=== PATIENT | male | born 1960 | race Caucasian/White ===

== ENCOUNTER → 2017-05-03 07:40 | Outpatient (CLI) | payer OTHER, SELFPAY ==
[2017-05-03 08:43] LABS: ALB/GLOB Ratio 1.1 RATIO (0.9-2.4); AST(SGOT) 62 U/L (15-37); Alanine Aminotransfer ALT/SGPT 102 U/L (16-61); Albumin, Serum 3.9 g/dL (3.2-5.0); Alkaline Phosphatase 73 U/L (45-117); Anion Gap 9 (5-15); BUN 18 mg/dL (7-18); Calcium,Total 8.6 mg/dL (8.5-10.1); Chloride 106 mmol/L (98-107); Cholesterol 151 mg/dL (200); Creatinine, Serum 1.06 mg/dL (0.70-1.30); EST Glomerular Filtration Rate 77 mL/min (>60); Est Glom Filt Rate - Afr Amer 93 mL/min (>60); Globulin 3.4 g/dL (2.2-4.2); Glucose 148 mg/dL (74-106); High Density Lipoprotein 43 mg/dL; Protein, Total 7.3 g/dL (6.4-8.2); Sodium Level 139 mmol/L (136-145); Triglycerides 149 mg/dL; Very Low Density Lipoprotein 30 mg/dL (5-40)
[2017-05-03 08:46] LABS: Hemoglobin A1c 6.3 % (4.2-6.3)
== END ==
PROVIDERS: Family Provider Family Medicine; PCP Family Medicine; Visit Provider Family Medicine
DX: E11.9 Type 2 diabetes mellitus without complications (principal); E78.1 Pure hyperglyceridemia; R79.89 Other specified abnormal findings of blood chemistry
CPT/HCPCS: 36415; 80053; 80061; 83036

== ENCOUNTER → 2017-08-23 07:38 | Outpatient (CLI) | payer BC, SELFPAY ==
[2017-08-23 08:23] LABS: Absolute Lymphocyte Count 1.71 X10^3/ul (0.83-4.51); Absolute Neutrophil Count 3.5 X10^3/uL (2.0-7.7); Basophil# 0.06 X10^3/uL; Basophil% 0.9 % (0-1); Eosinophil# 0.48 X10^3/uL; Eosinophils% 7.5 % (0-5); Hematocrit 46.5 % (40-54); Hemoglobin 16.1 g/dl (13.0-16.5); Lymphocyte # 1.71 X10^3/ul (4.0); Lymphocyte % 26.8 % (19-41); Mean Corp Hgb Conc 34.6 g/gl (32-36); Mean Corpuscular Hgb 31.1 pg (27.0-32.0); Mean Corpuscular Volume 89.9 fL (80-94); Mean Platelet Vol. 11.3 fl (6.2-12.0); Monocyte% 9.4 % (0-10); Neutrophil # 3.49 X10^3/uL (2.7-7.7); Neutrophil % 54.9 % (47-70); Platelet Count 187 K/mm3 (150-450); RBC Distribution Width CV 12.7 % (11.6-14.6); RBC Distribution Width SD 41.6 fl (35.1-43.9); Red Blood Count 5.17 M/mm3 (4.6-6.2); White Blood Count 6.4 K/mm3 (4.4-11.0)
[2017-08-23 08:25] LABS: POSITIVE COUNT NO; POSITIVE DIFFERENTIAL NO; POSITIVE MORPHOLOGY NO
[2017-08-23 08:38] LABS: Hemoglobin A1c 6.9 % (4.2-6.3)
[2017-08-23 08:40] LABS: Microalbumin:Creatinine Ratio 62.9 mg/g CRE (<30 mg/g CRE)
[2017-08-23 08:54] LABS: ALB/GLOB Ratio 1.1 RATIO (0.9-2.4); AST(SGOT) 63 U/L (15-37); Alanine Aminotransfer ALT/SGPT 85 U/L (16-61); Albumin, Serum 3.9 g/dL (3.2-5.0); Alkaline Phosphatase 73 U/L (45-117); Anion Gap 10 (5-15); BUN 12 mg/dL (7-18); BUN/Creat Ratio 11.1 RATIO (10-20); Calcium,Total 8.7 mg/dL (8.5-10.1); Chloride 103 mmol/L (98-107); Cholesterol 152 mg/dL (200); Creatinine, Serum 1.08 mg/dL (0.70-1.30); EST Glomerular Filtration Rate 75 mL/min (>60); Est Glom Filt Rate - Afr Amer 91 mL/min (>60); Globulin 3.6 g/dL (2.2-4.2); Glucose 144 mg/dL (74-106); High Density Lipoprotein 43 mg/dL; Protein, Total 7.5 g/dL (6.4-8.2); Sodium Level 138 mmol/L (136-145); T4 Free Direct 1.02 ng/dL (0.76-1.46); Triglycerides 181 mg/dL; Very Low Density Lipoprotein 36 mg/dL (5-40)
== END ==
PROVIDERS: Family Provider Family Medicine; PCP Family Medicine; Visit Provider Family Medicine
DX: E11.9 Type 2 diabetes mellitus without complications (principal); E78.1 Pure hyperglyceridemia; E03.9 Hypothyroidism, unspecified; R80.9 Proteinuria, unspecified
CPT/HCPCS: 36415; 80053; 80061; 82043; 82570; 83036; 84439; 84443; 85025

== ENCOUNTER → 2018-03-28 07:40 | Outpatient (CLI) | payer BC, SELFPAY ==
[2018-03-28 08:12] LABS: Absolute Lymphocyte Count 1.85 X10^3/ul (0.83-4.51); Absolute Neutrophil Count 3.3 X10^3/uL (2.0-7.7); Basophil# 0.05 X10^3/uL; Basophil% 0.8 % (0-1); Eosinophil# 0.32 X10^3/uL; Hematocrit 48.2 % (40-54); Hemoglobin 16.3 g/dl (13.0-16.5); Lymphocyte # 1.85 X10^3/ul (4.0); Lymphocyte % 29.2 % (19-41); Mean Corp Hgb Conc 33.8 g/gl (32-36); Mean Corpuscular Hgb 31.2 pg (27.0-32.0); Mean Corpuscular Volume 92.2 fL (80-94); Mean Platelet Vol. 11.2 fl (6.2-12.0); Monocyte# 0.78 X10^3/uL; Monocyte% 12.3 % (0-10); Neutrophil # 3.32 X10^3/uL (2.7-7.7); Neutrophil % 52.4 % (47-70); POSITIVE COUNT NO; POSITIVE DIFFERENTIAL NO; POSITIVE MORPHOLOGY NO; Platelet Count 184 K/mm3 (150-450); RBC Distribution Width CV 12.6 % (11.6-14.6); RBC Distribution Width SD 42.3 fl (35.1-43.9); Red Blood Count 5.23 M/mm3 (4.6-6.2); White Blood Count 6.3 K/mm3 (4.4-11.0)
[2018-03-28 08:39] LABS: Microalbumin,Random Urine 97.5 mg/L (NO RANGE EST.); Microalbumin:Creatinine Ratio 51.9 mg/g CRE (<30 mg/g CRE)
[2018-03-28 08:43] LABS: ALB/GLOB Ratio 1.1 RATIO (0.9-2.4); AST(SGOT) 73 U/L (15-37); Alanine Aminotransfer ALT/SGPT 108 U/L (16-61); Albumin, Serum 3.9 g/dL (3.2-5.0); Alkaline Phosphatase 77 U/L (45-117); Anion Gap 9 (5-15); BUN 15 mg/dL (7-18); BUN/Creat Ratio 13.6 RATIO (10-20); Calcium,Total 8.8 mg/dL (8.5-10.1); Chloride 106 mmol/L (98-107); EST Glomerular Filtration Rate 73 mL/min (>60); Est Glom Filt Rate - Afr Amer 88 mL/min (>60); Globulin 3.5 g/dL (2.2-4.2); Glucose 158 mg/dL (74-106); Potassium 4.6 mmol/L (3.5-5.1); Protein, Total 7.4 g/dL (6.4-8.2); Sodium Level 142 mmol/L (136-145); T4 Free Direct 0.88 ng/dL (0.76-1.46); Thyroid Stim Hormone (TSH) 3.46 uIU/mL (0.358-3.74)
== END ==
PROVIDERS: Family Provider Family Medicine; PCP Family Medicine; Referring Provider Family Medicine; Visit Provider Family Medicine
DX: E11.9 Type 2 diabetes mellitus without complications (principal); E03.9 Hypothyroidism, unspecified; R80.9 Proteinuria, unspecified; K76.0 Fatty (change of) liver, not elsewhere classified
CPT/HCPCS: 36415; 80053; 82043; 82570; 84439; 84443; 85025

== ENCOUNTER → 2018-10-07 | Outpatient (CLI) | payer BC, SELFPAY ==
[2018-10-07 17:32] LABS: Thyroid Stim Hormone (TSH) 2.33 uIU/mL (0.358-3.74)
== END | disposition home or self-care (01) ==
LOC: BFHLAB 15:49
PROVIDERS: Family Provider Family Medicine; PCP Family Medicine; Visit Provider Family Medicine
DX: E03.9 Hypothyroidism, unspecified (principal)
CPT/HCPCS: 36415; 84443

== ENCOUNTER → 2019-03-31 15:59 | Outpatient (CLI) | payer BC, SELFPAY ==
[2019-03-31 17:28] LABS: Absolute Lymphocyte Count 2.05 X10^3/uL (0.83-4.51); Basophil# 0.07 X10^3/uL; Basophil% 0.9 % (0-1); Eosinophil# 0.31 X10^3/uL; Eosinophils% 4.2 % (0-5); Hematocrit 45.9 % (40-54); Hemoglobin 15.5 g/dL (13.0-16.5); Lymphocyte # 2.05 X10^3/ul (4.0); Lymphocyte % 27.7 % (19-41); Mean Corp Hgb Conc 33.8 g/dL (32-36); Mean Corpuscular Hgb 30.7 pg (27.0-32.0); Mean Corpuscular Volume 90.9 fL (80-94); Mean Platelet Vol. 11.1 fl (6.2-12.0); Monocyte# 0.92 X10^3/uL; Monocyte% 12.4 % (0-10); NRBC Flagged by Analyzer 0 % (0-5); Neutrophil % 54.1 % (47-70); Platelet Count 281 K/mm3 (150-450); RBC Distribution Width CV 11.8 % (11.6-14.6); RBC Distribution Width SD 39.3 fl (35.1-43.9); Red Blood Count 5.05 M/mm3 (4.6-6.2); White Blood Count 7.4 K/mm3 (4.4-11.0)
[2019-03-31 17:57] LABS: Microalbumin,Random Urine 43.6 mg/L (NO RANGE EST.); Microalbumin:Creatinine Ratio 116.6 mg/g CRE (<30 mg/g CRE)
[2019-03-31 17:58] LABS: ALB/GLOB Ratio 1.1 RATIO (0.9-2.4); AST(SGOT) 66 U/L (15-37); Alanine Aminotransfer ALT/SGPT 100 U/L (16-61); Albumin, Serum 4.1 g/dL (3.2-5.0); Alkaline Phosphatase 77 U/L (45-117); Anion Gap 7 (5-15); BUN 13 mg/dL (7-18); BUN/Creat Ratio 14.6 RATIO (10-20); Calcium,Total 9.3 mg/dL (8.5-10.1); Chloride 104 mmol/L (98-107); Creatinine, Serum 0.89 mg/dL (0.70-1.30); EST Glomerular Filtration Rate 93 mL/min (>60); Est Glom Filt Rate - Afr Amer 113 mL/min (>60); Globulin 3.8 g/dL (2.2-4.2); Glucose 92 mg/dL (74-106); Potassium 3.7 mmol/L (3.5-5.1); Protein, Total 7.9 g/dL (6.4-8.2); Sodium Level 138 mmol/L (136-145); Thyroid Stim Hormone (TSH) 1.57 uIU/mL (0.358-3.74)
== END ==
PROVIDERS: PCP Family Medicine; Visit Provider Family Medicine
DX: E11.9 Type 2 diabetes mellitus without complications (principal); R80.9 Proteinuria, unspecified; K76.0 Fatty (change of) liver, not elsewhere classified; E03.9 Hypothyroidism, unspecified
CPT/HCPCS: 36415; 80053; 82043; 82570; 84443; 85025

== ENCOUNTER → 2019-04-08 14:32 | Outpatient (CLI) | payer OTHER, SELFPAY ==
[2019-04-08 14:23] VITALS: BMI 32.1
--- NOTE | 2019-04-08 14:33 | RAD_ITS ---
STUDY: X-RAY - RIGHT FOOT CLINICAL: Male, 58 years old. SMASH INJURY TO FOURTH TOE TECHNIQUE: 3 view(s) of the foot. COMPARISON: Right foot FINDINGS: Studies of the right foot in 3 projections was performed and shows no evidence of fracture, dislocation, or bony destruction RAD/Foot min 3 Views IMPRESSION: Normal three-view right foot Electronically Signed: Segundo Paul, at 14:57 EST Tel , Service support ,
== END ==
PROVIDERS: PCP Family Medicine; Referring Provider Physician Assistant; Visit Provider Physician Assistant
DX: S97.121A Crushing injury of right lesser toe(s), initial encounter (principal)
CPT/HCPCS: 73630

== ENCOUNTER → 2019-04-26 15:13 | Outpatient (CLI) | payer BC, SELFPAY ==
[2019-04-19 15:16] VITALS: BMI 37.6
[2019-04-26 18:06] LABS: Anion Gap 10 (5-15); BUN 14 mg/dL (7-18); Calcium,Total 9.1 mg/dL (8.5-10.1); Chloride 102 mmol/L (98-107); Creatinine, Serum 0.82 mg/dL (0.70-1.30); EST Glomerular Filtration Rate 102 mL/min (>60); Est Glom Filt Rate - Afr Amer 123 mL/min (>60); Glucose 99 mg/dL (74-106); Potassium 3.5 mmol/L (3.5-5.1); Sodium Level 138 mmol/L (136-145)
== END ==
PROVIDERS: PCP Family Medicine; Visit Provider Family Medicine
DX: I10 Essential (primary) hypertension (principal)
CPT/HCPCS: 36415; 80048

== ENCOUNTER → 2019-10-01 16:13 | Outpatient (CLI) | payer BC, SELFPAY ==
[2019-04-19 15:16] VITALS: BMI 37.6
[2019-10-01 18:24] LABS: Microalbumin,Random Urine 64.2 mg/L (NO RANGE EST.); Microalbumin:Creatinine Ratio 37.3 mg/g CRE (<30 mg/g CRE)
== END ==
PROVIDERS: PCP Family Medicine; Visit Provider Family Medicine
DX: E11.29 Type 2 diabetes mellitus with other diabetic kidney complication (principal); R80.9 Proteinuria, unspecified
CPT/HCPCS: 82043; 82570

== ENCOUNTER → 2020-03-04 09:07 | Outpatient (CLI) | payer BC, SELFPAY ==
[2019-04-19 15:16] VITALS: BMI 37.6
[2020-03-04 09:43] LABS: Absolute Lymphocyte Count 1.57 X10^3/uL (0.83-4.51); Absolute Neutrophil Count 3.2 X10^3/uL (2.0-7.7); Basophil# 0.07 X10^3/uL; Basophil% 1.2 % (0-1); Eosinophil# 0.33 X10^3/uL; Eosinophils% 5.7 % (0-5); Hematocrit 47.6 % (40-54); Hemoglobin 16.2 g/dL (13.0-16.5); Lymphocyte # 1.57 X10^3/ul (4.0); Mean Corpuscular Hgb 30.6 pg (27.0-32.0); Mean Platelet Vol. 11.1 fl (6.2-12.0); Monocyte# 0.64 X10^3/uL; NRBC Flagged by Analyzer 0 % (0-5); Neutrophil # 3.18 X10^3/uL (2.7-7.7); Neutrophil % 54.8 % (47-70); Platelet Count 183 K/mm3 (150-450); RBC Distribution Width CV 11.9 % (11.6-14.6); RBC Distribution Width SD 39.5 fl (35.1-43.9); Red Blood Count 5.29 M/mm3 (4.6-6.2); White Blood Count 5.8 K/mm3 (4.4-11.0)
[2020-03-04 10:28] LABS: ALB/GLOB Ratio 1.2 RATIO (0.9-2.4); AST(SGOT) 46 U/L (15-37); Alanine Aminotransfer ALT/SGPT 73 U/L (16-61); Albumin, Serum 3.9 g/dL (3.2-5.0); Alkaline Phosphatase 73 U/L (45-117); Anion Gap 4 (5-15); BUN 15 mg/dL (7-18); BUN/Creat Ratio 15.1 RATIO (10-20); Calcium,Total 8.6 mg/dL (8.5-10.1); Chloride 106 mmol/L (98-107); Creatinine, Serum 0.99 mg/dL (0.70-1.30); EST Glomerular Filtration Rate 82 mL/min (>60); Est Glom Filt Rate - Afr Amer 99 mL/min (>60); Globulin 3.3 g/dL (2.2-4.2); Glucose 162 mg/dL (74-106); Microalbumin:Creatinine Ratio 97.5 mg/g CRE (<30 mg/g CRE); PSA,Total - Annual Screen 0.86 ng/mL (0.00-4.00); Potassium 4.1 mmol/L (3.5-5.1); Protein, Total 7.2 g/dL (6.4-8.2); Sodium Level 138 mmol/L (136-145); T4 Free Direct 1.02 ng/dL (0.76-1.46); Thyroid Stim Hormone (TSH) 1.23 uIU/mL (0.358-3.74)
== END ==
PROVIDERS: PCP Family Medicine; Referring Provider Family Medicine; Visit Provider Family Medicine
DX: E11.9 Type 2 diabetes mellitus without complications (principal); E03.9 Hypothyroidism, unspecified; K76.0 Fatty (change of) liver, not elsewhere classified; E78.1 Pure hyperglyceridemia; Z91.038 Other insect allergy status
CPT/HCPCS: 36415; 80053; 82043; 82570; 84153; 84439; 84443; 85025; G0103

== ENCOUNTER → 2020-09-08 17:41 | Outpatient (CLI) | payer BC, SELFPAY ==
[2019-04-19 15:16] VITALS: BMI 37.6
== END ==
PROVIDERS: PCP Family Medicine; Visit Provider Family Medicine
DX: R32 Unspecified urinary incontinence (principal)
CPT/HCPCS: 87086

== ENCOUNTER → 2021-01-27 08:05 | Outpatient (CLI) | payer BC, SELFPAY ==
[2021-01-27 08:22] LABS: Absolute Lymphocyte Count 1.62 X10^3/uL (0.83-4.51); Absolute Neutrophil Count 3.2 X10^3/uL (2.0-7.7); Basophil# 0.05 X10^3/uL; Basophil% 0.9 % (0-1); Eosinophil# 0.17 X10^3/uL; Hematocrit 46.9 % (40-54); Hemoglobin 15.8 g/dL (13.0-16.5); Lymphocyte # 1.62 X10^3/ul (0.83-4.51); Lymphocyte % 28.5 % (19-41); Mean Corp Hgb Conc 33.7 g/dL (32-36); Mean Platelet Vol. 10.7 fl (6.2-12.0); Monocyte# 0.64 X10^3/uL; Monocyte% 11.2 % (0-10); NRBC Flagged by Analyzer 0 % (0-5); Neutrophil # 3.19 X10^3/uL (2.7-7.7); Platelet Count 204 K/mm3 (150-450); RBC Distribution Width CV 11.8 % (11.6-14.6); RBC Distribution Width SD 40.4 fl (35.1-43.9); White Blood Count 5.7 K/mm3 (4.4-11.0)
[2021-01-27 08:51] LABS: ALB/GLOB Ratio 1.1 RATIO (0.9-2.4); AST(SGOT) 39 U/L (15-37); Alanine Aminotransfer ALT/SGPT 67 U/L (16-61); Alkaline Phosphatase 77 U/L (45-117); Anion Gap 7 (5-15); BUN 14 mg/dL (7-18); BUN/Creat Ratio 14.9 RATIO (10-20); Calcium,Total 9.2 mg/dL (8.5-10.1); Chloride 105 mmol/L (98-107); Cholesterol 137 mg/dL (200); Creatinine, Serum 0.94 mg/dL (0.70-1.30); EST Glomerular Filtration Rate 87 mL/min (>60); Est Glom Filt Rate - Afr Amer 105 mL/min (>60); Globulin 3.5 g/dL (2.2-4.2); Glucose 164 mg/dL (74-106); High Density Lipoprotein 47 mg/dL; Potassium 4.4 mmol/L (3.5-5.1); Protein, Total 7.5 g/dL (6.4-8.2); Sodium Level 140 mmol/L (136-145); T4 Free Direct 1.27 ng/dL (0.76-1.46); Thyroid Stim Hormone (TSH) 0.99 uIU/mL (0.358-3.74); Triglycerides 99 mg/dL; Very Low Density Lipoprotein 20 mg/dL (5-40)
[2021-01-27 10:56] LABS: Hemoglobin A1c 6.3 % (3.8-5.6)
== END ==
PROVIDERS: PCP Family Medicine; Referring Provider Family Medicine; Visit Provider Family Medicine
DX: E03.9 Hypothyroidism, unspecified (principal); K76.0 Fatty (change of) liver, not elsewhere classified; E11.9 Type 2 diabetes mellitus without complications
CPT/HCPCS: 36415; 80053; 80061; 83036; 84439; 84443; 85025

== ENCOUNTER 2021-02-26 15:30 | Outpatient (RCR) | payer BC, SELFPAY ==
--- NOTE | 2020-12-11 16:49 | HP.PTEVAL_ITS ---
Patient's Visit Information JOY GENTILE is a 60 year old M referred to Physical Therapy by Dr. Chris Bishop MD with a diagnosis of Bilateral Knee Pain. Date of Evaluation: 12/11/20 Physical Therapist: Keerthi Sparks DPT - Visit Plan Frequency: 3x /Week Duration: 4 Weeks Plan: Aquatic Therapy. Focus on LE and core strength/stabilization. Functional mobility with less pain - Subjective Patient reports that [employer] wants to do a partial knee replacement on the left and the right is worse than the left but the left is more painful. He wears two knee braces all the time-sleeve. They are stabilizing the knee but still tries to get exercise- about 30 min a day at his job. Works at [email or web address]- did a 1.66 miles today at work. The knees get tired and sore and does use ice. Job- he can rotate sitting and standing- can ice during work as needed. He has had xray and MRI on both knees. Worst: 09/19 Agg: lifting up to #50-#80, walking or standing any distances. Left knee does buckle on him a couple of times a day. No falls as he is able to catch himself. Eases: ice, rest, knee braces. 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 Best: 04/19. Pain is located along the distal patella and radiates to medial side of the knee. Does not radiate to the hip or ankle. Describes the pain as dull and achy- but step funny or twists then its sharp. No N/T in the LE. Sleep: occasionally-side sleeper- CPAP machine. Fully I with all ADL's. Does have stairs at home- single story with a basement only goes down 1x a week to do cat litter. Carries up/down #40- puts it up a couple steps and then steps to it- step to pattern. Ramp to enter the home. Does not use AD but does have access to them as needed. - Objective Posture: FH, RS- can correct but does not maintain. Gait: antalgic- decreased stance on the left LE- poor heel strike due to decreased ROM and reports buckling. Stairs: asc/desc 8 non-recip with 1 HR and poor control with descent and uses UE A for propulsion continues to report buckling sensation. HR/TR: able with UE A but reports discomfort with both HR and TR on the left. SLS: Left: unable due to buckling, Right: 5 seconds. Sensation/Reflex: WFL. ROM: 0-120 degrees with pain at end ranges- reports significant pain when taken back out of end range flexion. Strength: Core: fair minus, Hip: 4/5 throughout, Knee: 4/5 pain with testing, Ankle: 5/5. Flex: HS: severe, Gastroc: severe. Special Test: none done due to MRI results and current pain with movement, Sit to Stand: required UE A to rise from chair - Goals Goal 1:: Patient will be I with HEP and progression Goal Time Frame: 4-6 Weeks Goal 2:: Patient will ambulate >300 feet with a normalized gait patern Goal Time Frame: 4-6 Weeks Goal 3:: Patient will asc/desc 8 stairs recip with 1 HR Goal Time Frame: 4-6 Weeks Goal 4:: Patient will report no more than 5/10 pain for 1 week Goal Time Frame: 6-8 Weeks - Rehabilitation Potential Physical Therapy Diagnosis: Patient presents with hypomobility- he has decreased pain free ROM, LE and core strength/stabilization, flex, proprioception and muscular endurance leading to increased pain with ADL's. Rehabilitation Potential: Good - Anticipated Interventions Patient/Client Instruction: Educate patient on: Benefits of Fitness Program Therapeutic Exercise to Include: Strength training, Endurance training, Balance training, Coordination, Body mechanics, Postural training, Flexibilty training, Gait and locomotor training, Neuromotor development, In an aquatic setting, Dynamic Lumbar Stabilization, Scapular Strength/Stabilization For the Purpose of:: To improve muscle performance and motor function Thank you for the opportunity to evaluate your patient. For Medicare and Medicare HMO plans, please review the plan of care and approve it. It will need to be FAXED BACK to us at [phone] for Medicare purposes. For Medicare only, by signing this I certify the plan of care. Please let me know if there are questions or concerns regarding this plan of care. Physician Signature: Date:
--- NOTE | 2021-01-30 09:18 | HP.PTREVAL ---
Dr. Chris Bishop MD, It has been my pleasure to treat JOY GENTILE over the last 10 visits for Bilateral Knee Pain. Please see the progress note below for an update on the physical therapy plan of care! Subjective: Patient reports that he feels that water therapy is really helping and he needs more. He is not using as much ice and the pain is less. He is dropping weight and has lost almost 50 lbs and wants to continue to work towards weight loss. He can't get down on his knees due to pain and feels its dangerous- so he can't fix the sink in the bathroom. He has less buckling of the knee. He is off the next two weeks. Objective/Function: Posture: FH, RS- can correct but does not maintain. Gait: slightly antalgic- decreased stance on the left LE- decreased heel/toe pattern- but improved toes turned forwards. Stairs: asc/desc 8 recip with 1 HR- still lacks control with descent HR/TR: able with UE A SLS: Left: 5, Right: 10 seconds. Sensation/Reflex: WFL. ROM: 0-120 degrees with pain at end ranges Strength: Core: fair minus, Hip: 4+/5 throughout, Knee: 4+/5 pain with testing only on the left, Ankle: 5/5. Flex: HS: mod, Gastroc: mod. Sit to Stand: without UE A x3 Plan Plan: 01/30/21: Continue aquatic therapy for an additional 2x a week for 4 weeks to progress towards goals. Balance/Gait/Functional tests - Balance/Special Test Scores Lower Extremity Functional Score: 43 Goals Goal 1:: Patient will be I with HEP and progression Goal Time Frame: 4-6 Weeks Goal Progress: Progressing Goal 2:: Patient will ambulate >300 feet with a normalized gait patern Goal Time Frame: 4-6 Weeks Goal Progress: Progressing Goal 3:: Patient will asc/desc 8 stairs recip with 1 HR Goal Time Frame: 4-6 Weeks Goal Progress: Progressing Goal 4:: Patient will report no more than 5/10 pain for 1 week Goal Time Frame: 6-8 Weeks Goal Progress: Progressing Anticipated Interventions Patient/Client Instruction: Educate patient on: Benefits of Fitness Program Therapeutic Exercise to Include: Strength training, Endurance training, Balance training, Coordination, Body mechanics, Postural training, Flexibilty training, Gait and locomotor training, Neuromotor development, In an aquatic setting, Dynamic Lumbar Stabilization, Scapular Strength/Stabilization For the Purpose of:: To improve muscle performance and motor function Please do not hesitate to contact me at [phone] by phone or if you have questions or concerns regarding this new plan of care! Sincerely, LEILA ConwayT
--- NOTE | 2021-02-26 15:49 | HP.PTREVAL ---
Dr. Chris Bishop MD, It has been my pleasure to treat JOY GENTILE over the last 14 visits for Bilateral Knee Pain. Please see the progress note below for an update on the physical therapy plan of care! Subjective: Patient reports that he continues to get better. He feels that the water therapy is keeping him from having a surgery on the left knee. Feels that the water is a lot gentler on his joints. Objective/Function: Posture: FH, RS- can correct but does not maintain. Gait: slightly antalgic- decreased stance on the left LE- decreased heel/toe pattern- but improved toes turned forwards. Stairs: asc/desc 8 recip with 1 HR- still lacks control with descent HR/TR: able with UE A SLS: Left: 5, Right: 30 seconds. Sensation/Reflex: WFL. ROM: 0-120 degrees with pain at end ranges Strength: Core: fair , Hip: 4+/5 throughout, Knee: 5/5 pain, Ankle: 5/5. Flex: HS: mod, Gastroc: mod. Plan Plan: Continue aquatic therapy 2x a week for 4 weeks- progress towards goals and Indep home exercise program. Balance/Gait/Functional tests - Balance/Special Test Scores Lower Extremity Functional Score: 39 Goals Goal 1:: Patient will be I with HEP and progression Goal Time Frame: 4-6 Weeks Goal Progress: Progressing Goal 2:: Patient will ambulate >300 feet with a normalized gait patern Goal Time Frame: 4-6 Weeks Goal Progress: Progressing Goal 3:: Patient will asc/desc 8 stairs recip with 1 HR Goal Time Frame: 4-6 Weeks Goal Progress: Progressing Goal 4:: Patient will report no more than 5/10 pain for 1 week Goal Time Frame: 6-8 Weeks Goal Progress: Progressing Anticipated Interventions Patient/Client Instruction: Educate patient on: Benefits of Fitness Program Therapeutic Exercise to Include: Strength training, Endurance training, Balance training, Coordination, Body mechanics, Postural training, Flexibilty training, Gait and locomotor training, Neuromotor development, In an aquatic setting, Dynamic Lumbar Stabilization, Scapular Strength/Stabilization For the Purpose of:: To improve muscle performance and motor function Please do not hesitate to contact me at [phone] by phone or if you have questions or concerns regarding this new plan of care! Sincerely, Keerthi Sparks, LEILAT
== END 2021-02-26 19:00 | disposition home or self-care (01) ==
LOC: PT 15:30
PROVIDERS: PCP Family Medicine; Referring Provider Family Medicine; Visit Provider Family Medicine
DX: M25.561 Pain in right knee (principal); M25.562 Pain in left knee
CPT/HCPCS: 97113; 97162; 97164

== ENCOUNTER → 2022-04-25 | Outpatient (CLI) | payer OTHER, SELFPAY ==
[2022-04-25 16:51] LABS: Absolute Lymphocyte Count 2.05 X10^3/uL (0.83-4.51); Absolute Neutrophil Count 3.1 X10^3/uL (2.0-7.7); Basophil# 0.06 X10^3/uL; Eosinophil# 0.19 X10^3/uL; Eosinophils% 3.2 % (0-5); Hematocrit 42.9 % (40-54); Hemoglobin 14.8 g/dL (13.0-16.5); Lymphocyte # 2.05 X10^3/ul (0.83-4.51); Mean Corp Hgb Conc 34.5 g/dL (32-36); Mean Corpuscular Hgb 31.6 pg (27.0-32.0); Mean Corpuscular Volume 91.5 fL (80-94); Mean Platelet Vol. 11.3 fl (6.2-12.0); Monocyte# 0.67 X10^3/uL; Monocyte% 11.1 % (0-10); NRBC Flagged by Analyzer 0 % (0-5); Neutrophil # 3.05 X10^3/uL (2.7-7.7); Neutrophil % 50.5 % (47-70); Platelet Count 214 K/mm3 (150-450); RBC Distribution Width SD 40.3 fl (35.1-43.9); Red Blood Count 4.69 M/mm3 (4.6-6.2)
[2022-04-25 17:01] LABS: Microalbumin:Creatinine Ratio 13.6 mg/g CRE (<30 mg/g CRE)
[2022-04-25 17:06] LABS: ALB/GLOB Ratio 1.2 RATIO (0.9-2.4); AST(SGOT) 39 U/L (15-37); Alanine Aminotransfer ALT/SGPT 52 U/L (16-61); Albumin, Serum 3.9 g/dL (3.2-5.0); Alkaline Phosphatase 70 U/L (45-117); Anion Gap 7 (5-15); BUN 14 mg/dL (7-18); BUN/Creat Ratio 16.3 RATIO (10-20); Calcium,Total 9.2 mg/dL (8.5-10.1); Chloride 104 mmol/L (98-107); Cholesterol 141 mg/dL (200); Creatinine, Serum 0.86 mg/dL (0.70-1.30); EST Glomerular Filtration Rate 96 mL/min (>60); Est Glom Filt Rate - Afr Amer 116 mL/min (>60); Globulin 3.3 g/dL (2.2-4.2); Glucose 119 mg/dL (74-106); High Density Lipoprotein 32 mg/dL; Potassium 4.1 mmol/L (3.5-5.1); Protein, Total 7.2 g/dL (6.4-8.2); Sodium Level 139 mmol/L (136-145); Thyroid Stim Hormone (TSH) 0.51 uIU/mL (0.358-3.74); Triglycerides 254 mg/dL; Very Low Density Lipoprotein 51 mg/dL (5-40)
[2022-04-25 17:46] LABS: Hemoglobin A1c 6.1 % (3.8-5.6)
== END | disposition home or self-care (01) ==
LOC: BIMLAB 15:46
PROVIDERS: PCP Family Medicine; Visit Provider Internal Medicine
DX: I10 Essential (primary) hypertension (principal); E11.9 Type 2 diabetes mellitus without complications; E03.9 Hypothyroidism, unspecified
CPT/HCPCS: 36415; 80053; 80061; 82043; 82570; 83036; 84443; 85025

== ENCOUNTER → 2023-03-01 | Outpatient (CLI) | payer OTHER, SELFPAY ==
[2023-03-01 08:09] LABS: Absolute Lymphocyte Count 1.84 X10^3/uL (0.83-4.51); Absolute Neutrophil Count 3.4 X10^3/uL (2.0-7.7); Basophil# 0.07 X10^3/uL; Basophil% 1.1 % (0-1); Eosinophil# 0.22 X10^3/uL; Eosinophils% 3.5 % (0-5); Hematocrit 46.1 % (40-54); Hemoglobin 15.3 g/dL (13.0-16.5); Lymphocyte # 1.84 X10^3/ul (0.83-4.51); Lymphocyte % 29.7 % (19-41); Mean Corp Hgb Conc 33.2 g/dL (32-36); Mean Corpuscular Hgb 30.7 pg (27.0-32.0); Mean Corpuscular Volume 92.6 fL (80-94); Mean Platelet Vol. 11.4 fl (6.2-12.0); Monocyte# 0.66 X10^3/uL; Monocyte% 10.6 % (0-10); NRBC Flagged by Analyzer 0 % (0-5); Neutrophil # 3.38 X10^3/uL (2.7-7.7); Neutrophil % 54.6 % (47-70); Platelet Count 202 K/mm3 (150-450); RBC Distribution Width CV 12.1 % (11.6-14.6); RBC Distribution Width SD 41.4 fl (35.1-43.9); Red Blood Count 4.98 M/mm3 (4.6-6.2); White Blood Count 6.2 K/mm3 (4.4-11.0)
[2023-03-01 08:17] LABS: ALB/GLOB Ratio 1.2 RATIO (0.9-2.4); AST(SGOT) 35 U/L (15-37); Alanine Aminotransfer ALT/SGPT 45 U/L (16-61); Alkaline Phosphatase 69 U/L (45-117); Anion Gap 4 (5-15); BUN 17 mg/dL (7-18); BUN/Creat Ratio 19.3 RATIO (10-20); Calcium,Total 9.5 mg/dL (8.5-10.1); Chloride 109 mmol/L (98-107); Cholesterol 143 mg/dL (200); Creatinine, Serum 0.88 mg/dL (0.70-1.30); EST Glomerular Filtration Rate 93 mL/min (>60); Est Glom Filt Rate - Afr Amer 112 mL/min (>60); Globulin 3.2 g/dL (2.2-4.2); Glucose 158 mg/dL (74-106); High Density Lipoprotein 47 mg/dL; PSA,Total - Annual Screen 0.37 ng/mL (0.00-4.00); Potassium 4.4 mmol/L (3.5-5.1); Protein, Total 7.2 g/dL (6.4-8.2); Sodium Level 141 mmol/L (136-145); Thyroid Stim Hormone (TSH) 0.78 uIU/mL (0.358-3.74); Triglycerides 101 mg/dL; Very Low Density Lipoprotein 20 mg/dL (5-40)
[2023-03-01 10:30] LABS: Microalbumin,Random Urine 32.3 mg/L (NO RANGE EST.); Microalbumin:Creatinine Ratio 18.6 mg/g CRE (<30 mg/g CRE)
== END | disposition home or self-care (01) ==
LOC: LAB 06:52
PROVIDERS: Referring Provider Internal Medicine; Visit Provider Internal Medicine
DX: E03.9 Hypothyroidism, unspecified (principal); E11.9 Type 2 diabetes mellitus without complications; I10 Essential (primary) hypertension; N40.0 Benign prostatic hyperplasia without lower urinary tract symptoms
CPT/HCPCS: 36415; 80053; 80061; 82043; 82570; 84153; 84443; 85025; G0103

== ENCOUNTER → 2023-06-04 | Outpatient (CLI) | payer OTHER, SELFPAY ==
[2023-06-04 17:50] LABS: Anion Gap 5 (5-15); BUN 17 mg/dL (7-18); BUN/Creat Ratio 19.1 RATIO (10-20); Calcium,Total 9.3 mg/dL (8.5-10.1); Chloride 107 mmol/L (98-107); Creatinine, Serum 0.89 mg/dL (0.70-1.30); EST Glomerular Filtration Rate 92 mL/min (>60); Est Glom Filt Rate - Afr Amer 111 mL/min (>60); Glucose 110 mg/dL (74-106); Magnesium 2.1 mg/dL (1.6-2.6); Sodium Level 140 mmol/L (136-145)
== END | disposition home or self-care (01) ==
LOC: BIMLAB 16:20
PROVIDERS: PCP Internal Medicine; Visit Provider Internal Medicine
DX: I10 Essential (primary) hypertension (principal)
CPT/HCPCS: 36415; 80048; 83735

== ENCOUNTER → 2024-01-06 | Outpatient (CLI) | payer OTHER, SELFPAY | END | disposition home or self-care (01) | LOC: SL 19:48 | PROVIDERS: PCP Internal Medicine; Referring Provider Internal Medicine; Visit Provider Internal Medicine | DX: G47.33 Obstructive sleep apnea (adult) (pediatric) (principal) | CPT/HCPCS: 95811 ==

== ENCOUNTER → 2024-03-20 | Outpatient (CLI) | payer BC, SELFPAY ==
[2024-03-20 08:04] LABS: Basophil# 0.09 X10^3/uL; Basophil% 1.1 % (0-1); Eosinophil# 0.29 X10^3/uL; Eosinophils% 3.7 % (0-5); Hematocrit 41.6 % (40-54); Hemoglobin 14.1 g/dL (13.0-16.5); Lymphocyte % 21.7 % (19-41); Mean Corp Hgb Conc 33.9 g/dL (32-36); Mean Corpuscular Volume 94.5 fL (80-94); Mean Platelet Vol. 10.9 fl (6.2-12.0); Monocyte# 0.67 X10^3/uL; Monocyte% 8.6 % (0-10); NRBC Flagged by Analyzer 0 % (0-5); Neutrophil # 4.99 X10^3/uL (2.7-7.7); Neutrophil % 63.8 % (47-70); Platelet Count 210 K/mm3 (150-450); RBC Distribution Width CV 12.5 % (11.6-14.6); RBC Distribution Width SD 43.6 fl (35.1-43.9); White Blood Count 7.8 K/mm3 (4.4-11.0)
[2024-03-20 08:17] LABS: Microalbumin:Creatinine Ratio 112.4 mg/g CRE (<30 mg/g CRE)
[2024-03-20 09:14] LABS: AST(SGOT) 64 U/L (15-37); Alanine Aminotransfer ALT/SGPT 60 U/L (16-61); Albumin, Serum 3.9 g/dL (3.2-5.0); Alkaline Phosphatase 61 U/L (45-117); Anion Gap 6 (5-15); BUN 18 mg/dL (7-18); BUN/Creat Ratio 17.1 RATIO (10-20); Chloride 104 mmol/L (98-107); Cholesterol 176 mg/dL (200); Creatinine, Serum 1.05 mg/dL (0.70-1.30); EST Glomerular Filtration Rate 76 mL/min (>60); Est Glom Filt Rate - Afr Amer 92 mL/min (>60); Globulin 3.8 g/dL (2.2-4.2); Glucose 160 mg/dL (74-106); High Density Lipoprotein 52 mg/dL; PSA,Total - Annual Screen 0.43 ng/mL (0.00-4.00); Potassium 4.4 mmol/L (3.5-5.1); Protein, Total 7.7 g/dL (6.4-8.2); Sodium Level 138 mmol/L (136-145); Triglycerides 112 mg/dL; Very Low Density Lipoprotein 22 mg/dL (5-40)
[2024-03-21 18:52] LABS: Hemoglobin A1c 6.4 % (3.8-5.6)
== END | disposition home or self-care (01) ==
LOC: LAB 07:28
PROVIDERS: PCP Internal Medicine; Referring Provider Internal Medicine; Visit Provider Internal Medicine
DX: E11.69 Type 2 diabetes mellitus with other specified complication (principal); Z12.5 Encounter for screening for malignant neoplasm of prostate; E03.9 Hypothyroidism, unspecified
CPT/HCPCS: 36415; 80053; 80061; 82043; 82570; 83036; 84153; 84443; 85025; G0103

== ENCOUNTER → 2024-07-08 | Outpatient (CLI) | payer BC, SELFPAY ==
--- NOTE | 2024-07-08 08:01 | EKG12_ITS ---
Test Reason : PRE OP Blood Pressure : */* mmHG Vent. Rate : 71 BPM Atrial Rate : 72 BPM P-R Int : * ms QRS Dur : 90 ms QT Int : 406 ms P-R-T Axes : * -52 26 degrees QTcB Int : 441 ms Normal sinus rhythm Left axis deviation Septal infarct , age undetermined Abnormal ECG Confirmed by Aaron Watt ([id number]), mapping editor TESSA PHOENIX ([id number]) on 07/12/2024 11:30:49 AM Referred By: Patrick Bowles Confirmed By: Aaron Watt
--- NOTE | 2024-07-08 08:13 | CT_ITS ---
PROCEDURE: EXTREMITY LOWER WITHOUT CONTRA 07/08/2024 REASON FOR EXAM: OSTEOARTHRITIS [facility] protocol for right knee replacement. TECHNIQUE: Axial CT images of the right hip joint, right knee joint and right ankle joint obtained with intravenous contrast. Coronal and Sagittal reconstruction series were provided. CONTRAST: None One or more dose reduction techniques were used (e.g., Automated exposure control, adjustment of the mA and/or kV according to patient size, use of iterative reconstruction technique). RADIATION DOSE SUMMARY: CTDlvol: 18.6 mGy DLP: 1346.4 mGycm COMPARISON: None FINDINGS: Bones: Degenerative changes of the knee joint. Joints: Imaging of the right hip joint was performed. The joint space is relatively well-maintained. No erosive changes. Incidental note is made of irregular prostatic calcification. Imaging of the right knee joint was performed. [id number]-[id number] degree of joint space narrowing and degenerative spur formation along the medial compartment of the knee joint. Mild degree of patellofemoral osteoarthritis. Imaging of the ankle joint was obtained. There is good alignment. Evidence of plantar calcaneal spur. Soft Tissues: Tiny knee joint effusion. CT/Extremity Lower without Contra IMPRESSION: Mdcfysbe-iw-[id number] degree of joint space narrowing involving the medial compart ment of the knee joint as described. Mild degree of patellofemoral joint space narrowing. Reading Location: [place] [address]
[2024-07-08 09:03] LABS: Absolute Lymphocyte Count 1.76 X10^3/uL (0.83-4.51); Basophil# 0.06 X10^3/uL; Basophil% 1.1 % (0-1); Eosinophils% 3.5 % (0-5); Hematocrit 43.3 % (40-54); Lymphocyte # 1.76 X10^3/ul (0.83-4.51); Lymphocyte % 30.9 % (19-41); Mean Corp Hgb Conc 34.6 g/dL (32-36); Mean Corpuscular Hgb 31.5 pg (27.0-32.0); Mean Platelet Vol. 11.3 fl (6.2-12.0); Monocyte# 0.67 X10^3/uL; Monocyte% 11.8 % (0-10); NRBC Flagged by Analyzer 0 % (0-5); Neutrophil # 2.99 X10^3/uL (2.7-7.7); Neutrophil % 52.3 % (47-70); Platelet Count 193 K/mm3 (150-450); RBC Distribution Width CV 12.1 % (11.6-14.6); RBC Distribution Width SD 40.2 fl (35.1-43.9); Red Blood Count 4.76 M/mm3 (4.6-6.2); White Blood Count 5.7 K/mm3 (4.4-11.0)
[2024-07-08 09:42] LABS: Albumin, Serum 4.5 g/dL (3.4-4.8); Anion Gap 12 (5-15); BUN 15 mg/dL (4-19); BUN/Creat Ratio 18.1 RATIO (10-20); Calcium,Total 9.5 mg/dL (7.6-11.0); Carbon Dioxide 24.3 mmol/L (21.0-32.0); Chloride 104 mmol/L (98-108); Creatinine, Serum 0.84 mg/dL (0.70-1.20); EST Glomerular Filtration Rate 97 (>60); Glucose 136 mg/dL (70-99); Potassium 4.3 mmol/L (3.3-5.1); Sodium Level 140 mmol/L (133-145)
== END | disposition home or self-care (01) ==
LOC: PSN 07:43
PROVIDERS: PCP Internal Medicine; Referring Provider Specialist; Visit Provider Specialist
DX: Z01.818 Encounter for other preprocedural examination (principal); E11.9 Type 2 diabetes mellitus without complications; Z01.810 Encounter for preprocedural cardiovascular examination; M17.11 Unilateral primary osteoarthritis, right knee; I10 Essential (primary) hypertension; E07.9 Disorder of thyroid, unspecified; Z79.899 Other long term (current) drug therapy; Z79.890 Hormone replacement therapy; Z79.84 Long term (current) use of oral hypoglycemic drugs
CPT/HCPCS: 36415; 73700; 80048; 82040; 84443; 85025; 93005

== ENCOUNTER → 2024-07-14 | Outpatient (CLI) | payer BC, SELFPAY ==
[2024-07-14 13:38] LABS: Bacteria 0 SEEN /hpf (None Seen); Mucous, Urine 0 SEEN /hpf (<or=2+); Red Blood Cells-Urine 0 SEEN /hpf (0-5); Squamous Epithelial Cells - UA 0 SEEN /hpf (0-5); White Blood Cells 0 SEEN /hpf (0-5)
[2024-07-14 15:54] LABS: Color, Urine Yellow (Yellow); Glucose, Dipstick Normal (Normal); Ketone-Dipstick 5 mg/dl (Negative); Leukocyte Esterase-Dipstick Negative /ul (Negative); Nitrite-Dipstick Negative (Negative); Occult Blood-Urine Negative /ul (Negative); Protein-Dipstick 15 mg/dl (Negative); Specific Gravity, Urine 1.025 (1.002-1.030); Urine Bilirubin Dipstick Negative (Negative); Urine Clarity Clear (Clear); Urine Urobilinogen Normal (Normal)
== END | disposition home or self-care (01) ==
LOC: LABSPEC 13:35
PROVIDERS: PCP Internal Medicine; Referring Provider Internal Medicine; Visit Provider Internal Medicine
DX: R82.90 Unspecified abnormal findings in urine (principal)
CPT/HCPCS: 81001

== ENCOUNTER → 2024-10-01 | Outpatient (CLI) | payer BC, SELFPAY ==
--- OUTSIDE RECORDS SUMMARY | 2024-10-01 06:25 | XMS RPT_ITS | CCD ---
Author Organization [facility] [place] CliniSyct Care Team Providers Care Adjunct Teacher Name Role Phone Dr. Chris Bishop Primary Care Provider Dr. Chris Bishop Referring Provider Dr. Jose Yuan Attending Provider [phone] Dr. Jose Yuan Attending Provider [phone] Dr. Jose Yuan Attending Provider [phone] Kwabena CAREY, Dr. Garcia Primary Care Provider Kwabena CAREY, Dr. Garcia Attending Provider [phone] Kwabena CAREY, Dr. Garcia Referring Provider [phone] Jeelna CAREY, Dr. Nguyen Attending Provider [phone] Jelena CAREY, Dr. Nguyen Referring Provider [phone] Alysa CAREY, Dr. Walker Attending Provider Oleghe, Efewongbe Primary Care Unavailable Oleghe, Efewongbe Attending Unavailable Oleghe, Efewongbe Referring Unavailable Patrick Bowles Referring Unavailable Patrick Bowles Attending Unavailable Oleghe, Efewongbe Primary Care Unavailable Oleghe, Efewongbe Attending Unavailable Oleghe, Efewongbe Referring Unavailable Oleghe, Efewongbe Primary Care Unavailable Patrikc Bowles Referring Unavailable Oleghe, Efewongbe Primary Care Unavailable Patrick Bowles Attending Unavailable Patrick Bowles Attending Unavailable Patrick Bowles Referring Unavailable Oleghe, Efewongbe Primary Care Unavailable Oleghe, Efewongbe Attending Unavailable Oleghe, Efewongbe Referring Unavailable Oleghe, Efewongbe Primary Care Unavailable Oleghe, Efewongbe Primary Care Unavailable Oleghe, Efewongbe Attending Unavailable Oleghe, Efewongbe Referring Unavailable Oleghe, Efewongbe Primary Care Unavailable Oleghe, Efewongbe Attending Unavailable Oleghe, Efewongbe Referring Unavailable Patrick Bowles Referring Unavailable Aaron Watt Attending Unavailable Oleghe, Efewongbe Primary Care Unavailable Lizbet Baker Attending Unava ilable Oleghe, Efewongbe Primary Care Unavailable Oleghe, Efewongbe Primary Care Unavailable Oleghe, Efewongbe Attending Unavailable Oleghe, Efewongbe Referring Unavailable Oleghe, Efewongbe Primary Care Unavailable Oleghe, Efewongbe Attending Unavailable Oleghe, Efewongbe Referring Unavailable Allergies Allergy Classification Reported Allergen(s) Allergy Type Date of Onset Reaction(s) Facility (8 sources) Grass pollen; Translations: [grass pollen] Allergy to substance 04-19-2019 UNKNOWN [facility] (8 sources) Penicillins; Translations: [Penicillins] Allergy to substance 04-19-2019 Rash [facility] (8 sources) Tree and shrub pollen; Translations: [tree and shrub pollen] Allergy to substance 04-19-2019 UNKNOWN [facility] (8 sources) house dust mite; Translations: [house dust mite] Allergy to substance 04-19-2019 UNKNOWN [facility] (7 sources) venom-honey bee Allergy to substance 04-19-2019 UNKNOWN [facility] (1 source) venom-honey bee Drug allergy (disorder) 07-14-2024 [facility] Repository Medications Current Medications Medication Drug Class(es) Dates Sig (Normalized) Sig (Original) Fluticasone Propion-Salmeterol (Advair Hfa) 115-21 mcg/actuation HFA aerosol inhaler (1 source) Start: 04-24-2022 take 1 puff(s) by inhalation once daily Fluticasone Propion-Salmeterol (Advair Hfa) 115-21 mcg/actuation HFA aerosol inhaler Active 2 PUFF INHALATION DAILY April 24, 2022 12:00am loratadine 10 mg oral tablet (7 sources) Start: 04-08-2019 take 1 tablet by mouth once daily Loratadine (Claritin) 10 mg tablet Active 10 mg PO DAILY April 08, 2019 1:00am montelukast 10 mg oral tablet (11 sources) Leukotriene Receptor Antagonist Start: 04-24-2022 End: 07-31-2022 take 1 tablet by mouth once daily Montelukast 10 mg tablet Active 10 mg PO DAILY July 31, 2022 3:43pm Completed/Discontinued Medications Medication Drug Class(es) Dates Sig (Normalized) Sig (Original) acetaminophen 325 mg / oxyCODONE hydrochloride 7.5 mg oral tablet (7 sources) Opioid Agonist Start: 05-30-2016 End: 04-08-2019 Oxycodone-Acetamino phen 1 EACH tablet Discontinued 1 NMA PO EVERY 6 HOURS NEEDED as needed for Pain May 30, 2016 6:07pm April 08, 2019 3:26pm Start: 05-30-2016 End: 04-08-2019 Oxycodone-Acetaminophen Disc ontinued 1 EACH PO EVERY 6 HOURS NEEDED May 30, 2016 6:07pm April 08, 2019 3:26pm Blood-Glucose Meter (Freesty le Lite Meter) kit (5 sources) Start: 07-31-2022 End: 10-09-2023 Blood-Glucose Meter (Freesty le Lite Meter) kit Discontinued 0 .MEDSUPPLY July 31, 2022 12:00am October 09, 2023 11:39am As directed, check blood glucose daily for type 2 DM Start: 07-31-2022 Blood-Glucose Meter (Freestyle Lite Meter) kit Active 0 .MEDSUPPLY July 31, 2022 12:00am As directed, check blood glucose daily for type 2 DM Start: 07-31-2022 Blood-Glucose Meter (Freestyle Lite Meter) kit Active 0 .MEDSUPPLY July 30, 2022 11:00pm As directed, check blood glucose daily for type 2 DM 12 hr buPROPion hydrochloride 100 mg extended release oral tablet (7 sources) Aminoketone Start: 04-08-2019 End: 07-31-2022 take 1 tablet by mouth once daily Bupropion Hcl (Wellbutrin Sr) 100 mg tablet sustained-release 12 hr Discontinued 100 mg PO DAILY April 08, 2019 1:00am July 31, 2022 3:46pm clindamycin 300 mg oral capsule (7 sources) Lincosamide Antibacterial Start: 04-08-2019 End: 04-24-2022 take 1 capsule by mouth three times daily Clindamycin Hcl 300 mg capsule Discontinued 300 mg PO THREE TIMES A DAY April 08, 2019 1:00am April 24, 2022 4:04pm Fluticasone Propion-Salmeterol (5 sources) Corticosteroid, beta2-Adrenergic Agonist Start: 04-24-2022 End: 07-31-2022 Fluticasone Propion-Salmeterol (Advair Hfa) 115-21 mcg/actuation HFA aerosol inhaler Discontinued 2 NMA INHALATION DAILY April 24, 2022 12:00am July 31, 2022 3:46pm Start: 04-24-2022 End: 07-31-2022 take 1 puff(s) by inhalation once daily Fluticasone Propion-Salmeterol (Advair Hfa) 115-21 mcg/actuation HFA aerosol inhaler Discontinued 2 PUFF INHALATION DAILY April 24, 2022 12:00am July 31, 2022 3:46pm Start: 04-24-2022 End: 07-31-2022 take 1 puff(s) by inhalation once daily Fluticasone Propion-Salmeterol (Advair Hfa) 115-21 mcg/actuation HFA aerosol inhaler Discontinued 2 PUFF INHALATION DAILY April 23, 2022 11:00pm July 31, 2022 2:46pm glimeperide (6 sources) Start: 04-24-2022 End: 07-31-2022 take 2 mg by mouth once daily glimeperide Discontinued 2 mg PO DAILY April 24, 2022 12:00am July 31, 2022 3:45pm Start: 04-24-2022 End: 07-31-2022 take 2 mg by mouth once daily glimeperide Discontinued 2 MG PO DAILY April 24, 2022 12:00am July 31, 2022 3:45pm Start: 04-24-2022 End: 07-31-2022 take 2 mg by mouth once daily glimeperide Discontinued 2 MG PO DAILY April 23, 2022 11:00pm July 31, 2022 2:45pm Start: 04-24-2022 take 2 mg by mouth once daily glimeperide Active 2 MG PO DAILY April 24, 2022 12:00am glimepiride 2 mg oral tablet (20 sources) Sulfonylurea Start: 03-25-2023 End: 06-14-2024 take 1 tablet by mouth once daily at breakfast Glimepiride 2 mg tablet Discontinued 2 mg PO EVERY MORNING January 12, 2024 9:29am June 14, 2024 8:14am administer with breakfast levothyroxine sodium 0.15 mg oral tablet (20 sources) l-Thyroxine Start: 03-24-2024 End: 06-02-2024 Levothyroxine 150 mcg tablet Discontinued 150 ug PO DAILY March 24, 2024 5:44pm June 02, 2024 9:53am Take 150mcg on 6 days and 300mcg on 1 day. Start: 11-06-2022 End: 03-24-2024 take 1 tablet by mouth once daily Levothyroxine 150 mcg tablet Discontinued 150 ug PO DAILY November 06, 2022 3:47pm March 24, 2024 5:44pm Start: 04-24-2022 End: 11-06-2022 Levothyroxine (Synthroid) 25 mcg tablet Discontinued 150 ug PO DAILY April 24, 2022 3:57pm November 06, 2022 3:47pm Start: 04-08-2019 End: 04-24-2022 take 1 tablet by mouth once daily Levothyroxine (Synthroid) 25 mcg tablet Discontinued 25 ug PO DAILY April 08, 2019 1:00am April 24, 2022 4:04pm lisinopril 5 mg oral tablet (15 sources) Angiotensin Converting Enzyme Inhibitor Start: 04-24-2022 End: 07-16-2024 take 1 tablet by mouth once daily Lisinopril 5 mg tablet Discontinued 5 mg PO DAILY July 31, 2022 3:44pm August 10, 2023 10:17pm Magnesium (5 sources) Start: 11-06-2022 End: 02-27-2023 take 1 tablet by mouth once daily Magnesium 200 mg tablet Discontinued 200 mg PO DAILY November 06, 2022 12:00am February 27, 2023 5:25pm Start: 11-06-2022 End: 02-27-2023 take 200 mg by mouth once daily Magnesium Discontinued 200 MG PO DAILY November 06, 2022 12:00am February 27, 2023 5:25pm Start: 11-06-2022 End: 02-27-2023 take 200 mg by mouth once daily Magnesium Discontinued 200 MG PO DAILY November 05, 2022 11:00pm February 27, 2023 4:25pm metFORMIN hydrochloride 500 mg oral tablet (20 sources) Biguanide Start: 04-24-2022 End: 05-11-2024 take 2 tablets by mouth twice daily Metformin 500 mg tablet Discontinued 1000 mg PO TWICE A DAY 360 90 February 19, 2024 10:31am May 18, 2024 12:00am May 11, 2024 12:36pm Start: 04-24-2022 End: 03-25-2023 take 1000 mg by mouth twice daily Metformin Active 1000 MG PO TWICE A DAY 180 March 25, 2023 4:40pm naproxen 500 mg oral tablet (7 sources) Nonsteroidal Anti-inflammatory Drug Start: 05-30-2016 End: 04-08-2019 take 1 tablet by mouth twice daily Naproxen 500 MG tablet Discontinued 500 mg PO TWICE A DAY May 30, 2016 12:00am April 08, 2019 3:26pm Nirmatrelvir-Riton avir (Paxlovid) 300 mg (150 mg x 2)-100 mg tablets,dose pack (3 sources) Start: 02-03-2024 End: 06-21-2024 Nirmatrelvir-Joce navir (Paxlovid) 300 mg (150 mg x 2)-100 mg tablets,dose pack Discontinued 0 PO .COMPLEX February 03, 2024 1:00am June 21, 2024 1:45pm take TWO 150 mg tablets of nirmatrelvir with ONE 100 mg tablet of ritonavir twice daily for 5 days PO Rsvpref3 Antigen 2 Of 2 (Arexvy Antigen Component) 120 mcg suspension for reconstitution (5 sources) Start: 02-27-2023 End: 12-17-2023 inject 1 mL by intramuscular injection once Rsvpref3 Antigen 2 Of 2 (Arexvy Antigen Component) 120 mcg suspension for reconstitution Discontinued 0.5 mL IM ONCE February 27, 2023 1:00am December 17, 2023 4:44pm as a single dose Start: 02-27-2023 inject 1 mL by intra muscular injection once Rsvpref3 Antigen 2 Of 2 (Arexvy Antigen Component) 120 mcg suspension for reconstitution Active 0.5 ML IM ONCE February 27, 2023 1:00am as a single dose Start: 02-27-2023 inject 1 mL by intra muscular injection once Rsvpref3 Antigen 2 Of 2 (Arexvy Antigen Component) 120 mcg suspension for reconstitution Active 0.5 ML IM ONCE February 27, 2023 12:00am as a single dose simvastatin 10 mg oral tablet (15 sources) HMG-CoA Reductase Inhibitor Start: 04-24-2022 End: 07-16-2024 take 1 tablet by mouth once daily Simvastatin 10 mg tablet Discontinued 10 mg PO DAILY July 31, 2022 3:43pm August 10, 2023 10:17pm traZODone hydrochloride 100 mg oral tablet (20 sources) Serotonin Reuptake Inhibitor Start: 04-08-2019 End: 06-21-2024 Trazodone 100 mg tablet Discontinued 0 .ROUTE .COMPLEX 180 September 19, 2023 10:20am June 21, 2024 1:45pm TAKE 2 TABLETS AT BEDTIME Start: 04-08-2019 End: 03-13-2023 Trazodone Active 0 .ROUTE .C OMPLEX March 13, 2023 10:52am TAKE 2 TABLETS AT BEDTIME Problems Problem Classification Problem Date Documented Date Episodic/Chronic Allergic reactions (6 sources) Allergic condition; Translations: [Allergy, unspecified, initial encounter] 04-24-2022 Episodic Diabetes mellitus with complications (2 sources) Type 2 diabetes mellitus with other specified complication; Translations: [Type 2 diabetes mellitus with other specified complication] Onset: 07-14-2024 Chronic Diabetes mellitus without complication (16 sources) Type 2 diabetes mellitus; Translations: [Type 2 diabetes mellitus without complications] 04-24-2022 Chronic Essential hypertension (17 sources) Hypertensive disorder; Translations: [Essential (primary) hypertension] Onset: 09-27-2024 04-24-2022 Chronic Genitourinary symptoms and ill-defined conditions (5 sources) Abnormal urine; Translations: [Unspecified abnormal findings in urine] Onset: 07-16-2024 07-14-2024 Episodic Hyperplasia of prostate (5 sources) Benign prostatic hyperplasia; Translations: [Benign prostatic hyperplasia without lower urinary tract symptoms] 11-06-2022 Chronic Osteoarthritis (2 sources) Unilateral primary osteoarthritis, left knee; Translations: [Bilateral primary osteoarthritis of knee] Onset: 07-07-2024 Chronic Other connective tissue disease (4 sources) Cramp in lower limb; Translations: [Cramp and spasm] 06-04-2023 Episodic Other connective tissue disease (1 source) Cramp and spasm; Translations: [Cramp of limb] 06-04-2023 Episodic Other diseases of veins and lymphatics (9 sources) Venous insufficiency of leg; Translations: [Venous insufficiency (chronic) (peripheral)] 04-24-2022 Episodic Other diseases of veins and lymphatics (4 sources) Venous insufficiency (chronic) (peripheral); Translations: [Venous (peripheral) insufficiency, unspecified] 04-24-2022 Episodic Other screening for suspected conditions (not mental disorders or infectious disease) (4 sources) Patient encounter status; Translations: [Encounter for screening for malignant neoplasm of prostate] Onset: 09-27-2024 12-17-2023 Episodic Regional enteritis and ulcerative colitis (7 sources) Ulcerative colitis; Translations: [Ulcerative colitis, unspecified, without complications] 04-24-2022 Chronic Residual codes; unclassified (8 sources) Obstructive sleep apnea syndrome; Translations: [Obstructive sleep apnea (adult) (pediatric)] 04-24-2022 Chronic Residual codes; unclassified (2 sources) Obstructive sleep apnea (adult) (pediatric); Translations: [Obstructive sleep apnea (adult)(pediatric)] Onset: 02-06-2024 04-24-2022 Chronic Residual codes; unclassified (1 source) Family history of ischemic heart disease and other diseases of the circulatory system; Translations: [Family history of ischemic heart disease and other diseases of the circulatory system] Onset: 09-27-2024 Episodic Superficial injury; contusion (7 sources) Contusion of right lesser toe; Translations: [Contusion of right lesser toe(s) without damage to nail, initial encounter] 04-08-2019 Episodic Thyroid disorders (17 sources) Hypothyroidism; Translations: [Hypothyroidism, unspecified] Onset: 12-17-2023 04-24-2022 Chronic Results Test Name Value Interpretation Reference Range Facility Bilirubin Test strip Ql (U)O rdered By: Jose Yuan on 07-14-2024 Bilirubin Ql (U) Negative Negative [facility] Internal Medicine Office Vis abdirashid 07-14-2024 Internal Medicine Office Visit [facility] [address] [place] [address] OFFICE VISIT Date of Service: 07/14/24 MR#: [id number] Acct: [id number] Name: JOY GENTILE Rep #: [id number] : 1960 Provider: Dr. Jose dietrich MD Age/Sex: 64/M Location: [facility] [place] Status: Signed Intake Vital Signs 03/24/24 16:14 07/14/24 13:09 Height 5 ft 11 in 5 ft 11 in Weight: 259 lb BMI 36.1 BP 124/70 H Blood Pressure Location Lt brachial Position Sitting Respiration 18 Pulse 86 Pulse Source Monitor Temp 97.6 F L Temp Source Temporal Pulse Oximetry (%) 94 Oxygen Delivery Method room air Intake Visit Reasons: SURG CLEARANCE/3 M FU Chief Complaint: SURG CLEARANCE/ 3 M FU Is patient in pain?: No Allergies grass pollen Allergy (Mild, Verified 07/14/24 13:08) UNKNOWN house dust mite Allergy (Mild, Verified 07/14/24 13:08) UNKNOWN tree and shrub pollen Allergy (Mild, Verified 07/14/24 13:08) UNKNOWN venom-honey bee Allergy (Mild, Verified 07/14/24 13:08) UNKNOWN Penicillins Allergy (Verified 07/14/24 13:08) Rash Medications ???Medication ???Instructions ???Recorded ???Confirmed ???Type loratadine 10 mg tablet (Claritin) 10 mg PO DAILY 04/08/19 07/14/24 History lancets 28 gauge (FreeStyle #200 ea 07/31/22 07/14/24 Rx Lancets) montelukast 10 mg tablet 10 mg PO DAILY #90 tabs 07/31/22 0 07/14/24 Rx lisinopril 5 mg tablet 5 mg PO DAILY #90 tabs 08/10/23 Rx simvastatin 10 mg tablet 10 mg PO DAILY #90 tabs 08/10/23 0 07/14/24 Rx lancets (Accu-Chek Softclix #100 ea 10/09/23 07/14/24 Rx Lancets) lancing device with lancets kit #1 ea 10/09/23 07/14/24 Rx (Accu-Chek Softclix Lancing Device+Lancets kit) blood sugar diagnostic (Accu-Chek #100 ea 05/11/24 07/14/24 Rx Emily Plus test strips) metformin 500 mg tablet 1,000 mg (2 x 500 mg) PO BID 3 03/0607/14/24 Rx months #360 TABLETS levothyroxine 150 mcg tablet 150 mcg PO DAILY #40 tabs 06/02/24 07/14/24 Rx blood sugar diagnostic (Accu-Chek #100 ea 06/03/24 07/14/24 Rx Guide test strips) glimepiride 2 mg tablet 2 mg PO QAM #90 tabs 06/14/2406/04 Rx trazodone 100 mg tablet See Rx Instructions .Route 5 07/14/24 Rx .COMPLEX #180 tabs Have you fallen in the past year?: No Nurse's Note: pt presents to office for surgical clearance for right total knee replacement on 08/05/24. [facility] Medical History (Updated 07/14/24 @ 13:[address] Jose Yuan MD) Preoperative evaluation to rule out surgical contraindication Urine abnormality Screening for prostate cancer Leg cramps BPH (benign prostatic hyperplasia) Health care maintenance ABBAR (obstructive sleep apnea) Venous insufficiency of both lower extremities Hypothyroidism Type 2 diabetes mellitus Ulcerative colitis Allergies Thyroid disease Asthma Knee pain Hay fever Diabetes Hypertension Surgical History H/O hernia repair History of nasal surgery Family History Mother Alcoholism Cancer Kidney disease Father Cancer Myocardial infarction Heart disease Brother Myocardial infarction Social History Smoking Status: Never smoker alcohol intake: never substance use type: does not use what type of physical activity do you participate in: walking frequency: daily seatbelt use: always do you feel safe at home: Yes HPI HPI Chief Complaint: SURG CLEARANCE/ 3 M FU Details: JOY GENTILE, is a 64 M who presents to the office today for chronic conditions. Also has some concerns. Over the last 2 days, he states that his blood glucose readings have been elevated. Fasting readings in the 150s. Overall, he feels well and does not think he has made any significant dietary changes. He however also stated that his urine has been darker lately. No other urinary concerns. A1c today is at 6.3 down from 6.5. Scheduled for right knee total arthroplasty. Has had surgeries in the past and no concerns with anesthesia. History of sleep apnea, utilizing his CPAP. History of hypothyroidism, TSH significantly elevated at last check however recent repeat now within range. He states that he is taking his medications consistently. Other chronic medical conditions are stable. ROS Const Constitutional: No body ache, chills, excessive sweating, fatigue, fever(s), frequent falls, headache(s), snoring, weight change, sleep problems, abnormal sleep pattern or change in appetite Eyes Eyes: No blurry vision, change in vision, floaters, visual disturbances, eye pain or Light sensitivity ENT ENT: No abnormal hearing, ear or mastoid pain, tinnitus, balance problems, nosebleed/epista (more content not included)... Normal [facility] Ketones Test strip Ql (U)Ord ered By: Jose Yuan on 07-14-2024 Ketones Ql (U) 5 mg/dl High Negative [facility] Microscopic analysis of urin e for red blood cells (RBC)Ordered By: Jose Yuan on 07-14-2024 Microscopic analysis of urine for red blood cells (RBC) 0 SEEN /hpf 0-5 [facility] Mucus LM Ql (Urine sed)Order ed By: Jose Yuan on 07-14-2024 Mucus Ql (Urine sed) 0 SEEN /hpf [facility] Nitrite Test strip Ql (U)Ord ered By: Jose Yuan on 07-14-2024 Nitrite Ql (U) Negative Negative [facility] Protein Test strip Ql (U)Ord ered By: Jose Yuan on 07-14-2024 Protein Ql (U) 15 mg/dl High Negative [facility] Squamous epithelial cells de tection in urine sediment by light microscopyOrdered By: Jose Yuan on 07-14-2024 Epithelial cells.squamous LM Ql (Urine sed) 0 SEEN /hpf 0-5 [facility] Urinalysis, Completeon 07-14 BACTERIA 0 SEEN Normal None Seen [facility] Comment on above: Order Comment: SAV CTOR TO SPECIFY Performed By: #### L [id number] #### [facility] [address] [place], [address] EPI,SQUAMOUS 0 SEEN Normal 0-5 [facility] Comment on above: Order Comment: SAV CTOR TO SPECIFY Performed By: #### L [id number] #### [facility] [address] [place], [address] Mucus Ql (Urine sed) 0 SEEN Normal [facility] Comment on above: Order Comment: SAV CTOR TO SPECIFY Performed By: #### L [id number] #### [facility] [address] [place], [address] RBC 0 SEEN Normal 0-5 [facility] Comment on above: Order Comment: SAV CTOR TO SPECIFY Performed By: #### L [id number] #### [facility] [address] [place], [address] WBC 0 SEEN Normal 0-5 [facility] Comment on above: Order Comment: SAV CTOR TO SPECIFY Performed By: #### L [id number] #### [facility] [address] [place], [address] Urine clarityOrdered By: Daniel Yuan on 07-14-2024 Clarity (U) Clear Clear [facility] Urine color determinationOrd ered By: Jose Yuan on 07-14-2024 Color (U) Yellow Yellow [facility] Urine glucose detectionOrder ed By: Jose Yuan on 07-14-2024 Glucose Ql (U) Normal mg/dl Normal [facility] Urine leukocyte esterase det ection by dipstickOrdered By: Jose Yuan on 07-14-2024 Leukocyte esterase Test strip Ql (U) Negative Negative [facility] Urine pHOrdered By: Ernestina Yuan on 07-14-2024 pH (U) 5.0 [pH] 5.0 - 8.0 [facility] Urine sediment bacteria coun t by microscopy (number/high power field)Ordered By: Jose Yuan on 07-14-2024 Bacteria LM.HPF (Urine sed) [#/Area] 0 /[HPF] None Seen [facility] Urine specific gravity measu rementOrdered By: Sherronmariettanajma Yuan on 07-14-2024 Specific gravity (U) [Rel density] 1.025 1.002-1.030 [facility] Urine urobilinogen measureme ntOrdered By: Sherronmariettanajma Yuan on 07-14-2024 Urobilinogen Ql (U) Normal mg/dl Normal [facility] White blood cell countOrdere d By: Jose Yuan on 07-14-2024 White blood cell count 0 SEEN /hpf 0-5 [facility] Electrocardiogram reportOrde red By: Aaron Watt on 07-12-2024 EKG study [facility] [address] [place] [address] 12 Lead EKG 07/08/24 0834 MR#: [id number] Acct: [id number] Name: JOY GENTILE Rep #:[id number] : 1960 64 From: Aaron rome MD Attending Dr: Dr. Patrick Bowles MD Status: REG CLI Ordering Dr: Patrick Bowles MD Date: 0 07/08/24 Location: [facility] Sex: M C Admitted: Test Reason : PRE OP Blood Pressure : */* mmHG Vent. Rate : 71 BPM Atrial Rate : 72 BPM P-R Int : * ms QRS Dur : 90 ms QT Int : 406 ms P-R-T Axes : * -52 26 degrees QTcB Int : 441 ms Normal sinus rhythm Left axis deviation Septal infarct , age undetermined Abnormal ECG Confirmed by Aaron Watt ([id number]), purchasing expeditor [employer] [place] ([id number]) on 07/12/2024 11:30:49 AM Referred By: Patrick Bowles Confirmed By: Aaron Watt 07/12/24 1130 Date _ Aaron Watt MD CC: Dr. Jose Yuan MD; Dr. Patrick Bowles MD ~ Signed [facility] Work Phone: 12 Lead EKGon 07-08-2024 12 Lead EKG [facility] [address] [place] [address] 12 Lead EKG 07/08/24 0834 MR#: [id number] Acct: [id number] Name: JOY GENTILE Rep #: [id number] : 1960 64 From: Aaron Watt MD Attending Dr: Dr. Patrick Bowles MD Status: REG CLI Ordering Dr: Patrick Bowles MD Date: 07/08/24 Location: [facility] Sex: M C Admitted: Test Reason : PRE OP Blood Pressure : */* mmHG Vent. Rate : 71 BPM Atrial Rate : 72 BPM P-R Int : * ms QRS Dur : 90 ms QT Int : 406 ms P-R-T Axes : * -52 26 degrees QTcB Int : 441 ms Normal sinus rhythm Left axis deviation Septal infarct , age undetermined Abnormal ECG Confirmed by Aaron Watt ([id number]), purchasing expeditor [employer] [place] ([id number]) on 07/12/2024 11:30:49 AM Referred By: Patrick Bowles Confirmed By: Aaron Watt 07/12/24 1130 Date Aaron Watt MD CC: Dr. Jose Yuan MD; Dr. Patrick Bowles MD Signed Normal [facility] Absolute lymphocyte countOrd ered By: Patrick Bowles on 07-08-2024 Lymphocytes Auto (Unsp spec) [#/Vol] 1.76 10*3/uL 0.83-4.51 [facility] Absolute neutrophil countOrd ered By: Patrick Bowles on 07-08-2024 Neutrophils (Bld) [#/Vol] 3.0 10*3/uL 2.0-7.7 [facility] Albumin, Serumon 07-08-2024 Albumin [Mass/Vol] 4.5 g/dL Normal 3.4-4.8 [facility] Comment on above: Performed By: #### L 100.0100, L501.1800, L500.2500 ####[facility] [address] [place], [address] Anion gap in Serum or Plasma Ordered By: Patrick Bowles on 07-08-2024 Anion gap [Moles/Vol] 12 mmol/L 06-24 [facility] Automated lymphocyte count a s percentage of total leukocytesOrdered By: Patrick Bowles on 07-08-2024 Lymphocytes/100 WBC Auto (Unsp spec) 30.9 % [facility] BUN/creatinine ratioOrdered By: Patrick Bowles on 07-08-2024 Urea nitrogen/Creatinine [Mass ratio] 18.1 mg/mg 11-29 [facility] Basic Metabolic Profile (BMP )on 07-08-2024 BUN/CRE 18.1 RATIO Normal 11-29 [facility] Comment on above: Performed By: #### L 100.0100, L501.1800, L500.2500 ####[facility] [address] [place], [address] Calcium [Mass/Vol] 9.5 mg/dL Normal 7.6-11.0 [facility] Comment on above: Performed By: #### L 100.0100, L501.1800, L500.2500 ####[facility] [address] [place], [address] Chloride [Moles/Vol] 104 mmol/L Normal 98-108 [facility] Comment on above: Performed By: #### L 100.0100, L501.1800, L500.2500 ####[facility] [address] [place], [address] CO2 [Moles/Vol] 24.3 mmol/L Normal 21.0-32.0 [facility] Comment on above: Performed By: #### L 100.0100, L501.1800, L500.2500 ####[facility] [address] [place], [address] Creatinine [Mass/Vol] 0.84 mg/dL Normal 0.70-1.20 [facility] Comment on above: Performed By: #### L 100.0100, L501.1800, L500.2500 ####[facility] [address] [place], [address] GAP 12 Normal 5-15 [facility] Comment on above: Performed By: #### L 100.0100, L501.1800, L500.2500 ####[facility] [address] [place], [address] GFR/1.73 sq M.predicted among non-blacks MDRD (S/P/Bld) [Vol rate/Area] 97 mL/min/{1.73_m2} Normal >60 [facility] Comment on above: Result Comment: mL/m in/1.73m2 CKD-EPI Creatinine Equation (2020) Performed By: #### L 100.0100, L501.1800, L500.2500 ####[facility] [address] [place], [address] Glucose [Mass/Vol] 136 mg/dL High 70-99 [facility] Comment on above: Performed By: #### L 100.0100, L501.1800, L500.2500 ####[facility] [address] [place], [address] Potassium [Moles/Vol] 4.3 mmol/L Normal 3.3-5.1 [facility] Comment on above: Performed By: #### L 100.0100, L501.1800, L500.2500 ####[facility] [address] [place], [address] Sodium [Moles/Vol] 140 mmol/L Normal 133-145 [facility] Comment on above: Performed By: #### L 100.0100, L501.1800, L500.2500 ####[facility] [address] [place], [address] Urea nitrogen [Mass/Vol] 15 mg/dL Normal 4-19 [facility] Comment on above: Performed By: #### L 100.0100, L501.1800, L500.2500 ####[facility] [address] [place], [address] Basophil percentageOrdered B y: Patrick Bowles on 07-08-2024 Basophils/100 WBC (Bld) 1.1 % High 0-1 [facility] CBC W/Diff, Automatedon 06-11 Absolute Lymph 1.76 X10 3/uL Normal 0.83-4.51 [facility] Comment on above: Performed By: #### L 100.0100, L501.1800, L500.2500 ####[facility] [address] [place], [address] Absolute Neut 3.0 X10 3/uL Normal 2.0-7.7 [facility] Comment on above: Performed By: #### L 100.0100, L501.1800, L500.2500 ####[facility] [address] [place], [address] Basophils/100 WBC (Bld) 1.1 % High 0-1 [facility] Comment on above: Performed By: #### L 100.0100, L501.1800, L500.2500 ####[facility] [address] [place], [address] Eosinophils/100 WBC (Bld) 3.5 % Normal 0-5 [facility] Comment on above: Performed By: #### L 100.0100, L501.1800, L500.2500 ####[facility] [address] [place], [address] Erythrocyte distribution width (RBC) [Ratio] 12.1 % Normal 11.6-14.6 [facility] Comment on above: Performed By: #### L 100.0100, L501.1800, L500.2500 ####[facility] [address] [place], [address] Hematocrit (Bld) [Volume fraction] 43.3 % Normal 40-54 [facility] Comment on above: Performed By: #### L 100.0100, L501.1800, L500.2500 ####[facility] [address] [place], [address] Hemoglobin (Bld) [Mass/Vol] 15.0 g/dL Normal 13.0-16. 5 [facility] Comment on above: Performed By: #### L 100.0100, L501.1800, L500.2500 ####[facility] [address] [place], [address] IG% 0.400 Normal 0.0-0.9 [facility] Comment on above: Result Comment: IG% - Immature Granulocytes (promyelocytes, myelocytes and metamyelocytes) > 1% indicates that a LEFT SHIFT is Present. Performed By: #### L 100.0100, L501.1800, L500.2500 ####[facility] [address] [place], [address] Lymphocytes/100 WBC (Bld) 30.9 % Normal 19-41 [facility] Comment on above: Performed By: #### L 100.0100, L501.1800, L500.2500 ####[facility] [address] [place], [address] MCH (RBC) [Entitic mass] 31.5 pg Normal 27.0-32.0 [facility] Comment on above: Performed By: #### L 100.0100, L501.1800, L500.2500 ####[facility] [address] [place], [address] MCHC (RBC) [Mass/Vol] 34.6 g/dL Normal 32-36 [facility] Comment on above: Performed By: #### L 100.0100, L501.1800, L500.2500 ####[facility] [address] [place], [address] MCV (RBC) [Entitic vol] 91.0 fL Normal 80-94 [facility] Comment on above: Performed By: #### L 100.0100, L501.1800, L500.2500 ####[facility] [address] [place], [address] Monocytes/100 WBC (Bld) 11.8 % High 0-10 [facility] Comment on above: Performed By: #### L 100.0100, L501.1800, L500.2500 ####[facility] [address] [place], [address] Neutrophils/100 WBC (Bld) 52.3 % Normal 47-70 [facility] Comment on above: Performed By: #### L 100.0100, L501.1800, L500.2500 ####[facility] [address] [place], [address] Nucleated RBC (Bld) [#/Vol] 0 10*3/uL Normal 0-5 [facility] Comment on above: Performed By: #### L 100.0100, L501.1800, L500.2500 ####[facility] [address] [place], [address] Platelet mean volume (Bld) [Entitic vol] 11.3 fL Normal 6.2-12.0 [facility] Comment on above: Performed By: #### L 100.0100, L501.1800, L500.2500 ####[facility] [address] [place], [address] Platelets (Bld) [#/Vol] 193 10*3/uL Normal 150-450 [facility] Comment on above: Performed By: #### L 100.0100, L501.1800, L500.2500 ####[facility] [address] [place], [address] RBC (Bld) [#/Vol] 4.76 10*6/uL Normal 4.6-6.2 [facility] Comment on above: Performed By: #### L 100.0100, L501.1800, L500.2500 ####[facility] [address] [place], [address] RDW SD 40.2 fl Normal 35.1-43.9 [facility] Comment on above: Performed By: #### L 100.0100, L501.1800, L500.2500 ####[facility] [address] [place], [address] WBC (Bld) [#/Vol] 5.7 10*3/uL Normal 4.4-11.0 [facility] Comment on above: Performed By: #### L 100.0100, L501.1800, L500.2500 ####[facility] [address] [place], [address] Carbon dioxide, total [Moles /volume] in Central venous bloodOrdered By: Patrick Bowles on 07-08-2024 CO2 [Moles/Vol] 24.3 mmol/L 21.0-32.0 [facility] Chloride assayOrdered By: St carie Bowles on 07-08-2024 Chloride [Moles/Vol] 104 mmol/L 98-108 [facility] Eosinophil percentageOrdered By: Patrick Bowles on 07-08-2024 Eosinophils/100 WBC (Bld) 3.5 % 0-5 [facility] Erythrocyte distribution wid th ratioOrdered By: Patrick Bowles on 07-08-2024 Erythrocyte distribution width (RBC) [Ratio] 12.1 % 11.6-14.6 [facility] Erythrocyte distribution wid standard deviationOrdered By: Patrick Bowles on 07-08-2024 Erythrocyte distribution width (RBC) [Ratio] 40.2 fl 35.1-43.9 [facility] Extremity Lower without Cont raon 07-08-2024 Extremity Lower without Contra [facility] Services [address] [place], [place] [id number] Extremity Lower without Contra MR#: [id number] Acct: [id number] Name: JOY GENTILE Rep #: [id number] : 1960 M 64 From: Rubin ro MD PCP: Dr. Jose Yuan MD Status: REG CLI Study: Extremity Lower without Contra Date of Exam: 0 07/08/24 Exam# [id number] Ordering Dr: Patrick Bowles MD PROCEDURE: EXTREMITY LOWER WITHOUT CONTRA 07/08/2024 REASON FOR EXAM: OSTEOARTHRITIS [facility] protocol for right knee replacement. TECHNIQUE: Axial CT images of the right hip joint, right knee joint and right ankle joint obtained with intravenous contrast. Coronal and Sagittal reconstruction series were provided. CONTRAST: None One or more dose reduction techniques were used (e.g., Automated exposure control, adjustment of the mA and/or kV according to patient size, use of iterative reconstruction technique). RADIATION DOSE SUMMARY: CTDlvol: 18.6 mGy DLP: 1346.4 mGycm COMPARISON: None FINDINGS: Bones: Degenerative changes of the knee joint. Joints: Imaging of the right hip joint was performed. The joint space is relatively well- maintained. No erosive changes. Incidental note is made of irregular prostatic calcification. Imaging of the right knee joint was performed. Myugxzwg-ou-pvdjev degree of joint space narrowing and degenerative spur formation along the medial compartment of the knee joint. Mild degree of patellofemoral osteoarthritis. Imaging of the ankle joint was obtained. There is good alignment. Evidence of plantar calcaneal spur. Soft Tissues: Tiny knee joint effusion. CT/Extremity Lower without Contra IMPRESSION: Puyrkrdw-ky-ajxdxf degree of joint space narrowing involving the medial compartment of the knee joint as described. Mild degree of patellofemoral joint space narrowing. Reading Location: [facility] CC: Dr. Jose Yuan MD; Dr. 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: Signed Normal [facility] Glomerular filtration rate ( GFR) estimation/1.73 sq m using serum, plasma, or whole bOrdered By: Patrick Bowles on 07-08-2024 GFR/1.73 sq M.predicted among non-blacks MDRD (S/P/Bld) [Vol rate/Area] 97 mL/min/{1.73_m2} >60 [facility] Comment on above: mL/min/1.73m2 CKD-EP I Creatinine Equation (2020) Hematocrit Auto (Bld) [Volum e fraction]Ordered By: Patrick Bowles on 07-08-2024 Hematocrit (Bld) [Volume fraction] 43.3 % 40-54 [facility] Hemoglobin measurementOrdere d By: Patrick Bowles on 07-08-2024 Hemoglobin (Bld) [Mass/Vol] 15.0 g/dL 13.0-16. 5 [facility] Immature granulocytes/100 WB C Auto (Bld)Ordered By: Patrick Bowles on 07-08-2024 Immature granulocytes/100 WBC (Bld) 0.400 % 0.0-0.9 [facility] Comment on above: IG% - Immature Granu locytes (promyelocytes, myelocytes and metamyelocytes) > 1% indicates that a LEFT SHIFT is Present. MCV (mean corpuscular volume ) determinationOrdered By: Patrick Bowles on 07-08-2024 MCV (RBC) [Entitic vol] 91.0 fL 80-94 [facility] Mean corpuscular hemoglobin (MCH) determinationOrdered By: Patrick Bowles on 07-08-2024 MCH (RBC) [Entitic mass] 31.5 pg 27.0-32.0 [facility] Mean corpuscular hemoglobin concentration (MCHC) determinationOrdered By: Patrick Bowles on 07-08-2024 MCHC (RBC) [Mass/Vol] 34.6 g/dL 32-36 [facility] Mean platelet volume determi nationOrdered By: Patrick Bowles on 07-08-2024 Platelet mean volume (Bld) [Entitic vol] 11.3 fL 6.2-12.0 [facility] Monocyte percentageOrdered B y: Patrick Bowles on 07-08-2024 Monocytes/100 WBC (Bld) 11.8 % High 0-10 [facility] Neutrophil percentageOrdered By: Patrick Bowles on 07-08-2024 Neutrophils/100 WBC (Bld) 52.3 % 47-70 [facility] Nucleated red blood cell per centageOrdered By: Patrick Bowles on 07-08-2024 Nucleated RBC/100 WBC (Bld) [Ratio] 0 % 0-5 [facility] Platelet countOrdered By: St carie Bowles on 07-08-2024 Platelets (Bld) [#/Vol] 193 10*3/uL 150-450 [facility] Potassium measurement (mass/ volume)Ordered By: Patrick Bowles on 07-08-2024 Potassium (Unsp spec) [Mass/Vol] 4.3 mmol/L 3.3-5.1 [facility] RBC Auto (Bld) [#/Vol]Ordere d By: Patrick Bowles on 07-08-2024 RBC (Bld) [#/Vol] 4.76 10*6/uL 4.6-6.2 [facility] Serum creatinine measurement (mass/volume)Ordered By: Patrick Bowles on 07-08-2024 Creatinine [Mass/Vol] 0.84 mg/dL 0.70-1.20 [facility] Serum glucose measurement (m ass/volume)Ordered By: Patrick Bowles on 07-08-2024 Glucose [Mass/Vol] 136 mg/dL High 70-99 [facility] Serum or plasma albumin peggy urement (mass/volume)Ordered By: Patrick Bowles on 07-08-2024 Albumin [Mass/Vol] 4.5 g/dL 3.4-4.8 [facility] Serum or plasma calcium peggy urement (mass/volume)Ordered By: Patrick Bowles on 07-08-2024 Calcium [Mass/Vol] 9.5 mg/dL 7.6-11.0 [facility] Serum or plasma urea nitroge n measurement (mass/volume)Ordered By: Patrick Bowles on 07-08-2024 Urea nitrogen [Mass/Vol] 15 mg/dL 4-19 [facility] Sodium levelOrdered By: Pepe Bowles on 07-08-2024 Sodium [Moles/Vol] 140 mmol/L 133-145 [facility] TSH DL <= 0.005 mIU/L QnOrde red By: Jose Yuan on 07-08-2024 TSH Qn 1.050 uIU/mL 0.300-4.200 [facility] Thyroid Stim Hormone (TSH)on 07-08-2024 TSH 1.050 uIU/mL Normal 0.300-4.200 [facility] Comment on above: Performed By: #### L 501.9520 ####[facility] [address] [place], [place], [address] White blood cell (WBC) count Ordered By: Patrick Bowles on 07-08-2024 WBC (Bld) [#/Vol] 5.7 10*3/uL 4.4-11.0 [facility] Internal Medicine Office Vis iton 03-24-2024 Internal Medicine Office Visit [facility] [address] [place] [address] [place] [address] OFFICE VISIT Date of Service: 03/24/24 MR#: [id number] Acct: [id number] Name: JOY GENTILE Rep #: [id number] : 1960 Provider: Dr. Jose dietrich MD Age/Sex: 63/M Location: [facility] [place] Status: Signed Intake Vital Signs 12/17/23 15:46 03/24/24 16:14 Height 5 ft 11 in 5 ft 11 in Weight: 272 lb 4 oz BMI 38.0 BP 142/78 H Blood Pressure Location Lt brachial Position Sitting Respiration 18 Pulse 72 Pulse Source Monitor Temp 96.1 F L Temp Source Temporal Pulse Oximetry (%) 97 Oxygen Delivery Method room air Intake Visit Reasons: 3 M FU Chief Complaint: Follow-up chronic conditions Director Writing Required: No Accompanied by: Self Is patient in pain?: No Allergies grass pollen Allergy (Mild, Verified 03/24/24 16:11) UNKNOWN house dust mite Allergy (Mild, Verified 03/24/24 16:11) UNKNOWN tree and shrub pollen Allergy (Mild, Verified 03/24/24 16:11) UNKNOWN venom-honey bee Allergy (Mild, Verified 03/24/24 16:11) UNKNOWN Penicillins Allergy (Verified 03/24/24 16:11) Rash Medications ???Medication ???Instructions ???Recorded ???Confirmed ???Type loratadine 10 mg tablet (Claritin) 10 mg PO DAILY 04/08/19 03/24/24 History lancets 28 gauge (FreeStyle #200 ea 07/31/22 03/24/24 Rx Lancets) montelukast 10 mg tablet 10 mg PO DAILY #90 tabs 07/31/22 0 03/24/24 Rx lisinopril 5 mg tablet 5 mg PO DAILY #90 tabs 08/10/23 Rx simvastatin 10 mg tablet 10 mg PO DAILY #90 tabs 08/10/23 0 03/24/24 Rx trazodone 100 mg tablet See Rx Instructions .Route 4 03/24/24 Rx .COMPLEX #180 tabs blood sugar diagnostic (Accu-Chek #100 ea 10/09/23 03/24/24 Rx Guide test strips) lancets (Accu-Chek Softclix #100 ea 10/09/23 03/24/24 Rx Lancets) lancing device with lancets kit #1 ea 10/09/23 03/24/24 Rx (Accu-Chek Softclix Lancing Device+Lancets kit) glimepiride 2 mg tablet 2 mg PO QAM #90 tabs 01/12/2403/13 Rx nirmatrelvir 300 mg (150 mg See Rx Instructions PO .COMPLEX 03/24/24 Rx x2)-ritonavir 100 mg tablet,dose #30 tabs pack (Paxlovid) metformin 500 mg tablet 1,000 mg (2 x 500 mg) PO BID 3 11/0403/24/24 Rx months #360 TABLETS levothyroxine 150 mcg tablet 150 mcg PO DAILY #40 tabs 03/24/24 03/24/24 Rx Have you fallen in the past year?: No Nurse's Note: issues with synthroid prescription been 2 months since he has taken [facility] Medical History Screening for prostate cancer Leg cramps BPH (benign prostatic hyperplasia) Health care maintenance BABAR (obstructive sleep apnea) Venous insufficiency of both lower extremities Hypothyroidism Type 2 diabetes mellitus Ulcerative colitis Allergies Thyroid disease Asthma Knee pain Hay fever Diabetes Hypertension Surgical History H/O hernia repair History of nasal surgery Family History Mother Alcoholism Cancer Kidney disease Father Cancer Myocardial infarction Heart disease Brother Myocardial infarction Social History Smoking Status: Never smoker alcohol intake: never substance use type: does not use what type of physical activity do you participate in: walking frequency: daily seatbelt use: always do you feel safe at home: Yes HPI HPI Chief Complaint: Follow-up chronic conditions Details: JOY GENTILE, is a 63 M who presents to the office today for follow-up of his chronic medical conditions. No acute concerns at this time. History of hypothyroidism, had been prescribed levothyroxine however he states that he has not taken it in a while. TSH significantly elevated. There has also been some weight gain since his last visit. History of hypertension, blood pressure is elevated at 142/78 mmHg. He states that he has been checking it at home and his readings have been good however he reports a particularly stressful day today. No chest pain, palpitation or shortness of breath. Recently had labs done, A1c down from 6.5-6.4. Taking his medication consistently and no concern for hypoglycemia. Other chronic medical conditions are stable. ROS Const Constitutional: No body ache, excessive sweating, fatigue, fever(s), frequent falls, headache(s), snoring, weakness, weight change, sleep problems or change in appetite Eyes Eyes: No blurry vision, change in vision, floaters, visual disturbances, eye pain or Light sensitivity ENT ENT: No abnormal hearing, ear or mastoid pain, tinnitus, balance problems, nosebleed/epistaxis , nasal congestion, headache(s), neck pain or sore throat Resp (more content not included)... Normal [facility] Hemoglobin A1con 03-21-2024 HbA1c (Bld) [Mass fraction] 6.4 % High 3.8-5.6 [facility] Comment on above: Result Comment: Norm al < 5.7 % Prediabetic 5.7 - 6.4 % Diabetic >or= 6.5 % Please note range changes. Performed By: #### L 502.0250, L100.0100, L501.9985, L501.9520, L500.4050, L500.4100, L501.9910 ####[facility] [address] [place], [address] Absolute lymphocyte countOrd ered By: Jose Yuan on 03-20-2024 Lymphocytes Auto (Unsp spec) [#/Vol] 1.70 10*3/uL 0.83-4.51 [facility] Absolute neutrophil countOrd ered By: Jose Yuan on 03-20-2024 Neutrophils (Bld) [#/Vol] 5.0 10*3/uL 2.0-7.7 [facility] Albumin to globulin ratioOrd ered By: marilinmariettanajma Yuan on 03-20-2024 Albumin/Globulin [Mass ratio] 1.0 {ratio} 0.9-2.4 [facility] Automated lymphocyte count a s percentage of total leukocytesOrdered By: Jose Yuan on 03-20-2024 Lymphocytes/100 WBC Auto (Unsp spec) 21.7 % 19-41 [facility] Basophil percentageOrdered B y: Jose Yuan on 03-20-2024 Basophils/100 WBC (Bld) 1.1 % High 0-1 [facility] Bilirubin, totalOrdered By: Jose Yuan on 03-20-2024 Bilirubin [Mass/Vol] 0.50 mg/dL 0.20-1.00 [facility] Comment on above: For patients on eltr ombopag therapy, use of Dimension [place] TBIL is not recommended. Blood urea nitrogen (BUN)/cr eatinine ratioOrdered By: Jose Yuan on 03-20-2024 Urea nitrogen/Creatinine [Mass ratio] 17.1 mg/mg 10-20 [facility] CBC W/Diff, Automatedon Absolute Lymph 1.70 X10 3/uL Normal 0.83-4.51 [facility] Comment on above: Performed By: #### L 502.0250, L100.0100, L501.9985, L501.9520, L500.4050, L500.4100, L501.9910 #### [facility] [address] [place], [address] Absolute Neut 5.0 X10 3/uL Normal 2.0-7.7 [facility] Comment on above: Performed By: #### L 502.0250, L100.0100, L501.9985, L501.9520, L500.4050, L500.4100, L501.9910 #### [facility] [address] [place], [address] Basophils/100 WBC (Bld) 1.1 % High 0-1 [facility] Comment on above: Performed By: #### L 502.0250, L100.0100, L501.9985, L501.9520, L500.4050, L500.4100, L501.9910 #### [facility] [address] [place], [address] Eosinophils/100 WBC (Bld) 3.7 % Normal 0-5 [facility] Comment on above: Performed By: #### L 502.0250, L100.0100, L501.9985, L501.9520, L500.4050, L500.4100, L501.9910 #### [facility] [address] [place], [address] Erythrocyte distribution width (RBC) [Ratio] 12.5 % Normal 11.6-14.6 [facility] Comment on above: Performed By: #### L 502.0250, L100.0100, L501.9985, L501.9520, L500.4050, L500.4100, L501.9910 #### [facility] [address] [place], [address] Hematocrit (Bld) [Volume fraction] 41.6 % Normal 40-54 [facility] Comment on above: Performed By: #### L 502.0250, L100.0100, L501.9985, L501.9520, L500.4050, L500.4100, L501.9910 #### [facility] [address] [place], [address] Hemoglobin (Bld) [Mass/Vol] 14.1 g/dL Normal 13.0-16. 5 [facility] Comment on above: Performed By: #### L 502.0250, L100.0100, L501.9985, L501.9520, L500.4050, L500.4100, L501.9910 #### [facility] [address] [place], [address] IG% 1.100 High 0.0-0.9 [facility] Comment on above: Result Comment: IG% - Immature Granulocytes (promyelocytes, myelocytes and metamyelocytes) > 1% indicates that a LEFT SHIFT is Present. Performed By: #### L 502.0250, L100.0100, L501.9985, L501.9520, L500.4050, L500.4100, L501.9910 #### [facility] [address] [place], [address] Lymphocytes/100 WBC (Bld) 21.7 % Normal 19-41 [facility] Comment on above: Performed By: #### L 502.0250, L100.0100, L501.9985, L501.9520, L500.4050, L500.4100, L501.9910 #### [facility] [address] [place], [address] MCH (RBC) [Entitic mass] 32.0 pg Normal 27.0-32.0 [facility] Comment on above: Performed By: #### L 502.0250, L100.0100, L501.9985, L501.9520, L500.4050, L500.4100, L501.9910 #### [facility] [address] [place], [address] MCHC (RBC) [Mass/Vol] 33.9 g/dL Normal 32-36 [facility] Comment on above: Performed By: #### L 502.0250, L100.0100, L501.9985, L501.9520, L500.4050, L500.4100, L501.9910 #### [facility] [address] [place], [address] MCV (RBC) [Entitic vol] 94.5 fL High 80-94 [facility] Comment on above: Performed By: #### L 502.0250, L100.0100, L501.9985, L501.9520, L500.4050, L500.4100, L501.9910 #### [facility] [address] [place], [address] Monocytes/100 WBC (Bld) 8.6 % Normal 0-10 [facility] Comment on above: Performed By: #### L 502.0250, L100.0100, L501.9985, L501.9520, L500.4050, L500.4100, L501.9910 #### [facility] Laboratory [address] [place], [address] Neutrophils/100 WBC (Bld) 63.8 % Normal 47-70 [facility] Comment on above: Performed By: #### L 502.0250, L100.0100, L501.9985, L501.9520, L500.4050, L500.4100, L501.9910 #### [facility] [address] [place], [address] Nucleated RBC (Bld) [#/Vol] 0 10*3/uL Normal 0-5 [facility] Comment on above: Performed By: #### L 502.0250, L100.0100, L501.9985, L501.9520, L500.4050, L500.4100, L501.9910 #### [facility] [address] [place], [address] Platelet mean volume (Bld) [Entitic vol] 10.9 fL Normal 6.2-12.0 [facility] Comment on above: Performed By: #### L 502.0250, L100.0100, L501.9985, L501.9520, L500.4050, L500.4100, L501.9910 #### [facility] [address] [place], [address] Platelets (Bld) [#/Vol] 210 10*3/uL Normal 150-450 [facility] Comment on above: Performed By: #### L 502.0250, L100.0100, L501.9985, L501.9520, L500.4050, L500.4100, L501.9910 #### [facility] [address] [place], [address] RBC (Bld) [#/Vol] 4.40 10*6/uL Low 4.6-6.2 [facility] Comment on above: Performed By: #### L 502.0250, L100.0100, L501.9985, L501.9520, L500.4050, L500.4100, L501.9910 #### [facility] [address] [place], [address] RDW SD 43.6 fl Normal 35.1-43.9 [facility] Comment on above: Performed By: #### L 502.0250, L100.0100, L501.9985, L501.9520, L500.4050, L500.4100, L501.9910 #### [facility] [address] [place], [address] WBC (Bld) [#/Vol] 7.8 10*3/uL Normal 4.4-11.0 [facility] Comment on above: Performed By: #### L 502.0250, L100.0100, L501.9985, L501.9520, L500.4050, L500.4100, L501.9910 #### [facility] [address] [place], [address] Carbon dioxide measurementOr dered By: Jose Yuan on 03-20-2024 CO2 [Moles/Vol] 28.0 mmol/L 21.0-32.0 [facility] Chloride measurementOrdered By: Jose Yuan on 03-20-2024 Chloride [Moles/Vol] 104 mmol/L 98-107 [facility] Comprehensive Metabolic Prof ilon 03-20-2024 Albumin [Mass/Vol] 3.9 g/dL Normal 3.2-5.0 [facility] Comment on above: Performed By: #### L 502.0250, L100.0100, L501.9985, L501.9520, L500.4050, L500.4100, L501.9910 #### [facility] [address] [place], [address] Albumin/Globulin [Mass ratio] 1.0 {ratio} Normal 0.9-2.4 [facility] Comment on above: Performed By: #### L 502.0250, L100.0100, L501.9985, L501.9520, L500.4050, L500.4100, L501.9910 #### [facility] [address] [place], [address] ALK P 61 U/L Normal 45-117 [facility] Comment on above: Performed By: #### L 502.0250, L100.0100, L501.9985, L501.9520, L500.4050, L500.4100, L501.9910 #### [facility] [address] [place], [address] ALT [Catalytic activity/Vol] 60 U/L Normal 16-61 [facility] Comment on above: Performed By: #### L 502.0250, L100.0100, L501.9985, L501.9520, L500.4050, L500.4100, L501.9910 #### [facility] [address] [place], [address] AST [Catalytic activity/Vol] 64 U/L High 15-37 [facility] Comment on above: Performed By: #### L 502.0250, L100.0100, L501.9985, L501.9520, L500.4050, L500.4100, L501.9910 #### [facility] [address] [place], [address] Bilirubin [Mass/Vol] 0.50 mg/dL Normal 0.20-1.00 [facility] Comment on above: Result Comment: For patients on eltrombopag therapy, use of Dimension [place] TBIL is not recommended. Performed By: #### L 502.0250, L100.0100, L501.9985, L501.9520, L500.4050, L500.4100, L501.9910 #### [facility] [address] [place], [address] BUN/CRE 17.1 RATIO Normal 10-20 [facility] Comment on above: Performed By: #### L 502.0250, L100.0100, L501.9985, L501.9520, L500.4050, L500.4100, L501.9910 #### [facility] [address] [place], [address] CA,Total 9.0 mg/dL Normal 8.5-10.1 [facility] Comment on above: Performed By: #### L 502.0250, L100.0100, L501.9985, L501.9520, L500.4050, L500.4100, L501.9910 #### [facility] [address] [place], [address] Chloride [Moles/Vol] 104 mmol/L Normal 98-107 [facility] Comment on above: Performed By: #### L 502.0250, L100.0100, L501.9985, L501.9520, L500.4050, L500.4100, L501.9910 #### [facility] [address] [place], [address] CO2 [Moles/Vol] 28.0 mmol/L Normal 21.0-32.0 [facility] Comment on above: Performed By: #### L 502.0250, L100.0100, L501.9985, L501.9520, L500.4050, L500.4100, L501.9910 #### [facility] [address] [place], [address] Creatinine [Mass/Vol] 1.05 mg/dL Normal 0.70-1.30 [facility] Comment on above: Result Comment: The validity of the calculated GFR GFRAA in patients over 70 years has not been determined. Clinical correlation is essential. Performed By: #### L 502.0250, L100.0100, L501.9985, L501.9520, L500.4050, L500.4100, L501.9910 #### [facility] [address] [place], [address] EST GFR - AA 92 mL/min Normal >60 [facility] Comment on above: Result Comment: Afri can Welsh GFR Calc Performed By: #### L 502.0250, L100.0100, L501.9985, L501.9520, L500.4050, L500.4100, L501.9910 #### [facility] [address] [place], [address] GAP 6 Normal 5-15 [facility] Comment on above: Performed By: #### L 502.0250, L100.0100, L501.9985, L501.9520, L500.4050, L500.4100, L501.9910 #### [facility] [address] [place], [address] GFR/1.73 sq M.predicted among non-blacks MDRD (S/P/Bld) [Vol rate/Area] 76 mL/min/{1.73_m2} Normal >60 [facility] Comment on above: Result Comment: Non- GFR Calc Performed By: #### L 502.0250, L100.0100, L501.9985, L501.9520, L500.4050, L500.4100, L501.9910 #### [facility] [address] [place], [address] Globulin (S) [Mass/Vol] 3.8 g/dL Normal 2.2-4.2 [facility] Comment on above: Performed By: #### L 502.0250, L100.0100, L501.9985, L501.9520, L500.4050, L500.4100, L501.9910 #### [facility] [address] [place], [address] Glucose [Mass/Vol] 160 mg/dL High 74-106 [facility] Comment on above: Result Comment: Fast ing Glucose result greater than or equal to 126 mg/dL suggests DIABETES MELLITUS per A.D.A. criteria. Performed By: #### L 502.0250, L100.0100, L501.9985, L501.9520, L500.4050, L500.4100, L501.9910 #### [facility] [address] [place], [address] Potassium [Moles/Vol] 4.4 mmol/L Normal 3.5-5.1 [facility] Comment on above: Performed By: #### L 502.0250, L100.0100, L501.9985, L501.9520, L500.4050, L500.4100, L501.9910 #### [facility] [address] [place], [address] Sodium [Moles/Vol] 138 mmol/L Normal 136-145 [facility] Comment on above: Performed By: #### L 502.0250, L100.0100, L501.9985, L501.9520, L500.4050, L500.4100, L501.9910 #### [facility] [address] [place], [address] T PROT 7.7 g/dL Normal 6.4-8.2 [facility] Comment on above: Performed By: #### L 502.0250, L100.0100, L501.9985, L501.9520, L500.4050, L500.4100, L501.9910 #### [facility] [address] [place], [address] Urea nitrogen [Mass/Vol] 18 mg/dL Normal 7-18 [facility] Comment on above: Performed By: #### L 502.0250, L100.0100, L501.9985, L501.9520, L500.4050, L500.4100, L501.9910 #### [facility] [address] [place], [address] Eosinophil percentageOrdered By: Jose Yuan on 03-20-2024 Eosinophils/100 WBC (Bld) 3.7 % 0-5 [facility] Erythrocyte distribution wid th ratioOrdered By: Jose Yuan on 03-20-2024 Erythrocyte distribution width (RBC) [Ratio] 12.5 % 11.6-14.6 [facility] Erythrocyte distribution wid th standard deviationOrdered By: Jose Yuan on 03-20-2024 Erythrocyte distribution width (RBC) [Ratio] 43.6 fl 35.1-43.9 [facility] Glomerular filtration rate ( GFR) estimationOrdered By: Jose Yuan on 03-20-2024 GFR/1.73 sq M.predicted among non-blacks MDRD (S/P/Bld) [Vol rate/Area] 76 mL/min/{1.73_m2} >60 [facility] Comment on above: Non- GFR Calc Glucose measurementOrdered B y: Jose Yuan on 03-20-2024 Glucose [Mass/Vol] 160 mg/dL High 74-106 [facility] Comment on above: Fasting Glucose resu lt greater than or equal to 126 mg/dL suggests DIABETES MELLITUS per A.D.A. criteria. Hematocrit Auto (Bld) [Volum e fraction]Ordered By: Jose Yuan on 03-20-2024 Hematocrit (Bld) [Volume fraction] 41.6 % 40-54 [facility] Hemoglobin A1c percentageOrd ered By: Jose Yuan on 03-20-2024 HbA1c (Bld) [Mass fraction] 6.4 % High 3.8-5.6 [facility] Comment on above: Normal < 5.7 % Predi abetic 5.7 - 6.4 % Diabetic >or= 6.5 % Please note range changes. Hemoglobin measurementOrdere d By: Jose Yuan on 03-20-2024 Hemoglobin (Bld) [Mass/Vol] 14.1 g/dL 13.0-16. 5 [facility] High density lipoprotein (HD L) measurementOrdered By: Jose Yuan on 03-20-2024 Cholesterol in HDL [Mass/Vol] 52 mg/dL >40 [facility] Comment on above: The drugs N-Acetylcy steine and Metamizole may falsely depress this assay. Reference Range HDL <40 mg/dL Low HDL Cholesterol HDL >or= 60 mg/dL High HDL Cholesterol Immature granulocytes/100 WB C Auto (Bld)Ordered By: Jose Yuan on 03-20-2024 Immature granulocytes/100 WBC (Bld) 1.100 % High 0.0-0.9 [facility] Comment on above: IG% - Immature Granu locytes (promyelocytes, myelocytes and metamyelocytes) > 1% indicates that a LEFT SHIFT is Present. Laboratory - Chemistry and C hemistry - challengeOrdered By: Jose Yuan on 03-20-2024 AST [Catalytic activity/Vol] 64 U/L High 15-37 [facility] Lipid Profileon 03-20-2024 Cholesterol [Mass/Vol] 176 mg/dL Normal 200 [facility] Comment on above: Result Comment: <200 mg/dL Desirable 200-240 mg/dL Borderline >240 mg/dL High Risk Performed By: #### L 502.0250, L100.0100, L501.9985, L501.9520, L500.4050, L500.4100, L501.9910 #### [facility] [address] [place], [address] Cholesterol in HDL [Mass/Vol] 52 mg/dL Normal [facility] Comment on above: Result Comment: The drugs N-Acetylcysteine and Metamizole may falsely depress this assay. Reference Range HDL <40 mg/dL Low HDL Cholesterol HDL >or= 60 mg/dL High HDL Cholesterol Performed By: #### L 502.0250, L100.0100, L501.9985, L501.9520, L500.4050, L500.4100, L501.9910 #### [facility] [address] [place], [address] Cholesterol in LDL [Mass/Vol] 102 mg/dL Normal 0-130 [facility] Comment on above: Performed By: #### L 502.0250, L100.0100, L501.9985, L501.9520, L500.4050, L500.4100, L501.9910 #### [facility] [address] [place], [address] Cholesterol in VLDL [Mass/Vol] 22 mg/dL Normal 5-40 [facility] Comment on above: Performed By: #### L 502.0250, L100.0100, L501.9985, L501.9520, L500.4050, L500.4100, L501.9910 #### [facility] [address] [place], [address] Triglyceride [Mass/Vol] 112 mg/dL Normal [facility] Comment on above: Result Comment: The drugs N-Acetylcysteine and Metamizole may falsely depress this assay. Serum Triglycerides Reference Interval Normal <150 mg/dL Borderline high 150 - 199 mg/dL High 200 - 499 mg/dL Very High > or = 500 mg/dL Performed By: #### L 502.0250, L100.0100, L501.9985, L501.9520, L500.4050, L500.4100, L501.9910 #### [facility] [address] [facility] [place], [place], [id number] Low density lipoprotein (LDL ) cholesterol measurementOrdered By: Jose Yuan on 03-20-2024 Cholesterol in LDL [Mass/Vol] 102 mg/dL 0-130 [facility] MCV (mean corpuscular volume ) determinationOrdered By: Jose Yuan on 03-20-2024 MCV (RBC) [Entitic vol] 94.5 fL High 80-94 [facility] Mean corpuscular hemoglobin (MCH) determinationOrdered By: Jose Yuan on 03-20-2024 MCH (RBC) [Entitic mass] 32.0 pg 27.0-32.0 [facility] Mean corpuscular hemoglobin concentration (MCHC) determinationOrdered By: Jose Yuan on 03-20-2024 MCHC (RBC) [Mass/Vol] 33.9 g/dL 32-36 [facility] Mean platelet volume determi nationOrdered By: Jose Yuan on 03-20-2024 Platelet mean volume (Bld) [Entitic vol] 10.9 fL 6.2-12.0 [facility] Microalb:Creat Ratio,Random URon 03-20-2024 Creatinine [Mass/Vol] 170.00 mg/dL Normal NO RAN GE EST. [facility] Comment on above: Performed By: #### L 502.0250, L100.0100, L501.9985, L501.9520, L500.4050, L500.4100, L501.9910 #### [facility] [address] [place], [place], [id number] MALB:CRE 112.4 mg/g CRE High <30 mg/g CRE [facility] Comment on above: Performed By: #### L 502.0250, L100.0100, L501.9985, L501.9520, L500.4050, L500.4100, L501.9910 #### [facility] [address] [place], [place], [id number] MICROALBUMIN,UR 191.0 mg/L Normal NO RANGE EST. [facility] Comment on above: Performed By: #### L 502.0250, L100.0100, L501.9985, L501.9520, L500.4050, L500.4100, L501.9910 #### [facility] [address] [place], [place], [id number] Monocyte percentageOrdered B y: Jose Yuan on 03-20-2024 Monocytes/100 WBC (Bld) 8.6 % 0-10 [facility] Neutrophil percentageOrdered By: Jose Yuan on 03-20-2024 Neutrophils/100 WBC (Bld) 63.8 % 47-70 [facility] Nucleated red blood cell per centageOrdered By: Jose Yuan on 03-20-2024 Nucleated RBC/100 WBC (Bld) [Ratio] 0 % 0-5 [facility] PSA,Total - Annual Screenon 03-20-2024 PSA,TOT SCREEN 0.43 ng/mL Normal 0.00-4.00 [facility] Comment on above: Result Comment: This test was performed using the TPSA assay method for the [employer] chemistry system. Values obtained with different assay methods cannot be used interchangably. When changing PSA assays in the course of monitoring a patient, additional sequential testing should be carried out to confirm baseline values. Performed By: #### L 502.0250, L100.0100, L501.9985, L501.9520, L500.4050, L500.4100, L501.9910 ####[facility] [id number] [place], [address] Platelet countOrdered By: Tiffany Yuan on 03-20-2024 Platelets (Bld) [#/Vol] 210 10*3/uL 150-450 [facility] Potassium measurementOrdered By: Jose Yuan on 03-20-2024 Potassium [Moles/Vol] 4.4 mmol/L 3.5-5.1 [facility] RBC Auto (Bld) [#/Vol]Ordere d By: Jose Yuan on 03-20-2024 RBC (Bld) [#/Vol] 4.40 10*6/uL Low 4.6-6.2 [facility] Serum anion gap measurementO rdered By: Jose Yuan on 03-20-2024 Anion gap [Moles/Vol] 6 mmol/L 5-15 [facility] Serum globulin measurementOr dered By: Jose Yuan on 03-20-2024 Globulin (S) [Mass/Vol] 3.8 g/dL 2.2-4.2 [facility] Serum or plasma alanine fortune otransferase (ALT) measurementOrdered By: Jose Yuan on 03-20-2024 ALT [Catalytic activity/Vol] 60 U/L 16-61 [facility] Serum or plasma albumin peggy urement (mass/volume)Ordered By: Jose Yuan on 03-20-2024 Albumin [Mass/Vol] 3.9 g/dL 3.2-5.0 [facility] Serum or plasma alkaline quentin sphatase measurementOrdered By: Jose Yuna on 03-20-2024 ALP [Catalytic activity/Vol] 61 U/L 45-117 [facility] Serum or plasma calcium peggy urement (mass/volume)Ordered By: Jose Yuan on 03-20-2024 Calcium [Mass/Vol] 9.0 mg/dL 8.5-10.1 [facility] Serum or plasma cholesterol measurement (mass/volume)Ordered By: Jose Yuan on 03-20-2024 Cholesterol [Mass/Vol] 176 mg/dL <200 [facility] Comment on above: <200 mg/dL Desirable 200-240 mg/dL Borderline >240 mg/dL High Risk Serum or plasma creatinine m easurement (mass/volume)Ordered By: Jose Yuan on 03-20-2024 Creatinine [Mass/Vol] 1.05 mg/dL 0.70-1.30 [facility] Comment on above: The validity of the calculated GFR & GFRAA in patients over 70 years has not been determined. Clinical correlation is essential. Serum or plasma thyroid stim ulating hormone (TSH) measurement (units/volume)Ordered By: Jose Yuan on 03-20-2024 TSH Qn 51.700 uIU/mL High 0.358-3.740 [facility] Serum or plasma urea nitroge n measurement (mass/volume)Ordered By: Jose Yuan on 03-20-2024 Urea nitrogen [Mass/Vol] 18 mg/dL 7-18 [facility] Sodium levelOrdered By: Sherron Yuan on 03-20-2024 Sodium [Moles/Vol] 138 mmol/L 136-145 [facility] Thyroid Stim Hormone (TSH)on 03-20-2024 TSH 51.700 uIU/mL High 0.358-3.740 [facility] Comment on above: Performed By: #### L 502.0250, L100.0100, L501.9985, L501.9520, L500.4050, L500.4100, L501.9910 #### [facility] [address] [place], [address] Total proteinOrdered By: Daniel Yuan on 03-20-2024 Protein [Mass/Vol] 7.7 g/dL 6.4-8.2 [facility] Triglycerides measurementOrd ered By: Jose Yuan on 03-20-2024 Triglyceride [Mass/Vol] 112 mg/dL <199 [facility] Comment on above: The drugs N-Acetylcy steine and Metamizole may falsely depress this assay.Serum Triglycerides Reference Interval Normal <150 mg/dL Borderline high 150 - 199 mg/dL High 200 - 499 mg/dL Very High > or = 500 mg/dL Urine creatinine measurement (mass/volume)Ordered By: Jose Yuan on 03-20-2024 Creatinine (U) [Mass/Vol] 170.00 mg/dL NO RANGE EST. [facility] Very low density lipoprotein (VLDL) cholesterol measurementOrdered By: Jose Yuan on 03-20-2024 Very low density lipoprotein (VLDL) cholesterol measurement 22 mg/dL 5-40 [facility] White blood cell (WBC) count Ordered By: Jose Yuan on 03-20-2024 WBC (Bld) [#/Vol] 7.8 10*3/uL 4.4-11.0 [facility] Internal Medicine Office Vis itomaite 12-17-2023 Internal Medicine Office Visit [facility] [place] [address] [place] [address] OFFICE VISIT Date of Service: 12/17/23 MR#: [id number] Acct: [id number] Name: JOY GENTILE Rep #: [id number] : 1960 Provider: Dr. Jose dietrich MD Age/Sex: 63/M Location: [facility] [place] Status: Signed Intake Vital Signs 09/10/23 15:40 12/17/23 15:46 Height 5 ft 11 in 5 ft 11 in Weight: 257 lb 268 lb BMI 35.8 37.3 BP 132/82 H 132/84 H Blood Pressure Location Lt brachial Lt brachial Position Sitting Sitting Respiration 18 16 Pulse 76 68 Pulse Source Monitor Monitor Temp 98.2 F 97.7 F L Temp Source Temporal Temporal Pulse Oximetry (%) 96 94 Oxygen Delivery Method room air room air Intake Visit Reasons: 3 M FU Chief Complaint: Follow up Chronic Conditions Director Writing Required: No Is patient in pain?: No Allergies grass pollen Allergy (Mild, Verified 12/17/23 15:36) UNKNOWN house dust mite Allergy (Mild, Verified 12/17/23 15:36) UNKNOWN tree and shrub pollen Allergy (Mild, Verified 12/17/23 15:36) UNKNOWN venom-honey bee Allergy (Mild, Verified 12/17/23 15:36) UNKNOWN Penicillins Allergy (Verified 12/17/23 15:36) Rash Medications ???Medication ???Instructions ???Recorded ???Confirmed ???Type loratadine 10 mg tablet (Claritin) 10 mg PO DAILY 04/08/19 12/17/23 History lancets 28 gauge (FreeStyle #200 ea 07/31/22 12/17/23 Rx Lancets) montelukast 10 mg tablet 10 mg PO DAILY #90 tabs 07/31/22 12/17/23 Rx levothyroxine 150 mcg tablet 150 mcg PO DAILY #90 tabs 11/06/22 12/17/23 Rx lisinopril 5 mg tablet 5 mg PO DAILY #90 tabs 08/10/23 12/17/23 Rx simvastatin 10 mg tablet 10 mg PO DAILY #90 tabs 08/10/23 12/17/23 Rx trazodone 100 mg tablet See Rx Instructions .Route 09/19/23 12/17/23 Rx .COMPLEX #180 tabs blood sugar diagnostic (Accu-Chek #100 ea 10/09/23 12/17/23 Rx Guide test strips) lancets (Accu-Chek Softclix #100 ea 10/09/23 12/17/23 Rx Lancets) lancing device with lancets kit #1 ea 10/09/23 12/17/23 Rx (Accu-Chek Softclix Lancing Device+Lancets kit) glimepiride 2 mg tablet 2 mg PO QAM #90 tabs 10/30/23 12/17/23 Rx metformin 500 mg tablet 1,000 mg (2 x 500 mg) PO BID 3 12/08/23 12/17/23 Rx months #360 TABLETS Nurse's Note: States he thinks he needs another sleep study. He is sleeping fine at night, thinks it may need to be readjusted. pt is playing games on phone and unable to specify why. PFSH Medical History Leg cramps BPH (benign prostatic hyperplasia) Health care maintenance BABAR (obstructive sleep apnea) Venous insufficiency of both lower extremities Hypothyroidism Type 2 diabetes mellitus Ulcerative colitis Allergies Thyroid disease Asthma Knee pain Hay fever Diabetes Hypertension Surgical History H/O hernia repair History of nasal surgery Family History Mother Alcoholism Cancer Kidney disease Father Cancer Myocardial infarction Heart disease Brother Myocardial infarction Social History Smoking Status: Never smoker alcohol intake: never substance use type: does not use what type of physical activity do you participate in: walking frequency: daily seatbelt use: always do you feel safe at home: Yes HPI HPI Chief Complaint: Follow up Chronic Conditions Details: JOY GENTILE, is a 63 M who presents to the office today for follow-up of his chronic medical conditions. Also has some concerns. History of sleep apnea. Has been using his CPAP however he states that he feels the pressure is not enough. Has had current machine for over 10 years. No recent weight changes. Compliant otherwise. Also history of diabetes mellitus type 2 and A1c today is at 6.5 down from 6.6. Reports compliance with his medication. No concerns for hypoglycemia. History of hypertension, blood pressure today at 132/84 mmHg. He reports better blood pressure readings at home stating that his readings on average in the 120s or lower. No chest pain, palpitation or shortness of breath. Other chronic medical conditions are stable. ROS Const Constitutional: No body ache, chills, excessive sweating, fatigue, fever(s), frequent falls, headache(s), snoring, weakness, sleep problems or change in appetite Eyes Eyes: No blurry vision, change in vision, bulging eyes, floaters, eye pain or Light sensitivity ENT ENT: No abnormal hearing, ear or mastoid pain, tinnitus, balance problems, nosebleed/epistaxis , nasal congestion, headache(s), neck pain or sore throat Resp Respiratory: No cough, excessive phlegm production, pain on inspiration, (more content not included)... Normal [facility] Basophil percentageOrdered B y: Jose Yuan on 06-04-2023 Chloride [Moles/Vol] 107 mmol/L 98-107 [facility] Glucose [Mass/Vol] 110 mg/dL 74-106 [facility] Comment on above: Fasting Glucose resu lt from 100 to 125 mg/dL suggests IMPAIRED HOMEOSTASIS per A.D.A. criteria. Potassium [Moles/Vol] 4.0 mmol/L 3.5-5.1 [facility] Sodium [Moles/Vol] 140 mmol/L 136-145 [facility] Laboratory - Chemistry and C hemistry - challengeOrdered By: Jose Yuan on 06-04-2023 CO2 [Moles/Vol] 28.0 mmol/L 21.0-32.0 [facility] Magnesium [Mass/Vol] 2.1 mg/dL 1.6-2.6 [facility] Urea nitrogen/Creatinine [Mass ratio] 19.1 mg/mg 10-20 [facility] Laboratory - Hematology and Cell countson 06-04-2023 HbA1c (Bld) [Mass fraction] 6.5 % 4.2-6.3 [facility] No Panel InformationOrdered By: Jose Yuan on 06-04-2023 Estimated GFR (MDRD) Amer 111 mL/min >60 [facility] Comment on above: GFR Calc Estimated GFR (MDRD) Non-Af Amer 92 mL/min >60 [facility] Comment on above: Non- GFR Calc Serum or plasma calcium peggy urement (mass/volume)Ordered By: Jose Yuan on 06-04-2023 Calcium [Mass/Vol] 9.3 mg/dL 8.5-10.1 [facility] Serum or plasma creatinine m easurement (mass/volume)Ordered By: Jose Yuan on 06-04-2023 Creatinine [Mass/Vol] 0.89 mg/dL 0.70-1.30 [facility] Comment on above: The validity of the calculated GFR & GFRAA in patients over 70 years has not been determined. Clinical correlation is essential. Serum or plasma urea nitroge n measurement (mass/volume)Ordered By: Jose Yuan on 06-04-2023 Urea nitrogen [Mass/Vol] 17 mg/dL 7-18 [facility] Thin prep Papanicolaou smear with manual screeningOrdered By: Jose Yuan on 06-04-2023 Thin prep Papanicolaou smear with manual screening 5 5-15 [facility] Absolute lymphocyte countOrd ered By: Jose Yuan on 03-01-2023 Lymphocytes Auto (Unsp spec) [#/Vol] 1.84 10*3/uL 0.83-4.51 [facility] Automated lymphocyte count a s percentage of total leukocytesOrdered By: Jose Jimmybeccajose manuel on 03-01-2023 Lymphocytes/100 WBC Auto (Unsp spec) 29.7 % 19-41 [facility] Basophil percentageOrdered B y: Jose Yuan on 03-01-2023 Basophils/100 WBC (Bld) 1.1 % 0-1 [facility] Bilirubin [Mass/Vol] 0.40 mg/dL 0.20-1.00 [facility] Comment on above: For patients on eltr ombopag therapy, use of Dimension [place] TBIL is not recommended. Chloride [Moles/Vol] 109 mmol/L 98-107 [facility] Cholesterol [Mass/Vol] 143 mg/dL <200 [facility] Comment on above: <200 mg/dL Desirable 200-240 mg/dL Borderline >240 mg/dL High Risk Eosinophils/100 WBC (Bld) 3.5 % 0-5 [facility] Glucose [Mass/Vol] 158 mg/dL 74-106 [facility] Comment on above: Fasting Glucose resu lt greater than or equal to 126 mg/dL suggests DIABETES MELLITUS per A.D.A. criteria. Hemoglobin (Bld) [Mass/Vol] 15.3 g/dL 13.0-16. 5 [facility] Monocytes/100 WBC (Bld) 10.6 % 0-10 [facility] Neutrophils (Bld) [#/Vol] 3.4 10*3/uL 2.0-7.7 [facility] Neutrophils/100 WBC (Bld) 54.6 % 47-70 [facility] Potassium [Moles/Vol] 4.4 mmol/L 3.5-5.1 [facility] Protein [Mass/Vol] 7.2 g/dL 6.4-8.2 [facility] Sodium [Moles/Vol] 141 mmol/L 136-145 [facility] Triglyceride [Mass/Vol] 101 mg/dL <199 [facility] Comment on above: The drugs N-Acetylcy steine and Metamizole may falsely depress this assay.Serum Triglycerides Reference Interval Normal <150 mg/dL Borderline high 150 - 199 mg/dL High 200 - 499 mg/dL Very High > or = 500 mg/dL WBC (Bld) [#/Vol] 6.2 10*3/uL 4.4-11.0 [facility] Determination of erythrocyte mean corpuscular volume (MCV)Ordered By: Jose Yuan on 03-01-2023 MCV (RBC) [Entitic vol] 92.6 fL 80-94 [facility] Erythrocyte distribution wid th ratioOrdered By: Sherronmariettanajma Marquezjose manuel on 03-01-2023 Erythrocyte distribution width (RBC) [Ratio] 12.1 % 11.6-14.6 [facility] Erythrocyte distribution wid th standard deviationOrdered By: Sherronmariettanajma Yuan on 03-01-2023 Erythrocyte distribution width (RBC) [Entitic vol] 41.4 fL 35.1-43.9 [facility] Hematocrit Auto (Bld) [Volum e fraction]Ordered By: Jose Yuan on 03-01-2023 Hematocrit (Bld) [Volume fraction] 46.1 % 40-54 [facility] High density lipoprotein (HD L) measurementOrdered By: Jose Yuan on 03-01-2023 Cholesterol in HDL (Body fld) [Mass/Vol] 47 mg/dL >40 [facility] Comment on above: The drugs N-Acetylcy steine and Metamizole may falsely depress this assay. Reference Range HDL <40 mg/dL Low HDL Cholesterol HDL >or= 60 mg/dL High HDL Cholesterol Immature granulocytes/100 WB C Auto (Bld)Ordered By: Jose Yuan on 03-01-2023 Immature granulocytes/100 WBC (Bld) 0.500 % 0.0-0.9 [facility] Comment on above: IG% - Immature Granu locytes (promyelocytes, myelocytes and metamyelocytes) > 1% indicates that a LEFT SHIFT is Present. Laboratory - Chemistry and C hemistry - challengeOrdered By: Jose Yuan on 03-01-2023 Albumin/Globulin [Mass ratio] 1.2 {ratio} 0.9-2.4 [facility] ALP [Catalytic activity/Vol] 69 U/L 45-117 [facility] ALT [Catalytic activity/Vol] 45 U/L 16-61 [facility] CO2 [Moles/Vol] 28.0 mmol/L 21.0-32.0 [facility] Globulin (S) [Mass/Vol] 3.2 g/dL 2.2-4.2 [facility] Urea nitrogen/Creatinine [Mass ratio] 19.3 mg/mg 10-20 [facility] Laboratory - Hematology and Cell countsOrdered By: Jose Yuan on 03-01-2023 MCH (RBC) [Entitic mass] 30.7 pg 27.0-32.0 [facility] MCHC (RBC) [Mass/Vol] 33.2 g/dL 32-36 [facility] Nucleated RBC/100 WBC (Bld) [Ratio] 0 % 0-5 [facility] Platelets (Bld) [#/Vol] 202 10*3/uL 150-450 [facility] Low density lipoprotein (LDL ) cholesterol measurementOrdered By: Jose Yuan on 03-01-2023 Cholesterol in LDL (Body fld) [Moles/Vol] 76 mg/dL 0-130 [facility] No Panel InformationOrdered By: Jose Yuan on 03-01-2023 Estimated GFR (MDRD) Amer 112 mL/min >60 [facility] Comment on above: GFR Calc Estimated GFR (MDRD) Non-Af Amer 93 mL/min >60 [facility] Comment on above: Non- GFR Calc Platelet mean volume Marino-Ec ker (Bld) [Entitic vol]Ordered By: Jose Yuan on 03-01-2023 Platelet mean volume (Bld) [Entitic vol] 11.4 fL 6.2-12.0 [facility] RBC Auto (Bld) [#/Vol]Ordere d By: Sherroncarlos anajma Yuan on 03-01-2023 RBC (Bld) [#/Vol] 4.98 10*6/uL 4.6-6.2 [facility] Screening prostate specific antigen (PSA) measurementOrdered By: Jose Yuan on 03-01-2023 Prostate specific Ag IA [Mass/Vol] 0.37 ng/mL 0.00-4.00 [facility] Comment on above: This test was perfor med using the TPSA assay method for [employer] chemistry system. Values obtained with differentassay methods cannot be used interchangably.When changing PSA assays in the course of monitoring apatient, additional sequential testing should be carriedout to confirm baseline values. Serum or plasma calcium peggy urement (mass/volume)Ordered By: Jose Yuan on 03-01-2023 Calcium [Mass/Vol] 9.5 mg/dL 8.5-10.1 [facility] Serum or plasma creatinine m easurement (mass/volume)Ordered By: Jose Yuan on 03-01-2023 Creatinine [Mass/Vol] 0.88 mg/dL 0.70-1.30 [facility] Comment on above: The validity of the calculated GFR & GFRAA in patients over 70 years has not been determined. Clinical correlation is essential. Serum or plasma thyroid stim ulating hormone (TSH) measurement (units/volume)Ordered By: Jose Yuan on 03-01-2023 TSH Qn 0.78 uIU/mL 0.358-3.74 [facility] Serum or plasma urea nitroge n measurement (mass/volume)Ordered By: Jose Yuan on 03-01-2023 Urea nitrogen [Mass/Vol] 17 mg/dL 7-18 [facility] Thin prep Papanicolaou smear with manual screeningOrdered By: Jose Yuan on 03-01-2023 Thin prep Papanicolaou smear with manual screening 32.3 mg/L NO RANGE EST. [facility] Thin prep Papanicolaou smear with manual screening 4.0 g/dL 3.2-5.0 [facility] Thin prep Papanicolaou smear with manual screening 35 U/L 15-37 [facility] Thin prep Papanicolaou smear with manual screening 4 5-15 [facility] Urine albumin/creatinine rat io for detection of microalbuminuriaOrdered By: Jose Yuan on 03-01-2023 Albumin/Creatinine DL <= 1.0 mg/L (24H U) [Ratio] 18.6 mg/g CRE <30 [facility] Urine creatinine measurement (mass/volume)Ordered By: Jose Yuan on 03-01-2023 Creatinine (U) [Mass/Vol] 174.00 mg/dL NO RANGE EST. [facility] Very low density lipoprotein (VLDL) cholesterol measurementOrdered By: Jose Yuan on 03-01-2023 Cholesterol in VLDL Calc [Moles/Vol] 20 mg/dL 5-40 [facility] Laboratory - Hematology and Cell countson 02-27-2023 HbA1c (Bld) [Mass fraction] 6.6 % 4.2-6.3 [facility] Laboratory - Hematology and Cell countson 11-06-2022 HbA1c (Bld) [Mass fraction] 6.2 % 4.2-6.3 [facility] Absolute lymphocyte countOrd ered By: Dr. Yuan on 04-25-2022 Lymphocytes Auto (Unsp spec) [#/Vol] 2.05 10*3/uL 0.83-4.51 [facility] Basophil percentageOrdered B y: Dr. Yuan on 04-25-2022 Basophils/100 WBC (Bld) 1.0 % 0-1 [facility] Bilirubin [Mass/Vol] 0.30 mg/dL 0.20-1.00 [facility] Comment on above: For patients on eltr ombopag therapy, use of Dimension [place] TBIL is not recommended. Chloride [Moles/Vol] 104 mmol/L 98-107 [facility] Cholesterol [Mass/Vol] 141 mg/dL <200 [facility] Comment on above: <200 mg/dL Desirable 200-240 mg/dL Borderline >240 mg/dL High Risk Eosinophils/100 WBC (Bld) 3.2 % 0-5 [facility] Glucose [Mass/Vol] 119 mg/dL 74-106 [facility] Comment on above: Fasting Glucose resu lt from 100 to 125 mg/dL suggests IMPAIRED HOMEOSTASIS per A.D.A. criteria. Neutrophils (Bld) [#/Vol] 3.1 10*3/uL 2.0-7.7 [facility] Neutrophils/100 WBC (Bld) 50.5 % 47-70 [facility] Potassium [Moles/Vol] 4.1 mmol/L 3.5-5.1 [facility] Protein [Mass/Vol] 7.2 g/dL 6.4-8.2 [facility] Sodium [Moles/Vol] 139 mmol/L 136-145 [facility] Triglyceride [Mass/Vol] 254 mg/dL <199 [facility] Comment on above: The drugs N-Acetylcy steine and Metamizole may falsely depress this assay.Serum Triglycerides Reference Interval Normal <150 mg/dL Borderline high 150 - 199 mg/dL High 200 - 499 mg/dL Very High > or = 500 mg/dL WBC (Bld) [#/Vol] 6.0 10*3/uL 4.4-11.0 [facility] Blood erythrocytes count (nu mber/volume)Ordered By: Dr. Yuan on 04-25-2022 RBC (Bld) [#/Vol] 4.69 10*6/uL 4.6-6.2 [facility] Blood hemoglobin measurement (mass/volume)Ordered By: Dr. Yuan on 04-25-2022 Hemoglobin (Bld) [Mass/Vol] 14.8 g/dL 13.0-16. 5 [facility] Blood lymphocytes/100 leukoc ytesOrdered By: Dr. Yuan on 04-25-2022 Lymphocytes/100 WBC (Bld) 34.0 % 19-41 [facility] Blood monocytes/100 leukocyt esOrdered By: Dr. Yuan on 04-25-2022 Monocytes/100 WBC (Bld) 11.1 % 0-10 [facility] Blood platelet mean volumeOr dered By: Dr. Yuan on 04-25-2022 Platelet mean volume (Bld) [Entitic vol] 11.3 fL 6.2-12.0 [facility] Determination of erythrocyte mean corpuscular volume (MCV)Ordered By: Dr. Yuan on 04-25-2022 MCV (RBC) [Entitic vol] 91.5 fL 80-94 [facility] Hematocrit Auto (Bld) [Volum e fraction]Ordered By: Dr. Yuan on 04-25-2022 Hematocrit (Bld) [Volume fraction] 42.9 % 40-54 [facility] Laboratory - Chemistry and C hemistry - challengeOrdered By: Dr. Yuan on 04-25-2022 ALP [Catalytic activity/Vol] 70 U/L 45-117 [facility] ALT [Catalytic activity/Vol] 52 U/L 16-61 [facility] CO2 [Moles/Vol] 28.0 mmol/L 21.0-32.0 [facility] Globulin (S) [Mass/Vol] 3.3 g/dL 2.2-4.2 [facility] Urea nitrogen/Creatinine [Mass ratio] 16.3 mg/mg 10-20 [facility] Laboratory - Hematology and Cell countsOrdered By: Dr. Yuan on 04-25-2022 Erythrocyte distribution width (RBC) [Entitic vol] 40.3 fL 35.1-43.9 [facility] Erythrocyte distribution width (RBC) [Ratio] 12.0 % 11.6-14.6 [facility] Immature granulocytes/100 WBC (Bld) 0.200 % 0.0-0.9 [facility] Comment on above: IG% - Immature Granu locytes (promyelocytes, myelocytes and metamyelocytes) > 1% indicates that a LEFT SHIFT is Present. MCH (RBC) [Entitic mass] 31.6 pg 27.0-32.0 [facility] Nucleated RBC/100 WBC (Bld) [Ratio] 0 % 0-5 [facility] MCHC Auto (RBC) [Mass/Vol]Or dered By: Dr. Yuan on 04-25-2022 MCHC (RBC) [Mass/Vol] 34.5 g/dL 32-36 [facility] No Panel InformationOrdered By: Dr. Yuan on 03-16-2023 Estimated GFR (MDRD) Amer 116 mL/min >60 [facility] Comment on above: GFR Calc Estimated GFR (MDRD) Non-Af Amer 96 mL/min >60 [facility] Comment on above: Non- GFR Calc Thyroid Stimulating Hormone (TSH) 0.51 uIU/mL 0.358-3.74 [facility] Urine Microalbumin/Creatinine Ratio 13.6 mg/g CRE <30 [facility] Platelets bldOrdered By: Dr. Yuan on 04-25-2022 Platelets (Bld) [#/Vol] 214 10*3/uL 150-450 [facility] Serum or plasma albumin peggy urement (mass/volume)Ordered By: Dr. Yuan on 04-25-2022 Albumin [Mass/Vol] 3.9 g/dL 3.2-5.0 [facility] Serum or plasma albumin/glob ulin mass ratioOrdered By: Dr. Yuan on 04-25-2022 Albumin/Globulin [Mass ratio] 1.2 {ratio} 0.9-2.4 [facility] Serum or plasma calcium peggy urement (mass/volume)Ordered By: Dr. Yuan on 04-25-2022 Calcium [Mass/Vol] 9.2 mg/dL 8.5-10.1 [facility] Serum or plasma cholesterol in HDL measurement (mass/volume)Ordered By: Dr. Yuan on 04-25-2022 Cholesterol in HDL [Mass/Vol] 32 mg/dL >40 [facility] Comment on above: The drugs N-Acetylcy steine and Metamizole may falsely depress this assay. Reference Range HDL <40 mg/dL Low HDL Cholesterol HDL >or= 60 mg/dL High HDL Cholesterol Serum or plasma cholesterol in VLDL measurement (mass/volume)Ordered By: Dr. Yuan on 04-25-2022 Cholesterol in VLDL [Mass/Vol] 51 mg/dL 5-40 [facility] Serum or plasma creatinine m easurement (mass/volume)Ordered By: Dr. Yuan on 04-25-2022 Creatinine [Mass/Vol] 0.86 mg/dL 0.70-1.30 [facility] Comment on above: The validity of the calculated GFR & GFRAA in patients over 70 years has not been determined. Clinical correlation is essential. Serum or plasma low density lipoprotein (LDL) cholesterol measurement (mass/volume)Ordered By: Dr. Yuan on 04-25-2022 Cholesterol in LDL [Mass/Vol] 58 mg/dL 0-130 [facility] Serum or plasma urea nitroge n measurement (mass/volume)Ordered By: Dr. Yuan on 04-25-2022 Urea nitrogen [Mass/Vol] 14 mg/dL 7-18 [facility] Thin prep Papanicolaou smear with manual screeningOrdered By: Dr. Yuan on 04-25-2022 Thin prep Papanicolaou smear with manual screening 39 U/L 15-37 [facility] Thin prep Papanicolaou smear with manual screening 7 5-15 [facility] Thin prep Papanicolaou smear with manual screening 14.0 mg/L NO RANGE EST. [facility] Urine creatinine measurement (mass/volume)Ordered By: Dr. Yuan on 04-25-2022 Creatinine (U) [Mass/Vol] 103.00 mg/dL NO RANGE EST. [facility] Whole blood hemoglobin A1c/t otal hemoglobin ratio (mass fraction)Ordered By: Dr. Yuan on 04-25-2022 HbA1c (Bld) [Mass fraction] 6.1 % 3.8-5.6 [facility] Comment on above: Normal < 5.7 % Predi abetic 5.7 - 6.4 % Diabetic >or= 6.5 % Please note range changes. Vital Signs Date Time Vital Sign Value Performing Clinician Caseyi aileen 07-14-2024 13:09040 Body height 180.[address] Jose Yuan MD Work Phone: [facility] 07-14-2024 13:090400 Body mass index (BMI) [Ratio] 36.1 kg/m2 Dr. Jose Yuan MD Work Phone: [facility] 07-14-2024 13:09040 Body temperature 97.6 [degF] Dr. Jose Yuan MD Work Phone: [facility] 07-14-2024 13:09-0400 Body weight 117.[address] Jose Yuan MD Work Phone: [facility] 07-14-2024 13:09-0400 Diastolic blood pressure 70 mm[Hg] Dr. Jose Yuan MD Work Phone: [facility] 07-14-2024 13:09-0400 Heart rate 86 /min Dr. Jose Yuan MD Work Phone: [facility] 07-14-2024 13:09-0400 Respiratory rate 18 /min Dr. Jose Yuan MD Work Phone: [facility] 07-14-2024 13:09-0400 SaO2% (BldA) [Mass fraction] 94 % Dr. Jose Yuan MD Work Phone: [facility] 07-14-2024 13:09-0400 Systolic blood pressure 124 mm[Hg] Dr. Jose Yuan MD Work Phone: [facility] 03-24-2024 16:14-0500 Body height 180.[address] Jose Yuan MD Work Phone: [facility] 03-24-2024 16:14-0500 Body mass index (BMI) [Ratio] 38 kg/m2 Dr. Jose Yuan MD Work Phone: [facility] 03-24-2024 16:14-0500 Body temperature 96.1 [degF] Dr. Jose Yuan MD Work Phone: [facility] 03-24-2024 16:14-0500 Body weight 123.[address] Jose Yuan MD Work Phone: [facility] 03-24-2024 16:14-0500 Diastolic blood pressure 78 mm[Hg] Dr. Jose Yuan MD Work Phone: [facility] 03-24-2024 16:14-0500 Heart rate 72 /min Dr. Jose Yuan MD Work Phone: [facility] 03-24-2024 16:14-0500 Respiratory rate 18 /min Dr. Jose Yuan MD Work Phone: [facility] 03-24-2024 16:14-0500 SaO2% (BldA) [Mass fraction] 97 % Dr. Jose Yuan MD Work Phone: [facility] 03-24-2024 16:14-0500 Systolic blood pressure 142 mm[Hg] Dr. Jose Yuan MD Work Phone: [facility] 06-04-2023 15:39-0400 Body height 180.[address] Jose Yuan Work Phone: [facility] 06-04-2023 15:39-0400 Body mass index (BMI) [Ratio] 35.6 kg/m2 Dr. Jose Yuan Work Phone: [facility] 06-04-2023 15:39-0400 Body temperature 97.2 [degF] Dr. Jose Yuan Work Phone: [facility] 06-04-2023 15:39-0400 Body weight 115.[address] Joes Yuan Work Phone: [facility] 06-04-2023 15:39-0400 Diastolic blood pressure 82 mm[Hg] Dr. Jose Yuan Work Phone: [facility] 06-04-2023 15:39-0400 Heart rate 55 /min Dr. Jose Yuan Work Phone: [facility] 06-04-2023 15:39-0400 Respiratory rate 16 /min Dr. Jose Yuan Work Phone: [facility] 06-04-2023 15:39-0400 SaO2% (BldA) [Mass fraction] 96 % Dr. Jose Yuan Work Phone: [facility] 06-04-2023 15:39-0400 Systolic blood pressure 122 mm[Hg] Dr. Jose Yuan Work Phone: [facility] 02-27-2023 16:26-0500 Body height 180.[address] Jose Yuan Work Phone: [facility] 02-27-2023 16:26-0500 Body mass index (BMI) [Ratio] 35.2 kg/m2 Dr. Jose Yuan Work Phone: [facility] 02-27-2023 16:26-0500 Body temperature 97.9 [degF] Dr. Jose Yuan Work Phone: [facility] 02-27-2023 16:26-0500 Body weight 114.[address] Jose Yuan Work Phone: [facility] 02-27-2023 16:26-0500 Diastolic blood pressure 82 mm[Hg] Dr. Jose Yuan Work Phone: [facility] 02-27-2023 16:26-0500 Heart rate 74 /min Dr. Jose Yuan Work Phone: [facility] 02-27-2023 16:26-0500 Respiratory rate 18 /min Dr. Jose Yuan Work Phone: [facility] 02-27-2023 16:26-0500 SaO2% (BldA) [Mass fraction] 97 % Dr. Jose Yuan Work Phone: [facility] 02-27-2023 16:26-0500 Systolic blood pressure 136 mm[Hg] Dr. Jose Yuan Work Phone: [facility] 11-06-2022 15:27-0400 Body mass index (BMI) [Ratio] 34.4 kg/m2 Dr. Jose Yuan Work Phone: [facility] 11-06-2022 15:27-0400 Body temperature 97.7 [degF] Dr. Jose Yuan Work Phone: [facility] 11-06-2022 15:27-0400 Body weight 112.[address] Jose Yuan Work Phone: [facility] 11-06-2022 15:27-0400 Diastolic blood pressure 74 mm[Hg] Dr. Jose Yuan Work Phone: [facility] 11-06-2022 15:27-0400 Heart rate 68 /min Dr. Jose Yuan Work Phone: [facility] 11-06-2022 15:27-0400 Respiratory rate 18 /min Dr. Jose Yuan Work Phone: [facility] 11-06-2022 15:27-0400 SaO2% (BldA) [Mass fraction] 96 % Dr. Jose Yuan Work Phone: [facility] 11-06-2022 15:27-0400 Systolic blood pressure 114 mm[Hg] Dr. Jose Yuan Work Phone: [facility] 04-24-2022 16:07-0400 Body height 180.[address] Chris Bishop Work Phone: [facility] 04-24-2022 16:07-0400 Body mass index (BMI) [Ratio] 35.8 kg/m2 Dr. Chris Bishop Work Phone: [facility] 04-24-2022 16:07-0400 Body temperature 98 [degF] Dr. Chris Bishop Work Phone: [facility] 04-24-2022 16:07-0400 Body weight 116.[address] Chris Bishop Work Phone: [facility] 04-24-2022 16:07-0400 Diastolic blood pressure 82 mm[Hg] Dr. Chris Bishop Work Phone: [facility] 04-24-2022 16:07-0400 Heart rate 69 /min Dr. Chris Bishop Work Phone: [facility] 04-24-2022 16:07-0400 Respiratory rate 16 /min Dr. Chris Bishop Work Phone: [facility] 04-24-2022 16:07-0400 SaO2% (BldA) [Mass fraction] 95 % Dr. Chris Bishop Work Phone: [facility] 04-24-2022 16:07-0400 Systolic blood pressure 122 mm[Hg] Dr. Chris Bishop Work Phone: [facility] Encounters Encounter Date Encounter Type Care Provider Facility Start: 10-05-2024 ambulatory [facility] Facility: [facility] Start: 10-01-2024 ambulatory Jose Angel ty:[facility] Start: [facility] Start: 07-14-2024 End: 07-14-[address] Jose Yuan MD -[facility] Work Phone: Start: 07-14-2024 End: 07-14-[address] Jose Yuan MD [facility] Start: 07-14-2024 End: 07-14-[address] Jose Yuan MD Work Phone: [facility] Work Phone: Start: 07-14-2024 End: 07-14-2024 ambulatory Jose Yuan Facility:[facility] Start: 07-13-2024 Encounter for other preprocedural examination [facility] Start: 07-08-2024 End: 07-08-2024 Non-patient / Non-visit Dr. Aaron Watt MD -[facility] Work Phone: Start: 07-08-2024 End: 07-08-[address] Jose Yuan MD Work Phone: [facility] Work Phone: Start: 07-08-2024 End: 07-08-[address] Patrick Bowles MD -Pulmonary Services/Neurology Work Phone: Start: 07-08-2024 End: 07-08-2024 ambulatory Patrick Bowles Facility:[facility] Start: 03-24-2024 End: 03-24-[address] Jose Yuan MD -[facility] Work Phone: Start: 03-24-2024 End: 03-24-2024 ambulatory Derrick Kwabena Facility:[facility] Start: 03-20-2024 End: 03-20-[address] Jose Yuan MD -Laboratory Work Phone: Start: 03-20-2024 End: 03-20-2024 ambulatory [facility] Facility:[facility] Start: 01-06-2024 End: 01-06-2024 ambulatory [facility] Facility:[facility] Start: 12-17-2023 End: 12-17-2023 ambulatory [facility] Facility:[facility] Start: 06-04-2023 End: 06-04-[address] Jose Yuan Work Phone: [facility] Work Phone: Start: 06-04-2023 End: 06-04-[address] Jose Yuan Work Phone: [facility] Work Phone: Start: 03-01-2023 End: 03-01-[address] Jose Yuan Work Phone: [facility] Work Phone: Start: 03-01-2023 End: 03-01-[address] Jose Yuan Work Phone: [facility] Work Phone: Start: 02-27-2023 End: 02-27-[address] Jose Yuan Work Phone: [facility] Work Phone: Start: 11-06-[address] Jose Manuel Yuan Work Phone: [facility] Start: 11-06-2022 End: 11-06-2022 Encounter for general adult medical examination without abnormal findings Dr. Jose Yuan Work Phone: [facility] Start: 11-06-2022 End: 11-06-[address] Jose Yuan Work Phone: [facility] Work Phone: Start: 04-25-2022 End: 04-25-[address] Chris Bishop Work Phone: [facility] Work Phone: Start: 04-25-2022 End: 04-25-[address] Chris Bishop Work Phone: [facility] Start: 04-24-2022 End: 04-24-[address] Chris Bishop Work Phone: [facility] Procedures Date Procedure Procedure Detail Performing Clinician Start: 07-14-2024 Urnls dip stick/tabl et reagent auto microscopy Dr. Jose Yuan MD Work Phone: Start: 07-08-2024 MRI of lower extremity Dr. Jose Yuan MD Work Phone: Start: 03-20-2024 Measurement of renal function Dr. Jose Yuan MD Work Phone: Comment on above: GFR Calc Start: 03-20-[address] Jose Yuan MD Work Phone: Start: 03-20-2024 Prostate specific an tigen measurement Dr. Jose Yuan MD Work Phone: Comment on above: This test was perfor med using the TPSA assay method for [employer] system. Values obtained with differentassay methods cannot be used interchangably.When changing PSA assays in the course of monitoring apatient, additional sequential testing should be carriedout to confirm baseline values. Start: 03-20-2024 Urine microalbumin/creatinine ratio measurement Dr. Jose Yuan MD Work Phone: Plan of Treatment Date Care Activity Detail Author Start: 07-14-2024 Urinalysis complete panel - Urine [facility] Bilirubin measurement, urine [facility] Hemoglobin [Presence] in Urine [facility] Measurement of keton es in urine using dipstick [facility] Microscopic urinalysis [facility] Organism count, micr oscopic method [facility] pH of Urine [facility] Specific gravity of Urine [facility] Urine dipstick for glucose [facility] Urine dipstick for l eukocyte esterase [facility] Urine dipstick for nitrite [facility] Urine dipstick for protein [facility] Urine examination [facility] Urine microscopy: ep ithelial cells [facility] Urine microscopy: red cells [facility] Urobilinogen [Presence] in Urine [facility] White blood cell count [facility] Immunizations Immunization Date Immunization Notes Care Provider [facility] 12-08-2023 Influenza High-Dose Quadrivalent Dr. Jose Yuan MD Work Phone: [facility] 11-12-2023 Pfizer Covid-19 (Comirnaty) Dr. Jose Yuan MD Work Phone: [facility] 11-19-2022 Pfizer Covid-19 (Comirnaty) Dr. Jose Yuan MD Work Phone: [facility] 11-30-2021 Covid Pfizer Bivalen t Booster Dr. Jose Yuan MD Work Phone: [facility] 05-25-2021 Covid (Moderna) Dr. Ernestina Yuan MD Work Phone: [facility] 12-04-2020 Covid (Pfizer) Dr. Jose Yuan MD Work Phone: [facility] 05-17-2020 Covid (Moderna) Dr. Ernestina Yuan MD Work Phone: [facility] 04-20-2020 Covid (Moderna) Dr. Ernestina Yuan MD Work Phone: [facility] Payers Date Payer Category Payer Self-pay [id number] 2023 Unknown [id number] 2023 Private Health Insurance [id number] Unknown [id number] Unknown [id number] Unknown [facility] [id number] Unknown [id number] Unknown [id number] Unknown [id number] Unknown [id number] Unknown [id number] Unknown [id number] Unknown [id number] Unknown [id number] Unknown [id number] Unknown [id number] Unknown [id number] Unknown [id number] Social History Date Type Detail Facility Tobacco smoking stat [facility] Unknown if ever smoked [facility] Work Phone: Start: 1960 Sex Assigned At Male [facility] Start: 04-24-2022 End: 02-27-2023 Tobacco smoking status [facility] Unknown if ever smoked [facility] Start: 02-27-[address] [facility] Medical Equipment Procedure Code Equipment Code Equipment Origin al Text Equipment Identifier Dates Blood Sugar Diagnostic (Freestyle Lite Strips) strip Start: 01-23-2023 Lancets (Freesty le Lancets) 28 gauge [facility] Start: 07-31-2022 Blood Sugar Diagnostic (Freestyle Lite Strips) strip Start: 07-31-2022 End: 01-23-2023 Blood Sugar Diagnostic (Freestyle Lite Strips) strip Start: 01-23-2023 Lancets (Freesty le Lancets) 28 gauge misc Start: 07-31-2022 Blood Sugar Diagnostic (Freestyle Lite Strips) strip Start: 07-31-2022 End: 01-23-2023 Blood Sugar Diagnostic (Accu-Chek Emily Plus Test Strp) strip Start: 05-11-2024 Blood Sugar Diagnostic (Accu-Chek Guide Test Strips) strip Start: 06-03-2024 Lancets (Accu-Ch ek Softclix Lancets) misc Start: 10-09-2023 Lancets (Freesty le Lancets) 28 gauge misc Start: 07-31-2022 Lancing Device W ith Lancets (Accu-Chek Soft Dev Lancets) kit Start: 10-09-2023 Blood Sugar Diagnostic (Accu-Chek Guide Test Strips) strip Start: 10-09-2023 End: 10-09-2023 Blood Sugar Diagnostic (Accu-Chek Guide Test Strips) strip Start: 10-09-2023 End: 06-03-2024 Blood Sugar Diagnostic (Freestyle Lite Strips) strip Start: 07-31-2022 End: 01-23-2023 Blood Sugar Diagnostic (Freestyle Lite Strips) strip Start: 01-23-2023 End: 10-09-2023 Lancets (Accu-Ch ek Softclix Lancets) misc Start: 10-09-2023 End: 10-09-2023 Lancing Device W ith Lancets (Accu-Chek Soft Dev Lancets) kit Start: 10-09-2023 End: 10-09-2023 Blood Sugar Diagnostic (Accu-Chek Emily Plus Test Strp) strip Start: 05-11-2024 Blood Sugar Diagnostic (Accu-Chek Guide Test Strips) strip Start: 06-03-2024 Lancets (Accu-Ch ek Softclix Lancets) misc Start: 10-09-2023 Lancets (Freesty le Lancets) 28 gauge misc Start: 07-31-2022 Lancing Device W ith Lancets (Accu-Chek Soft Dev Lancets) kit Start: 10-09-2023 Blood Sugar Diagnostic (Accu-Chek Guide Test Strips) strip Start: 10-09-2023 End: 10-09-2023 Blood Sugar Diagnostic (Accu-Chek Guide Test Strips) strip Start: 10-09-2023 End: 06-03-2024 Blood Sugar Diagnostic (Freestyle Lite Strips) strip Start: 07-31-2022 End: 01-23-2023 Blood Sugar Diagnostic (Freestyle Lite Strips) strip Start: 01-23-2023 End: 10-09-2023 Lancets (Accu-Ch ek Softclix Lancets) misc Start: 10-09-2023 End: 10-09-2023 Lancing Device W ith Lancets (Accu-Chek Soft Dev Lancets) kit Start: 10-09-2023 End: 10-09-2023 Blood Sugar Diagnostic (Accu-Chek Emily Plus Test Strp) strip Start: 05-11-2024 Blood Sugar Diagnostic (Accu-Chek Guide Test Strips) strip Start: 06-03-2024 Lancets (Accu-Ch ek Softclix Lancets) misc Start: 10-09-2023 Lancets (Freesty le Lancets) 28 gauge misc Start: 07-31-2022 Lancing Device W ith Lancets (Accu-Chek Soft Dev Lancets) kit Start: 10-09-2023 Blood Sugar Diagnostic (Accu-Chek Guide Test Strips) strip Start: 10-09-2023 End: 10-09-2023 Blood Sugar Diagnostic (Accu-Chek Guide Test Strips) strip Start: 10-09-2023 End: 06-03-2024 Blood Sugar Diagnostic (Freestyle Lite Strips) strip Start: 07-31-2022 End: 01-23-2023 Blood Sugar Diagnostic (Freestyle Lite Strips) strip Start: 01-23-2023 End: 10-09-2023 Lancets (Accu-Ch ek Softclix Lancets) misc Start: 10-09-2023 End: 10-09-2023 Lancing Device W ith Lancets (Accu-Chek Soft Dev Lancets) kit Start: 10-09-2023 End: 10-09-2023 Radiology Diagnostic study note 07-09-2024 Note Date & Type Note Facility 07-09-2024 Radiology Diagnostic study note [facility] Services [address] [place] [address] Extremity Lower without Contra MR#: [id number] Acct: [id number] Name: JOY GENTILE Rep #: [id number] : 1960 M 64 From: David Stafford MD PCP: Dr. Jose Yuan MD Status: R EG CLI Study:Extremity Lower without Contra Date of Exam: 07/08/24 Exam# [id number] Ordering Dr: Oliver Bowles MD PROCEDURE: EXTREMITY LOWER WITHOUT CONTRA 07/08/2024 REASON FOR EXAM: OSTEOARTHRITIS Chas protocol for right knee replacement. TECHNIQUE: Axial CT images of the right hip joint, right knee joint and right ankle joint obtained with intravenous contrast. Coronal and Sagittal reconstruction series were provided. CONTRAST: None One or more dose reduction techniques were used (e.g., Automated exposure control, adjustment of the mA and/or kV according to patient size, use of iterative reconstruction technique). RADIATION DOSE SUMMARY: CTDlvol: 18.6 mGy DLP: 1346.4 mGycm COMPARISON: None FINDINGS: Bones: Degenerative changes of the knee joint. Joints: Imaging of the right hip joint was performed. The joint space is relatively well-maintained. No erosive changes. Incidental note is made of irregular prostatic calcification. Imaging of the right knee joint was performed. Fkwxuppz-[id number] degree of joint space narrowing and degenerative spur formation along the medial compartment of the knee joint. Mild degree of patellofemoral osteoarthritis. Imaging of the ankle joint was obtained. There is good alignment. Evidence of plantar calcaneal spur. Soft Tissues: Tiny knee joint effusion. CT/Extremity Lower without Contra IMPRESSION: Zecjwijn-ye-cyfezk degree of joint space narrowing involving the medial compartment of the knee joint as described. Mild degree of patellofemoral joint space narrowing. Reading Location: [facility] CC: Dr. Jose Yuan MD; Dr. Patrick Bowles MD ~ Tipple Greaser: Signed [facility] Evaluation note 03-24-2024 Note Date & Type Note Facility 03-24-2024 Evaluation note Diagnosis Onset Date Resolution Hypertension chronic March 4:11pm Hypothyroidism chronic March 132024 4:11pm Type 2 diabetes mellitus chronic March 24, 2024 4:11pm Venous insufficiency of both lower extremities chronic March 24, 2024 4:11pm Preoperative evaluation to rule out surgical contraindication acute July 14, 2024 12:53pm Urine abnormality acute July 12:53pm Hypertension chronic July 14 12:53pm Hypothyroidism chronic July 14, 2024 12:53pm BABAR (obstructive sleep apnea) chronic July 14, 2024 12:53pm Type 2 diabetes mellitus chronic July 14, 2024 12:53pm [facility] Work Phone: Evaluation note 03-24-2024 Note Date & Type Note Facility 03-24-2024 Evaluation note Diagnosis Onset Date Resolution Hypertension chronic March 4:11pm Hypothyroidism chronic March 132024 4:11pm Type 2 diabetes mellitus chronic March 24, 2024 4:11pm Venous insufficiency of both lower extremities chronic March 24, 2024 4:11pm [facility] Work Phone: Evaluation note Note Date & Type Note Facility Evaluation note No assessment information availa [facility] Work Phone: Evaluation note Note Date & Type Note Facility Evaluation note Diagnosis Onset Date Venous insufficiency of both lower extremities acute Hypertension chronic Hypothyroidism chronic BABAR (obstructive sleep apnea) chronic Type 2 diabetes mellitus chr onic Ulcerative colitis [facility] Work Phone: Evaluation note Note Date & Type Note Facility Evaluation note Diagnosis Onset Date Health care maintenance acut e Hypertension chronic Hypothyroidism chronic Type 2 diabetes mellitus chr onic Hypertension chronic Hypothyroidism chronic Type 2 diabetes mellitus chr onic Venous insufficiency of both lower extremities chronic [facility] Work Phone: Evaluation note Note Date & Type Note Facility Evaluation note Diagnosis Onset Date Hypertension chronic Hypothyroidism chronic Type 2 diabetes mellitus chr onic Venous insufficiency of both lower extremities chronic Leg cramps acute Hypertension chronic Hypothyroidism chronic Type 2 diabetes mellitus chr onic Venous insufficiency of both lower extremities [facility] Work Phone: Reason for referral (narrative) Note Date & Type Note Facility Reason for referral (narrative) No reason for referral information available [facility] Work Phone: Chief Complaint and Reason for Visit Chief 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, PT NE EDS NPP Reason for Visit Venous insufficiency of both lower extremities Hypertension Hypothyroidism BABAR (obstructive sleep apnea) Type 2 diabetes mellitus Ulcerative colitis Chief Complaint 3 m fu 3 m fu Reason for Visit Health care maintena nce Hypertension Hypothyroidism Type 2 diabetes mellitus Hypertension Hypothyroidism Type 2 diabetes mellitus Venous insufficiency of both lower extremities Chief Complaint 3 m fu 3 M FU Reason for Visit Hypertension Hypothyroidism Type 2 diabetes mellitus Venous insufficiency of both lower extremities Leg cramps Hypertension Hypothyroidism Type 2 diabetes mellitus Venous insufficiency of both lower extremities Chief Complaint Admit Date E-ORDER March 20, 2024 7 :25am 3 M FU March 24, 2024 4:11pm PRE OP July 08, 2024 7:40a m PRE OP July 08, 2024 8:34a m SURG CLEARANCE/3 M FU July 14, 2024 12: 53pm Reason for Visit Admit Date Hypertension March 24, 2024 4:11pm Hypothyroidism March 24, 2024 4:11pm Type 2 diabetes mellitus March 24, 2024 4:11pm Venous insufficiency of both lower extre mities March 24, 2024 4:11pm Preoperative evaluation to willie sanchez out surgical contraindication July 14, 2024 12:53pm Urine abnormality July 14, 2024 12:53 pm Hypertension July 14, 2024 12:53 pm Hypothyroidism July 14, 2024 12:53 pm BABAR (obstructive sleep apnea) July 14, 2024 12:53pm Type 2 diabetes mellitus July 14, 2024 12:53pm Chief Complaint Admit Date E-ORDER March 20, 2024 7 :25am 3 M FU March 24, 2024 4:11pm PRE OP July 08, 2024 7:40a m PRE OP July 08, 2024 8:34a m Reason for Visit Admit Date Hypertension March 24, 2024 4:11pm Hypothyroidism March 24, 2024 4:11pm Type 2 diabetes mellitus March 24, 2024 4:11pm Venous insufficiency of both lower extre mities March 24, 2024 4:11pm Family History No Family History Records Found Relationship Condition Age at Onset Recorded Date/T irene mother Alcoholism Unknown Malignant neoplasm Unknown Kidney disorder Unknown father Malignant neoplasm Unknown Myocardial infarction Unknown Cardiac disease Unknown brother Myocardial infarction Unknown Advance Directives No Advanced Directives Records Found Advance Directive Response Recorded Date/ Time Living Will Yes May 30, 2016 3:44pm Power of Custom Decorating Consultant No May 30 3:44pm Advance Directive Response Recorded Date/ Time Living Will Yes May 30, 2016 2:44pm Power of Custom Decorating Consultant No May 30 2:44pm Summary Purpose Additional Source Comments Goals (unrecognized section and content) Goals may be documented in a n alternate sectionGoals may be documented in an alternate sectionGoals may be documented in an alternate sectionGoals may be documented in an alternate sectionGoals may be documented in an alternate sectionGoals may be documented in an alternate sectionGoals may be documented in an alternate section Care Teams (unrecognized sec tion and content) Team Status: Active Member Role Status Dates Dr. Chris Bishop MD Family Provider Active Team Status: Inactive Member Role Status Dates Dr. Chris Bishop MD Primary Care Provider, Referring Provider Active Dr. Jose Yuan MD Attending Provider Active Team Status: Inactive Member Role Status Dates Dr. Chris Bishop MD Primary Care Provider Active Dr. Jose Yuan MD Attending Provider Active Team Status: Inactive Member Role Status Dates Dr. Jose Yuan MD Attending Provider Active Team Status: Inactive Member Role Status Dates Dr. Jose Yuan MD Attending Provider, Referrin g Provider Active Team Status: Active Member Role Status Dates Dr. Chris Bishop MD Family Provider Active Dr. Jose Yuan MD Primary Care Provider Active Team Status: Inactive Member Role Status Dates Dr. Jose Yuan MD Primary Care Provider, Atten ding Provider Active Team Status: Active Member Role Status Dates Dr. Jose Yuan MD Primary Care Provider Active Team Status: Inactive Member Role Status Dates Dr. Jose Yuan MD Primary Care Provider Active Start: March 20, 2024 End: March 20, 2024 Dr. Jose Yuan MD Attending Provider Active Start: March 20, 2024 End: March 20, 2024 Dr. Jose Yuan MD Referring Provider Active Start: March 20, 2024 End: March 20, 2024 Team Status: Inactive Member Role Status Dates Dr. Jose Yuan MD Primary Care Provider Active Start: March 24, 2024 End: March 24, 2024 Dr. Jose Yuan MD Attending Provider Active Start: March 24, 2024 End: March 24, 2024 Dr. Jose Yuan MD Referring Provider Active Start: March 24, 2024 End: March 24, 2024 Team Status: Inactive Member Role Status Dates Dr. Jose Yuan MD Primary Care Provider Active Start: July 08, 2024 End: July 08, 2024 Dr. Patrick Bowles MD Attending Provider Active Start: July 08, 2024 End: July 08, 2024 Dr. Patrick Bowles MD Referring Provider Active Start: July 08, 2024 End: July 08, 2024 Team Status: Active Member Role Status Dates Dr. Jose Yuan MD Primary Care Provider Active Start: July 08, 2024 End: July 08, 2024 Dr. Aaron Watt MD Attending Provider Active Start: July 08, 2024 End: July 08, 2024 Dr. Patrick Bowles MD Referring Provider Active Start: July 08, 2024 End: July 08, 2024 Team Status: Inactive Member Role Status Dates Dr. Jose Yuan MD Primary Care Provider Active Start: July 14, 2024 End: July 14, 2024 Dr. Jose Yuan MD Attending Provider Active Start: July 14, 2024 End: July 14, 2024 Dr. Jose Yuan MD Referring Provider Active Start: July 14, 2024 End: July 14, 2024 Team Status: Active Member Role Status Dates Dr. Jose Yuan MD Primary Care Provider Active Start: July 14, 2024 Dr. Jose Yuan MD Attending Provider Active Start: July 14, 2024 Dr. Jose Yuan MD Referring Provider Active Start: July 14, 2024 (unrecognized sect ion and content) No Status Records Found INFORMATION SOURCE (unrecogn ized section and content) DATE CREATED AUTHOR 09/29/2024 [facility] FOR RECORDS PERTAINING TO PATIENTS WHO ARE OR HAVE BEEN ENROLLED IN A CHEMICAL DEPENDENCY/SUBSTANCEABUSE PROGRAM, SOME INFORMATION MAY BE OMITTED. This clinical summary was aggregated from multiple sources. Caution should be exercised in using it in the provision of clinical care. This summary normalizes information from multiple sources, and as a consequence, information in this document may materially change the coding, format and clinical context of patient data. In addition, data may be omitted in some cases. CLINICAL DECISIONS SHOULD BE BASED ON THE PRIMARY CLINICAL RECORDS. [email or web address] [facility]. provides no warranty or guarantee of the accuracy or completeness of information in this document.
--- NOTE | 2024-10-02 16:00 | STRESSREP_ITS ---
Stress Test Report Date: 10/01/2024 Procedure: Pharmacologic stress nuclear imaging study Indications: Abnormal EKG Consent: Per the patient Procedure: The patient underwent pharmacologic (Regadenoson) evaluation with a peak heart rate of 84 beats per minute (53%predicted maximal heart rate) and a peak blood pressure of 122/76 mmHg. The baseline ECG demonstrated normal sinus rhythm. EKG during lexiscan infusion revealed no significant ischemic changes. EKG post infusion revealed no significant ischemic changes [There were no cardiac dysrhythmias pretest, during pharmacologic infusion, or recovery]. [There was no complaint of chest discomfort during pharmacologic infusion or recovery]. The examination was discontinued secondary to completion of protocol. Impression: 1. Lexiscan stress test test is negative for Lexiscan infusion induced EKG changes of ischemia. 2. Lexiscan stress test test is negative for Lexiscan infusion induced chest pain. 3. Results of the nuclear portion of the test is as below Myocardial perfusion imaging study: Technique: The patient was injected with 14.7 millicuries of technetium 99m Cardiolite and subsequently rest SPECT Cardiolite nuclear imaging was obtained in the horizontal long, vertical long, and short axis views. The patient underwent pharmacologic [Regadenoson 0.4mg] evaluation. Please see above for details. The patient was injected with 44.1 millicuries of technetium 99m Cardiolite and subsequently stress SPECT Cardiolite nuclear imaging was obtained in the horizontal long, vertical long, and short axis views. A gated Cardiolite study at peak stress was obtained. Interpretation: Rest and stress SPECT Cardiolite nuclear imaging status post realignment, normalization, and attenuation correction demonstrate mild fixed apical defect which could be apical thinning, normal variant. No evidence of significant ischemia. Gated images reveal no significant regional wall motion abnormalities. The reported LVEF is 63%. Impression: 1. There is no evidence of significant ischemia or infarction. 2. Estimated ejection fraction is 63%. This note was generated with [employer] software. It may contain incorrect words, spelling, and punctuation that were not noted in checking the note before signing.
== END | disposition home or self-care (01) ==
LOC: CVS 06:23
PROVIDERS: PCP Internal Medicine; Referring Provider Internal Medicine; Visit Provider Internal Medicine
DX: R94.31 Abnormal electrocardiogram [ECG] [EKG] (principal); E11.69 Type 2 diabetes mellitus with other specified complication; I10 Essential (primary) hypertension; Z82.49 Family history of ischemic heart disease and other diseases of the circulatory system
CPT/HCPCS: 78452; 93017; A9500; A4216; J2785

== ENCOUNTER → 2024-10-05 | Outpatient (CLI) | payer BC, SELFPAY ==
--- OUTSIDE RECORDS SUMMARY | 2024-10-05 07:01 | XMS RPT_ITS | CCD ---
Author Organization [facility] Care Team Providers Care Wrapper Stitcher Name Role Phone Dr. Chris Bishop Primary Care Provider Dr. Chris Bishop Referring Provider Dr. Jose Yuan Attending Provider [phone] Dr. Jose Yuan Attending Provider [phone] Dr. Jose Yuan Attending Provider [phone] Kwabena CAREY, Dr. Garcia Primary Care Provider Kwabena CAREY, Dr. Garcia Attending Provider [phone] Kwabena CAREY, Dr. Garcia Referring Provider [phone] Jelena CAREY, Dr. Nguyen Attending Provider [phone] Jelena CAREY, Dr. Nguyen Referring Provider [phone] Dr. Aaron Watt MD Attending Provider Oleghe, Efewongbe Primary Care Unavailable Patrick Bowles Attending Unavailable Patrick Bowles Referring Unavailable Patrick Bowles Attending Unavailable Oleghe, Efewongbe Primary Care Unavailable Patrick Bowles Referring Unavailable Oleghe, Efewongbe Attending Unavailable Oleghe, Efewongbe Primary Care Unavailable Oleghe, Efewongbe Referring Unavailable Oleghe, Efewongbe Primary Care Unavailable Patrick Bowles Referring Unavailable Patrick Bowles Attending Unavailable Oleghe, Efewongbe Primary Care Unavailable Oleghe, Efewongbe Referring Unavailable Oleghe, Efewongbe Attending Unavailable Oleghe, Efewongbe Primary Care Unavailable Oleghe, Efewongbe Referring Unavailable Oleghe, Efewongbe Attending Unavailable Lizbet Baker Attending Unava ilable Oleghe, Efewongbe Primary Care Unavailable Oleghe, Efewongbe Primary Care Unavailable Aaron Watt Attending Unavailable Patrick Bowles Referring Unavailable Oleghe, Efewongbe Consulting Unavailable Cesar Hair Attending Unavailabl e Oleghe, Efewongbe Primary Care Unavailable Oleghe, Efewongbe Referring Unavailable Oleghe, Efewongbe Attending Unavailable Oleghe, Efewongbe Primary Care Unavailable Oleghe, Efewongbe Referring Unavailable Oleghe, Efewongbe Primary Care Unavailable Oleghe, Efewongbe Referring Unavailable Oleghe, Efewongbe Attending Unavailable Oleghe, Efewongbe Primary Care Unavailable Oleghe, Efewongbe Referring Unavailable Oleghe, Efewongbe Attending Unavailable Oleghe, Efewongbe Attending Unavailable Oleghe, Efewongbe Referring Unavailable Oleghe, Efewongbe Primary Care Unavailable Allergies Allergy Classification Reported Allergen(s) Allergy Type Date of Onset Reaction(s) Facility (8 sources) Grass pollen; Translations: [grass pollen] Allergy to substance 04-19-2019 UNKNOWN [facility] (8 sources) Penicillins; Translations: [Penicillins] Allergy to substance 04-19-2019 Rash [facility] (8 sources) Tree and shrub pollen; Translations: [tree and shrub pollen] Allergy to substance 04-19-2019 UNKNOWN [facility] (8 sources) house dust mite; Translations: [house dust mite] Allergy to substance 04-19-2019 UNKNOWN [facility] (7 sources) venom-honey bee Allergy to substance 04-19-2019 UNKNOWN [facility] (1 source) venom-honey bee Drug allergy (disorder) 07-14-2024 [facility] Repository Medications Current Medications Medication Drug Class(es) [...] July 31, 2022 3:45pm Start: 04-24-2022 End: 06-21-2023 take 2 mg by mouth once daily [...] 1000 mg PO TWICE A DAY 360 February 19, 2024 10:31am May 18, 2024 [...] Hypertensive disorder; Translations: [Essential (primary) hypertension] Onset: 10-02-2024 04-24-2022 Chronic Genitourinary symptoms and ill-defined conditions [...] screening for malignant neoplasm of prostate] Onset: 10-02-2024 12-17-2023 Episodic Regional enteritis and ulcerative colitis [...] other diseases of the circulatory system] Onset: 10-02-2024 Episodic Superficial injury; contusion (7 sources) Contusion of right lesser toe; Translations: [Contusion of right lesser toe(s) without damage to nail, initial encounter] 04-08-2019 Episodic Thyroid disorders (17 sources) Hypothyroidism; Translations: [Hypothyroidism, unspecified] Onset: 11-06-2024 03-15-2023 Chronic Results Test Name Value Interpretation Reference Range Facility Stress Reporton 10-02-2024 Stress Report [facility] Cardi[facility] Services [address] [place] [address] MR#: [id number] Acct: [id number] Name: JOY GENTILE Rep #: [id number] : 1960 64 From: Cesar Hair MD Primary Care: Dr. Jose Yuan MD Status: REG CLI Referring Dr: Jose Yuan MD Sex: M C Stress Test Report Date: 10/01/2024 Procedure: Pharmacologic stress nuclear imaging study Indications: Abnormal EKG Consent: Per the patient Procedure: The patient underwent pharmacologic (Regadenoson) evaluation with a peak heart rate of 84 beats per minute (53%predicted maximal heart rate) and a peak blood pressure of 122/76 mmHg. The baseline ECG demonstrated normal sinus rhythm. EKG during lexiscan infusion revealed no significant ischemic changes. EKG post infusion revealed no significant ischemic changes [There were no cardiac dysrhythmias pretest, during pharmacologic infusion, or recovery]. [There was no complaint of chest discomfort during pharmacologic infusion or recovery]. The examination was discontinued secondary to completion of protocol. Impression: 1. Lexiscan stress test test is negative for Lexiscan infusion induced EKG changes of ischemia. 2. Lexiscan stress test test is negative for Lexiscan infusion induced chest pain. 3. Results of the nuclear portion of the test is as below Myocardial perfusion imaging study: Technique: The patient was injected with 14.7 millicuries of technetium 99m Cardiolite and subsequently rest SPECT Cardiolite nuclear imaging was obtained in the horizontal long, vertical long, and short axis views. The patient underwent pharmacologic [Regadenoson 0.4mg] evaluation. Please see above for details. The patient was injected with 44.1 millicuries of technetium 99m Cardiolite and subsequently stress SPECT Cardiolite nuclear imaging was obtained in the horizontal long, vertical long, and short axis views. A gated Cardiolite study at peak stress was obtained. Interpretation: Rest and stress SPECT Cardiolite nuclear imaging status post realignment, normalization, and attenuation correction demonstrate mild fixed apical defect which could be apical thinning, normal variant. No evidence of significant ischemia. Gated images reveal no significant regional wall motion abnormalities. The reported LVEF is 63%. Impression: 1. There is no evidence of significant ischemia or infarction. 2. Estimated ejection fraction is 63%. This note was generated with [employer]com[employer] software. It may contain incorrect words, spelling, and punctuation that were not noted in checking the note before signing. 10/02/24 1604 Date Cesar Hair MD CC: Dr. Jose Yuan MD Date Dictated: 10/02/24 1600 Date Transcribed: 10/02/241599 Coroner Forensic Technician: NN Signed Normal [facility] Bilirubin Test strip Ql (U)O rdered By: Jose Yuan on 07-14-2024 Bilirubin Ql (U) Negative Negative [facility] Internal Medicine Office Vis iton 07-14-2024 Internal Medicine Office Visit [facility] [address] [place] [address] [address] [place] [address] OFFICE VISIT Date of Service: 07/14/24 MR#: [id number] Acct: [id number] Name: JOY GENTILE Rep #: [id number] : 1960 Provider: Dr. Jose dietrich MD Age/Sex: 64/M Location: [facility] Status: Signed Intake [...] tablet 2 mg PO QAM #90 tabs 06/14/24 06/06/04 Rx trazodone 100 mg tablet See Rx Instructions .Route 5 07/14/24 Rx .COMPLEX #180 tabs Have you fallen in the past year?: No Nurse's Note: pt presents to office for surgical clearance for right total knee replacement on 08/05/24. [facility] Medical History (Updated 07/14/24 @ 13:37 by [...] problems, nosebleed/epista (more content not included)... Normal [facility] Ketones Test strip Ql (U)Ord ered By: Jsoe Yuan on 07-14-2024 Ketones Ql (U) 5 mg/dl High Negative [facility] Microscopic analysis of urin e for red blood cells (RBC)Ordered By: Jose Yuan on 07-14-2024 Microscopic analysis of urine for red blood cells (RBC) 0 SEEN /hpf 0-5 [facility] Mucus LM Ql (Urine sed)Order ed By: Jose Yuan on 07-14-2024 Mucus Ql (Urine sed) 0 SEEN /hpf [facility] Nitrite Test strip Ql (U)Ord ered By: Jose Yuan on 07-14-2024 Nitrite Ql (U) Negative Negative [facility] Protein Test strip Ql (U)Ord ered By: Jose Yuan on 07-14-2024 Protein Ql (U) 15 mg/dl High Negative [facility] Squamous epithelial cells de tection in urine sediment by light microscopyOrdered By: Jose Yuan on 07-14-2024 Epithelial cells.squamous LM Ql (Urine sed) 0 SEEN /hpf 0-5 [facility] Urinalysis, Completeon 07-14 BACTERIA 0 SEEN Normal None Seen [facility] Comment on above: Order Comment: SAV OKVACSOR TO SPECIFY Performed By: #### L 400.0001 #### [facility] [address] [place], [place], [id number] EPI,SQUAMOUS 0 SEEN Normal [address] [place] [address] Comment on above: Order Comment: SAV KOVACSOR TO SPECIFY Performed By: #### L 400.0001 #### [facility] [address] [place], [place], [id number] Mucus Ql (Urine sed) 0 SEEN Normal [facility] Comment on above: Order Comment: SAV KOVACSOR TO SPECIFY Performed By: #### L 400.0001 #### [facility] [address] [place], [place], [id number] RBC 0 SEEN Normal [address] Comment on above: Order Comment: SAV CTOR TO SPECIFY Performed By: #### L 400.0001 #### [facility] [address] [place], [place], [phone] WBC 0 SEEN Normal [address] [place] [address] Comment on above: Order Comment: COLLE CTOR TO SPECIFY Performed By: #### L 400.0001 #### [facility] [address] [place], [address] Urine clarityOrdered By: Daniel Yuan on 07-14-2024 Clarity (U) Clear Clear [facility] Urine color determinationOrd ered By: Jose Yuan on 07-14-2024 Color (U) Yellow Yellow [facility] Urine glucose detectionOrder ed By: Jose Yuan on 07-14-2024 Glucose Ql (U) Normal mg/dl Normal [facility] Urine leukocyte esterase det ection by dipstickOrdered By: Jose Yuan on 07-14-2024 Leukocyte esterase Test strip Ql (U) Negative Negative [facility] Urine pHOrdered By: Ernestina Yuan on 07-14-2024 pH (U) 5.0 [pH] 5.0 - 8.0 [facility] Urine sediment bacteria coun t by microscopy (number/high power field)Ordered By: Jose Yuan on 07-14-2024 Bacteria LM.HPF (Urine sed) [#/Area] 0 /[HPF] None Seen [facility] Urine specific gravity measu rementOrdered By: Jose Yuan on 07-14-2024 Specific gravity (U) [Rel density] 1.025 1.002-1.030 [facility] Urine urobilinogen measureme ntOrdered By: Jose Yuan on 07-14-2024 Urobilinogen Ql (U) Normal mg/dl Normal [facility] White blood cell countOrdere d By: Jose Yuan on 07-14-2024 White blood cell count 0 SEEN /hpf 0-5 [facility] Electrocardiogram reportOrde red By: Aaron Watt on 07-12-2024 EKG study [facility] Cardiovascular Services [address] [place] [address] 12 Lead EKG 07/08/24 0834 MR#: [id number] Acct: [id number] Name: JOY GENTILE Rep #:[id number] : 1960 64 From: Aaron rome MD Attending Dr: Dr. Patrick Bowles MD Status: REG CLI Ordering Dr: Patrick Bowles MD Date: 07/08/24 Location: [facility] Sex: M C Admitted: Test Reason : [...] undetermined Abnormal ECG Confirmed by Aaron Watt ([id number]), technical writer and editor TESSA PHOENIX ([id number]) on 07/12/2024 11:30:49 AM Referred By: Patrick Bowles Confirmed By: Aaron Watt 07/12/24 1130 Date _ Aaron Watt MD CC: Dr. Jose Yuan MD; Dr. Patrick Bowles MD ~ Signed [facility] Work Phone: 12 Lead EKGon 07-08-2024 12 Lead EKG [facility] Cardiovascular Services [address] [place] [address] 12 Lead EKG 07/08/24 0834 MR#: [id number] Acct: [id number] Name: JOY GENTILE Rep #: [id number] : 1960 64 From: Aaron Watt MD Attending Dr: Dr. Patrick Bowles MD Status: REG CLI Ordering Dr: Patrick oBwles MD Date: 07/08/24 Location: [facility] Sex: M C Admitted: Test Reason : [...] undetermined Abnormal ECG Confirmed by Aaron Watt ([id number]), technical writer and editor TESSA PHOENIX ([id number]) on 07/12/2024 11:30:49 AM Referred By: Patrick Bowles Confirmed By: Aaron Watt 07/12/24 1130 Date Aaron Watt MD CC: Dr. Jose Yuan MD; Dr. Patrick Bowles MD Signed Normal [facility] Absolute lymphocyte countOrd ered By: Patrick Bowles on 07-08-2024 Lymphocytes Auto (Unsp spec) [#/Vol] 1.76 10*3/uL 0.83-4.51 [facility] Absolute neutrophil countOrd ered By: Patrick Bowles on 07-08-2024 Neutrophils (Bld) [#/Vol] 3.0 10*3/uL 2.0-7.7 [facility] Albumin, Serumon 07-08-2024 Albumin [Mass/Vol] 4.5 g/dL Normal 3.4-4.8 [facility] Comment on above: Performed By: #### L 100.0100, L501.1800, L500.2500 ####[facility] [address] [place], [place], [id number] Anion gap in Serum or Plasma Ordered By: Patrick Bowles on 07-08-2024 Anion gap [Moles/Vol] 12 mmol/L 5-15 [facility] Automated lymphocyte count a s percentage of total leukocytesOrdered By: Patrick Bowles on 07-08-2024 Lymphocytes/100 WBC Auto (Unsp spec) 30.9 % 19-41 [facility] BUN/creatinine ratioOrdered By: Patrick Bowles on 07-08-2024 Urea nitrogen/Creatinine [Mass ratio] 18.1 mg/mg 10- [facility] Basic Metabolic Profile (BMP )on 07-08-2024 BUN/CRE 18.1 RATIO Normal - [facility] Comment on above: Performed By: #### L 100.0100, L501.1800, L500.2500 ####[facility] [address] [place], [address] Calcium [Mass/Vol] 9.5 mg/dL Normal 7.6-11.0 [facility] Comment on above: Performed By: #### L 100.0100, L501.1800, L500.2500 ####[facility] [address] [place], [address] Chloride [Moles/Vol] 104 mmol/L Normal 98-108 [facility] Comment on above: Performed By: #### L 100.0100, L501.1800, L500.2500 ####[facility] [address] [place], [address] CO2 [Moles/Vol] 24.3 mmol/L Normal 21.0-32.0 [facility] Comment on above: Performed By: #### L 100.0100, L501.1800, L500.2500 ####[facility] [address] [place], [address] Creatinine [Mass/Vol] 0.84 mg/dL Normal 0.70-1.20 [facility] Comment on above: Performed By: #### L 100.0100, L501.1800, L500.2500 ####[facility] [address] [place], [address] GAP 12 Normal 5-15 [facility] Comment on above: Performed By: #### L 100.0100, L501.1800, L500.2500 ####[facility] [address] [place], [address] GFR/1.73 sq M.predicted among non-blacks MDRD (S/P/Bld) [Vol rate/Area] 97 mL/min/{1.73_m2} Normal >60 [facility] Comment on above: Result Comment: mL/m in/1.73m2 CKD-EPI Creatinine Equation (2020) Performed By: #### L 100.0100, L501.1800, L500.2500 ####[facility] [address] [place], [address] Glucose [Mass/Vol] 136 mg/dL High 70-99 [facility] Comment on above: Performed By: #### L 100.0100, L501.1800, L500.2500 ####[facility] [address] [place], [address] Potassium [Moles/Vol] 4.3 mmol/L Normal 3.3-5.1 [facility] Comment on above: Performed By: #### L 100.0100, L501.1800, L500.2500 ####[facility] [address] [place], [address] Sodium [Moles/Vol] 140 mmol/L Normal 133-145 [facility] Comment on above: Performed By: #### L 100.0100, L501.1800, L500.2500 ####[facility] [address] [place], [address] Urea nitrogen [Mass/Vol] 15 mg/dL Normal 4-19 [facility] Comment on above: Performed By: #### L 100.0100, L501.1800, L500.2500 ####[facility] [address] [place], [address] Basophil percentageOrdered B y: Patrick Bowles on 07-08-2024 Basophils/100 WBC (Bld) 1.1 % High 0-1 [facility] CBC W/Diff, Automatedon 06-11 Absolute Lymph 1.76 X10 3/uL Normal 0.83-4.51 [facility] Comment on above: Performed By: #### L 100.0100, L501.1800, L500.2500 ####[facility] [address] [place], [address] Absolute Neut 3.0 X10 3/uL Normal 2.0-7.7 [facility] Comment on above: Performed By: #### L 100.0100, L501.1800, L500.2500 ####[facility] [address] [place], [address] Basophils/100 WBC (Bld) 1.1 % High 0-1 [facility] Comment on above: Performed By: #### L 100.0100, L501.1800, L500.2500 ####[facility] [address] [place], [address] Eosinophils/100 WBC (Bld) 3.5 % Normal 0-5 [facility] Comment on above: Performed By: #### L 100.0100, L501.1800, L500.2500 ####[facility] [address] [place], [address] Erythrocyte distribution width (RBC) [Ratio] 12.1 % Normal 11.6-14.6 [facility] Comment on above: Performed By: #### L 100.0100, L501.1800, L500.2500 ####[facility] [address] [place], [address] Hematocrit (Bld) [Volume fraction] 43.3 % Normal 40-54 [facility] Comment on above: Performed By: #### L 100.0100, L501.1800, L500.2500 ####[facility] [address] [place], [address] Hemoglobin (Bld) [Mass/Vol] 15.0 g/dL Normal 13.0-16. 5 [facility] Comment on above: Performed By: #### L 100.0100, L501.1800, L500.2500 ####[facility] [address] [place], [address] IG% 0.400 Normal 0.0-0.9 [facility] Comment on above: Result Comment: IG% - Immature Granulocytes (promyelocytes, myelocytes and metamyelocytes) > 1% indicates that a LEFT SHIFT is Present. Performed By: #### L 100.0100, L501.1800, L500.2500 ####[facility] [address] [place], [address] Lymphocytes/100 WBC (Bld) 30.9 % Normal 19-41 [facility] Comment on above: Performed By: #### L 100.0100, L501.1800, L500.2500 ####[facility] [address] [place], [address] MCH (RBC) [Entitic mass] 31.5 pg Normal 27.0-32.0 [facility] Comment on above: Performed By: #### L 100.0100, L501.1800, L500.2500 ####[facility] [address] [place], [address] MCHC (RBC) [Mass/Vol] 34.6 g/dL Normal 32-36 [facility] Comment on above: Performed By: #### L 100.0100, L501.1800, L500.2500 ####[facility] [address] [place], [address] MCV (RBC) [Entitic vol] 91.0 fL Normal 80-94 [facility] Comment on above: Performed By: #### L 100.0100, L501.1800, L500.2500 ####[facility] [address] [place], [address] Monocytes/100 WBC (Bld) 11.8 % High 0-10 [facility] Comment on above: Performed By: #### L 100.0100, L501.1800, L500.2500 ####[facility] [address] [place], [address] Neutrophils/100 WBC (Bld) 52.3 % Normal 47-70 [facility] Comment on above: Performed By: #### L 100.0100, L501.1800, L500.2500 ####[facility] [address] [place], [address] Nucleated RBC (Bld) [#/Vol] 0 10*3/uL Normal 0-5 [facility] Comment on above: Performed By: #### L 100.0100, L501.1800, L500.2500 ####[facility] [address] [place], [address] Platelet mean volume (Bld) [Entitic vol] 11.3 fL Normal 6.2-12.0 [facility] Comment on above: Performed By: #### L 100.0100, L501.1800, L500.2500 ####[facility] [address] [place], [address] Platelets (Bld) [#/Vol] 193 10*3/uL Normal 150-450 [facility] Comment on above: Performed By: #### L 100.0100, L501.1800, L500.2500 ####[facility] [address] [place], [address] RBC (Bld) [#/Vol] 4.76 10*6/uL Normal 4.6-6.2 [facility] Comment on above: Performed By: #### L 100.0100, L501.1800, L500.2500 ####[facility] [address] [place], [address] RDW SD 40.2 fl Normal 35.1-43.9 [facility] Comment on above: Performed By: #### L 100.0100, L501.1800, L500.2500 ####[facility] [address] [place], [address] WBC (Bld) [#/Vol] 5.7 10*3/uL Normal 4.4-11.0 [facility] Comment on above: Performed By: #### L 100.0100, L501.1800, L500.2500 ####[facility] [address] [facility] [place], [address] Carbon dioxide, total [Moles /volume] in Central venous bloodOrdered By: Patrick Bowles on 07-08-2024 CO2 [Moles/Vol] 24.3 mmol/L 21.0-32.0 [facility] Chloride assayOrdered By: St carie Bowles on 07-08-2024 Chloride [Moles/Vol] 104 mmol/L 98-108 [facility] Eosinophil percentageOrdered By: Patrick Bowles on 07-08-2024 Eosinophils/100 WBC (Bld) 3.5 % 0-5 [facility] Erythrocyte distribution wid th ratioOrdered By: Patrick Bowles on 07-08-2024 Erythrocyte distribution width (RBC) [Ratio] 12.1 % 11.6-14.6 [facility] Erythrocyte distribution wid th standard deviationOrdered By: Patrick Bowles on 07-08-2024 Erythrocyte distribution width (RBC) [Ratio] 40.2 fl 35.1-43.9 [facility] Extremity Lower without Cont raon 07-08-2024 Extremity Lower without Contra [facility] Imaging Services [address] [place], [place] [id number] Extremity Lower without Contra MR#: [id number] Acct: [id number] Name: JOY GENTILE Rep #: [id number] : 1960 M 64 From: Rubin ro MD PCP: Dr. Jose Yuan MD Status: REG CLI Study: Extremity Lower without Contra Date of Exam: 0 07/08/24 Exam# [id number] Ordering Dr: Patrick Bowles MD PROCEDURE: EXTREMITY [...] of the right knee joint was performed. Bkcjvcmb-ie-bgjrae degree of joint space narrowing and degenerative spur formation along the medial compartment of the knee joint. Mild degree of patellofemoral osteoarthritis. Imaging of the ankle joint was obtained. There is good alignment. Evidence of plantar calcaneal spur. Soft Tissues: Tiny knee joint effusion. CT/Extremity Lower without Contra IMPRESSION: Yommruwy-oy-xynbtp degree of joint space narrowing involving the medial compartment of the knee joint as described. Mild degree of patellofemoral joint space narrowing. Reading Location: [place] [address] CC: Dr. Jose Yuan MD; Dr. Patrick Bowles MD Coroner Forensic Technician: Signed Normal [facility] Glomerular filtration rate ( GFR) estimation/1.73 sq m using serum, plasma, or whole bOrdered By: Patrick Bowles on 07-08-2024 GFR/1.73 sq M.predicted among non-blacks MDRD (S/P/Bld) [Vol rate/Area] 97 mL/min/{1.73_m2} >60 [facility] Comment on above: mL/min/1.73m2 CKD-EP I Creatinine Equation (2020) Hematocrit Auto (Bld) [Volum e fraction]Ordered By: Patrick Bowles on 07-08-2024 Hematocrit (Bld) [Volume fraction] 43.3 % 40-54 [facility] Hemoglobin measurementOrdere d By: Patrick Bowles on 07-08-2024 Hemoglobin (Bld) [Mass/Vol] 15.0 g/dL 13.0-16. 5 [facility] Immature granulocytes/100 WB C Auto (Bld)Ordered By: Patrick Bowles on 07-08-2024 Immature granulocytes/100 WBC (Bld) 0.400 % 0.0-0.9 [facility] Comment on above: IG% - Immature Granu locytes (promyelocytes, myelocytes and metamyelocytes) > 1% indicates that a LEFT SHIFT is Present. MCV (mean corpuscular volume ) determinationOrdered By: Patrick Bowles on 07-08-2024 MCV (RBC) [Entitic vol] 91.0 fL 80-94 [facility] Mean corpuscular hemoglobin (MCH) determinationOrdered By: Patrick Bowles on 07-08-2024 MCH (RBC) [Entitic mass] 31.5 pg 27.0-32.0 [facility] Mean corpuscular hemoglobin concentration (MCHC) determinationOrdered By: Patrick Bowles on 07-08-2024 MCHC (RBC) [Mass/Vol] 34.6 g/dL 32-36 [facility] Mean platelet volume determi nationOrdered By: Patrick Bowles on 07-08-2024 Platelet mean volume (Bld) [Entitic vol] 11.3 fL 6.2-12.0 [facility] Monocyte percentageOrdered B y: Patrick Bowles on 07-08-2024 Monocytes/100 WBC (Bld) 11.8 % High 0-10 [facility] Neutrophil percentageOrdered By: Patrick Bowles on 07-08-2024 Neutrophils/100 WBC (Bld) 52.3 % 47-70 [facility] Nucleated red blood cell per centageOrdered By: Patrick Bowles on 07-08-2024 Nucleated RBC/100 WBC (Bld) [Ratio] 0 % 0-5 [facility] Platelet countOrdered By: St carie Bowles on 07-08-2024 Platelets (Bld) [#/Vol] 193 10*3/uL 150-450 [facility] Potassium measurement (mass/ volume)Ordered By: Patrick Bowles on 07-08-2024 Potassium (Unsp spec) [Mass/Vol] 4.3 mmol/L 3.3-5.1 [facility] RBC Auto (Bld) [#/Vol]Ordere d By: Patrick Bowles on 07-08-2024 RBC (Bld) [#/Vol] 4.76 10*6/uL 4.6-6.2 [facility] Serum creatinine measurement (mass/volume)Ordered By: Patrick Bowles on 07-08-2024 Creatinine [Mass/Vol] 0.84 mg/dL 0.70-1.20 [facility] Serum glucose measurement (m ass/volume)Ordered By: Patrick Bowles on 07-08-2024 Glucose [Mass/Vol] 136 mg/dL High 70-99 [facility] Serum or plasma albumin peggy urement (mass/volume)Ordered By: Patrick Bowles on 07-08-2024 Albumin [Mass/Vol] 4.5 g/dL 3.4-4.8 [facility] Serum or plasma calcium peggy urement (mass/volume)Ordered By: Patrick Bowles on 07-08-2024 Calcium [Mass/Vol] 9.5 mg/dL 7.6-11.0 [facility] Serum or plasma urea nitroge n measurement (mass/volume)Ordered By: Patrick Bowles on 07-08-2024 Urea nitrogen [Mass/Vol] 15 mg/dL 4-19 [facility] Sodium levelOrdered By: Pepe Bowles on 07-08-2024 Sodium [Moles/Vol] 140 mmol/L 133-145 [facility] TSH DL <= 0.005 mIU/L QnOrde red By: Jose Yuan on 07-08-2024 TSH Qn 1.050 uIU/mL 0.300-4.200 [facility] Thyroid Stim Hormone (TSH)on 07-08-2024 TSH 1.050 uIU/mL Normal 0.300-4.200 [facility] Comment on above: Performed By: #### L 501.9520 ####[facility] [id number] [place], [address] White blood cell (WBC) count Ordered By: Patrick Bowles on 07-08-2024 WBC (Bld) [#/Vol] 5.7 10*3/uL 4.4-11.0 [facility] Internal Medicine Office Vis iton 03-24-2024 Internal Medicine Office Visit [facility] [address] [place] [address] [address] [place] [address] OFFICE VISIT Date of Service: 03/24/24 MR#: [id number] Acct: [id number] Name: JOY GENTILE Rep #: [id number] : 1960 Provider: Dr. Jose dietrich MD Age/Sex: 63/M Location: [facility] Status: Signed Intake [...] M FU Chief Complaint: Follow-up chronic conditions [place] Required: No Accompanied by: Self Is patient [...] been 2 months since he has taken PFSH Medical History Screening for prostate cancer Leg [...] throat Resp (more content not included)... Normal [facility] Hemoglobin A1con 03-21-2024 HbA1c (Bld) [Mass fraction] 6.4 % High 3.8-5.6 [facility] Comment on above: Result Comment: Norm al < 5.7 % Prediabetic 5.7 - 6.4 % Diabetic >or= 6.5 % Please note range changes. Performed By: #### L 502.0250, L100.0100, L501.9985, L501.9520, L500.4050, L500.4100, L501.9910 ####[facility] [id number] [place], [address] Absolute lymphocyte countOrd ered By: Jose Yuan on 03-20-2024 Lymphocytes Auto (Unsp spec) [#/Vol] 1.70 10*3/uL 0.83-4.51 [facility] Absolute neutrophil countOrd ered By: lucy Yuan on 03-20-2024 Neutrophils (Bld) [#/Vol] 5.0 10*3/uL 2.0-7.7 [facility] Albumin to globulin ratioOrd ered By: Jose Yuan on 03-20-2024 Albumin/Globulin [Mass ratio] 1.0 {ratio} 0.9-2.4 [facility] Automated lymphocyte count a s percentage of total leukocytesOrdered By: Jose Yuan on 03-20-2024 Lymphocytes/100 WBC Auto (Unsp spec) 21.7 % - [facility] Basophil percentageOrdered B y: Jose Yuan on 03-20-2024 Basophils/100 WBC (Bld) 1.1 % High 0-1 [facility] Bilirubin, totalOrdered By: Jose Yuan on 03-20-2024 Bilirubin [Mass/Vol] 0.50 mg/dL 0.20-1.00 [facility] Comment on above: For patients on eltr ombopag therapy, use of Dimension [place] TBIL is not recommended. Blood urea nitrogen (BUN)/cr eatinine ratioOrdered By: Derricknajma Kwabena on 03-20-2024 Urea nitrogen/Creatinine [Mass ratio] 17.1 mg/mg 10-20 [facility] CBC W/Diff, Automatedon Absolute Lymph 1.70 X10 3/uL Normal 0.83-4.51 [facility] Comment on above: Performed By: #### L 502.0250, L100.0100, L501.9985, L501.9520, L500.4050, L500.4100, L501.9910 #### [facility] [address] [place], [place], [phone] ([phone] Absolute Neut 5.0 X10 3/uL Normal 2.0-7.7 [facility] Comment on above: Performed By: #### L 502.0250, L100.0100, L501.9985, L501.9520, L500.4050, L500.4100, L501.9910 #### [facility] [address] [place], [address] Basophils/100 WBC (Bld) 1.1 % High 0-1 [facility] Comment on above: Performed By: #### L 502.0250, L100.0100, L501.9985, L501.9520, L500.4050, L500.4100, L501.9910 #### [facility] [address] [place], [address] Eosinophils/100 WBC (Bld) 3.7 % Normal 0-5 [facility] Comment on above: Performed By: #### L 502.0250, L100.0100, L501.9985, L501.9520, L500.4050, L500.4100, L501.9910 #### [facility] [address] [place], [address] Erythrocyte distribution width (RBC) [Ratio] 12.5 % Normal 11.6-14.6 [facility] Comment on above: Performed By: #### L 502.0250, L100.0100, L501.9985, L501.9520, L500.4050, L500.4100, L501.9910 #### [facility] [address] [place], [address] Hematocrit (Bld) [Volume fraction] 41.6 % Normal 40-54 [facility] Comment on above: Performed By: #### L 502.0250, L100.0100, L501.9985, L501.9520, L500.4050, L500.4100, L501.9910 #### [facility] [address] [place], [address] Hemoglobin (Bld) [Mass/Vol] 14.1 g/dL Normal 13.0-16. 5 [facility] Comment on above: Performed By: #### L 502.0250, L100.0100, L501.9985, L501.9520, L500.4050, L500.4100, L501.9910 #### [facility] [address] [place], [address] IG% 1.100 High 0.0-0.9 [facility] Comment on above: Result Comment: IG% - Immature Granulocytes (promyelocytes, myelocytes and metamyelocytes) > 1% indicates that a LEFT SHIFT is Present. Performed By: #### L 502.0250, L100.0100, L501.9985, L501.9520, L500.4050, L500.4100, L501.9910 #### [facility] [address] [place], [address] Lymphocytes/100 WBC (Bld) 21.7 % Normal 19-41 [facility] Comment on above: Performed By: #### L 502.0250, L100.0100, L501.9985, L501.9520, L500.4050, L500.4100, L501.9910 #### [facility] [address] [place], [address] MCH (RBC) [Entitic mass] 32.0 pg Normal 27.0-32.0 [facility] Comment on above: Performed By: #### L 502.0250, L100.0100, L501.9985, L501.9520, L500.4050, L500.4100, L501.9910 #### [facility] [address] [place], [address] MCHC (RBC) [Mass/Vol] 33.9 g/dL Normal 32-36 [facility] Comment on above: Performed By: #### L 502.0250, L100.0100, L501.9985, L501.9520, L500.4050, L500.4100, L501.9910 #### [facility] [address] [place], [address] MCV (RBC) [Entitic vol] 94.5 fL High 80-94 [facility] Comment on above: Performed By: #### L 502.0250, L100.0100, L501.9985, L501.9520, L500.4050, L500.4100, L501.9910 #### [facility] [address] [place], [address] Monocytes/100 WBC (Bld) 8.6 % Normal 0-10 [facility] Comment on above: Performed By: #### L 502.0250, L100.0100, L501.9985, L501.9520, L500.4050, L500.4100, L501.9910 #### [facility] [address] [place], [address] Neutrophils/100 WBC (Bld) 63.8 % Normal 47-70 [facility] Comment on above: Performed By: #### L 502.0250, L100.0100, L501.9985, L501.9520, L500.4050, L500.4100, L501.9910 #### [facility] [address] [place], [address] Nucleated RBC (Bld) [#/Vol] 0 10*3/uL Normal 0-5 [facility] Comment on above: Performed By: #### L 502.0250, L100.0100, L501.9985, L501.9520, L500.4050, L500.4100, L501.9910 #### [facility] [address] [place], [address] Platelet mean volume (Bld) [Entitic vol] 10.9 fL Normal 6.2-12.0 [facility] Comment on above: Performed By: #### L 502.0250, L100.0100, L501.9985, L501.9520, L500.4050, L500.4100, L501.9910 #### [facility] [address] [place], [address] Platelets (Bld) [#/Vol] 210 10*3/uL Normal 150-450 [facility] Comment on above: Performed By: #### L 502.0250, L100.0100, L501.9985, L501.9520, L500.4050, L500.4100, L501.9910 #### [facility] [address] [place], [place], [phone] (613) RBC (Bld) [#/Vol] 4.40 10*6/uL Low 4.6-6.2 [facility] Comment on above: Performed By: #### L 502.0250, L100.0100, L501.9985, L501.9520, L500.4050, L500.4100, L501.9910 #### [facility] [address] [place], [address] RDW SD 43.6 fl Normal 35.1-43.9 [facility] Comment on above: Performed By: #### L 502.0250, L100.0100, L501.9985, L501.9520, L500.4050, L500.4100, L501.9910 #### [facility] [address] [place], [address] WBC (Bld) [#/Vol] 7.8 10*3/uL Normal 4.4-11.0 [facility] Comment on above: Performed By: #### L 502.0250, L100.0100, L501.9985, L501.9520, L500.4050, L500.4100, L501.9910 #### [facility] [address] [place], [place], [id number] Carbon dioxide measurementOr dered By: Jose Yuan on 03-20-2024 CO2 [Moles/Vol] 28.0 mmol/L 21.0-32.0 [facility] Chloride measurementOrdered By: Jose Yuan on 03-20-2024 Chloride [Moles/Vol] 104 mmol/L 98-107 [facility] Comprehensive Metabolic Prof ilon 03-20-2024 Albumin [Mass/Vol] 3.9 g/dL Normal 3.2-5.0 [facility] Comment on above: Performed By: #### L 502.0250, L100.0100, L501.9985, L501.9520, L500.4050, L500.4100, L501.9910 #### [facility] [address] [place], [address] Albumin/Globulin [Mass ratio] 1.0 {ratio} Normal 0.9-2.4 [facility] Comment on above: Performed By: #### L 502.0250, L100.0100, L501.9985, L501.9520, L500.4050, L500.4100, L501.9910 #### [facility] [address] [place], [address] ALK P 61 U/L Normal 45-117 [facility] Comment on above: Performed By: #### L 502.0250, L100.0100, L501.9985, L501.9520, L500.4050, L500.4100, L501.9910 #### [facility] [address] [place], [address] ALT [Catalytic activity/Vol] 60 U/L Normal 16-61 [facility] Comment on above: Performed By: #### L 502.0250, L100.0100, L501.9985, L501.9520, L500.4050, L500.4100, L501.9910 #### [facility] [address] [place], [address] AST [Catalytic activity/Vol] 64 U/L High 15-37 [facility] Comment on above: Performed By: #### L 502.0250, L100.0100, L501.9985, L501.9520, L500.4050, L500.4100, L501.9910 #### [facility] [address] [place], [address] Bilirubin [Mass/Vol] 0.50 mg/dL Normal 0.20-1.00 [facility] Comment on above: Result Comment: For patients on eltrombopag therapy, use of Dimension [place] TBIL is not recommended. Performed By: #### L 502.0250, L100.0100, L501.9985, L501.9520, L500.4050, L500.4100, L501.9910 #### [facility] [address] [place], [address] BUN/CRE 17.1 RATIO Normal 10-20 [facility] Comment on above: Performed By: #### L 502.0250, L100.0100, L501.9985, L501.9520, L500.4050, L500.4100, L501.9910 #### [facility] [address] [place], [address] CA,Total 9.0 mg/dL Normal 8.5-10.1 [facility] Comment on above: Performed By: #### L 502.0250, L100.0100, L501.9985, L501.9520, L500.4050, L500.4100, L501.9910 #### [facility] [address] [place], [address] Chloride [Moles/Vol] 104 mmol/L Normal 98-107 [facility] Comment on above: Performed By: #### L 502.0250, L100.0100, L501.9985, L501.9520, L500.4050, L500.4100, L501.9910 #### [facility] [address] [place], [address] CO2 [Moles/Vol] 28.0 mmol/L Normal 21.0-32.0 [facility] Comment on above: Performed By: #### L 502.0250, L100.0100, L501.9985, L501.9520, L500.4050, L500.4100, L501.9910 #### [facility] [address] [place], [address] Creatinine [Mass/Vol] 1.05 mg/dL Normal 0.70-1.30 [facility] Comment on above: Result Comment: The validity of the calculated GFR GFRAA in patients over 70 years has not been determined. Clinical correlation is essential. Performed By: #### L 502.0250, L100.0100, L501.9985, L501.9520, L500.4050, L500.4100, L501.9910 #### [facility] [address] [place], [address] EST GFR - AA 92 mL/min Normal >60 [facility] Comment on above: Result Comment: Afri can Nigerien GFR Calc Performed By: #### L 502.0250, L100.0100, L501.9985, L501.9520, L500.4050, L500.4100, L501.9910 #### [facility] [address] [place], [address] GAP 6 Normal 5-15 [facility] Comment on above: Performed By: #### L 502.0250, L100.0100, L501.9985, L501.9520, L500.4050, L500.4100, L501.9910 #### [facility] [address] [place], [address] GFR/1.73 sq M.predicted among non-blacks MDRD (S/P/Bld) [Vol rate/Area] 76 mL/min/{1.73_m2} Normal >60 [facility] Comment on above: Result Comment: Non- GFR Calc Performed By: #### L 502.0250, L100.0100, L501.9985, L501.9520, L500.4050, L500.4100, L501.9910 #### [facility] [address] [place], [address] Globulin (S) [Mass/Vol] 3.8 g/dL Normal 2.2-4.2 [facility] Comment on above: Performed By: #### L 502.0250, L100.0100, L501.9985, L501.9520, L500.4050, L500.4100, L501.9910 #### [facility] [address] [place], [address] Glucose [Mass/Vol] 160 mg/dL High 74-106 [facility] Comment on above: Result Comment: Fast ing Glucose result greater than or equal to 126 mg/dL suggests DIABETES MELLITUS per A.D.A. criteria. Performed By: #### L 502.0250, L100.0100, L501.9985, L501.9520, L500.4050, L500.4100, L501.9910 #### [facility] [address] [place], [address] Potassium [Moles/Vol] 4.4 mmol/L Normal 3.5-5.1 [facility] Comment on above: Performed By: #### L 502.0250, L100.0100, L501.9985, L501.9520, L500.4050, L500.4100, L501.9910 #### [facility] [address] [place], [address] Sodium [Moles/Vol] 138 mmol/L Normal 136-145 [facility] Comment on above: Performed By: #### L 502.0250, L100.0100, L501.9985, L501.9520, L500.4050, L500.4100, L501.9910 #### [facility] [address] [place], [address] T PROT 7.7 g/dL Normal 6.4-8.2 [facility] Comment on above: Performed By: #### L 502.0250, L100.0100, L501.9985, L501.9520, L500.4050, L500.4100, L501.9910 #### [facility] [address] [place], [address] Urea nitrogen [Mass/Vol] 18 mg/dL Normal 7-18 [facility] Comment on above: Performed By: #### L 502.0250, L100.0100, L501.9985, L501.9520, L500.4050, L500.4100, L501.9910 #### [facility] [address] [place], [address] Eosinophil percentageOrdered By: Jose Yuan on 03-20-2024 Eosinophils/100 WBC (Bld) 3.7 % 0-5 [facility] Erythrocyte distribution wid th ratioOrdered By: Jose Yuan on 03-20-2024 Erythrocyte distribution width (RBC) [Ratio] 12.5 % 11.6-14.6 [facility] Erythrocyte distribution wid th standard deviationOrdered By: Jose Yuan on 03-20-2024 Erythrocyte distribution width (RBC) [Ratio] 43.6 fl 35.1-43.9 [facility] Glomerular filtration rate ( GFR) estimationOrdered By: Jose Yuan on 03-20-2024 GFR/1.73 sq M.predicted among non-blacks MDRD (S/P/Bld) [Vol rate/Area] 76 mL/min/{1.73_m2} >60 [facility] Comment on above: Non- GFR Calc Glucose measurementOrdered B y: Jose Yuan on 03-20-2024 Glucose [Mass/Vol] 160 mg/dL High 74-106 [facility] Comment on above: Fasting Glucose resu lt greater than or equal to 126 mg/dL suggests DIABETES MELLITUS per A.D.A. criteria. Hematocrit Auto (Bld) [Volum e fraction]Ordered By: Jose Yuan on 03-20-2024 Hematocrit (Bld) [Volume fraction] 41.6 % 40-54 [facility] Hemoglobin A1c percentageOrd ered By: Jose Yuan on 03-20-2024 HbA1c (Bld) [Mass fraction] 6.4 % High 3.8-5.6 [facility] Comment on above: Normal < 5.7 % Predi abetic 5.7 - 6.4 % Diabetic >or= 6.5 % Please note range changes. Hemoglobin measurementOrdere d By: Jose Yuan on 03-20-2024 Hemoglobin (Bld) [Mass/Vol] 14.1 g/dL 13.0-16. 5 [facility] High density lipoprotein (HD L) measurementOrdered By: lucy Yuan on 03-20-2024 Cholesterol in HDL [Mass/Vol] 52 mg/dL >40 [facility] Comment on above: The drugs N-Acetylcy steine and Metamizole may falsely depress this assay. Reference Range HDL <40 mg/dL Low HDL Cholesterol HDL >or= 60 mg/dL High HDL Cholesterol Immature granulocytes/100 WB C Auto (Bld)Ordered By: Jose Yuan on 03-20-2024 Immature granulocytes/100 WBC (Bld) 1.100 % High 0.0-0.9 [facility] Comment on above: IG% - Immature Granu locytes (promyelocytes, myelocytes and metamyelocytes) > 1% indicates that a LEFT SHIFT is Present. Laboratory - Chemistry and C hemistry - challengeOrdered By: Jose Yuan on 03-20-2024 AST [Catalytic activity/Vol] 64 U/L High 15-37 [facility] Lipid Profileon 03-20-2024 Cholesterol [Mass/Vol] 176 mg/dL Normal 200 [facility] Comment on above: Result Comment: <200 mg/dL Desirable 200-240 mg/dL Borderline >240 mg/dL High Risk Performed By: #### L 502.0250, L100.0100, L501.9985, L501.9520, L500.4050, L500.4100, L501.9910 #### [facility] [address] [place], [place], [id number] Cholesterol in HDL [Mass/Vol] 52 mg/dL Normal [facility] Comment on above: Result Comment: The drugs N-Acetylcysteine and Metamizole may falsely depress this assay. Reference Range HDL <40 mg/dL Low HDL Cholesterol HDL >or= 60 mg/dL High HDL Cholesterol Performed By: #### L 502.0250, L100.0100, L501.9985, L501.9520, L500.4050, L500.4100, L501.9910 #### [facility] [address] [place], [address] Cholesterol in LDL [Mass/Vol] 102 mg/dL Normal 0-130 [facility] Comment on above: Performed By: #### L 502.0250, L100.0100, L501.9985, L501.9520, L500.4050, L500.4100, L501.9910 #### [facility] [address] [place], [address] Cholesterol in VLDL [Mass/Vol] 22 mg/dL Normal 5-40 [facility] Comment on above: Performed By: #### L 502.0250, L100.0100, L501.9985, L501.9520, L500.4050, L500.4100, L501.9910 #### [facility] [address] [place], [address] Triglyceride [Mass/Vol] 112 mg/dL Normal [facility] Comment on above: Result Comment: The drugs N-Acetylcysteine and Metamizole may falsely depress this assay. Serum Triglycerides Reference Interval Normal <150 mg/dL Borderline high 150 - 199 mg/dL High 200 - 499 mg/dL Very High > or = 500 mg/dL Performed By: #### L 502.0250, L100.0100, L501.9985, L501.9520, L500.4050, L500.4100, L501.9910 #### [facility] [address] [place], [place], [phone] Low density lipoprotein (LDL ) cholesterol measurementOrdered By: Jose Yuan on 03-20-2024 Cholesterol in LDL [Mass/Vol] 102 mg/dL 0-130 [facility] MCV (mean corpuscular volume ) determinationOrdered By: Jose Yuan on 03-20-2024 MCV (RBC) [Entitic vol] 94.5 fL High 80-94 [facility] Mean corpuscular hemoglobin (MCH) determinationOrdered By: Jose Yuan on 03-20-2024 MCH (RBC) [Entitic mass] 32.0 pg 27.0-32.0 [facility] Mean corpuscular hemoglobin concentration (MCHC) determinationOrdered By: Jose Yuan on 03-20-2024 MCHC (RBC) [Mass/Vol] 33.9 g/dL 32-36 [facility] Mean platelet volume determi nationOrdered By: Jose Yuan on 03-20-2024 Platelet mean volume (Bld) [Entitic vol] 10.9 fL 6.2-12.0 [facility] Microalb:Creat Ratio,Random URon 03-20-2024 Creatinine [Mass/Vol] 170.00 mg/dL Normal NO RAN GE EST. [facility] Comment on above: Performed By: #### L 502.0250, L100.0100, L501.9985, L501.9520, L500.4050, L500.4100, L501.9910 #### [facility] [address] [place], [place], [phone] MALB:CRE 112.4 mg/g CRE High <30 mg/g CRE [facility] Comment on above: Performed By: #### L 502.0250, L100.0100, L501.9985, L501.9520, L500.4050, L500.4100, L501.9910 #### [facility] [address] [place], [place], [id number] MICROALBUMIN,UR 191.0 mg/L Normal NO RANGE EST. [facility] Comment on above: Performed By: #### L 502.0250, L100.0100, L501.9985, L501.9520, L500.4050, L500.4100, L501.9910 #### [facility] [address] [place], [place], [phone] Monocyte percentageOrdered B y: Jose Yuan on 03-20-2024 Monocytes/100 WBC (Bld) 8.6 % 0-10 [facility] Neutrophil percentageOrdered By: Jose Yuan on 03-20-2024 Neutrophils/100 WBC (Bld) 63.8 % 47-70 [facility] Nucleated red blood cell per centageOrdered By: Jose Yuan on 03-20-2024 Nucleated RBC/100 WBC (Bld) [Ratio] 0 % 0-5 [facility] PSA,Total - Annual Screenon 03-20-2024 PSA,TOT SCREEN 0.43 ng/mL Normal 0.00-4.00 [facility] Comment on above: Result Comment: This test was performed using the TPSA assay method for the [employer] chemistry system. Values obtained with different assay methods cannot be used interchangably. When changing PSA assays in the course of monitoring a patient, additional sequential testing should be carried out to confirm baseline values. Performed By: #### L 502.0250, L100.0100, L501.9985, L501.9520, L500.4050, L500.4100, L501.9910 ####[facility] [id number] [place], [place], [id number] Platelet countOrdered By: Tiffany Jhajose manuel on 03-20-2024 Platelets (Bld) [#/Vol] 210 10*3/uL 150-450 [facility] Potassium measurementOrdered By: Jose Jhajose manuel on 03-20-2024 Potassium [Moles/Vol] 4.4 mmol/L 3.5-5.1 [facility] RBC Auto (Bld) [#/Vol]Ordere d By: Jose Jimmybeccajose manuel on 03-20-2024 RBC (Bld) [#/Vol] 4.40 10*6/uL Low 4.6-6.2 [facility] Serum anion gap measurementO rdered By: Jose Yuan on 03-20-2024 Anion gap [Moles/Vol] 6 mmol/L 5-15 [facility] Serum globulin measurementOr dered By: Jose Yuan on 03-20-2024 Globulin (S) [Mass/Vol] 3.8 g/dL 2.2-4.2 [facility] Serum or plasma alanine fortune otransferase (ALT) measurementOrdered By: Jose Yuan on 03-20-2024 ALT [Catalytic activity/Vol] 60 U/L 16-61 [facility] Serum or plasma albumin peggy urement (mass/volume)Ordered By: Jose Yuan on 03-20-2024 Albumin [Mass/Vol] 3.9 g/dL 3.2-5.0 [facility] Serum or plasma alkaline quentin sphatase measurementOrdered By: Jose Yuan on 03-20-2024 ALP [Catalytic activity/Vol] 61 U/L 45-117 [facility] Serum or plasma calcium peggy urement (mass/volume)Ordered By: Jose Yuan on 03-20-2024 Calcium [Mass/Vol] 9.0 mg/dL 8.5-10.1 [facility] Serum or plasma cholesterol measurement (mass/volume)Ordered By: Jose Yuan on 03-20-2024 Cholesterol [Mass/Vol] 176 mg/dL <200 [facility] Comment on above: <200 mg/dL Desirable 200-240 mg/dL Borderline >240 mg/dL High Risk Serum or plasma creatinine m easurement (mass/volume)Ordered By: Jose Yuan on 03-20-2024 Creatinine [Mass/Vol] 1.05 mg/dL 0.70-1.30 [facility] Comment on above: The validity of the calculated GFR & GFRAA in patients over 70 years has not been determined. Clinical correlation is essential. Serum or plasma thyroid stim ulating hormone (TSH) measurement (units/volume)Ordered By: Jose Yuan on 03-20-2024 TSH Qn 51.700 uIU/mL High 0.358-3.740 [facility] Serum or plasma urea nitroge n measurement (mass/volume)Ordered By: Jose Yuan on 03-20-2024 Urea nitrogen [Mass/Vol] 18 mg/dL 7-18 [facility] Sodium levelOrdered By: Sherron Yuan on 03-20-2024 Sodium [Moles/Vol] 138 mmol/L 136-145 [facility] Thyroid Stim Hormone (TSH)on 03-20-2024 TSH 51.700 uIU/mL High 0.358-3.740 [facility] Comment on above: Performed By: #### L 502.0250, L100.0100, L501.9985, L501.9520, L500.4050, L500.4100, L501.9910 #### [facility] [address] [place], [address] Total proteinOrdered By: Daniel Yuan on 03-20-2024 Protein [Mass/Vol] 7.7 g/dL 6.4-8.2 [facility] Triglycerides measurementOrd ered By: Jose Yuan on 03-20-2024 Triglyceride [Mass/Vol] 112 mg/dL <199 [facility] Comment on above: The drugs N-Acetylcy steine and Metamizole may falsely depress this assay.Serum Triglycerides Reference Interval Normal <150 mg/dL Borderline high 150 - 199 mg/dL High 200 - 499 mg/dL Very High > or = 500 mg/dL Urine creatinine measurement (mass/volume)Ordered By: Jose Yuan on 03-20-2024 Creatinine (U) [Mass/Vol] 170.00 mg/dL NO RANGE EST. [facility] Very low density lipoprotein (VLDL) cholesterol measurementOrdered By: Jose Yuan on 03-20-2024 Very low density lipoprotein (VLDL) cholesterol measurement 22 mg/dL 5-40 [facility] White blood cell (WBC) count Ordered By: Jose Yuan on 03-20-2024 WBC (Bld) [#/Vol] 7.8 10*3/uL 4.4-11.0 [facility] Internal Medicine Office Vis abdirashid 12-17-2023 Internal Medicine Office Visit [facility] [address] [place], [place] [address] OFFICE VISIT Date of Service: 12/17/23 MR#: [id number] Acct: [id number] Name: JOY GENTILE Rep #: [id number] : [id number] Provider: Dr. Jose dietrich MD Age/Sex: 63/M Location: [facility].SUPERIOR Status: Signed Intake Vital Signs 09/10/23 15:40 [...] FU Chief Complaint: Follow up Chronic Conditions [employer] [place] Required: No Is patient in pain?: No [...] on phone and unable to specify why. [facility] Medical History Leg cramps BPH (benign prostatic [...] on inspiration, (more content not included)... Normal [facility] Basophil percentageOrdered B y: Jose Yuan on 06-04-2023 Chloride [Moles/Vol] 107 mmol/L 98-107 [facility] Glucose [Mass/Vol] 110 mg/dL 74-106 [facility] Comment on above: Fasting Glucose resu lt from 100 to 125 mg/dL suggests IMPAIRED HOMEOSTASIS per A.D.A. criteria. Potassium [Moles/Vol] 4.0 mmol/L 3.5-5.1 [facility] Sodium [Moles/Vol] 140 mmol/L 136-145 [facility] - Chemistry and C hemistry - challengeOrdered By: Jose Yuan on 06-04-2023 CO2 [Moles/Vol] 28.0 mmol/L 21.0-32.0 [facility] Magnesium [Mass/Vol] 2.1 mg/dL 1.6-2.6 [facility] Urea nitrogen/Creatinine [Mass ratio] 19.1 mg/mg 10-20 [facility] - Hematology and Cell countson 06-04-2023 HbA1c (Bld) [Mass fraction] 6.5 % 4.2-6.3 [facility] No Panel InformationOrdered By: Jose Yuan on 06-04-2023 Estimated GFR (MDRD) Amer 111 mL/min >60 [facility] Comment on above: GFR Calc Estimated GFR (MDRD) Non-Af Amer 92 mL/min >60 [facility] Comment on above: Non- GFR Calc Serum or plasma calcium peggy urement (mass/volume)Ordered By: Jose Yuan on 06-04-2023 Calcium [Mass/Vol] 9.3 mg/dL 8.5-10.1 [facility] Serum or plasma creatinine m easurement (mass/volume)Ordered By: Jose Yuan on 06-04-2023 Creatinine [Mass/Vol] 0.89 mg/dL 0.70-1.30 [facility] Comment on above: The validity of the calculated GFR & GFRAA in patients over 70 years has not been determined. Clinical correlation is essential. Serum or plasma urea nitroge n measurement (mass/volume)Ordered By: Jose Yuan on 06-04-2023 Urea nitrogen [Mass/Vol] 17 mg/dL 7-18 [facility] Thin prep Papanicolaou smear with manual screeningOrdered By: Jose Yuan on 06-04-2023 Thin prep Papanicolaou smear with manual screening 5 5-15 [facility] Absolute lymphocyte countOrd ered By: Jose Yuan on 03-01-2023 Lymphocytes Auto (Unsp spec) [#/Vol] 1.84 10*3/uL 0.83-4.51 [facility] Automated lymphocyte count a s percentage of total leukocytesOrdered By: Jose Yuan on 03-01-2023 Lymphocytes/100 WBC Auto (Unsp spec) 29.7 % 19-41 [facility] Basophil percentageOrdered B y: Jose Yuan on 03-01-2023 Basophils/100 WBC (Bld) 1.1 % 0-1 [facility] Bilirubin [Mass/Vol] 0.40 mg/dL 0.20-1.00 [facility] Comment on above: For patients on eltr ombopag therapy, use of Dimension [place] TBIL is not recommended. Chloride [Moles/Vol] 109 mmol/L 98-107 [facility] Cholesterol [Mass/Vol] 143 mg/dL <200 [facility] Comment on above: <200 mg/dL Desirable 200-240 mg/dL Borderline >240 mg/dL High Risk Eosinophils/100 WBC (Bld) 3.5 % 0-5 [facility] Glucose [Mass/Vol] 158 mg/dL 74-106 [facility] Comment on above: Fasting Glucose resu lt greater than or equal to 126 mg/dL suggests DIABETES MELLITUS per A.D.A. criteria. Hemoglobin (Bld) [Mass/Vol] 15.3 g/dL 13.0-16. 5 [facility] Monocytes/100 WBC (Bld) 10.6 % 0-10 [facility] Neutrophils (Bld) [#/Vol] 3.4 10*3/uL 2.0-7.7 [facility] Neutrophils/100 WBC (Bld) 54.6 % 47-70 [facility] Potassium [Moles/Vol] 4.4 mmol/L 3.5-5.1 [facility] Protein [Mass/Vol] 7.2 g/dL 6.4-8.2 [facility] Sodium [Moles/Vol] 141 mmol/L 136-145 [facility] Triglyceride [Mass/Vol] 101 mg/dL <199 [facility] Comment on above: The drugs N-Acetylcy steine and Metamizole may falsely depress this assay.Serum Triglycerides Reference Interval Normal <150 mg/dL Borderline high 150 - 199 mg/dL High 200 - 499 mg/dL Very High > or = 500 mg/dL WBC (Bld) [#/Vol] 6.2 10*3/uL 4.4-11.0 [facility] Determination of erythrocyte mean corpuscular volume (MCV)Ordered By: Jose Yuan on 03-01-2023 MCV (RBC) [Entitic vol] 92.6 fL 80-94 [facility] Erythrocyte distribution wid th ratioOrdered By: Jose Yuan on 03-01-2023 Erythrocyte distribution width (RBC) [Ratio] 12.1 % 11.6-14.6 [facility] Erythrocyte distribution wid th standard deviationOrdered By: Jose Yuan on 03-01-2023 Erythrocyte distribution width (RBC) [Entitic vol] 41.4 fL 35.1-43.9 [facility] Hematocrit Auto (Bld) [Volum e fraction]Ordered By: Jose Yuan on 03-01-2023 Hematocrit (Bld) [Volume fraction] 46.1 % 40-54 [facility] High density lipoprotein (HD L) measurementOrdered By: lucy Yuan on 03-01-2023 Cholesterol in HDL (Body fld) [Mass/Vol] 47 mg/dL >40 [facility] Comment on above: The drugs N-Acetylcy steine and Metamizole may falsely depress this assay. Reference Range HDL <40 mg/dL Low HDL Cholesterol HDL >or= 60 mg/dL High HDL Cholesterol Immature granulocytes/100 WB C Auto (Bld)Ordered By: Jose Yuan on 03-01-2023 Immature granulocytes/100 WBC (Bld) 0.500 % 0.0-0.9 [facility] Comment on above: IG% - Immature Granu locytes (promyelocytes, myelocytes and metamyelocytes) > 1% indicates that a LEFT SHIFT is Present. Laboratory - Chemistry and C hemistry - challengeOrdered By: Jose Yuan on 03-01-2023 Albumin/Globulin [Mass ratio] 1.2 {ratio} 0.9-2.4 [facility] ALP [Catalytic activity/Vol] 69 U/L 45-117 [facility] ALT [Catalytic activity/Vol] 45 U/L 16-61 [facility] CO2 [Moles/Vol] 28.0 mmol/L 21.0-32.0 [facility] Globulin (S) [Mass/Vol] 3.2 g/dL 2.2-4.2 [facility] Urea nitrogen/Creatinine [Mass ratio] 19.3 mg/mg 10-20 [facility] - Hematology and Cell countsOrdered By: Jose Yuan on 03-01-2023 MCH (RBC) [Entitic mass] 30.7 pg 27.0-32.0 [facility] MCHC (RBC) [Mass/Vol] 33.2 g/dL 32-36 [facility] Nucleated RBC/100 WBC (Bld) [Ratio] 0 % 0-5 [facility] Platelets (Bld) [#/Vol] 202 10*3/uL 150-450 [facility] Low density lipoprotein (LDL ) cholesterol measurementOrdered By: Jose Yuan on 03-01-2023 Cholesterol in LDL (Body fld) [Moles/Vol] 76 mg/dL 0-130 [facility] No Panel InformationOrdered By: Jose Yuan on 03-01-2023 Estimated GFR (MDRD) Amer 112 mL/min >60 [facility] Comment on above: GFR Calc Estimated GFR (MDRD) Non-Af Amer 93 mL/min >60 [facility] Comment on above: Non- GFR Calc Platelet mean volume Marino-Ec ker (Bld) [Entitic vol]Ordered By: Jose Yuan on 03-01-2023 Platelet mean volume (Bld) [Entitic vol] 11.4 fL 6.2-12.0 [facility] RBC Auto (Bld) [#/Vol]Ordere d By: Jose Yuan on 03-01-2023 RBC (Bld) [#/Vol] 4.98 10*6/uL 4.6-6.2 [facility] Screening prostate specific antigen (PSA) measurementOrdered By: Jose Yuan on 03-01-2023 Prostate specific Ag IA [Mass/Vol] 0.37 ng/mL 0.00-4.00 [facility] Comment on above: This test was perfor med using the TPSA assay method [facility]. Values obtained with differentassay methods cannot be used interchangably.When changing PSA assays in the course of monitoring apatient, additional sequential testing should be carriedout to confirm baseline values. Serum or plasma calcium peggy urement (mass/volume)Ordered By: Jose Yuan on 03-01-2023 Calcium [Mass/Vol] 9.5 mg/dL 8.5-10.1 [facility] Serum or plasma creatinine m easurement (mass/volume)Ordered By: Jose Yuan on 03-01-2023 Creatinine [Mass/Vol] 0.88 mg/dL 0.70-1.30 [facility] Comment on above: The validity of the calculated GFR & GFRAA in patients over 70 years has not been determined. Clinical correlation is essential. Serum or plasma thyroid stim ulating hormone (TSH) measurement (units/volume)Ordered By: Sherronkeshenanajma Yuan on 03-01-2023 TSH Qn 0.78 uIU/mL 0.358-3.74 [facility] Serum or plasma urea nitroge n measurement (mass/volume)Ordered By: marilinkeshenanajma Yuan on 03-01-2023 Urea nitrogen [Mass/Vol] 17 mg/dL 7-18 [facility] Thin prep Papanicolaou smear with manual screeningOrdered By: marilinkeshenanajma Yuan on 03-01-2023 Thin prep Papanicolaou smear with manual screening 32.3 mg/L NO RANGE EST. [facility] Thin prep Papanicolaou smear with manual screening 4.0 g/dL 3.2-5.0 [facility] Thin prep Papanicolaou smear with manual screening 35 U/L 15-37 [facility] Thin prep Papanicolaou smear with manual screening 4 5-15 [facility] Urine albumin/creatinine rat io for detection of microalbuminuriaOrdered By: Jose Yuan on 03-01-2023 Albumin/Creatinine DL <= 1.0 mg/L (24H U) [Ratio] 18.6 mg/g CRE <30 [facility] Urine creatinine measurement (mass/volume)Ordered By: Jose Yuan on 03-01-2023 Creatinine (U) [Mass/Vol] 174.00 mg/dL NO RANGE EST. [facility] Very low density lipoprotein (VLDL) cholesterol measurementOrdered By: marilinkeshenanajma Yuan on 03-01-2023 Cholesterol in VLDL Calc [Moles/Vol] 20 mg/dL 5-40 [facility] - Hematology and Cell countson 02-27-2023 HbA1c (Bld) [Mass fraction] 6.6 % 4.2-6.3 [facility] - Hematology and Cell countson 11-06-2022 HbA1c (Bld) [Mass fraction] 6.2 % 4.2-6.3 [facility] Absolute lymphocyte countOrd ered By: Dr. Yuan on 04-25-2022 Lymphocytes Auto (Unsp spec) [#/Vol] 2.05 10*3/uL 0.83-4.51 [facility] Basophil percentageOrdered B y: Dr. Yuan on 04-25-2022 Basophils/100 WBC (Bld) 1.0 % 0-1 [facility] Bilirubin [Mass/Vol] 0.30 mg/dL 0.20-1.00 [facility] Comment on above: For patients on eltr ombopag therapy, use of Dim[place] TBIL is not recommended. Chloride [Moles/Vol] 104 mmol/L 98-107 [facility] Cholesterol [Mass/Vol] 141 mg/dL <200 [facility] Comment on above: <200 mg/dL Desirable 200-240 mg/dL Borderline >240 mg/dL High Risk Eosinophils/100 WBC (Bld) 3.2 % 0-5 [facility] Glucose [Mass/Vol] 119 mg/dL 74-106 [facility] Comment on above: Fasting Glucose resu lt from 100 to 125 mg/dL suggests IMPAIRED HOMEOSTASIS per A.D.A. criteria. Neutrophils (Bld) [#/Vol] 3.1 10*3/uL 2.0-7.7 [facility] Neutrophils/100 WBC (Bld) 50.5 % 47-70 [facility] Potassium [Moles/Vol] 4.1 mmol/L 3.5-5.1 [facility] Protein [Mass/Vol] 7.2 g/dL 6.4-8.2 [facility] Sodium [Moles/Vol] 139 mmol/L 136-145 [facility] Triglyceride [Mass/Vol] 254 mg/dL <199 [facility] Comment on above: The drugs N-Acetylcy steine and Metamizole may falsely depress this assay.Serum Triglycerides Reference Interval Normal <150 mg/dL Borderline high 150 - 199 mg/dL High 200 - 499 mg/dL Very High > or = 500 mg/dL WBC (Bld) [#/Vol] 6.0 10*3/uL 4.4-11.0 [facility] Blood erythrocytes count (nu mber/volume)Ordered By: Dr. Yuan on 04-25-2022 RBC (Bld) [#/Vol] 4.69 10*6/uL 4.6-6.2 [facility] Blood hemoglobin measurement (mass/volume)Ordered By: Dr. Yuan on 04-25-2022 Hemoglobin (Bld) [Mass/Vol] 14.8 g/dL 13.0-16. 5 [facility] Blood lymphocytes/100 leukoc ytesOrdered By: Dr. Yuan on 04-25-2022 Lymphocytes/100 WBC (Bld) 34.0 % 19-41 [facility] Blood monocytes/100 leukocyt esOrdered By: Dr. Yuan on 04-25-2022 Monocytes/100 WBC (Bld) 11.1 % 0-10 [facility] Blood platelet mean volumeOr dered By: Dr. Yuan on 04-25-2022 Platelet mean volume (Bld) [Entitic vol] 11.3 fL 6.2-12.0 [facility] Determination of erythrocyte mean corpuscular volume (MCV)Ordered By: Dr. Yuan on 04-25-2022 MCV (RBC) [Entitic vol] 91.5 fL 80-94 [facility] Hematocrit Auto (Bld) [Volum e fraction]Ordered By: Dr. Yuan on 04-25-2022 Hematocrit (Bld) [Volume fraction] 42.9 % 40-54 [facility] - Chemistry and C hemistry - challengeOrdered By: Dr. Yuan on 04-25-2022 ALP [Catalytic activity/Vol] 70 U/L 45-117 [facility] ALT [Catalytic activity/Vol] 52 U/L 16-61 [facility] CO2 [Moles/Vol] 28.0 mmol/L 21.0-32.0 [facility] Globulin (S) [Mass/Vol] 3.3 g/dL 2.2-4.2 [facility] Urea nitrogen/Creatinine [Mass ratio] 16.3 mg/mg 10-20 [facility] - Hematology and Cell countsOrdered By: Dr. Yuan on 04-25-2022 Erythrocyte distribution width (RBC) [Entitic vol] 40.3 fL 35.1-43.9 [facility] Erythrocyte distribution width (RBC) [Ratio] 12.0 % 11.6-14.6 [facility] Immature granulocytes/100 WBC (Bld) 0.200 % 0.0-0.9 [facility] Comment on above: IG% - Immature Granu locytes (promyelocytes, myelocytes and metamyelocytes) > 1% indicates that a LEFT SHIFT is Present. MCH (RBC) [Entitic mass] 31.6 pg 27.0-32.0 [facility] Nucleated RBC/100 WBC (Bld) [Ratio] 0 % 0-5 [facility] MCHC Auto (RBC) [Mass/Vol]Or dered By: Dr. Yuan on 04-25-2022 MCHC (RBC) [Mass/Vol] 34.5 g/dL 32-36 [facility] No Panel InformationOrdered By: Dr. Yuan on 04-25-2022 Estimated GFR (MDRD) Amer 116 mL/min >60 [facility] Comment on above: GFR Calc Estimated GFR (MDRD) Non-Af Amer 96 mL/min >60 [facility] Comment on above: Non- GFR Calc Thyroid Stimulating Hormone (TSH) 0.51 uIU/mL 0.358-3.74 [facility] Urine Microalbumin/Creatinine Ratio 13.6 mg/g CRE <30 [facility] Platelets bldOrdered By: Dr. Yuan on 04-25-2022 Platelets (Bld) [#/Vol] 214 10*3/uL 150-450 [facility] Serum or plasma albumin peggy urement (mass/volume)Ordered By: Dr. Yuan on 04-25-2022 Albumin [Mass/Vol] 3.9 g/dL 3.2-5.0 [facility] Serum or plasma albumin/glob ulin mass ratioOrdered By: Dr. Yuan on 04-25-2022 Albumin/Globulin [Mass ratio] 1.2 {ratio} 0.9-2.4 [facility] Serum or plasma calcium peggy urement (mass/volume)Ordered By: Dr. Yuan on 04-25-2022 Calcium [Mass/Vol] 9.2 mg/dL 8.5-10.1 [facility] Serum or plasma cholesterol in HDL measurement (mass/volume)Ordered By: Dr. Yuan on 04-25-2022 Cholesterol in HDL [Mass/Vol] 32 mg/dL >40 [facility] Comment on above: The drugs N-Acetylcy steine and Metamizole may falsely depress this assay. Reference Range HDL <40 mg/dL Low HDL Cholesterol HDL >or= 60 mg/dL High HDL Cholesterol Serum or plasma cholesterol in VLDL measurement (mass/volume)Ordered By: Dr. Yuan on 04-25-2022 Cholesterol in VLDL [Mass/Vol] 51 mg/dL 5-40 [facility] Serum or plasma creatinine m easurement (mass/volume)Ordered By: Dr. Yuan on 04-25-2022 Creatinine [Mass/Vol] 0.86 mg/dL 0.70-1.30 [facility] Comment on above: The validity of the calculated GFR & GFRAA in patients over 70 years has not been determined. Clinical correlation is essential. Serum or plasma low density lipoprotein (LDL) cholesterol measurement (mass/volume)Ordered By: Dr. Yuan on 04-25-2022 Cholesterol in LDL [Mass/Vol] 58 mg/dL 0-130 [facility] Serum or plasma urea nitroge n measurement (mass/volume)Ordered By: Dr. Yuan on 04-25-2022 Urea nitrogen [Mass/Vol] 14 mg/dL 7-18 [facility] Thin prep Papanicolaou smear with manual screeningOrdered By: Dr. Yuan on 04-25-2022 Thin prep Papanicolaou smear with manual screening 39 U/L 15-37 [facility] Thin prep Papanicolaou smear with manual screening 7 5-15 [facility] Thin prep Papanicolaou smear with manual screening 14.0 mg/L NO RANGE EST. [facility] Urine creatinine measurement (mass/volume)Ordered By: Dr. Yuan on 04-25-2022 Creatinine (U) [Mass/Vol] 103.00 mg/dL NO RANGE EST. [facility] Whole blood hemoglobin A1c/t otal hemoglobin ratio (mass fraction)Ordered By: Dr. Yuan on 04-25-2022 HbA1c (Bld) [Mass fraction] 6.1 % 3.8-5.6 [facility] Comment on above: Normal < 5.7 % Predi abetic 5.7 - 6.4 % Diabetic >or= 6.5 % Please note range changes. Vital Signs Date Time Vital Sign Value Performing Clinician Caseyi aileen 07-14-2024 13:09-0400 Body height 180.[address] Jose Yuan MD Work Phone: [facility] 07-14-2024 13:09-0400 Body mass index (BMI) [Ratio] 36.1 kg/m2 Dr. Jose Yuan MD Work Phone: [facility] 07-14-2024 13:09-0400 Body temperature 97.6 [degF] Dr. Jose Yuan MD Work Phone: [facility] 07-14-2024 13:09-0400 Body weight 117.[address] Jose Yuan MD Work Phone: [facility] 07-14-2024 13:09-0400 Diastolic blood pressure 70 mm[Hg] Dr. Jose Yuan MD Work Phone: [facility] 07-14-2024 13:09-0400 Heart rate 86 /min Dr. Jose Yuan MD Work Phone: [facility] 07-14-2024 13:09-0400 Respiratory rate 18 /min Dr. Jose Yuan MD Work Phone: [facility] 07-14-2024 13:09-0400 SaO2% (BldA) [Mass fraction] 94 % Dr. Jose Yuan MD Work Phone: [facility] 07-14-2024 13:09-0400 Systolic blood pressure 124 mm[Hg] Dr. Jose Yuan MD Work Phone: [facility] 03-24-2024 16:14-0500 Body height 180.[address] Jose Yuan MD Work Phone: [facility] 03-24-2024 16:14-0500 Body mass index (BMI) [Ratio] 38 kg/m2 Dr. Jose Yuan MD Work Phone: [facility] 03-24-2024 16:14-0500 Body temperature 96.1 [degF] Dr. Jose Yuan MD Work Phone: [facility] 03-24-2024 16:14-0500 Body weight 123.[address] Jose Yuan MD Work Phone: [facility] 03-24-2024 16:14-0500 Diastolic blood pressure 78 mm[Hg] Dr. Jose Yuan MD Work Phone: [facility] 03-24-2024 16:14-0500 Heart rate 72 /min Dr. Jose Yuan MD Work Phone: [facility] 03-24-2024 16:14-0500 Respiratory rate 18 /min Dr. Jose Yuan MD Work Phone: [facility] 03-24-2024 16:14-0500 SaO2% (BldA) [Mass fraction] 97 % Dr. Jose Yuan MD Work Phone: [facility] 03-24-2024 16:14-0500 Systolic blood pressure 142 mm[Hg] Dr. Jose Yuan MD Work Phone: [facility] 06-04-2023 15:39-0400 Body height 180.[address] Jose Yuan Work Phone: [facility] 06-04-2023 15:39-0400 Body mass index (BMI) [Ratio] 35.6 kg/m2 Dr. Jose Yuan Work Phone: [facility] 06-04-2023 15:39-0400 Body temperature 97.2 [degF] Dr. Jose Yuan Work Phone: [facility] 06-04-2023 15:39-0400 Body weight 115.[address] Jose Yuan Work Phone: [facility] 06-04-2023 15:39-0400 Diastolic blood pressure 82 mm[Hg] Dr. Jose Yuan Work Phone: [facility] 06-04-2023 15:39-0400 Heart rate 55 /min Dr. Jose Yuan Work Phone: [facility] 06-04-2023 15:39-0400 Respiratory rate 16 /min Dr. Jose Yuan Work Phone: [facility] 06-04-2023 15:39-0400 SaO2% (BldA) [Mass fraction] 96 % Dr. Jose Yuan Work Phone: [facility] 06-04-2023 15:39-0400 Systolic blood pressure 122 mm[Hg] Dr. Jose Yuan Work Phone: [facility] 02-27-2023 16:26-0500 Body height 180.[address] Jose Yuan Work Phone: [facility] 02-27-2023 16:26-0500 Body mass index (BMI) [Ratio] 35.2 kg/m2 Dr. Jose Yuan Work Phone: [facility] 02-27-2023 16:26-0500 Body temperature 97.9 [degF] Dr. Jose Yuan Work Phone: [facility] 02-27-2023 16:26-0500 Body weight 114.[address] Jose Yuan Work Phone: [facility] 02-27-2023 16:26-0500 Diastolic blood pressure 82 mm[Hg] Dr. Jose Yuan Work Phone: [facility] 02-27-2023 16:26-0500 Heart rate 74 /min Dr. Jose Yuan Work Phone: [facility] 02-27-2023 16:26-0500 Respiratory rate 18 /min Dr. Jose Yuan Work Phone: [facility] 02-27-2023 16:26-0500 SaO2% (BldA) [Mass fraction] 97 % Dr. Jose Yuan Work Phone: [facility] 02-27-2023 16:26-0500 Systolic blood pressure 136 mm[Hg] Dr. Jose Yuan Work Phone: [facility] 11-06-2022 15:27-0400 Body mass index (BMI) [Ratio] 34.4 kg/m2 Dr. Jose Yuan Work Phone: [facility] 11-06-2022 15:27-0400 Body temperature 97.7 [degF] Dr. Jose Yuan Work Phone: [facility] 11-06-2022 15:27-0400 Body weight 112.[address] Jose Yuan Work Phone: [facility] 11-06-2022 15:27-0400 Diastolic blood pressure 74 mm[Hg] Dr. Jose Yuan Work Phone: [facility] 11-06-2022 15:27-0400 Heart rate 68 /min Dr. Jose Yuan Work Phone: [facility] 11-06-2022 15:27-0400 Respiratory rate 18 /min Dr. Jose Yuan Work Phone: [facility] 11-06-2022 15:27-0400 SaO2% (BldA) [Mass fraction] 96 % Dr. Jose Yuan Work Phone: [facility] 11-06-2022 15:27-0400 Systolic blood pressure 114 mm[Hg] Dr. Jose Yuan Work Phone: [facility] 04-24-2022 16:07-0400 Body height 180.[address] Chris Bishop Work Phone: [facility] 04-24-2022 16:07-0400 Body mass index (BMI) [Ratio] 35.8 kg/m2 Dr. Chris Bishop Work Phone: [facility] 04-24-2022 16:07-0400 Body temperature 98 [degF] Dr. Chris Bishop Work Phone: [facility] 04-24-2022 16:07-0400 Body weight 116.[address] Chris Bishop Work Phone: [facility] 04-24-2022 16:07-0400 Diastolic blood pressure 82 mm[Hg] Dr. Chris Bishop Work Phone: [facility] 04-24-2022 16:07-0400 Heart rate 69 /min Dr. Chris Bishop Work Phone: [facility] 04-24-2022 16:07-0400 Respiratory rate 16 /min Dr. Chris Bishop Work Phone: [facility] 04-24-2022 16:07-0400 SaO2% (BldA) [Mass fraction] 95 % Dr. Chris Bishop Work Phone: [facility] 04-24-2022 16:07-0400 Systolic blood pressure 122 mm[Hg] Dr. Chris Bishop Work Phone: [facility] Encounters Encounter Date Encounter Type Care Provider Facility Start: 10-05-2024 ambulatory Patrick Bowles Facility: [facility] Start: 10-02-2024 ambulatory Efewongbe Oleghe Facili ty:[facility] Start: 10-01-2024 ambulatory Efewongbe Oleghe Facili ty:[facility] Start: 09-08-2024 ambulatory Lizbet Baker Facility:[facility] Start: 07-14-2024 End: 07-14-[address] Jose Yuan MD -[facility] Work Phone: Start: 07-14-2024 End: 07-14-[address] Jose Yuan MD [facility] Start: 07-14-2024 End: 07-14-[address] Jose Yuan MD Work Phone: [facility] Work Phone: Start: 07-14-2024 End: 07-14-2024 ambulatory [facility] Facility:[facility] Start: 07-13-2024 Encounter for other preprocedural examination Patrick Bowles [facility] Start: 07-08-2024 End: 07-08-2024 Non-patient / Non-visit Dr. Aaron Watt MD -[facility] Work Phone: Start: 07-08-2024 End: 07-08-[address] Jose Yuan MD Work Phone: [facility] Work Phone: Start: 07-08-2024 End: 07-08-[address] Patrick Bowles MD -Pulmonary Services/Neurology Work Phone: Start: 07-08-2024 End: 07-08-2024 ambulatory [facility] Facility:[facility] Start: 03-24-2024 End: 03-24-[address] Jose Yuan MD -[facility] Work Phone: Start: 03-24-2024 End: 03-24-2024 ambulatory Jose Yuan Facility:[facility] Start: 03-20-2024 End: 03-20-[address] Jose Yuan MD -Laboratory Work Phone: Start: 03-20-2024 End: 03-20-2024 ambulatory [facility] Facility:[facility] Start: 01-06-2024 End: 01-06-2024 ambulatory Jose Yuan Facility:[facility] Start: 12-17-2023 End: 12-17-2023 ambulatory Sherroncarlos anajma Yuan Facility:[facility] Start: 06-04-2023 End: 06-04-[address] Jose Yuan Work Phone: [facility] Work Phone: Start: 06-04-2023 End: 06-04-[address] Jose Yuan Work Phone: [facility] Work Phone: Start: 03-01-2023 End: 03-01-[address] Jose Yuan Work Phone: [facility] Work Phone: Start: 03-01-2023 End: 03-01-[address] Jose Yuan Work Phone: [facility]-Laboratory Work Phone: Start: 02-27-2023 End: 02-27-[address] Jose Yuan Work Phone: [facility] Internal [facility] Work Phone: Start: 11-06-[address] Jose Manuel Yuan Work Phone: [facility] Start: 11-06-2022 End: 11-06-2022 Encounter for general adult medical examination without abnormal findings Dr. Jose Yuan Work Phone: [facility] Start: 11-06-2022 End: 11-06-[address] Jose Yuan Work Phone: [facility] Internal [facility] Work Phone: Start: 04-25-2022 End: 04-25-[address] Chris Bishop Work Phone: [facility] Work Phone: Start: 04-25-2022 End: 04-25-[address] Chris Bishop Work Phone: [facility]-Laboratory, [facility] Start: 04-24-2022 End: 04-24-[address] Chris Bishop Work Phone: [facility] Internal Medicine Procedures Date Procedure Procedure Detail [...] med using the TPSA assay method for theAdexLink chemistry system. Values obtained with differentassay methods cannot be used interchangably.When changing PSA assays in the course of monitoring apatient, additional sequential testing should be carriedout to confirm baseline values. Start: 03-20-2024 Urine microalbumin/creatinine ratio measurement Dr. Jose Yuan MD Work Phone: Plan of Treatment Date Care Activity Detail Author Start: 07-14-2024 Urinalysis complete panel - Urine [facility] Bilirubin measurement, urine [facility] Hemoglobin [Presence] in Urine [facility] Measurement of keton es in urine using dipstick [facility] Microscopic urinalysis [facility] Organism count, micr oscopic method [facility] pH of Urine [facility] Specific gravity of Urine [facility] Urine dipstick for glucose [facility] Urine dipstick for l eukocyte esterase [facility] Urine dipstick for nitrite [facility] Urine dipstick for protein [facility] Urine examination [facility] Urine microscopy: ep ithelial cells [facility] Urine microscopy: red cells [facility] Urobilinogen [Presence] in Urine [facility] White blood cell count [facility] Immunizations Immunization Date Immunization Notes Care Provider Fa [facility] 12-08-2023 Influenza High-Dose Quadrivalent Dr. Jose Yuan MD Work Phone: [facility] 11-12-2023 Pfizer Covid-19 (Comirnaty) Dr. Jose Yuan MD Work Phone: [facility] 11-19-2022 Pfizer Covid-19 (Comirnaty) Dr. Jose Yuan MD Work Phone: [facility] 11-30-2021 Covid Pfizer Bivalen t Booster Dr. Jose Yuan MD Work Phone: [facility] 05-25-2021 Covid (Moderna) Dr. Ernestina Yuan MD Work Phone: [facility] 12-04-2020 Covid (Pfizer) Dr. Jose Yuan MD Work Phone: [facility] 05-17-2020 Covid (Moderna) Dr. Ernestina Yuan MD Work Phone: [facility] 04-20-2020 Covid (Moderna) Dr. Ernestina Yuan MD Work Phone: [facility] Payers Date Payer Category Payer Self-pay [id number] 2023 Unknown [id number] 2023 Private Health Insurance [id number] Unknown [id number] Unknown [id number] Unknown [facility] [id number] Unknown [id number] Unknown [id number] Unknown [id number] Unknown [id number] Unknown [id number] Unknown [id number] Unknown [id number] Unknown [id number] Unknown [id number] Unknown [id number] Unknown [id number] [id number] Unknown [id number] [id number] Unknown [id number] Social History Date Type Detail Facility Tobacco smoking stat [facility] Start: 1960 Sex Assigned At Male [facility] Start: 04-24-2022 End: 02-27-2023 Tobacco smoking status NHIS Unknown if ever smoked [facility] Start: 02-27-2023 Tobacco smoking stat us NHIS Never smoked tobacco (finding) [facility] Medical Equipment Procedure Code Equipment Code Equipment [...] Note Facility 07-09-2024 Radiology Diagnostic study note [facility] Imaging Services [address] [place] [address] Extremity Lower without Contra MR#: [id number] Acct: [id number] Name: JOY GENTILE Rep #: [id number] : 1960 M 64 From: David Stafford MD PCP: Dr. Jose Yuan MD Status: R EG CLI Study:Extremity Lower without Contra Date of Exam: 07/08/24 Exam# [id number] Ordering Dr: Oliver Bowles MD PROCEDURE: EXTREMITY LOWER WITHOUT CONTRA 07/08/2024 REASON FOR EXAM: OSTEOARTHRITIS [facility] protocol for right knee replacement. TECHNIQUE: Axial [...] of the right knee joint was performed. Cqrobwhj-hl-icvqge degree of joint space narrowing and degenerative spur formation along the medial compartment of the knee joint. Mild degree of patellofemoral osteoarthritis. Imaging of the ankle joint was obtained. There is good alignment. Evidence of plantar calcaneal spur. Soft Tissues: Tiny knee joint effusion. CT/Extremity Lower without Contra IMPRESSION: Ocjpatkn-dd-eozypx degree of joint space narrowing involving the medial compartment of the knee joint as described. Mild degree of patellofemoral joint space narrowing. Reading Location: [facility] CC: Dr. Jose Yuan MD; Dr. Patrick Bowles MD ~ Coroner Forensic Technician: Signed [facility] Evaluation note 03-24-2024 Note Date & Type [...] diabetes mellitus chronic July 14, 2024 12:53pm [facility] Work Phone: Evaluation note 03-24-2024 Note Date & Type Note Facility 03-24-2024 Evaluation note Diagnosis Onset Date Resolution Hypertension chronic March 4:11pm Hypothyroidism chronic March 132024 4:11pm Type 2 diabetes mellitus chronic March 24, 2024 4:11pm Venous insufficiency of both lower extremities chronic March 24, 2024 4:11pm [facility] Work Phone: Evaluation note Note Date & Type Note Facility Evaluation note No assessment information availa ble [facility] Work Phone: Evaluation note Note Date & Type Note Facility Evaluation note Diagnosis Onset Date Venous insufficiency of both lower extremities acute Hypertension chronic Hypothyroidism chronic BABAR (obstructive sleep apnea) chronic Type 2 diabetes mellitus chr onic Ulcerative colitis chronic [facility] Work Phone: Evaluation note Note Date & Type Note Facility Evaluation note Diagnosis Onset Date Health care maintenance acut e Hypertension chronic Hypothyroidism chronic Type 2 diabetes mellitus chr onic Hypertension chronic Hypothyroidism chronic Type 2 diabetes mellitus chr onic Venous insufficiency of both lower extremities chronic [facility] Work Phone: Evaluation note Note Date & Type Note Facility Evaluation note Diagnosis Onset Date Hypertension chronic Hypothyroidism chronic Type 2 diabetes mellitus chr onic Venous insufficiency of both lower extremities chronic Leg cramps acute Hypertension chronic Hypothyroidism chronic Type 2 diabetes mellitus chr onic Venous insufficiency of both lower extremities chronic [facility] Work Phone: Reason for referral (narrative) Note Date & Type Note Facility Reason for referral (narrative) No reason for referral information available [facility] Work Phone: Chief Complaint and Reason for Visit 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 [employer] provides no warranty or guarantee of the accuracy or completeness of information in this document.
--- NOTE | 2024-10-05 07:04 | CT_ITS ---
PROCEDURE: EXTREMITY LOWER WITHOUT CONTRA 10/05/2024 REASON FOR EXAM: Osteoarthritis LEFT KNEE, preoperative study. TECHNIQUE: JOYCE CT left knee. Coronal and Sagittal reconstruction series were provided. One or more dose reduction techniques were used (e.g., Automated exposure control, adjustment of the mA and/or kV according to patient size, use of iterative reconstruction technique). RADIATION DOSE SUMMARY: DLP: 1338.37 mGycm COMPARISON: None provided. FINDINGS: Left hip: Limited imaging of the left sacroiliac joint demonstrates mild degenerative changes. Partial calcification of the prostate gland is seen. The left hip itself demonstrates mild degenerative changes, including mild superior joint narrowing, along with lateral acetabular subchondral cyst formation. No evidence of femoral head osteonecrosis. Left knee: Moderate arterial calcification is noted. A small left knee joint effusion is seen. Tricompartmental left knee degenerative changes are seen, with severe medial joint narrowing and moderate patellofemoral joint narrowing. 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 Left ankle: Large inferior and mild posterior calcaneal spurring is seen. Normal contour of the Achilles tendon is seen on sagittal imaging. Minimal degenerative changes are otherwise seen. No acute fracture or dislocation is evident. CT/Extremity Lower without Contra IMPRESSION: Degenerative changes, most prominent in the left knee, as described. Reading Location: [place] [address]
[2024-10-05 07:20] LABS: Hematocrit 43.9 % (40-54); Hemoglobin 15.2 g/dL (13.0-16.5); Immature Granulocytes Count 0.020 X10^3/uL (0.0-0.0); Mean Corp Hgb Conc 34.6 g/dL (32-36); Mean Corpuscular Volume 91.5 fL (80-94); Mean Platelet Vol. 10.8 fl (6.2-12.0); NRBC Flagged by Analyzer 0 % (0-5); Platelet Count 190 K/mm3 (150-450); RBC Distribution Width CV 12.3 % (11.6-14.6); RBC Distribution Width SD 41.4 fl (35.1-43.9); Red Blood Count 4.80 M/mm3 (4.6-6.2); White Blood Count 6.0 K/mm3 (4.4-11.0)
[2024-10-05 08:25] LABS: Albumin, Serum 4.6 g/dL (3.4-4.8); Anion Gap 12 (5-15); BUN 18 mg/dL (4-19); BUN/Creat Ratio 21.4 RATIO (10-20); Calcium,Total 9.6 mg/dL (7.6-11.0); Carbon Dioxide 23.5 mmol/L (21.0-32.0); Chloride 105 mmol/L (98-108); Glucose 158 mg/dL (70-99); Potassium 4.3 mmol/L (3.3-5.1)
== END | disposition home or self-care (01) ==
LOC: CT 06:58
PROVIDERS: PCP Internal Medicine; Referring Provider Specialist; Visit Provider Specialist
DX: Z01.818 Encounter for other preprocedural examination (principal); M17.12 Unilateral primary osteoarthritis, left knee
CPT/HCPCS: 36415; 73700; 80048; 82040; 83036; 85025

== ENCOUNTER 2025-02-09 05:43 | Day surgery (SDC) | payer BC, SELFPAY ==
--- NOTE | 2025-02-07 14:03 | PAT.ANE_ITS ---
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 When Was Last Pacemaker Check QUESTION #4 FULL TEXT: You/Your Family Experience fever (hyperthermia) with Anesthesia Last Oral Intake Last Oral intake: Last Oral Intake NPO since Meds taken in AM with sips of water? 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 Female No 02/07/25 10:12 HX of Motion Sickness No 02/07/25 10:12 HX of N/V After Surgery No 02/07/25 10:12 Non-Smoker Yes 02/07/25 10:12 Duration of Surgery greater No 02/07/25 10:12 than 60 minutes Number of Risk Factors 1 02/07/25 10:12 PONV Score Low Risk 02/07/25 10:12 Height & Weight Height & Weight: Anesthesia: Height & Weight Height 5 ft 11 in 10/15/24 08:51 Respiratory Assessment Respiratory Assessment - insulation cupola operator: Respiratory Tract Infection Hx - insulation cupola operator Hx Respiratory Tract Infection No 02/07/25 10:12 STOP Sleep Apnea STOP Sleep Apnea - insulation cupola operator: STOP Sleep Apnea - insulation cupola operator Hx Hypertension Yes 02/07/25 10:12 Hx Sleep Apnea Yes 02/07/25 10:12 CPAP Yes 02/07/25 10:12 BIPAP No 02/07/25 10:12 Do you snore loudly (louder than talking or can be heard Do you often feel tired/ fatigued/ sleepy during daytime? Has anyone observed you stop breathing during sleep? STOP Results Positive 02/07/25 10:12 QUESTION #5 FULL TEXT : Do you snore loudly (louder than talking or can be heard through closed doors)? 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 Specify any problems Hx of Preganancy in last 3 N/A 02/07/25 10:12 Months Nurse Filling Out Transfusion VLEHONTARIO 02/07/25 10:12 & Questions: Date: 02/07/25 02/07/25 10:12 Time: 10:18 02/07/25 10:12 Patient unable to answer at this time (ie. 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: /Reproductive Hx- insulation cupola operator Hx Now Gestational Age (in weeks): EDC: Hx Hx Para Hx Section SAB Does the father of the baby or his family experience fever w Father of the baby Malignant Hypertension history comment [facility] Medical History (Updated 02/07/25 @ 10:17 by Kaci Mahajan) Wears glasses Fatty liver High cholesterol Non-smoker CPAP (continuous positive airway pressure) dependence Sleep apnea History of stress test Family history of early CAD Abnormal EKG Preoperative evaluation to rule out surgical contraindication Urine abnormality Screening for prostate cancer Leg cramps BPH (benign prostatic hyperplasia) Health care maintenance BABAR (obstructive sleep apnea) Venous insufficiency of both lower extremities Hypothyroidism Type 2 diabetes mellitus Ulcerative colitis Allergies Thyroid disease Asthma Knee pain Hay fever Diabetes Hypertension Home Medications ?Medication ?Instructions ?Recorded ?Last Taken ?Type loratadine 10 mg tablet (Claritin) 10 mg PO DAILY 03/14 08/29 Unknown History lancets 28 gauge (FreeStyle #200 ea 07/31/22 Unknown R x Lancets) lancets (Accu-Chek Softclix #100 ea 10/09/23 Unknown R x Lancets) lancing device with lancets kit #1 ea 10/09/23 Unknown Rx (Accu-Chek Softclix Lancing Device+Lancets kit) blood sugar diagnostic (Accu-Chek #100 ea 05/11/24 Unk nown Rx Emily Plus test strips) glimepiride 2 mg tablet 2 mg PO QAM #90 tabs 5 Unknown Rx levothyroxine 150 mcg tablet 150 mcg PO DAILY #120 tab s 10/19/24 Unknown Rx montelukast 10 mg tablet 10 mg PO DAILY #90 tabs 11/04 Unknown Rx trazodone 100 mg tablet See Rx Instructions .Route 0 10/19/24 Unknown Rx .COMPLEX #180 tabs metformin 500 mg tablet 1,000 mg (2 x 500 mg) PO BID 3 11/15/24 Unknown Rx months #360 tabs blood sugar diagnostic (Accu-Chek #100 ea 12/02/24 Unk nown Rx Guide test strips) lisinopril 5 mg tablet 5 mg PO DAILY #90 tabs 01/03 Unknown Rx simvastatin 10 mg tablet 10 mg PO DAILY #90 tabs 12/12 06/04 Unknown Rx Allergy/AdvReac Type Severity Reaction Status Date / Time grass pollen Allergy Mild UNKNOWN Verified 02/07/25 10:09 house dust mite Allergy Mild UNKNOWN Verified 02/07/25 10:09 tree and shrub pollen Allergy Mild UNKNOWN Verified 02/07/25 10:09 venom-honey bee Allergy Mild UNKNOWN Verified 02/07/25 10:09 Penicillins Allergy Rash Verified 02/07/25 10:09 Family History Mother Alcoholism Cancer Kidney disease Father Cancer Myocardial infarction Heart disease Brother Myocardial infarction Surgical History H/O hernia repair History of nasal surgery Social History Smoking Status: Never smoker alcohol intake: never substance use type: does not use what type of physical activity do you participate in: walking frequency: daily seatbelt use: always do you feel safe at home: Yes Audit: Pertinent Findings Pertinent Findings EKG Perinent findings: EKG 07/08/2024. Normal sinus rhythm. Left axis deviation Stress test pertinent findings: Stress test 10/02/2024. There is no evidence of significant ischemia or infarction. Estimated ejection fraction is 63%. Recommendation Anesthesia Recommendation Anesthesia recommendation: OPTIMIZED for anesthesia
[2025-02-09] VITALS (8 sets, daily range): BP systolic 110–129; BP diastolic 76–88; PULSE 72–82; RESP 16–18; TEMP 36.6–36.9; O2SAT 96–98; BMI 33.8
--- OUTSIDE RECORDS SUMMARY | 2025-02-09 05:45 | XMS RPT_ITS | CCD ---
Author Organization [facility] Care Team Providers Care Store Operations Associate Name Role Phone Dr. Chris Bishop Primary Care Provider Dr. Chris Bishop Referring Provider Dr. Jose Yuan Attending Provider [phone] Dr. Jose Yuan Attending Provider [phone] Dr. Jose Yuan Attending Provider [phone] Kwabena CAREY, Dr. Garcia Primary Care Provider Kwabena CAREY, Dr. Garcia Attending Provider [phone] Kwabena CAREY, Dr. Garcia Referring Provider [phone] Dr. Patrick Bowles MD Attending Provider [phone] Dr. Patrick Bowles MD Referring Provider [phone] Dr. Aaron Watt MD Attending Provider Kwabena CAREY, Dr. Garcia Primary Care Provider Kwabena CAREY, Dr. Garcia Attending Provider [phone] Kwabena CAREY, Dr. Garcia Referring Provider [phone] Lizbet Baker MA Attending Provider Unavailable Kwabena CAREY, Dr. Garcia Other Provider [phone] Reginaldo CAREY, Dr. Guerrero Attending Provider Reginaldo CAREY, Dr. Guerrero Attending Provider Alonzo Osborne Attending Provider Oleghe, Efewongbe Attending Unavailable Oleghe, Efewongbe Primary Care Unavailable Oleghe, Efewongbe Referring Unavailable Oleghe, Efewongbe Referring Unavailable Alonzo Osborne Attending Unavailable Oleghe, Efewongbe Primary Care Unavailable Oleghe, Efewongbe Referring Unavailable Oleghe, Efewongbe Consulting Unavailable Nagajothi, Nagapradee Attending Unavailabl e Oleghe, Efewongbe Primary Care Unavailable Aaron Watt Attending Unavailable Oleghe, Efewongbe Primary Care Unavailable Patrick Bowles Referring Unavailable Oleghe, Efewongbe Referring Unavailable Nagajothi, Nagapradee Attending Unavailabl e Oleghe, Efewongbe Primary Care Unavailable Patrick Bowles Attending Unavailable Oleghe, Efewongbe Primary Care Unavailable Patrick Bowles Referring Unavailable Diego Schumacher Attending Unavailable Oleghe, Efewongbe Primary Care Unavailable Oleghe, Efewongbe Primary Care Unavailable Patrick Bowles Attending Unavailable Patrick Bowles Referring Unavailable Oleghe, Efewongbe Attending Unavailable Oleghe, Efewongbe Referring Unavailable Oleghe, Efewongbe Primary Care Unavailable Oleghe, Efewongbe Attending Unavailable Oleghe, Efewongbe Primary Care Unavailable Oleghe, Efewongbe Referring Unavailable Oleghe, Efewongbe Attending Unavailable Oleghe, Efewongbe Referring Unavailable Oleghe, Efewongbe Primary Care Unavailable Oleghe, Efewongbe Primary Care Unavailable Patrick Bowles Attending Unavailable Patrick Bowles Referring Unavailable Oleghe, Efewongbe Attending Unavailable Oleghe, Efewongbe Primary Care Unavailable Oleghe, Efewongbe Referring Unavailable Lizbet Baker Attending Unava ilable Oleghe, Efewongbe Primary Care Unavailable Oleghe, Efewongbe Attending Unavailable Oleghe, Efewongbe Primary Care Unavailable Oleghe, Efewongbe Referring Unavailable Oleghe, Efewongbe Attending Unavailable Oleghe, Efewongbe Primary Care Unavailable Oleghe, Efewongbe Referring Unavailable Allergies Allergy Classification Reported Allergen(s) Allergy Type Date of Onset Reaction(s) Facility (11 sources) Grass pollen; Translations: [grass pollen] Allergy to substance 04-19-[address] [facility] (11 sources) Penicillins; Translations: [Penicillins] Allergy to substance 04-19-[address] [facility] (11 sources) Tree and shrub pollen; Translations: [tree and shrub pollen] Allergy to substance 04-19-[address] [facility] (11 sources) house dust mite; Translations: [house dust mite] Allergy to substance 04-19-[address] [facility] (10 sources) venom-honey bee Allergy to substance 04-19-[address] [facility] (1 source) venom-honey bee Drug allergy (disorder) 10-15-[address] [facility] Repository Medications Current Medications Medication Drug Class(es) Dates Sig (Normalized) Sig (Original) Fluticasone Propion-Salmeterol (Advair Hfa) 115-21 mcg/actuation HFA aerosol inhaler (1 source) Start: 04-24-2022 take 1 puff(s) by inhalation once daily Fluticasone Propion-Salmeterol (Advair Hfa) 115-21 mcg/actuation HFA aerosol inhaler Active 2 PUFF INHALATION DAILY April 24, 2022 12:00am loratadine 10 mg oral tablet (10 sources) Start: 04-08-2019 take 1 tablet by mouth once daily Loratadine (Claritin) 10 mg tablet Active 10 mg PO DAILY April 08, 2019 1:00am metFORMIN hydrochloride 500 mg oral tablet (20 sources) Biguanide Start: 10-15-2024 take 1 tablet by mouth twice daily Metformin 500 mg tablet Active 500 mg PO TWICE A DAY October 15, 2024 12:00am Start: 04-24-2022 End: 08-09-2024 take 2 tablets by mouth twice daily Metformin 500 mg tablet Discontinued 1000 mg PO TWICE A DAY 360 90 0 May 11, 2024 12:35pm August 08, 2024 12:00am August 09, 2024 12:06am Start: 04-24-2022 End: 03-25-2023 take 1000 mg by mouth twice daily Metformin Active 1000 MG PO TWICE A DAY 180 March 25, 2023 4:40pm montelukast 10 mg oral tablet (17 sources) Leukotriene Receptor Antagonist Start: 04-24-2022 End: 07-31-2022 take 1 tablet by mouth once daily Montelukast 10 mg tablet Active 10 mg PO DAILY 90 3 July 31, 2022 3:43pm Completed/Discontinued Medications Medication Drug Class(es) Dates Sig (Normalized) Sig (Original) acetaminophen 325 mg / oxyCODONE hydrochloride 7.5 mg oral tablet (10 sources) Opioid Agonist Start: 05-30-2016 End: 04-08-2019 Oxycodone-Acetamino phen 1 EACH tablet Discontinued 1 NMA PO EVERY 6 HOURS NEEDED as needed for Pain 30 0 May 30, 2016 6:07pm April 08, 2019 3:26pm Start: 05-30-2016 End: 04-08-2019 Oxycodone-Acetaminophen Disc ontinued 1 EACH PO EVERY 6 HOURS NEEDED May 30, 2016 6:07pm April 08, 2019 3:26pm Blood-Glucose Meter (Freesty le Lite Meter) kit (8 sources) Start: 07-31-2022 End: 10-09-2023 Blood-Glucose Meter (Freesty le Lite Meter) kit Discontinued 0 .MEDSUPPLY 1 0 July 31, 2022 12:00am October 09, 2023 11:39am Type 2 diabetes mellitus with hyperglycemia As directed, check blood glucose daily for type 2 DM Start: 07-31-2022 End: 10-09-2023 Blood-Glucose Meter (Freesty le Lite Meter) kit Discontinued 0 .MEDSUPPLY 1 July 31, 2022 12:00am October 09, 2023 11:39am As directed, check blood glucose daily for type 2 DM Start: 07-31-2022 Blood-Glucose Meter (Freestyle Lite Meter) kit Active 0 .MEDSUPPLY 1 July 31, 2022 12:00am As directed, check blood glucose daily for type 2 DM Start: 07-31-2022 Blood-Glucose Meter (Freestyle Lite Meter) kit Active 0 .MEDSUPPLY 1 July 30, 2022 11:00pm As directed, check blood glucose daily for type 2 DM 12 hr buPROPion hydrochloride 100 mg extended release oral tablet (10 sources) Aminoketone Start: 04-08-2019 End: 07-31-2022 take 1 tablet by mouth once daily Bupropion Hcl (Wellbutrin Sr) 100 mg tablet sustained-release 12 hr Discontinued 100 mg PO DAILY April 08, 2019 1:00am July 31, 2022 3:46pm clindamycin 300 mg oral capsule (10 sources) Lincosamide Antibacterial Start: 04-08-2019 End: 04-24-2022 take 1 capsule by mouth three times daily Clindamycin Hcl 300 mg capsule Discontinued 300 mg PO THREE TIMES A DAY 21 0 April 08, 2019 1:00am April 24, 2022 4:04pm Fluticasone Propion-Salmeterol (8 sources) Corticosteroid, beta2-Adrenergic Agonist Start: 04-24-2022 End: [...] 2022 11:00pm July 31, 2022 2:46pm glimeperide (9 sources) Start: 04-24-2022 End: 07-31-2022 take 2 [...] tablet Discontinued 2 mg PO EVERY MORNING 90 January 12, 2024 9:29am June 14, 2024 8:14am administer with breakfast levothyroxine sodium 0.15 mg oral tablet (20 sources) l-Thyroxine Start: 03-24-2024 End: 06-02-2024 Levothyroxine 150 mcg tablet Discontinued 150 ug PO DAILY 40 March 24, 2024 5:44pm June 02, 2024 9:53am Take 150mcg on 6 days and 300mcg on 1 day. Start: 11-06-2022 End: 03-24-2024 take 1 tablet by mouth once daily Levothyroxine 150 mcg tablet Discontinued 150 ug PO DAILY 90 November 06, 2022 3:47pm March 24, 2024 [...] 2022 4:04pm lisinopril 5 mg oral tablet (20 sources) Angiotensin Converting Enzyme Inhibitor Start: 04-24-2022 End: 07-16-2024 take 1 tablet by mouth once daily Lisinopril 5 mg tablet Discontinued 5 mg PO DAILY 90 August 10, 2023 10:17pm July 16, 2024 1:15pm Magnesium (8 sources) Start: 11-06-2022 End: 02-27-2023 take 1 [...] 05, 2022 11:00pm February 27, 2023 4:25pm naproxen 500 mg oral tablet (10 sources) Nonsteroidal Anti-inflammatory Drug Start: 05-30-2016 End: 04-08-2019 take 1 tablet by mouth twice daily Naproxen 500 MG tablet Discontinued 500 mg PO TWICE A DAY 10 May 30, 2016 12:00am April 08, 2019 3:26pm Nirmatrelvir-Ri tonavir (Paxlovid) 300 mg (150 mg x 2)-100 mg tablets,dose pack (6 sources) Start: 02-03-2024 End: 06-21-2024 Nirmatrelvir-Riton avir (Paxlovid) 300 mg (150 mg x 2)-100 mg tablets,dose pack Discontinued 0 PO .COMPLEX 30 February 03, 2024 1:00am June 21, 2024 1:45pm take TWO 150 mg tablets of nirmatrelvir with ONE 100 mg tablet of ritonavir twice daily for 5 days PO Start: 02-03-2024 End: 06-21-2024 Nirmatrelvir-Ritonavir (Paxl ovid) 300 mg (150 mg x 2)-100 mg tablets,dose pack Discontinued 0 PO .COMPLEX February 03, 2024 1:00am June 21, 2024 1:45pm take TWO 150 mg tablets of nirmatrelvir with ONE 100 mg tablet of ritonavir twice daily for 5 days PO [id number] Antigen 2 Of 2 (Arexvy Antigen Component) 120 mcg suspension for reconstitution (8 sources) Start: 02-27-2023 End: 12-17-2023 inject 1 mL by intramuscular injection once [id number] Antigen 2 Of 2 (Arexvy Antigen Component) 120 mcg suspension for reconstitution Discontinued 0.5 mL IM ONCE 1 February 27, 2023 1:00am December 17, 2023 4:44pm as a single dose Start: 02-27-2023 End: 12-17-2023 inject 1 mL [...] single dose simvastatin 10 mg oral tablet (20 sources) HMG-CoA Reductase Inhibitor Start: 04-24-2022 End: 07-16-2024 take 1 tablet by mouth once daily Simvastatin 10 mg tablet Discontinued 10 mg PO DAILY 90 August 10, 2023 10:17pm July 16, 2024 1:15pm traZODone hydrochloride 100 mg oral tablet (20 sources) Serotonin Reuptake Inhibitor Start: 04-08-2019 End: 06-21-2024 Trazodone 100 mg tablet Discontinued 0 .ROUTE .COMPLEX 180 September 19, 2023 10:20am June 21, 2024 1:45pm TAKE 2 TABLETS AT BEDTIME Start: 04-08-2019 End: 03-13-2023 Trazodone Active 0 .ROUTE .C OMPLEX March 13, 2023 10:52am TAKE 2 TABLETS AT BEDTIME Problems Active Problems Problem Classification Problem Date Documented Date Episodic/Chronic Allergic reactions (9 sources) Allergic condition; Translations: [Allergy, unspecified, initial encounter] 04-24-2022 Episodic Diabetes mellitus with complications (2 sources) Type 2 diabetes mellitus with other specified complication; Translations: [Type 2 diabetes mellitus with other specified complication] Onset: 07-14-2024 Chronic Diabetes mellitus without complication (20 sources) Type 2 diabetes mellitus; Translations: [Type 2 diabetes mellitus without complications] 04-24-2022 Chronic Disorders of lipid metabolism (2 sources) Hyperlipidemia; Translations: [Hyperlipidemia, unspecified] Onset: 10-15-2024 10-15-2024 Chronic Essential hypertension (20 sources) Hypertensive disorder; Translations: [Essential (primary) hypertension] Onset: 10-13-2024 04-24-2022 Chronic Hyperplasia of prostate (8 sources) Benign prostatic hyperplasia; Translations: [Benign prostatic hyperplasia without lower urinary tract symptoms] 11-06-2022 Chronic Osteoarthritis (1 source) Bilateral primary osteoarthritis of knee; Translations: [Bilateral primary osteoarthritis of knee] Onset: 07-07-2024 Chronic Other connective tissue disease (7 sources) Cramp in lower limb; Translations: [Cramp and spasm] 06-04-2023 Episodic Other connective tissue disease (1 source) Cramp and spasm; Translations: [Cramp of limb] 06-04-2023 Episodic Other diseases of veins and lymphatics (12 sources) Venous insufficiency of leg; Translations: [Venous insufficiency (chronic) (peripheral)] 04-24-2022 Episodic Other diseases of veins and lymphatics (4 sources) Venous insufficiency (chronic) (peripheral); Translations: [Venous (peripheral) insufficiency, unspecified] 04-24-2022 Episodic Other screening for suspected conditions (not mental disorders or infectious disease) (13 sources) Patient encounter status; Translations: [Encounter for screening for malignant neoplasm of prostate] Onset: 10-13-2024 12-17-2023 Episodic Regional enteritis and ulcerative colitis (10 sources) Ulcerative colitis; Translations: [Ulcerative colitis, unspecified, without complications] 04-24-2022 Chronic Residual codes; unclassified (14 sources) Obstructive sleep apnea syndrome; Translations: [Obstructive sleep apnea (adult) (pediatric)] 04-24-2022 Chronic Residual codes; unclassified (2 sources) Obstructive sleep apnea (adult) (pediatric); Translations: [Obstructive sleep apnea (adult)(pediatric)] Onset: 02-06-2024 04-24-2022 Chronic Residual codes; unclassified (3 sources) FH: premature coronary heart disease; Translations: [Family history of ischemic heart disease and other diseases of the circulatory system] 09-07-2024 Episodic Residual codes; unclassified (1 source) Family history of ischemic heart disease and other diseases of the circulatory system; Translations: [Family history of ischemic heart disease and other diseases of the circulatory system] Onset: 10-13-2024 Episodic Superficial injury; contusion (10 sources) Contusion of right lesser toe; Translations: [Contusion of right lesser toe(s) without damage to nail, initial encounter] 04-08-2019 Episodic Thyroid disorders (20 sources) Hypothyroidism; Translations: [Hypothyroidism, unspecified] Onset: 12-17-2023 04-24-2022 Chronic Unclassified (1 source) Encounter for screening for malignant neoplasm of colon Unclassified (2 sources) Z12.11 - Encounter for screening for malignant neoplasm of colon Past or Other Problems Problem Classification Problem Date Documented Da te Episodic/Chronic Genitourinary symptoms and ill-defined conditions (11 sources) Abnormal urine; Translations: [Unspecified abnormal findings in urine] Onset: 07-16-2024 07-14-2024 Episodic Results Test Name Value Interpretation Reference Range Facility Internal Medicine Office Vis abdirashid 10-15-2024 Internal Medicine Office Visit [place] [facility] [place] [address] OFFICE VISIT Date of Service: 10/15/24 MR#: [id number] Acct: [id number] Name: JOY GENTILE Rep #: [id number] : 1960 Provider: ELISE Tejada Age/Sex: 64/M Location[place] [facility] Status: Signed Intake Vital Signs 07/14/24 13:09 10/15/24 08:51 Height 5 ft 11 in 5 ft 11 in Weight: 247 lb BMI 34.4 BP 128/66 H Blood Pressure Location Lt brachial Position Sitting Respiration 18 Pulse 85 Pulse Source Monitor Temp 97.4 F L Temp Source Temporal Pulse Oximetry (%) 96 Oxygen Delivery Method room air Intake Visit Reasons: 3 M FU Chief Complaint: 3 M FU Is patient in pain?: No Allergies grass pollen Allergy (Mild, Verified 10/15/24 08:52) UNKNOWN house dust mite Allergy (Mild, Verified 10/15/24 08:52) UNKNOWN tree and shrub pollen Allergy (Mild, Verified 10/15/24 08:52) UNKNOWN venom-honey bee Allergy (Mild, Verified 10/15/24 08:52) UNKNOWN Penicillins Allergy (Verified 10/15/24 08:52) Rash Medications ???Medication ???Instructions ???Recorded ???Confirmed ???Type loratadine 10 mg tablet (Claritin) 10 mg PO DAILY 04/08/19 10/15/24 History lancets 28 gauge (FreeStyle #200 ea 07/31/22 10/15/24 Rx Lancets) montelukast 10 mg tablet 10 mg PO DAILY #90 tabs 07/31/22 0 10/15/24 Rx lancets (Accu-Chek Softclix #100 ea 10/09/23 10/15/24 Rx Lancets) lancing device with lancets kit #1 ea 10/09/23 10/15/24 Rx (Accu-Chek Softclix Lancing Device+Lancets kit) blood sugar diagnostic (Accu-Chek #100 ea 05/11/24 10/15/24 Rx Emily Plus test strips) levothyroxine 150 mcg tablet 150 mcg PO DAILY #40 tabs 06/02/24 10/15/24 Rx blood sugar diagnostic (Accu-Chek #100 ea 06/03/24 10/15/24 Rx Guide test strips) glimepiride 2 mg tablet 2 mg PO QAM #90 tabs 06/14/2407/04 Rx trazodone 100 mg tablet See Rx Instructions .Route 5 10/15/24 Rx .COMPLEX #180 tabs lisinopril 5 mg tablet 5 mg PO DAILY #90 tabs 07/16/24 Rx simvastatin 10 mg tablet 10 mg PO DAILY #90 tabs 07/16/24 0 10/15/24 Rx metformin 500 mg tablet 500 mg PO BID 10/15/24 10/15/24 Hi story Have you fallen in the past year?: No Nurse's Note: pt presents to the office today stating he is here for refills on his medications and review of his home bp log pt states that he is planning to have surgery on his left knee with [facility]. states he had his right knee operated on 7 weeks ago. pt states that he does not have any surgical clearance forms as he does not think he needs them. [facility] Medical History Family history of early CAD Abnormal EKG Preoperative evaluation to rule out surgical contraindication [...] at home: Yes HPI HPI Chief Complaint: 3 M FU Details: JOY GENTILE, is a 64 M who presents to the office today for f/u on his chronic conditions Patient has no concerns or complaints today Patient does need refills on his medications. He does have history of colon cancer in his family with his father. he has tried to stay up with his Colonoscopy screenings Patient had a stress test and was wanting to know about the results of this. He does monitor his BP regularly at home. He did bring a log of readings in which look good and he states that his numbers are always good. ROS Const Constitutional: No body ache, chills, excessive sweating, fatigue, fever(s), frequent falls, headache(s), snoring, weight change, sleep problems, abnormal sleep pattern or change in appetite Eyes Eyes: No blurry vision, change in vision, eye pain or Light sensitivity ENT ENT: No abnormal hearing, ear or mastoid pain, tinnitus, nasal congestion, headache(s), neck pain or sore throat Resp Respiratory: No cough, shortness of breath, snoring or wheezing Cardio (more content not included)... Normal [facility] Absolute lymphocyte countOrd ered By: Patrick Bowles on 10-05-2024 Lymphocytes Auto (Unsp spec) [#/Vol] 1.90 10*3/uL 0.83-4.[address] [facility] Absolute neutrophil countOrd ered By: Patrick Bowles on 10-05-2024 Neutrophils (Bld) [#/Vol] 3.2 10*3/uL 2.0-7.[address] [facility] Albumin, Serumon 10-05-2024 Albumin [Mass/Vol] 4.6 g/dL Normal 3.4-4.8 [facility] Comment on above: Performed By: #### L 500.2500, L100.0100, L501.9985, L501.1800 ####[facility] [address] [place], [address] Anion gap in Serum or Plasma Ordered By: Patrick Bowles on 10-05-2024 Anion gap [Moles/Vol] 12 mmol/L 06-24 [facility] Automated lymphocyte count a s percentage of total leukocytesOrdered By: Patrick Bowles on 10-05-2024 Lymphocytes/100 WBC Auto (Unsp spec) 31.5 % [facility] BUN/creatinine ratioOrdered By: Patrick Bowles on 10-05-2024 Urea nitrogen/Creatinine [Mass ratio] 21.4 mg/mg High 11-[address] [facility] Basic Metabolic Profile (BMP )on 10-05-2024 BUN/CRE 21.4 RATIO High - [facility] Comment on above: Performed By: #### L 500.2500, L100.0100, L501.9985, L501.1800 ####[facility] [address], [address] Calcium [Mass/Vol] 9.6 mg/dL Normal 7.6-11.0 [facility] Comment on above: Performed By: #### L 500.2500, L100.0100, L501.9985, L501.1800 ####[facility] [address], [address] Chloride [Moles/Vol] 105 mmol/L Normal 98-[address] [facility] Comment on above: Performed By: #### L 500.2500, L100.0100, L501.9985, L501.1800 ####[facility] [address] [place], [address] CO2 [Moles/Vol] 23.5 mmol/L Normal 21.0-32.[address] [facility] Comment on above: Performed By: #### L 500.2500, L100.0100, L501.9985, L501.1800 ####[facility] [address], [address] Creatinine [Mass/Vol] 0.86 mg/dL Normal 0.70-1.20 [facility] Comment on above: Performed By: #### L 500.2500, L100.0100, L501.9985, L501.1800 ####[facility] [address], [address] GAP 12 Normal 5-[address] [facility] Comment on above: Performed By: #### L 500.2500, L100.0100, L501.9985, L501.1800 ####[facility] [address], [address] GFR/1.73 sq M.predicted among non-blacks MDRD (S/P/Bld) [Vol rate/Area] 97 mL/min/{1.73_m2} Normal >60 [facility] Comment on above: Result Comment: mL/m in/1.73m2 CKD-EPI Creatinine Equation (2020) Performed By: #### L 500.2500, L100.0100, L501.9985, L501.1800 ####[facility] [address], [address] Glucose [Mass/Vol] 158 mg/dL High 70-99 [facility] Comment on above: Performed By: #### L 500.2500, L100.0100, L501.9985, L501.1800 ####[facility] [address], [address] Potassium [Moles/Vol] 4.3 mmol/L Normal 3.3-5.1 [facility] Comment on above: Performed By: #### L 500.2500, L100.0100, L501.9985, L501.1800 ####[facility] [address] [place], [address] Sodium [Moles/Vol] 140 mmol/L Normal 133-145 [facility] Comment on above: Performed By: #### L 500.2500, L100.0100, L501.9985, L501.1800 ####[facility] [address], [address] Urea nitrogen [Mass/Vol] 18 mg/dL Normal 4-[address] [facility] Comment on above: Performed By: #### L 500.2500, L100.0100, L501.9985, L501.1800 ####[facility] [address], [address] Basophil percentageOrdered B y: Patrick Bowles on 10-05-2024 Basophils/100 WBC (Bld) 1.0 % 0-1 [facility] CBC W/Diff, Automatedon 09-11 Absolute Lymph 1.90 X10 3/uL Normal 0.83-4.[address] [facility] Comment on above: Performed By: #### L 500.2500, L100.0100, L501.9985, L501.1800 ####[facility] [address], [address] Absolute Neut 3.2 X10 3/uL Normal 2.0-7.[address] [facility] Comment on above: Performed By: #### L 500.2500, L100.0100, L501.9985, L501.1800 ####[facility] [address], [address] Basophils/100 WBC (Bld) 1.0 % Normal 0-1 [facility] Comment on above: Performed By: #### L 500.2500, L100.0100, L501.9985, L501.1800 ####[facility] [address], [address] Eosinophils/100 WBC (Bld) 3.0 % Normal 0-[address] [facility] Comment on above: Performed By: #### L 500.2500, L100.0100, L501.9985, L501.1800 ####[facility] [address], [address] Erythrocyte distribution width (RBC) [Ratio] 12.3 % Normal 11.6-14.[address] [facility] Comment on above: Performed By: #### L 500.2500, L100.0100, L501.9985, L501.1800 ####[facility] [address], [address] Hematocrit (Bld) [Volume fraction] 43.9 % Normal 40-[address] [facility] Comment on above: Performed By: #### L 500.2500, L100.0100, L501.9985, L501.1800 ####[facility] [address], [address] Hemoglobin (Bld) [Mass/Vol] 15.2 g/dL Normal 13.0-16. [address] [facility] Comment on above: Performed By: #### L 500.2500, L100.0100, L501.9985, L501.1800 ####[facility] [address] [place], [address] IG% 0.300 Normal 0.0-0.[address] [facility] Comment on above: Result Comment: IG% - Immature Granulocytes (promyelocytes, myelocytes and metamyelocytes) > 1% indicates that a LEFT SHIFT is Present. Performed By: #### L 500.2500, L100.0100, L501.9985, L501.1800 ####[facility] [address], [address] Lymphocytes/100 WBC (Bld) 31.5 % Normal 19-[address] [facility] Comment on above: Performed By: #### L 500.2500, L100.0100, L501.9985, L501.1800 ####[facility] [address], [address] MCH (RBC) [Entitic mass] 31.7 pg Normal 27.0-32.[address] [facility] Comment on above: Performed By: #### L 500.2500, L100.0100, L501.9985, L501.1800 ####[facility] [address], [address] MCHC (RBC) [Mass/Vol] 34.6 g/dL Normal 32-36 [facility] Comment on above: Performed By: #### L 500.2500, L100.0100, L501.9985, L501.1800 ####[facility] [address], [address] MCV (RBC) [Entitic vol] 91.5 fL Normal 80-94 [facility] Comment on above: Performed By: #### L 500.2500, L100.0100, L501.9985, L501.1800 ####[facility] [address], [address] Monocytes/100 WBC (Bld) 10.8 % High 0-10 [facility] Comment on above: Performed By: #### L 500.2500, L100.0100, L501.9985, L501.1800 ####[facility] [address], [address] Neutrophils/100 WBC (Bld) 53.4 % Normal 47-[address] [facility] Comment on above: Performed By: #### L 500.2500, L100.0100, L501.9985, L501.1800 ####[facility] [address], [address] Nucleated RBC (Bld) [#/Vol] 0 10*3/uL Normal 0-[address] [facility] Comment on above: Performed By: #### L 500.2500, L100.0100, L501.9985, L501.1800 ####[facility] [address], [address] Platelet mean volume (Bld) [Entitic vol] 10.8 fL Normal 6.2-12.[address] [facility] Comment on above: Performed By: #### L 500.2500, L100.0100, L501.9985, L501.1800 ####[facility] [address], [address] Platelets (Bld) [#/Vol] 190 10*3/uL Normal 150-[address] [facility] Comment on above: Performed By: #### L 500.2500, L100.0100, L501.9985, L501.1800 ####[facility] [address], [address] RBC (Bld) [#/Vol] 4.80 10*6/uL Normal 4.6-6.2 [facility] Comment on above: Performed By: #### L 500.2500, L100.0100, L501.9985, L501.1800 ####[facility] [address], [address] RDW SD 41.4 fl Normal 35.1-43.[address] [facility] Comment on above: Performed By: #### L 500.2500, L100.0100, L501.9985, L501.1800 ####[facility] [address], [address] WBC (Bld) [#/Vol] 6.0 10*3/uL Normal 4.4-11.0 [facility] Comment on above: Performed By: #### L 500.2500, L100.0100, L501.9985, L501.1800 ####[facility] [address], [address] Carbon dioxide, total [Moles /volume] in Central venous bloodOrdered By: Patrick Bowles on 10-05-2024 CO2 [Moles/Vol] 23.5 mmol/L 21.0-32.[address] [facility] Chloride assayOrdered By: carie Jelena on 10-05-2024 Chloride [Moles/Vol] 105 mmol/L 98-[address] [facility] Eosinophil percentageOrdered By: Patrick Bowles on 10-05-2024 Eosinophils/100 WBC (Bld) 3.0 % 0-[address] [facility] Erythrocyte distribution wid th ratioOrdered By: Patrick Jelena on 10-05-2024 Erythrocyte distribution width (RBC) [Ratio] 12.3 % 11.6-14.[address] [facility] Erythrocyte distribution wid th standard deviationOrdered By: Patrick Bowles on 10-05-2024 Erythrocyte distribution width (RBC) [Ratio] 41.4 fl 35.1-43.[address] [facility] Extremity Lower without Cont raon 10-05-2024 Extremity Lower without Contra [facility] Services [address] [place], [place] [id number] Extremity Lower without Contra MR#: [id number] Acct: [id number] Name: JOY GENTILE Rep #: [id number] : 1960 M 64 From: Alden Goldberg PCP: Dr. Jose Yuan MD Status: REG CLI Study: Extremity Lower without Contra Date of Exam: 0 10/05/24 Exam# [id number] Ordering Dr: Patrick Bowles MD PROCEDURE: EXTREMITY LOWER WITHOUT CONTRA 10/05/2024 REASON FOR EXAM: Osteoarthritis LEFT KNEE, preoperative study. TECHNIQUE: [facility] CT left knee. Coronal and Sagittal reconstruction series were provided. One or more dose reduction techniques were used (e.g., Automated exposure control, adjustment of the mA and/or kV according to patient size, use of iterative reconstruction technique). RADIATION DOSE SUMMARY: DLP: 1338.37 mGycm COMPARISON: None provided. FINDINGS: Left hip: Limited imaging of the left sacroiliac joint demonstrates mild degenerative changes. Partial calcification of the prostate gland is seen. The left hip itself demonstrates mild degenerative changes, including mild superior joint narrowing, along with lateral acetabular subchondral cyst formation. No evidence of femoral head osteonecrosis. Left knee: Moderate arterial calcification is noted. A small left knee joint effusion is seen. Tricompartmental left knee degenerative changes are seen, with severe medial joint narrowing and moderate patellofemoral joint narrowing. 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 Left ankle: Large inferior and mild posterior calcaneal spurring is seen. Normal contour of the Achilles tendon is seen on sagittal imaging. Minimal degenerative changes are otherwise seen. No acute fracture or dislocation is evident. CT/Extremity Lower without Contra IMPRESSION: Degenerative changes, most prominent in the left knee, as described. Reading Location: [place] [address] CC: Dr. Jose Yuan MD; Dr. Patrick Bowles MD Farm Marketer: Signed Normal [facility] Glomerular filtration rate ( GFR) estimation/1.73 sq m using serum, plasma, or whole bOrdered By: Patrick Bowles on 10-05-2024 GFR/1.73 sq M.predicted among non-blacks MDRD (S/P/Bld) [Vol rate/Area] 97 mL/min/{1.73_m2} >60 [facility] Comment on above: mL/min/1.73m2 CKD-EP I Creatinine Equation (2020) Hematocrit Auto (Bld) [Volum e fraction]Ordered By: Patrick Bowles on 10-05-2024 Hematocrit (Bld) [Volume fraction] 43.9 % 40-[address] [facility] Hemoglobin A1con 10-05-2024 HbA1c (Bld) [Mass fraction] 6.0 % High <=5.[address] [facility] Comment on above: Result Comment: Norm al < 5.7 % Prediabetic 5.7 - 6.4 % Diabetic >or= 6.5 % Please note range changes. Performed By: #### L 500.2500, L100.0100, L501.9985, L501.1800 ####[facility] [address] [place], [address] Hemoglobin A1c percentageOrd ered By: Patrick Bowles on 10-05-2024 HbA1c (Bld) [Mass fraction] 6.0 % High <5.[address] [facility] Comment on above: Normal < 5.7 % Predi abetic 5.7 - 6.4 % Diabetic >or= 6.5 % Please note range changes. Hemoglobin measurementOrdere d By: Patrick Bowles on 10-05-2024 Hemoglobin (Bld) [Mass/Vol] 15.2 g/dL 13.0-16. [address] [facility] Immature granulocytes/100 WB C Auto (Bld)Ordered By: Patrick Bowles on 10-05-2024 Immature granulocytes/100 WBC (Bld) 0.300 % 0.0-0.[address] [facility] Comment on above: IG% - Immature Granu locytes (promyelocytes, myelocytes and metamyelocytes) > 1% indicates that a LEFT SHIFT is Present. MCV (mean corpuscular volume ) determinationOrdered By: Patrick Bowles on 10-05-2024 MCV (RBC) [Entitic vol] 91.5 fL 80-94 [facility] Mean corpuscular hemoglobin (MCH) determinationOrdered By: Patrick Bowles on 10-05-2024 MCH (RBC) [Entitic mass] 31.7 pg 27.0-32.[address] [facility] Mean corpuscular hemoglobin concentration (MCHC) determinationOrdered By: Patrick Bowles on 10-05-2024 MCHC (RBC) [Mass/Vol] 34.6 g/dL 32-36 [facility] Mean platelet volume determi nationOrdered By: Patrick Bowles on 10-05-2024 Platelet mean volume (Bld) [Entitic vol] 10.8 fL 6.2-12.[address] [facility] Monocyte percentageOrdered B y: Patrick Bowles on 10-05-2024 Monocytes/100 WBC (Bld) 10.8 % High 0-10 [facility] Neutrophil percentageOrdered By: Patrick Bowles on 10-05-2024 Neutrophils/100 WBC (Bld) 53.4 % 47-[address] [facility] Nucleated red blood cell per centageOrdered By: Patrick Bowles on 10-05-2024 Nucleated RBC/100 WBC (Bld) [Ratio] 0 % 0-[address] [facility] Platelet countOrdered By: St carie Bowles on 10-05-2024 Platelets (Bld) [#/Vol] 190 10*3/uL 150-[address] [facility] Potassium measurement (mass/ volume)Ordered By: Patrick Bowles on 10-05-2024 Potassium (Unsp spec) [Mass/Vol] 4.3 mmol/L 3.3-5.[address] [facility] RBC Auto (Bld) [#/Vol]Ordere d By: Patrick Bowles on 10-05-2024 RBC (Bld) [#/Vol] 4.80 10*6/uL 4.6-6.2 [facility] Serum creatinine measurement (mass/volume)Ordered By: Patrick Bowles on 10-05-2024 Creatinine [Mass/Vol] 0.86 mg/dL 0.70-1.20 [facility] Serum glucose measurement (m ass/volume)Ordered By: Patrick Bowles on 10-05-2024 Glucose [Mass/Vol] 158 mg/dL High 70-99 [facility] Serum or plasma albumin peggy urement (mass/volume)Ordered By: Patrick Bowles on 10-05-2024 Albumin [Mass/Vol] 4.6 g/dL 3.4-4.8 [facility] Serum or plasma calcium peggy urement (mass/volume)Ordered By: Patrick Bowles on 10-05-2024 Calcium [Mass/Vol] 9.6 mg/dL 7.6-11.0 [facility] Serum or plasma urea nitroge n measurement (mass/volume)Ordered By: Patrick Bowles on 10-05-2024 Urea nitrogen [Mass/Vol] 18 mg/dL 4-[address] [facility] Sodium levelOrdered By: Pepe Bowles on 10-05-2024 Sodium [Moles/Vol] 140 mmol/L 133-145 [facility] White blood cell (WBC) count Ordered By: Patrick Bowles on 10-05-2024 WBC (Bld) [#/Vol] 6.0 10*3/uL 4.4-11.0 [facility] Cardiovascular stress test r eportOrdered By: Cesar Hair on 10-02-2024 Study report [facility] [address] [address] MR#: [id number] Acct: [id number] Name: JOY GENTILE Rep #: [id number] : 1960 64 From: Cesar casillas MD Primary Care: Dr. Jose Yuan MD atus: REG CLI Referring Dr: Jose Yuan MD [...] demonstrated normal sinus rhythm. EKG during lexiscan infusionrevealed no significant ischemic changes. EKG post infusion [...] 0.4mg] evaluation. Please see above for details. Thepatient was injected with 44.1 millicuries of technetium [...] is 63%. This note was generated with Sienation software. It may contain incorrectwords, spelling, and punctuation that were not noted in checking the note beforesigning. 10/02/24 1604 Date _ Cesar Hair MD CC: Dr. Jose Yuan MD ~ Date Dictated: 10/02/24 1600 Date Transcribed: 10/02/241599 Farm [employer]eter: NN Signed [facility] Work Phone: Stress Reporton 10-02-2024 Stress Report [facility] [address] [place] [address] MR#: [id number] Acct: [id number] Name: JOY GENTILE Rep #: [id number] : 1960 64 From: Cesar Hair MD [...] is 63%. This note was generated with Sienation software. It may contain incorrect words, spelling, and punctuation that were not noted in checking the note before signing. 10/02/24 1604 Date Cesar Hair MD CC: Dr. Jose Yuan MD Date Dictated: 10/02/24 1600 Date Transcribed: 10/02/24 1600 Farm Marketer: NN Signed Normal [facility] Bilirubin Test strip Ql (U)O rdered By: Jose Yuan on 07-14-2024 Bilirubin Ql (U) Negative Negative [facility] Internal Medicine Office Vis abdirashid 07-14-2024 Internal Medicine Office Visit [facility] [address] [place] [address] [address] [place] [address] OFFICE VISIT Date of Service: 07/14/24 MR#: [id number] Acct: [id number] Name: JOY GENTILE Rep #: [id number] : 1960 Provider: Dr. Jose dietrich MD Age/Sex: 64/M Location: [facility] Status: Signed Intake Vital Signs 03/24/24 16:14 [...] total knee replacement on 08/05/24. [facility] Medical History (Updated 07/14/24 @ [...] problems, nosebleed/epista (more content not included)... Normal [facility] Ketones Test strip Ql (U)Ord ered By: Jose Yuan on 07-14-2024 Ketones Ql (U) 5 mg/dl High Negative [facility] Laboratory - Hematology and Cell countsOrdered By: Jose Yuan on 07-14-2024 HbA1c (Bld) [Mass fraction] 6.3 % 4.2-6.[address] [facility] Microscopic analysis of urin e for red blood cells (RBC)Ordered By: Jose Yuan on 07-14-2024 Microscopic analysis of urine for red blood cells (RBC) 0 SEEN /hpf 0-[address] [facility] Mucus LM Ql (Urine sed)Order ed By: Jose Yuan on 07-14-2024 Mucus Ql (Urine sed) 0 SEEN /hpf [facility] Nitrite Test strip Ql (U)Ord ered By: Jose Yuan on 07-14-2024 Nitrite Ql (U) Negative Negative [facility] Protein Test strip Ql (U)Ord ered By: Jose Yuan on 07-14-2024 Protein Ql (U) 15 mg/dl High Negative [facility] Squamous epithelial cells de tection in urine sediment by light microscopyOrdered By: Jose Yuan on 07-14-2024 Epithelial cells.squamous LM Ql (Urine sed) 0 SEEN /hpf 0-[address] [facility] Urinalysis, Completeon 07-14 BACTERIA 0 SEEN Normal None Seen [facility] Comment on above: Order Comment: COLLE CTOR TO SPECIFY Performed By: #### L 400.0001 #### [facility] [address], [address] EPI,SQUAMOUS 0 SEEN Normal 0-[address] [facility] Comment on above: Order Comment: SAV CTOR TO SPECIFY Performed By: #### L 400.0001 #### [facility] [address], [address] Mucus Ql (Urine sed) 0 SEEN Normal [facility] Comment on above: Order Comment: SAV CTOR TO SPECIFY Performed By: #### L 400.0001 #### [facility] [address], [address] RBC 0 SEEN Normal 0-[address] [facility] Comment on above: Order Comment: SAV CTOR TO SPECIFY Performed By: #### L 400.0001 #### [facility] [address], [address] WBC 0 SEEN Normal 0-[address] [facility] Comment on above: Order Comment: SAV CTOR TO SPECIFY Performed By: #### L 400.0001 #### [facility] [address], [address] Urine clarityOrdered By: Daniel Yuan on 07-14-2024 Clarity (U) Clear Clear [facility] Urine color determinationOrd ered By: Jose Yuan on 07-14-2024 Color (U) Yellow Yellow [facility] Urine glucose detectionOrder ed By: Jose Yuan on 07-14-2024 Glucose Ql (U) Normal mg/dl Normal [facility] Urine leukocyte esterase det ection by dipstickOrdered By: Jose Yuan on 07-14-2024 Leukocyte esterase Test strip Ql (U) Negative Negative [facility] Urine pHOrdered By: Ernestina Yuan on 07-14-2024 pH (U) 5.0 [pH] 5.0 - 8.[address] [facility] Urine sediment bacteria coun t by microscopy (number/high power field)Ordered By: Jose Yaun on 07-14-2024 Bacteria LM.HPF (Urine sed) [#/Area] 0 /[HPF] None Seen [facility] Urine specific gravity measu rementOrdered By: Jose Yuan on 07-14-2024 Specific gravity (U) [Rel density] 1.025 1.002-1.[address] [facility] Urine urobilinogen measureme ntOrdered By: Jose Yuan on 07-14-2024 Urobilinogen Ql (U) Normal mg/dl Normal [facility] White blood cell countOrdere d By: Jose Yuan on 07-14-2024 White blood cell count 0 SEEN /hpf 0-5 [facility] Electrocardiogram reportOrde red By: Aaron Watt on 07-12-2024 EKG study [facility] [address] [place] [address] 12 Lead EKG 07/08/24 0834 MR#: [id number] Acct: [id number] Name: JOY GENTILE Rep #:[id number] : 1960 64 From: Aaron rome MD Attending Dr: Dr. Patrick Bowles MD Status: REG CLI Ordering Dr: Patrick Bowles MD Date: 07/08/24 Location: [facility] Sex: M C Admitted: Test Reason : [...] undetermined Abnormal ECG Confirmed by Aaron Watt ([id number]), makeup editor TESSA PHOENIX ([id number]) on 07/12/2024 11:30:49 AM Referred By: Patrick Bowles Confirmed By: Aaron Watt 07/12/24 3560 Date _ Aaron Watt MD CC: Dr. Jose Yuan MD; Dr. Patrick Bowles MD ~ Signed [facility] Work Phone: 12 Lead EKGon 07-08-2024 12 Lead EKG [facility] [address] [place] [address] 12 Lead EKG 07/08/24 0834 MR#: [id number] Acct: [id number] Name: JOY GENTILE Rep #: [id number] : 1960 64 From: Aaron Watt MD Attending Dr: Dr. Patrick Bowles MD Status: REG CLI Ordering Dr: Patrick Bowles MD Date: 07/08/24 Location: [facility] Sex: M C Admitted: Test Reason : [...] undetermined Abnormal ECG Confirmed by Aaron Watt ([id number]), makeup editor TESSA PHOENIX ([id number]) on 07/12/2024 11:30:49 AM Referred By: Patrick Bowles Confirmed By: Aaron Watt 07/12/24 1130 Date Aaron Watt MD CC: Dr. Jose Yuan MD; Dr. Patrick Bowles MD Signed Normal [facility] Absolute lymphocyte countOrd ered By: Patrick Bowles on 07-08-2024 Lymphocytes Auto (Unsp spec) [#/Vol] 1.76 10*3/uL 0.83-4.[address] [facility] Absolute neutrophil countOrd ered By: Patrick Bowles on 07-08-2024 Neutrophils (Bld) [#/Vol] 3.0 10*3/uL 2.0-7.[address] [facility] Albumin, Serumon 07-08-2024 Albumin [Mass/Vol] 4.5 g/dL Normal 3.4-4.8 [facility] Comment on above: Performed By: #### L 100.0100, L501.1800, L500.2500 ####[facility] [address], [address] Anion gap in Serum or Plasma Ordered By: Patrikc Bowles on 07-08-2024 Anion gap [Moles/Vol] 12 mmol/L 5- [facility] Automated lymphocyte count a s percentage of total leukocytesOrdered By: Patrick Bowles on 07-08-2024 Lymphocytes/100 WBC Auto (Unsp spec) 30.9 % [facility] BUN/creatinine ratioOrdered By: Patrick Bowles on 07-08-2024 Urea nitrogen/Creatinine [Mass ratio] 18.1 mg/mg - [facility] Basic Metabolic Profile (BMP )on 07-08-2024 BUN/CRE 18.1 RATIO Normal 11-[address] [facility] Comment on above: Performed By: #### L 100.0100, L501.1800, L500.2500 ####[facility] [address], [address] Calcium [Mass/Vol] 9.5 mg/dL Normal 7.6-11.0 [facility] Comment on above: Performed By: #### L 100.0100, L501.1800, L500.2500 ####[facility] [address], [address] Chloride [Moles/Vol] 104 mmol/L Normal 98-[address] [facility] Comment on above: Performed By: #### L 100.0100, L501.1800, L500.2500 ####[facility] [address], [address] CO2 [Moles/Vol] 24.3 mmol/L Normal 21.0-32.[address] [facility] Comment on above: Performed By: #### L 100.0100, L501.1800, L500.2500 ####[facility] [address] [place], [address] Creatinine [Mass/Vol] 0.84 mg/dL Normal 0.70-1.20 [facility] Comment on above: Performed By: #### L 100.0100, L501.1800, L500.2500 ####[facility] [address], [address] GAP 12 Normal 5-[address] [facility] Comment on above: Performed By: #### L 100.0100, L501.1800, L500.2500 ####[facility] [address], [address] GFR/1.73 sq M.predicted among non-blacks MDRD (S/P/Bld) [Vol rate/Area] 97 mL/min/{1.73_m2} Normal >60 [facility] Comment on above: Result Comment: mL/m in/1.73m2 CKD-EPI Creatinine Equation (2020) Performed By: #### L 100.0100, L501.1800, L500.2500 ####[facility] [address], [address] Glucose [Mass/Vol] 136 mg/dL High 70-99 [facility] Comment on above: Performed By: #### L 100.0100, L501.1800, L500.2500 ####[facility] [address], [address] Potassium [Moles/Vol] 4.3 mmol/L Normal 3.3-5.1 [facility] Comment on above: Performed By: #### L 100.0100, L501.1800, L500.2500 ####[facility] [address], [address] Sodium [Moles/Vol] 140 mmol/L Normal 133-145 [facility] Comment on above: Performed By: #### L 100.0100, L501.1800, L500.2500 ####[facility] [address], [address] Urea nitrogen [Mass/Vol] 15 mg/dL Normal 4-[address] [facility] Comment on above: Performed By: #### L 100.0100, L501.1800, L500.2500 ####[facility] [address], [address] Basophil percentageOrdered B y: Patrick Bowles on 07-08-2024 Basophils/100 WBC (Bld) 1.1 % High 0-1 [facility] CBC W/Diff, Automatedon 06-11 Absolute Lymph 1.76 X10 3/uL Normal 0.83-4.[address] [facility] Comment on above: Performed By: #### L 100.0100, L501.1800, L500.2500 ####[facility] [address], [address] Absolute Neut 3.0 X10 3/uL Normal 2.0-7.[address] [facility] Comment on above: Performed By: #### L 100.0100, L501.1800, L500.2500 ####[facility] [address], [address] Basophils/100 WBC (Bld) 1.1 % High 0-1 [facility] Comment on above: Performed By: #### L 100.0100, L501.1800, L500.2500 ####[facility] [address] [place], [address] Eosinophils/100 WBC (Bld) 3.5 % Normal 0-[address] [facility] Comment on above: Performed By: #### L 100.0100, L501.1800, L500.2500 ####[facility] [address], [address] Erythrocyte distribution width (RBC) [Ratio] 12.1 % Normal 11.6-14.[address] [facility] Comment on above: Performed By: #### L 100.0100, L501.1800, L500.2500 ####[facility] [address], [address] Hematocrit (Bld) [Volume fraction] 43.3 % Normal 40-[address] [facility] Comment on above: Performed By: #### L 100.0100, L501.1800, L500.2500 ####[facility] [address], [address] Hemoglobin (Bld) [Mass/Vol] 15.0 g/dL Normal 13.0-16. [address] [facility] Comment on above: Performed By: #### L 100.0100, L501.1800, L500.2500 ####[facility] [address], [address] IG% 0.400 Normal 0.0-0.[address] [facility] Comment on above: Result Comment: IG% - Immature Granulocytes (promyelocytes, myelocytes and metamyelocytes) > 1% indicates that a LEFT SHIFT is Present. Performed By: #### L 100.0100, L501.1800, L500.2500 ####[facility] [address], [address] Lymphocytes/100 WBC (Bld) 30.9 % Normal 19-[address] [facility] Comment on above: Performed By: #### L 100.0100, L501.1800, L500.2500 ####[facility] [address], [address] MCH (RBC) [Entitic mass] 31.5 pg Normal 27.0-32.[address] [facility] Comment on above: Performed By: #### L 100.0100, L501.1800, L500.2500 ####[facility] [address], [address] MCHC (RBC) [Mass/Vol] 34.6 g/dL Normal 32-36 [facility] Comment on above: Performed By: #### L 100.0100, L501.1800, L500.2500 ####[facility] [address], [address] MCV (RBC) [Entitic vol] 91.0 fL Normal 80-94 [facility] Comment on above: Performed By: #### L 100.0100, L501.1800, L500.2500 ####[facility] [address], [address] Monocytes/100 WBC (Bld) 11.8 % High 0-10 [facility] Comment on above: Performed By: #### L 100.0100, L501.1800, L500.2500 ####[facility] [address], [address] Neutrophils/100 WBC (Bld) 52.3 % Normal 47-[address] [facility] Comment on above: Performed By: #### L 100.0100, L501.1800, L500.2500 ####[facility] [address], [address] Nucleated RBC (Bld) [#/Vol] 0 10*3/uL Normal 0-[address] [facility] Comment on above: Performed By: #### L 100.0100, L501.1800, L500.2500 ####[facility] [facility] [address], [address] Platelet mean volume (Bld) [Entitic vol] 11.3 fL Normal 6.2-12.[address] [facility] Comment on above: Performed By: #### L 100.0100, L501.1800, L500.2500 ####[facility] [address], [address] Platelets (Bld) [#/Vol] 193 10*3/uL Normal 150-[address] [facility] Comment on above: Performed By: #### L 100.0100, L501.1800, L500.2500 ####[facility] [address], [address] RBC (Bld) [#/Vol] 4.76 10*6/uL Normal 4.6-6.2 [facility] Comment on above: Performed By: #### L 100.0100, L501.1800, L500.2500 ####[facility] [address], [address] RDW SD 40.2 fl Normal 35.1-43.[address] [facility] Comment on above: Performed By: #### L 100.0100, L501.1800, L500.2500 ####[facility] [address], [address] WBC (Bld) [#/Vol] 5.7 10*3/uL Normal 4.4-11.0 [facility] Comment on above: Performed By: #### L 100.0100, L501.1800, L500.2500 ####[facility] [address], [address] Carbon dioxide, total [Moles /volume] in Central venous bloodOrdered By: Patrick Bowles on 07-08-2024 CO2 [Moles/Vol] 24.3 mmol/L 21.0-32.[address] [facility] Chloride assayOrdered By: St carie Bowles on 07-08-2024 Chloride [Moles/Vol] 104 mmol/L 98-[address] [facility] Eosinophil percentageOrdered By: Patrick Bowles on 07-08-2024 Eosinophils/100 WBC (Bld) 3.5 % 0-[address] [facility] Erythrocyte distribution wid th ratioOrdered By: Patrick Bowles on 07-08-2024 Erythrocyte distribution width (RBC) [Ratio] 12.1 % 11.6-14.[address] [facility] Erythrocyte distribution wid th standard deviationOrdered By: Patrick Bowles on 07-08-2024 Erythrocyte distribution width (RBC) [Ratio] 40.2 fl 35.1-43.[address] [facility] Extremity Lower without Cont raon 07-08-2024 Extremity Lower without Contra [facility] [address] [place] [address] Extremity Lower without Contra MR#: [id number] Acct: [id number] Name: JOY GENTILE Rep #: [id number] : 1960 M 64 From: Rubin ro MD PCP: Dr. Jose Yuan MD Status: REG CLI Study: Extremity Lower without Contra Date of Exam: 0 07/08/24 Exam# [id number] Ordering Dr: Patrick Bowles MD PROCEDURE: EXTREMITY LOWER WITHOUT CONTRA 07/08/2024 REASON FOR EXAM: OSTEOARTHRITIS Joyce protocol for right knee replacement. TECHNIQUE: Axial [...] of the right knee joint was performed. Ciidtfvb-xk-hshlkv degree of joint space narrowing and degenerative spur formation along the medial compartment of the knee joint. Mild degree of patellofemoral osteoarthritis. Imaging of the ankle joint was obtained. There is good alignment. Evidence of plantar calcaneal spur. Soft Tissues: Tiny knee joint effusion. CT/Extremity Lower without Contra IMPRESSION: Tyylaapd-mn-jopbrb degree of joint space narrowing involving the medial compartment of the knee joint as described. Mild degree of patellofemoral joint space narrowing. Reading Location: [place] [address] CC: Dr. Jose Yuan MD; Dr. Patrick Bowles MD Farm Marketer: Signed Normal [facility] Glomerular filtration rate ( GFR) estimation/1.73 sq m using serum, plasma, or whole bOrdered By: Patrick Bowles on 07-08-2024 GFR/1.73 sq M.predicted among non-blacks MDRD (S/P/Bld) [Vol rate/Area] 97 mL/min/{1.73_m2} >60 [facility] Comment on above: mL/min/1.73m2 CKD-EP I Creatinine Equation (2020) Hematocrit Auto (Bld) [Volum e fraction]Ordered By: Patrick Bowles on 07-08-2024 Hematocrit (Bld) [Volume fraction] 43.3 % 40-[address] [facility] Hemoglobin measurementOrdere d By: Patrick Bowles on 07-08-2024 Hemoglobin (Bld) [Mass/Vol] 15.0 g/dL 13.0-16. [address] [facility] Immature granulocytes/100 WB C Auto (Bld)Ordered By: Patrick Bowles on 07-08-2024 Immature granulocytes/100 WBC (Bld) 0.400 % 0.0-0.[address] [facility] Comment on above: IG% - Immature Granu locytes (promyelocytes, myelocytes and metamyelocytes) > 1% indicates that a LEFT SHIFT is Present. MCV (mean corpuscular volume ) determinationOrdered By: Patrick Bowles on 07-08-2024 MCV (RBC) [Entitic vol] 91.0 fL 80-94 [facility] Mean corpuscular hemoglobin (MCH) determinationOrdered By: Patrick Bowles on 07-08-2024 MCH (RBC) [Entitic mass] 31.5 pg 27.0-32.[address] [facility] Mean corpuscular hemoglobin concentration (MCHC) determinationOrdered By: Patrick Bowles on 07-08-2024 MCHC (RBC) [Mass/Vol] 34.6 g/dL 32-36 [facility] Mean platelet volume determi nationOrdered By: Patrick Bowles on 07-08-2024 Platelet mean volume (Bld) [Entitic vol] 11.3 fL 6.2-12.[address] [facility] Monocyte percentageOrdered B y: Patrick Bowles on 07-08-2024 Monocytes/100 WBC (Bld) 11.8 % High 0-10 [facility] Neutrophil percentageOrdered By: Patrick Bowles on 07-08-2024 Neutrophils/100 WBC (Bld) 52.3 % 47-[address] [facility] Nucleated red blood cell per centageOrdered By: Patrick Bowles on 07-08-2024 Nucleated RBC/100 WBC (Bld) [Ratio] 0 % 0-[address] [facility] Platelet countOrdered By: St carie Bowles on 07-08-2024 Platelets (Bld) [#/Vol] 193 10*3/uL 150-[address] [facility] Potassium measurement (mass/ volume)Ordered By: Patrick Bowles on 07-08-2024 Potassium (Unsp spec) [Mass/Vol] 4.3 mmol/L 3.3-5.[address] [facility] RBC Auto (Bld) [#/Vol]Ordere d By: Patrick Bowles on 07-08-2024 RBC (Bld) [#/Vol] 4.76 10*6/uL 4.6-6.2 [facility] Serum creatinine measurement (mass/volume)Ordered By: Patrick Bowles on 07-08-2024 Creatinine [Mass/Vol] 0.84 mg/dL 0.70-1.20 [facility] Serum glucose measurement (m ass/volume)Ordered By: Patrick Bowles on 07-08-2024 Glucose [Mass/Vol] 136 mg/dL High 70-99 [facility] Serum or plasma albumin peggy urement (mass/volume)Ordered By: Patrick Bowles on 07-08-2024 Albumin [Mass/Vol] 4.5 g/dL 3.4-4.8 [facility] Serum or plasma calcium peggy urement (mass/volume)Ordered By: Patrick Bowles on 07-08-2024 Calcium [Mass/Vol] 9.5 mg/dL 7.6-11.0 [facility] Serum or plasma urea nitroge n measurement (mass/volume)Ordered By: Patrick Bowles on 07-08-2024 Urea nitrogen [Mass/Vol] 15 mg/dL 4-[address] [facility] Sodium levelOrdered By: Pepe Bowles on 07-08-2024 Sodium [Moles/Vol] 140 mmol/L 133-145 [facility] TSH DL <= 0.005 mIU/L QnOrde red By: Jose Yuan on 07-08-2024 TSH Qn 1.050 uIU/mL 0.300-4.[address] [facility] Thyroid Stim Hormone (TSH)on 07-08-2024 TSH 1.050 uIU/mL Normal 0.300-4.[address] [facility] Comment on above: Performed By: #### L 501.9520 #### [facility] [address] [place], [address] White blood cell (WBC) count Ordered By: Patrick Bowles on 07-08-2024 WBC (Bld) [#/Vol] 5.7 10*3/uL 4.4-11.0 [facility] Internal Medicine Office Vis iton 03-24-2024 Internal Medicine Office Visit [facility] [address] [place] [address] OFFICE VISIT Date of Service: 03/24/24 MR#: [id number] Acct: [id number] Name: JOY GENTILE Rep #: [id number] : 1960 Provider: Dr. Jose dietrich MD Age/Sex: 63/M Location: [facility] Status: Signed Intake Vital Signs 12/17/23 15:46 [...] M FU Chief Complaint: Follow-up chronic conditions Fixed Income Analyst Required: No Accompanied by: Self Is patient [...] months since he has taken [facility] Medical History Screening for prostate [...] throat Resp (more content not included)... Normal [facility] Hemoglobin A1con 03-21-2024 HbA1c (Bld) [Mass fraction] 6.4 % High 3.8-5.[address] [facility] Comment on above: Result Comment: Norm al < 5.7 % Prediabetic 5.7 - 6.4 % Diabetic >or= 6.5 % Please note range changes. Performed By: #### L 500.4100, L501.9910, L502.0250, L100.0100, L501.9985, L501.9520, L500.4050 ####[facility] [address] [place], [address] Absolute lymphocyte countOrd ered By: Tiffanylucy Marquezbeccajose manuel on 03-20-2024 Lymphocytes Auto (Unsp spec) [#/Vol] 1.70 10*3/uL 0.83-4.[address] [facility] Absolute neutrophil countOrd ered By: lucy Abhijeetjose manuel on 03-20-2024 Neutrophils (Bld) [#/Vol] 5.0 10*3/uL 2.0-7.[address] [facility] Albumin to globulin ratioOrd ered By: marilinfort myernajma Marquezbeccajose manuel on 03-20-2024 Albumin/Globulin [Mass ratio] 1.0 {ratio} 0.9-2.[address] [facility] Automated lymphocyte count a s percentage of total leukocytesOrdered By: Jose Yuan on 03-20-2024 Lymphocytes/100 WBC Auto (Unsp spec) 21.7 % 19-[address] [facility] Basophil percentageOrdered B y: Derricknajma Marquezbeccajose manuel on 03-20-2024 Basophils/100 WBC (Bld) 1.1 % High 0-1 [facility] Bilirubin, totalOrdered By: Jose Marquezbeccajose manuel on 03-20-2024 Bilirubin [Mass/Vol] 0.50 mg/dL 0.20-1.[address] [facility] Comment on above: For patients on eltr ombopag therapy, use of Dimension [place] TBIL is not recommended. Blood urea nitrogen (BUN)/cr eatinine ratioOrdered By: marilinfort myernajma Yuan on 03-20-2024 Urea nitrogen/Creatinine [Mass ratio] 17.1 mg/mg 10-[address] [facility] CBC W/Diff, Automatedon Absolute Lymph 1.70 X10 3/uL Normal 0.83-4.[address] [facility] Comment on above: Performed By: #### L 500.4100, L501.9910, L502.0250, L100.0100, L501.9985, L501.9520, L500.4050 #### [facility] [address], [address] Absolute Neut 5.0 X10 3/uL Normal 2.0-7.[address] [facility] Comment on above: Performed By: #### L 500.4100, L501.9910, L502.0250, L100.0100, L501.9985, L501.9520, L500.4050 #### [facility] [address], [address] Basophils/100 WBC (Bld) 1.1 % High 0-1 [facility] Comment on above: Performed By: #### L 500.4100, L501.9910, L502.0250, L100.0100, L501.9985, L501.9520, L500.4050 #### [facility] [address], [address] Eosinophils/100 WBC (Bld) 3.7 % Normal 0-[address] [facility] Comment on above: Performed By: #### L 500.4100, L501.9910, L502.0250, L100.0100, L501.9985, L501.9520, L500.4050 #### [facility] [address], [address] Erythrocyte distribution width (RBC) [Ratio] 12.5 % Normal 11.6-14.[address] [facility] Comment on above: Performed By: #### L 500.4100, L501.9910, L502.0250, L100.0100, L501.9985, L501.9520, L500.4050 #### [facility] [address], [address] Hematocrit (Bld) [Volume fraction] 41.6 % Normal 40-[address] [facility] Comment on above: Performed By: #### L 500.4100, L501.9910, L502.0250, L100.0100, L501.9985, L501.9520, L500.4050 #### [facility] [address] [place], [address] Hemoglobin (Bld) [Mass/Vol] 14.1 g/dL Normal 13.0-16. [address] [facility] Comment on above: Performed By: #### L 500.4100, L501.9910, L502.0250, L100.0100, L501.9985, L501.9520, L500.4050 #### [facility] [address] [place], [address] IG% 1.100 High 0.0-0.[address] [facility] Comment on above: Result Comment: IG% - Immature Granulocytes (promyelocytes, myelocytes and metamyelocytes) > 1% indicates that a LEFT SHIFT is Present. Performed By: #### L 500.4100, L501.9910, L502.0250, L100.0100, L501.9985, L501.9520, L500.4050 #### [facility] [address] [place], [address] Lymphocytes/100 WBC (Bld) 21.7 % Normal 19-[address] [facility] Comment on above: Performed By: #### L 500.4100, L501.9910, L502.0250, L100.0100, L501.9985, L501.9520, L500.4050 #### [facility] [address], [address] MCH (RBC) [Entitic mass] 32.0 pg Normal 27.0-32.[address] [facility] Comment on above: Performed By: #### L 500.4100, L501.9910, L502.0250, L100.0100, L501.9985, L501.9520, L500.4050 #### [facility] [address], [address] MCHC (RBC) [Mass/Vol] 33.9 g/dL Normal 32-36 [facility] Comment on above: Performed By: #### L 500.4100, L501.9910, L502.0250, L100.0100, L501.9985, L501.9520, L500.4050 #### [facility] [address], [address] MCV (RBC) [Entitic vol] 94.5 fL High 80-94 [facility] Comment on above: Performed By: #### L 500.4100, L501.9910, L502.0250, L100.0100, L501.9985, L501.9520, L500.4050 #### [facility] [address], [address] Monocytes/100 WBC (Bld) 8.6 % Normal 0-10 [facility] Comment on above: Performed By: #### L 500.4100, L501.9910, L502.0250, L100.0100, L501.9985, L501.9520, L500.4050 #### [facility] [address], [address] Neutrophils/100 WBC (Bld) 63.8 % Normal 47-[address] [facility] Comment on above: Performed By: #### L 500.4100, L501.9910, L502.0250, L100.0100, L501.9985, L501.9520, L500.4050 #### [facility] [address], [address] Nucleated RBC (Bld) [#/Vol] 0 10*3/uL Normal 0-[address] [facility] Comment on above: Performed By: #### L 500.4100, L501.9910, L502.0250, L100.0100, L501.9985, L501.9520, L500.4050 #### [facility] [address], [address] Platelet mean volume (Bld) [Entitic vol] 10.9 fL Normal 6.2-12.[address] [facility] Comment on above: Performed By: #### L 500.4100, L501.9910, L502.0250, L100.0100, L501.9985, L501.9520, L500.4050 #### [facility] [address], [address] Platelets (Bld) [#/Vol] 210 10*3/uL Normal 150-[address] [facility] Comment on above: Performed By: #### L 500.4100, L501.9910, L502.0250, L100.0100, L501.9985, L501.9520, L500.4050 #### [facility] [address], [address] RBC (Bld) [#/Vol] 4.40 10*6/uL Low 4.6-6.2 [facility] Comment on above: Performed By: #### L 500.4100, L501.9910, L502.0250, L100.0100, L501.9985, L501.9520, L500.4050 #### [facility] [address], [address] RDW SD 43.6 fl Normal 35.1-43.[address] [facility] Comment on above: Performed By: #### L 500.4100, L501.9910, L502.0250, L100.0100, L501.9985, L501.9520, L500.4050 #### [facility] [address], [address] WBC (Bld) [#/Vol] 7.8 10*3/uL Normal 4.4-11.0 [facility] Comment on above: Performed By: #### L 500.4100, L501.9910, L502.0250, L100.0100, L501.9985, L501.9520, L500.4050 #### [facility] [address], [address] Carbon dioxide measurementOr dered By: Jose Yuan on 03-20-2024 CO2 [Moles/Vol] 28.0 mmol/L 21.0-32.[address] [facility] Chloride measurementOrdered By: Jose Yuan on 03-20-2024 Chloride [Moles/Vol] 104 mmol/L 98-[address] [facility] Comprehensive Metabolic Prof ilon 03-20-2024 Albumin [Mass/Vol] 3.9 g/dL Normal 3.2-5.0 [facility] Comment on above: Performed By: #### L 500.4100, L501.9910, L502.0250, L100.0100, L501.9985, L501.9520, L500.4050 #### [facility] [address], [address] Albumin/Globulin [Mass ratio] 1.0 {ratio} Normal 0.9-2.[address] [facility] Comment on above: Performed By: #### L 500.4100, L501.9910, L502.0250, L100.0100, L501.9985, L501.9520, L500.4050 #### [facility] [address], [address] ALK P 61 U/L Normal 45-[address] [facility] Comment on above: Performed By: #### L 500.4100, L501.9910, L502.0250, L100.0100, L501.9985, L501.9520, L500.4050 #### [facility] [address], [address] ALT [Catalytic activity/Vol] 60 U/L Normal 16-[address] [facility] Comment on above: Performed By: #### L 500.4100, L501.9910, L502.0250, L100.0100, L501.9985, L501.9520, L500.4050 #### [facility] [address], [address] AST [Catalytic activity/Vol] 64 U/L High 15-[address] [facility] Comment on above: Performed By: #### L 500.4100, L501.9910, L502.0250, L100.0100, L501.9985, L501.9520, L500.4050 #### [facility] [address], [address] Bilirubin [Mass/Vol] 0.50 mg/dL Normal 0.20-1.[address] [facility] Comment on above: Result Comment: For patients on eltrombopag therapy, use of Dimension [place] TBIL is not recommended. Performed By: #### L 500.4100, L501.9910, L502.0250, L100.0100, L501.9985, L501.9520, L500.4050 #### [facility] [address], [address] BUN/CRE 17.1 RATIO Normal 10-[address] [facility] Comment on above: Performed By: #### L 500.4100, L501.9910, L502.0250, L100.0100, L501.9985, L501.9520, L500.4050 #### [facility] [address], [address] CA,Total 9.0 mg/dL Normal 8.5-10.[address] [facility] Comment on above: Performed By: #### L 500.4100, L501.9910, L502.0250, L100.0100, L501.9985, L501.9520, L500.4050 #### [facility] [address], [address] Chloride [Moles/Vol] 104 mmol/L Normal 98-[address] [facility] Comment on above: Performed By: #### L 500.4100, L501.9910, L502.0250, L100.0100, L501.9985, L501.9520, L500.4050 #### [facility] [address], [address] CO2 [Moles/Vol] 28.0 mmol/L Normal 21.0-32.[address] [facility] Comment on above: Performed By: #### L 500.4100, L501.9910, L502.0250, L100.0100, L501.9985, L501.9520, L500.4050 #### [facility] [address], [address] Creatinine [Mass/Vol] 1.05 mg/dL Normal 0.70-1.30 [facility] Comment on above: Result Comment: The validity of the calculated GFR GFRAA in patients over 70 years has not been determined. Clinical correlation is essential. Performed By: #### L 500.4100, L501.9910, L502.0250, L100.0100, L501.9985, L501.9520, L500.4050 #### [facility] [address], [address] EST GFR - AA 92 mL/min Normal >[address] [facility] Comment on above: Result Comment: Afri can [place] GFR Calc Performed By: #### L 500.4100, L501.9910, L502.0250, L100.0100, L501.9985, L501.9520, L500.4050 #### [facility] [address], [address] GAP 6 Normal 5-[address] [facility] Comment on above: Performed By: #### L 500.4100, L501.9910, L502.0250, L100.0100, L501.9985, L501.9520, L500.4050 #### [facility] [address], [address] GFR/1.73 sq M.predicted among non-blacks MDRD (S/P/Bld) [Vol rate/Area] 76 mL/min/{1.73_m2} Normal >60 [facility] Comment on above: Result Comment: Non- GFR Calc Performed By: #### L 500.4100, L501.9910, L502.0250, L100.0100, L501.9985, L501.9520, L500.4050 #### [facility] [address], [address] Globulin (S) [Mass/Vol] 3.8 g/dL Normal 2.2-4.2 [facility] Comment on above: Performed By: #### L 500.4100, L501.9910, L502.0250, L100.0100, L501.9985, L501.9520, L500.4050 #### [facility] [address], [address] Glucose [Mass/Vol] 160 mg/dL High 74-106 [facility] Comment on above: Result Comment: Fast ing Glucose result greater than or equal to 126 mg/dL suggests DIABETES MELLITUS per A.D.A. criteria. Performed By: #### L 500.4100, L501.9910, L502.0250, L100.0100, L501.9985, L501.9520, L500.4050 #### [facility] [address], [address] Potassium [Moles/Vol] 4.4 mmol/L Normal 3.5-5.1 [facility] Comment on above: Performed By: #### L 500.4100, L501.9910, L502.0250, L100.0100, L501.9985, L501.9520, L500.4050 #### [facility] [address], [address] Sodium [Moles/Vol] 138 mmol/L Normal 136-145 [facility] Comment on above: Performed By: #### L 500.4100, L501.9910, L502.0250, L100.0100, L501.9985, L501.9520, L500.4050 #### [facility] [address], [address] T PROT 7.7 g/dL Normal 6.4-8.[address] [facility] Comment on above: Performed By: #### L 500.4100, L501.9910, L502.0250, L100.0100, L501.9985, L501.9520, L500.4050 #### [facility] [address], [address] Urea nitrogen [Mass/Vol] 18 mg/dL Normal 7-[address] [facility] Comment on above: Performed By: #### L 500.4100, L501.9910, L502.0250, L100.0100, L501.9985, L501.9520, L500.4050 #### [facility] [address], [address] Eosinophil percentageOrdered By: Jose Yuan on 03-20-2024 Eosinophils/100 WBC (Bld) 3.7 % 0-[address] [facility] Erythrocyte distribution wid th ratioOrdered By: Jose Yuan on 03-20-2024 Erythrocyte distribution width (RBC) [Ratio] 12.5 % 11.6-14.[address] [facility] Erythrocyte distribution wid th standard deviationOrdered By: Jose Yuan on 03-20-2024 Erythrocyte distribution width (RBC) [Ratio] 43.6 fl 35.1-43.[address] [facility] Glomerular filtration rate ( GFR) estimationOrdered By: Jose Yuan on 03-20-2024 GFR/1.73 sq M.predicted among non-blacks MDRD (S/P/Bld) [Vol rate/Area] 76 mL/min/{1.73_m2} >60 [facility] Comment on above: Non- GFR Calc Glucose measurementOrdered B y: Jose Yuan on 03-20-2024 Glucose [Mass/Vol] 160 mg/dL High 74-106 [facility] Comment on above: Fasting Glucose resu lt greater than or equal to 126 mg/dL suggests DIABETES MELLITUS per A.D.A. criteria. Hematocrit Auto (Bld) [Volum e fraction]Ordered By: Jose Yuan on 03-20-2024 Hematocrit (Bld) [Volume fraction] 41.6 % 40-[address] [facility] Hemoglobin A1c percentageOrd ered By: Jose Yuan on 03-20-2024 HbA1c (Bld) [Mass fraction] 6.4 % High 3.8-5.[address] [facility] Comment on above: Normal < 5.7 % Predi abetic 5.7 - 6.4 % Diabetic >or= 6.5 % Please note range changes. Hemoglobin measurementOrdere d By: Jose Yuan on 03-20-2024 Hemoglobin (Bld) [Mass/Vol] 14.1 g/dL 13.0-16. [address] [facility] High density lipoprotein (HD L) measurementOrdered By: Jose Yuan on 03-20-2024 Cholesterol in HDL [Mass/Vol] 52 mg/dL >[address] [facility] Comment on above: The drugs N-Acetylcy steine and Metamizole may falsely depress this assay. Reference Range HDL <40 mg/dL Low HDL Cholesterol HDL >or= 60 mg/dL High HDL Cholesterol Immature granulocytes/100 WB C Auto (Bld)Ordered By: Jose Yuan on 03-20-2024 Immature granulocytes/100 WBC (Bld) 1.100 % High 0.0-0.[address] [facility] Comment on above: IG% - Immature Granu locytes (promyelocytes, myelocytes and metamyelocytes) > 1% indicates that a LEFT SHIFT is Present. Laboratory - Chemistry and C hemistry - challengeOrdered By: Jose Yuan on 03-20-2024 AST [Catalytic activity/Vol] 64 U/L High 15-[address] [facility] Lipid Profileon 03-20-2024 Cholesterol [Mass/Vol] 176 mg/dL Normal 200 [facility] Comment on above: Result Comment: <200 mg/dL Desirable 200-240 mg/dL Borderline >240 mg/dL High Risk Performed By: #### L 500.4100, L501.9910, L502.0250, L100.0100, L501.9985, L501.9520, L500.4050 #### [facility] [facility] [address], [address] Cholesterol in HDL [Mass/Vol] 52 mg/dL Normal [facility] Comment on above: Result Comment: The drugs N-Acetylcysteine and Metamizole may falsely depress this assay. Reference Range HDL <40 mg/dL Low HDL Cholesterol HDL >or= 60 mg/dL High HDL Cholesterol Performed By: #### L 500.4100, L501.9910, L502.0250, L100.0100, L501.9985, L501.9520, L500.4050 #### [facility] [address] [place], [address] Cholesterol in LDL [Mass/Vol] 102 mg/dL Normal 0-[address] [facility] Comment on above: Performed By: #### L 500.4100, L501.9910, L502.0250, L100.0100, L501.9985, L501.9520, L500.4050 #### [facility] [address] [place], [address] Cholesterol in VLDL [Mass/Vol] 22 mg/dL Normal 5-[address] [facility] Comment on above: Performed By: #### L 500.4100, L501.9910, L502.0250, L100.0100, L501.9985, L501.9520, L500.4050 #### [facility] [address] [place], [place], [id number] Triglyceride [Mass/Vol] 112 mg/dL Normal [facility] Comment on above: Result Comment: The drugs N-Acetylcysteine and Metamizole may falsely depress this assay. Serum Triglycerides Reference Interval Normal <150 mg/dL Borderline high 150 - 199 mg/dL High 200 - 499 mg/dL Very High > or = 500 mg/dL Performed By: #### L 500.4100, L501.9910, L502.0250, L100.0100, L501.9985, L501.9520, L500.4050 #### [facility] [address] [place], [place], [id number] Low density lipoprotein (LDL ) cholesterol measurementOrdered By: Jose Yuan on 03-20-2024 Cholesterol in LDL [Mass/Vol] 102 mg/dL 0-[address] [facility] MCV (mean corpuscular volume ) determinationOrdered By: Jose Yuan on 03-20-2024 MCV (RBC) [Entitic vol] 94.5 fL High 80-94 [facility] Mean corpuscular hemoglobin (MCH) determinationOrdered By: Jose Yuan on 03-20-2024 MCH (RBC) [Entitic mass] 32.0 pg 27.0-32.[address] [facility] Mean corpuscular hemoglobin concentration (MCHC) determinationOrdered By: Jose Yuan on 03-20-2024 MCHC (RBC) [Mass/Vol] 33.9 g/dL 32-36 [facility] Mean platelet volume determi nationOrdered By: Jose Yuan on 03-20-2024 Platelet mean volume (Bld) [Entitic vol] 10.9 fL 6.2-12.[address] [facility] Microalb:Creat Ratio,Random URon 03-20-2024 Creatinine [Mass/Vol] 170.00 mg/dL Normal NO RAN GE EST. [facility] Comment on above: Performed By: #### L 500.4100, L501.9910, L502.0250, L100.0100, L501.9985, L501.9520, L500.4050 #### [facility] [address] [place], [place], [id number] MALB:CRE 112.4 mg/g CRE High <30 mg/g CRE [facility] Comment on above: Performed By: #### L 500.4100, L501.9910, L502.0250, L100.0100, L501.9985, L501.9520, L500.4050 #### [facility] [address] [place], [place], [id number] MICROALBUMIN,UR 191.0 mg/L Normal NO RANGE EST. [facility] Comment on above: Performed By: #### L 500.4100, L501.9910, L502.0250, L100.0100, L501.9985, L501.9520, L500.4050 #### [facility] [address], [address] Monocyte percentageOrdered B y: Jose Yuan on 03-20-2024 Monocytes/100 WBC (Bld) 8.6 % 0-10 [facility] Neutrophil percentageOrdered By: Jose Yuan on 03-20-2024 Neutrophils/100 WBC (Bld) 63.8 % 47-[address] [facility] Nucleated red blood cell per centageOrdered By: Tiffanymarilincarlos anajma Marquezbeccajose manuel on 03-20-2024 Nucleated RBC/100 WBC (Bld) [Ratio] 0 % 0-[address] [facility] PSA,Total - Annual Screenon 03-20-2024 PSA,TOT SCREEN 0.43 ng/mL Normal 0.00-4.[address] [facility] Comment on above: Result Comment: This test was performed using the TPSA assay method for the [employer] chemistry system. Values obtained with different assay methods cannot be used interchangably. When changing PSA assays in the course of monitoring a patient, additional sequential testing should be carried out to confirm baseline values. Performed By: #### L 500.4100, L501.9910, L502.0250, L100.0100, L501.9985, L501.9520, L500.4050 ####[facility] [id number], [address] Platelet countOrdered By: Tiffany Yuan on 03-20-2024 Platelets (Bld) [#/Vol] 210 10*3/uL 150-[address] [facility] Potassium measurementOrdered By: Jose Yuan on 03-20-2024 Potassium [Moles/Vol] 4.4 mmol/L 3.5-5.1 [facility] RBC Auto (Bld) [#/Vol]Ordere d By: Jose Yuan on 03-20-2024 RBC (Bld) [#/Vol] 4.40 10*6/uL Low 4.6-6.2 [facility] Serum anion gap measurementO rdered By: Jose Yuan on 03-20-2024 Anion gap [Moles/Vol] 6 mmol/L 5-15 [facility] Serum globulin measurementOr dered By: Jose Yuan on 03-20-2024 Globulin (S) [Mass/Vol] 3.8 g/dL 2.2-4.2 [facility] Serum or plasma alanine fortune otransferase (ALT) measurementOrdered By: Jose Yuan on 03-20-2024 ALT [Catalytic activity/Vol] 60 U/L 16-[address] [facility] Serum or plasma albumin peggy urement (mass/volume)Ordered By: Jose Yuan on 03-20-2024 Albumin [Mass/Vol] 3.9 g/dL 3.2-5.0 [facility] Serum or plasma alkaline quentin sphatase measurementOrdered By: Jose Yuan on 03-20-2024 ALP [Catalytic activity/Vol] 61 U/L 45-[address] [facility] Serum or plasma calcium peggy urement (mass/volume)Ordered By: Jose Yuan on 03-20-2024 Calcium [Mass/Vol] 9.0 mg/dL 8.5-10.1 [facility] Serum or plasma cholesterol measurement (mass/volume)Ordered By: Jose Yuan on 03-20-2024 Cholesterol [Mass/Vol] 176 mg/dL <200 [facility] Comment on above: <200 mg/dL Desirable 200-240 mg/dL Borderline >240 mg/dL High Risk Serum or plasma creatinine m easurement (mass/volume)Ordered By: Jose Yuan on 03-20-2024 Creatinine [Mass/Vol] 1.05 mg/dL 0.70-1.30 [facility] Comment on above: The validity of the calculated GFR & GFRAA in patients over 70 years has not been determined. Clinical correlation is essential. Serum or plasma thyroid stim ulating hormone (TSH) measurement (units/volume)Ordered By: Jose Yuan on 03-20-2024 TSH Qn 51.700 uIU/mL High 0.358-3.[address] [facility] Serum or plasma urea nitroge n measurement (mass/volume)Ordered By: Jose Yuan on 03-20-2024 Urea nitrogen [Mass/Vol] 18 mg/dL 7-[address] [facility] Sodium levelOrdered By: Sherron Yuan on 03-20-2024 Sodium [Moles/Vol] 138 mmol/L 136-145 [facility] Thyroid Stim Hormone (TSH)on 03-20-2024 TSH 51.700 uIU/mL High 0.358-3.[address] [facility] Comment on above: Performed By: #### L 500.4100, L501.9910, L502.0250, L100.0100, L501.9985, L501.9520, L500.4050 #### [facility] [address] [place], [place], [id number] Total proteinOrdered By: Daniel Yuan on 03-20-2024 Protein [Mass/Vol] 7.7 g/dL 6.4-8.2 [facility] Triglycerides measurementOrd ered By: Jose Yuan on 03-20-2024 Triglyceride [Mass/Vol] 112 mg/dL <199 [facility] Comment on above: The drugs N-Acetylcy steine and Metamizole may falsely depress this assay.Serum Triglycerides Reference Interval Normal <150 mg/dL Borderline high 150 - 199 mg/dL High 200 - 499 mg/dL Very High > or = 500 mg/dL Urine creatinine measurement (mass/volume)Ordered By: Jose Yuan on 03-20-2024 Creatinine (U) [Mass/Vol] 170.00 mg/dL NO RANGE EST. [facility] Very low density lipoprotein (VLDL) cholesterol measurementOrdered By: Jose Yuan on 03-20-2024 Very low density lipoprotein (VLDL) cholesterol measurement 22 mg/dL 5-[address] [facility] White blood cell (WBC) count Ordered By: Jose Yuan on 03-20-2024 WBC (Bld) [#/Vol] 7.8 10*3/uL 4.4-11.0 [facility] Internal Medicine Office Vis iton 12-17-2023 Internal Medicine Office Visit [facility] [address] [place] [address] OFFICE VISIT Date of Service: 12/17/23 MR#: [id number] Acct: [id number] Name: JOY GENTILE Rep #: [id number] : 1960 Provider: Dr. 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 [facility] Medical History Leg cramps BPH (benign prostatic [...] on inspiration, (more content not included)... Normal [facility] Basophil percentageOrdered B y: Tiffanylucy Yuan on 06-04-2023 Chloride [Moles/Vol] 107 mmol/L 98-[address] [facility] Glucose [Mass/Vol] 110 mg/dL 74-106 [facility] Comment on above: Fasting Glucose resu lt from 100 to 125 mg/dL suggests IMPAIRED HOMEOSTASIS per A.D.A. criteria. Potassium [Moles/Vol] 4.0 mmol/L 3.5-5.1 [facility] Sodium [Moles/Vol] 140 mmol/L 136-145 [facility] Laboratory - Chemistry and C hemistry - challengeOrdered By: Jose Yuan on 06-04-2023 CO2 [Moles/Vol] 28.0 mmol/L 21.0-32.[address] [facility] Magnesium [Mass/Vol] 2.1 mg/dL 1.6-2.[address] [facility] Urea nitrogen/Creatinine [Mass ratio] 19.1 mg/mg 10-[address] [facility] - Hematology and Cell countson 06-04-2023 HbA1c (Bld) [Mass fraction] 6.5 % 4.2-6.[address] [facility] No Panel InformationOrdered By: Jose Yuan on 06-04-2023 Estimated GFR (MDRD) Amer 111 mL/min >[address] [facility] Comment on above: GFR Calc Estimated GFR (MDRD) Non-Af Amer 92 mL/min >[address] [facility] Comment on above: Non- GFR Calc Serum or plasma calcium peggy urement (mass/volume)Ordered By: Jose Yuan on 06-04-2023 Calcium [Mass/Vol] 9.3 mg/dL 8.5-10.1 [facility] Serum or plasma creatinine m easurement (mass/volume)Ordered By: Jose Yuan on 06-04-2023 Creatinine [Mass/Vol] 0.89 mg/dL 0.70-1.30 [facility] Comment on above: The validity of the calculated GFR & GFRAA in patients over 70 years has not been determined. Clinical correlation is essential. Serum or plasma urea nitroge n measurement (mass/volume)Ordered By: Jose Yuan on 06-04-2023 Urea nitrogen [Mass/Vol] 17 mg/dL 7-[address] [facility] Thin prep Papanicolaou smear with manual screeningOrdered By: Jose Yuan on 06-04-2023 Thin prep Papanicolaou smear with manual screening 5 5-[address] [facility] Absolute lymphocyte countOrd ered By: Jose Yuan on 03-01-2023 Lymphocytes Auto (Unsp spec) [#/Vol] 1.84 10*3/uL 0.83-4.[address] [facility] Automated lymphocyte count a s percentage of total leukocytesOrdered By: Jose Yuan on 03-01-2023 Lymphocytes/100 WBC Auto (Unsp spec) 29.7 % 19-[address] [facility] Basophil percentageOrdered B y: Jose Yuan on 03-01-2023 Basophils/100 WBC (Bld) 1.1 % 0-1 [facility] Bilirubin [Mass/Vol] 0.40 mg/dL 0.20-1.[address] [facility] Comment on above: For patients on eltr ombopag therapy, use of Dimension [place] TBIL is not recommended. Chloride [Moles/Vol] 109 mmol/L 98-[address] [facility] Cholesterol [Mass/Vol] 143 mg/dL <200 [facility] Comment on above: <200 mg/dL Desirable 200-240 mg/dL Borderline >240 mg/dL High Risk Eosinophils/100 WBC (Bld) 3.5 % 0-[address] [facility] Glucose [Mass/Vol] 158 mg/dL 74-106 [facility] Comment on above: Fasting Glucose resu lt greater than or equal to 126 mg/dL suggests DIABETES MELLITUS per A.D.A. criteria. Hemoglobin (Bld) [Mass/Vol] 15.3 g/dL 13.0-16. [address] [facility] Monocytes/100 WBC (Bld) 10.6 % 0-10 [facility] Neutrophils (Bld) [#/Vol] 3.4 10*3/uL 2.0-7.[address] [facility] Neutrophils/100 WBC (Bld) 54.6 % 47-[address] [facility] Potassium [Moles/Vol] 4.4 mmol/L 3.5-5.1 [facility] Protein [Mass/Vol] 7.2 g/dL 6.4-8.2 [facility] Sodium [Moles/Vol] 141 mmol/L 136-145 [facility] Triglyceride [Mass/Vol] 101 mg/dL <199 [facility] Comment on above: The drugs N-Acetylcy steine and Metamizole may falsely depress this assay.Serum Triglycerides Reference Interval Normal <150 mg/dL Borderline high 150 - 199 mg/dL High 200 - 499 mg/dL Very High > or = 500 mg/dL WBC (Bld) [#/Vol] 6.2 10*3/uL 4.4-11.0 [facility] Determination of erythrocyte mean corpuscular volume (MCV)Ordered By: Jose Yuan on 03-01-2023 MCV (RBC) [Entitic vol] 92.6 fL 80-94 [facility] Erythrocyte distribution wid th ratioOrdered By: Jose Yuan on 03-01-2023 Erythrocyte distribution width (RBC) [Ratio] 12.1 % 11.6-14.[address] [facility] Erythrocyte distribution wid th standard deviationOrdered By: Jose Yuan on 03-01-2023 Erythrocyte distribution width (RBC) [Entitic vol] 41.4 fL 35.1-43.9 [facility] Hematocrit Auto (Bld) [Volum e fraction]Ordered By: Jose Yuan on 03-01-2023 Hematocrit (Bld) [Volume fraction] 46.1 % 40-[address] [facility] High density lipoprotein (HD L) measurementOrdered By: Jose Yuan on 03-01-2023 Cholesterol in HDL (Body fld) [Mass/Vol] 47 mg/dL >[address] [facility] Comment on above: The drugs N-Acetylcy steine and Metamizole may falsely depress this assay. Reference Range HDL <40 mg/dL Low HDL Cholesterol HDL >or= 60 mg/dL High HDL Cholesterol Immature granulocytes/100 WB C Auto (Bld)Ordered By: Jose Yuan on 03-01-2023 Immature granulocytes/100 WBC (Bld) 0.500 % 0.0-0.[address] [facility] Comment on above: IG% - Immature Granu locytes (promyelocytes, myelocytes and metamyelocytes) > 1% indicates that a LEFT SHIFT is Present. Laboratory - Chemistry and C hemistry - challengeOrdered By: Jose Yuan on 03-01-2023 Albumin/Globulin [Mass ratio] 1.2 {ratio} 0.9-2.[address] [facility] ALP [Catalytic activity/Vol] 69 U/L 45-[address] [facility] ALT [Catalytic activity/Vol] 45 U/L 16-[address] [facility] CO2 [Moles/Vol] 28.0 mmol/L 21.0-32.[address] [facility] Globulin (S) [Mass/Vol] 3.2 g/dL 2.2-4.2 [facility] Urea nitrogen/Creatinine [Mass ratio] 19.3 mg/mg 10-[address] [facility] - Hematology and Cell countsOrdered By: Jose Yuan on 03-01-2023 MCH (RBC) [Entitic mass] 30.7 pg 27.0-32.[address] [facility] MCHC (RBC) [Mass/Vol] 33.2 g/dL 32-36 [facility] Nucleated RBC/100 WBC (Bld) [Ratio] 0 % 0-[address] [facility] Platelets (Bld) [#/Vol] 202 10*3/uL 150-[address] [facility] Low density lipoprotein (LDL ) cholesterol measurementOrdered By: Jose Yuan on 03-01-2023 Cholesterol in LDL (Body fld) [Moles/Vol] 76 mg/dL 0-[address] [facility] No Panel InformationOrdered By: Jose Yuan on 03-01-2023 Estimated GFR (MDRD) Amer 112 mL/min >[address] [facility] Comment on above: GFR Calc Estimated GFR (MDRD) Non-Af Amer 93 mL/min >[address] [facility] Comment on above: Non- GFR Calc Platelet mean volume Mar[place]-Ec ker (Bld) [Entitic vol]Ordered By: Jose Yuan on 03-01-2023 Platelet mean volume (Bld) [Entitic vol] 11.4 fL 6.2-12.[address] [facility] RBC Auto (Bld) [#/Vol]Ordere d By: Jose Yuan on 03-01-2023 RBC (Bld) [#/Vol] 4.98 10*6/uL 4.6-6.2 [facility] Screening prostate specific antigen (PSA) measurementOrdered By: Jose Yuan on 03-01-2023 Prostate specific Ag IA [Mass/Vol] 0.37 ng/mL 0.00-4.[address] [facility] Comment on above: This test was perfor med using the TPSA assay method for the[employer] chemistry system. Values obtained with differentassay methods cannot be used interchangably.When changing PSA assays in the course of monitoring apatient, additional sequential testing should be carriedout to confirm baseline values. Serum or plasma calcium peggy urement (mass/volume)Ordered By: Jose Yuan on 03-01-2023 Calcium [Mass/Vol] 9.5 mg/dL 8.5-10.1 [facility] Serum or plasma creatinine m easurement (mass/volume)Ordered By: Jose Yuan on 03-01-2023 Creatinine [Mass/Vol] 0.88 mg/dL 0.70-1.30 [facility] Comment on above: The validity of the calculated GFR & GFRAA in patients over 70 years has not been determined. Clinical correlation is essential. Serum or plasma thyroid stim ulating hormone (TSH) measurement (units/volume)Ordered By: Jose Yuan on 03-01-2023 TSH Qn 0.78 uIU/mL 0.358-3.[address] [facility] Serum or plasma urea nitroge n measurement (mass/volume)Ordered By: Jose Yuan on 03-01-2023 Urea nitrogen [Mass/Vol] 17 mg/dL 7-[address] [facility] Thin prep Papanicolaou smear with manual screeningOrdered By: Jose Yuan on 03-01-2023 Thin prep Papanicolaou smear with manual screening 32.3 mg/L NO RANGE EST. [facility] Thin prep Papanicolaou smear with manual screening 4.0 g/dL 3.2-5.[address] [facility] Thin prep Papanicolaou smear with manual screening 35 U/L 15-[address] [facility] Thin prep Papanicolaou smear with manual screening 4 5-[address] [facility] Urine albumin/creatinine rat io for detection of microalbuminuriaOrdered By: Jose Yuan on 03-01-2023 Albumin/Creatinine DL <= 1.0 mg/L (24H U) [Ratio] 18.6 mg/g CRE <[address] [facility] Urine creatinine measurement (mass/volume)Ordered By: Jose Yuan on 03-01-2023 Creatinine (U) [Mass/Vol] 174.00 mg/dL NO RANGE EST. [facility] Very low density lipoprotein (VLDL) cholesterol measurementOrdered By: Jose Yuan on 03-01-2023 Cholesterol in VLDL Calc [Moles/Vol] 20 mg/dL 5-[address] [facility] - Hematology and Cell countson 02-27-2023 HbA1c (Bld) [Mass fraction] 6.6 % 4.2-6.[address] [facility] - Hematology and Cell countson 11-06-2022 HbA1c (Bld) [Mass fraction] 6.2 % 4.2-6.[address] [facility] Absolute lymphocyte countOrd ered By: Dr. Yuan on 04-25-2022 Lymphocytes Auto (Unsp spec) [#/Vol] 2.05 10*3/uL 0.83-4.[address] [facility] Basophil percentageOrdered B y: Dr. Yuan on 04-25-2022 Basophils/100 WBC (Bld) 1.0 % 0-1 [facility] Bilirubin [Mass/Vol] 0.30 mg/dL 0.20-1.[address] [facility] Comment on above: For patients on eltr ombopag therapy, use of Dimension [place] TBIL is not recommended. Chloride [Moles/Vol] 104 mmol/L 98-[address] [facility] Cholesterol [Mass/Vol] 141 mg/dL <200 [facility] Comment on above: <200 mg/dL Desirable 200-240 mg/dL Borderline >240 mg/dL High Risk Eosinophils/100 WBC (Bld) 3.2 % 0-[address] [facility] Glucose [Mass/Vol] 119 mg/dL 74-106 [facility] Comment on above: Fasting Glucose resu lt from 100 to 125 mg/dL suggests IMPAIRED HOMEOSTASIS per A.D.A. criteria. Neutrophils (Bld) [#/Vol] 3.1 10*3/uL 2.0-7.[address] [facility] Neutrophils/100 WBC (Bld) 50.5 % 47-[address] [facility] Potassium [Moles/Vol] 4.1 mmol/L 3.5-5.1 [facility] Protein [Mass/Vol] 7.2 g/dL 6.4-8.2 [facility] Sodium [Moles/Vol] 139 mmol/L 136-145 [facility] Triglyceride [Mass/Vol] 254 mg/dL <199 [facility] Comment on above: The drugs N-Acetylcy steine and Metamizole may falsely depress this assay.Serum Triglycerides Reference Interval Normal <150 mg/dL Borderline high 150 - 199 mg/dL High 200 - 499 mg/dL Very High > or = 500 mg/dL WBC (Bld) [#/Vol] 6.0 10*3/uL 4.4-11.0 [facility] Blood erythrocytes count (nu mber/volume)Ordered By: Dr. Yuan on 04-25-2022 RBC (Bld) [#/Vol] 4.69 10*6/uL 4.6-6.2 [facility] Blood hemoglobin measurement (mass/volume)Ordered By: Dr. Yuan on 04-25-2022 Hemoglobin (Bld) [Mass/Vol] 14.8 g/dL 13.0-16. [address] [facility] Blood lymphocytes/100 leukoc ytesOrdered By: Dr. Yuan on 04-25-2022 Lymphocytes/100 WBC (Bld) 34.0 % 19-[address] [facility] Blood monocytes/100 leukocyt esOrdered By: Dr. Yuan on 04-25-2022 Monocytes/100 WBC (Bld) 11.1 % 0-10 [facility] Blood platelet mean volumeOr dered By: Dr. Yuan on 04-25-2022 Platelet mean volume (Bld) [Entitic vol] 11.3 fL 6.2-12.[address] [facility] Determination of erythrocyte mean corpuscular volume (MCV)Ordered By: Dr. Yuan on 04-25-2022 MCV (RBC) [Entitic vol] 91.5 fL 80-94 [facility] Hematocrit Auto (Bld) [Volum e fraction]Ordered By: Dr. Yuan on 04-25-2022 Hematocrit (Bld) [Volume fraction] 42.9 % 40-[address] [facility] Laboratory - Chemistry and C hemistry - challengeOrdered By: Dr. Yuan on 04-25-2022 ALP [Catalytic activity/Vol] 70 U/L 45-[address] [facility] ALT [Catalytic activity/Vol] 52 U/L 16-[address] [facility] CO2 [Moles/Vol] 28.0 mmol/L 21.0-32.[address] [facility] Globulin (S) [Mass/Vol] 3.3 g/dL 2.2-4.2 [facility] Urea nitrogen/Creatinine [Mass ratio] 16.3 mg/mg 10-[address] [facility] - Hematology and Cell countsOrdered By: Dr. Yuan on 04-25-2022 Erythrocyte distribution width (RBC) [Entitic vol] 40.3 fL 35.1-43.9 [facility] Erythrocyte distribution width (RBC) [Ratio] 12.0 % 11.6-14.[address] [facility] Immature granulocytes/100 WBC (Bld) 0.200 % 0.0-0.[address] [facility] Comment on above: IG% - Immature Granu locytes (promyelocytes, myelocytes and metamyelocytes) > 1% indicates that a LEFT SHIFT is Present. MCH (RBC) [Entitic mass] 31.6 pg 27.0-32.[address] [facility] Nucleated RBC/100 WBC (Bld) [Ratio] 0 % 0-[address] [facility] MCHC Auto (RBC) [Mass/Vol]Or dered By: Dr. Yuan on 04-25-2022 MCHC (RBC) [Mass/Vol] 34.5 g/dL 32-36 [facility] No Panel InformationOrdered By: Dr. Yuan on 04-25-2022 Estimated GFR (MDRD) Amer 116 mL/min >[address] [facility] Comment on above: GFR Calc Estimated GFR (MDRD) Non-Af Amer 96 mL/min >[address] [facility] Comment on above: Non- GFR Calc Thyroid Stimulating Hormone (TSH) 0.51 uIU/mL 0.358-3.[address] [facility] Urine Microalbumin/Creatinine Ratio 13.6 mg/g CRE <[address] [facility] Platelets bldOrdered By: Dr. Yuan on 04-25-2022 Platelets (Bld) [#/Vol] 214 10*3/uL 150-[address] [facility] Serum or plasma albumin peggy urement (mass/volume)Ordered By: Dr. Yuan on 04-25-2022 Albumin [Mass/Vol] 3.9 g/dL 3.2-5.0 [facility] Serum or plasma albumin/glob ulin mass ratioOrdered By: Dr. Yuan on 04-25-2022 Albumin/Globulin [Mass ratio] 1.2 {ratio} 0.9-2.[address] [facility] Serum or plasma calcium peggy urement (mass/volume)Ordered By: Dr. Yuan on 04-25-2022 Calcium [Mass/Vol] 9.2 mg/dL 8.5-10.1 [facility] Serum or plasma cholesterol in HDL measurement (mass/volume)Ordered By: Dr. Yuan on 04-25-2022 Cholesterol in HDL [Mass/Vol] 32 mg/dL >[address] [facility] Comment on above: The drugs N-Acetylcy steine and Metamizole may falsely depress this assay. Reference Range HDL <40 mg/dL Low HDL Cholesterol HDL >or= 60 mg/dL High HDL Cholesterol Serum or plasma cholesterol in VLDL measurement (mass/volume)Ordered By: Dr. Yuan on 04-25-2022 Cholesterol in VLDL [Mass/Vol] 51 mg/dL 5-[address] [facility] Serum or plasma creatinine m easurement (mass/volume)Ordered By: Dr. Yuan on 04-25-2022 Creatinine [Mass/Vol] 0.86 mg/dL 0.70-1.30 [facility] Comment on above: The validity of the calculated GFR & GFRAA in patients over 70 years has not been determined. Clinical correlation is essential. Serum or plasma low density lipoprotein (LDL) cholesterol measurement (mass/volume)Ordered By: Dr. Yuan on 04-25-2022 Cholesterol in LDL [Mass/Vol] 58 mg/dL 0-[address] [facility] Serum or plasma urea nitroge n measurement (mass/volume)Ordered By: Dr. Yuan on 04-25-2022 Urea nitrogen [Mass/Vol] 14 mg/dL 7-[address] [facility] Thin prep Papanicolaou smear with manual screeningOrdered By: Dr. Yuan on 04-25-2022 Thin prep Papanicolaou smear with manual screening 39 U/L 15-[address] [facility] Thin prep Papanicolaou smear with manual screening 7 5-[address] [facility] Thin prep Papanicolaou smear with manual screening 14.0 mg/L NO RANGE EST. [facility] Urine creatinine measurement (mass/volume)Ordered By: Dr. Yuan on 04-25-2022 Creatinine (U) [Mass/Vol] 103.00 mg/dL NO RANGE EST. [facility] Whole blood hemoglobin A1c/t otal hemoglobin ratio (mass fraction)Ordered By: Dr. Yuan on 04-25-2022 HbA1c (Bld) [Mass fraction] 6.1 % 3.8-5.[address] [facility] Comment on above: Normal < 5.7 % Predi abetic 5.7 - 6.4 % Diabetic >or= 6.5 % Please note range changes. Vital Signs Date Time Vital Sign Value Performing Clinician John gallagher 10-15-2024 08:51-0400 Body height 180.[address] Jose Yuan MD Work Phone: [facility] 10-15-2024 08:51-0400 Body mass index (BMI) [Ratio] 34.4 kg/m2 Dr. Jose Yuan MD Work Phone: [facility] 10-15-2024 08:51-0400 Body temperature 97.4 [degF] Dr. Jose Yuan MD Work Phone: [facility] 10-15-2024 08:51-0400 Body weight 112.[address] Jose Yuan MD Work Phone: [facility] 10-15-2024 08:51-0400 Diastolic blood pressure 66 mm[Hg] Dr. Jose Yuan MD Work Phone: [facility] 10-15-2024 08:51-0400 Heart rate 85 /min Dr. Jose Yuan MD Work Phone: [facility] 10-15-2024 08:51-0400 Respiratory rate 18 /min Dr. Jose Yuan MD Work Phone: [facility] 10-15-2024 08:51-0400 SaO2% (BldA) [Mass fraction] 96 % Dr. Jose Yuan MD Work Phone: [facility] 10-15-2024 08:51-0400 Systolic blood pressure 128 mm[Hg] Dr. Jose Yuan MD Work Phone: [facility] 07-14-2024 13:09-0400 Body height 180.[address] Jose Yuan MD Work Phone: [facility] 07-14-2024 13:09-0400 Body mass index (BMI) [Ratio] 36.1 kg/m2 Dr. Jose Yuan MD Work Phone: [facility] 07-14-2024 13:09-0400 Body temperature 97.6 [degF] Dr. Jose Yuan MD Work Phone: [facility] 07-14-2024 13:09-0400 Body weight 117.[address] Jose Yuan MD Work Phone: [facility] 07-14-2024 13:09-0400 Diastolic blood pressure 70 mm[Hg] Dr. Jose Yuan MD Work Phone: [facility] 07-14-2024 13:09-0400 Heart rate 86 /min Dr. Jose Yuan MD Work Phone: [facility] 07-14-2024 13:09-0400 Respiratory rate 18 /min Dr. Jose Yuan MD Work Phone: [facility] 07-14-2024 13:09-0400 SaO2% (BldA) [Mass fraction] 94 % Dr. Jose Yuan MD Work Phone: [facility] 07-14-2024 13:09-0400 Systolic blood pressure 124 mm[Hg] Dr. Jose Yuan MD Work Phone: [facility] 03-24-2024 16:14-0500 Body height 180.[address] Jose Yuan MD Work Phone: [facility] 03-24-2024 16:14-0500 Body mass index (BMI) [Ratio] 38 kg/m2 Dr. Jose Yuan MD Work Phone: [facility] 03-24-2024 16:14-0500 Body temperature 96.1 [degF] Dr. Jose Yuan MD Work Phone: [facility] 03-24-2024 16:14-0500 Body weight 123.[address] Jose Yuan MD Work Phone: [facility] 03-24-2024 16:14-0500 Diastolic blood pressure 78 mm[Hg] Dr. Jose Yuan MD Work Phone: [facility] 03-24-2024 16:14-0500 Heart rate 72 /min Dr. Jose Yuan MD Work Phone: [facility] 03-24-2024 16:14-0500 Respiratory rate 18 /min Dr. Jose Yuan MD Work Phone: [facility] 03-24-2024 16:14-0500 SaO2% (BldA) [Mass fraction] 97 % Dr. Jose Yuan MD Work Phone: [facility] 03-24-2024 16:14-0500 Systolic blood pressure 142 mm[Hg] Dr. Jose Yuan MD Work Phone: [facility] 06-04-2023 15:39-0400 Body height 180.[address] Jose Yuan Work Phone: [facility] 06-04-2023 15:39-0400 Body mass index (BMI) [Ratio] 35.6 kg/m2 Dr. Jose Yuan Work Phone: [facility] 06-04-2023 15:39-0400 Body temperature 97.2 [degF] Dr. Jose Yuan Work Phone: [facility] 06-04-2023 15:39-0400 Body weight 115.[address] Jose Yuan Work Phone: [facility] 06-04-2023 15:39-0400 Diastolic blood pressure 82 mm[Hg] Dr. Jose Yuan Work Phone: [facility] 06-04-2023 15:39-0400 Heart rate 55 /min Dr. Jose Yuan Work Phone: [facility] 06-04-2023 15:39-0400 Respiratory rate 16 /min Dr. Jose Yuan Work Phone: [facility] 06-04-2023 15:39-0400 SaO2% (BldA) [Mass fraction] 96 % Dr. Jose Yuan Work Phone: [facility] 06-04-2023 15:39-0400 Systolic blood pressure 122 mm[Hg] Dr. Jose Yuan Work Phone: [facility] 02-27-2023 16:26-0500 Body height 180.[address] Jose Yuan Work Phone: [facility] 02-27-2023 16:26-0500 Body mass index (BMI) [Ratio] 35.2 kg/m2 Dr. Jose Yuan Work Phone: [facility] 02-27-2023 16:26-0500 Body temperature 97.9 [degF] Dr. Jose Yuan Work Phone: [facility] 02-27-2023 16:26-0500 Body weight 114.[address] Jose Yuan Work Phone: [facility] 02-27-2023 16:26-0500 Diastolic blood pressure 82 mm[Hg] Dr. Jose Yuan Work Phone: [facility] 02-27-2023 16:26-0500 Heart rate 74 /min Dr. Jose Yuan Work Phone: [facility] 02-27-2023 16:26-0500 Respiratory rate 18 /min Dr. Jose Yuan Work Phone: [facility] 02-27-2023 16:26-0500 SaO2% (BldA) [Mass fraction] 97 % Dr. Jose Yuan Work Phone: [facility] 02-27-2023 16:26-0500 Systolic blood pressure 136 mm[Hg] Dr. Jose Yuan Work Phone: [facility] 11-06-2022 15:27-0400 Body mass index (BMI) [Ratio] 34.4 kg/m2 Dr. Jose Yuan Work Phone: [facility] 11-06-2022 15:27-0400 Body temperature 97.7 [degF] Dr. Jose Yuan Work Phone: [facility] 11-06-2022 15:27-0400 Body weight 112.[address] Jose Yuan Work Phone: [facility] 11-06-2022 15:27-0400 Diastolic blood pressure 74 mm[Hg] Dr. Jose Yuan Work Phone: [facility] 11-06-2022 15:27-0400 Heart rate 68 /min Dr. Jose Yuan Work Phone: [facility] 11-06-2022 15:27-0400 Respiratory rate 18 /min Dr. Jose Yuan Work Phone: [facility] 11-06-2022 15:27-0400 SaO2% (BldA) [Mass fraction] 96 % Dr. Jose Yuan Work Phone: [facility] 11-06-2022 15:27-0400 Systolic blood pressure 114 mm[Hg] Dr. Jose Yuan Work Phone: [facility] 04-24-2022 16:07-0400 Body height 180.[address] Chris Bishop Work Phone: [facility] 04-24-2022 16:07-0400 Body mass index (BMI) [Ratio] 35.8 kg/m2 Dr. Chris Bishop Work Phone: [facility] 04-24-2022 16:07-0400 Body temperature 98 [degF] Dr. Chris Bishop Work Phone: [facility] 04-24-2022 16:07-0400 Body weight 116.[address] Chris Bishop Work Phone: [facility] 04-24-2022 16:07-0400 Diastolic blood pressure 82 mm[Hg] Dr. Chris Bishop Work Phone: [facility] 04-24-2022 16:07-0400 Heart rate 69 /min Dr. Chris Bishop Work Phone: [facility] 04-24-2022 16:07-0400 Respiratory rate 16 /min Dr. Chris Bishop Work Phone: [facility] 04-24-2022 16:07-0400 SaO2% (BldA) [Mass fraction] 95 % Dr. Chris Bishop Work Phone: [facility] 04-24-2022 16:07-0400 Systolic blood pressure 122 mm[Hg] Dr. Chris Bishop Work Phone: [facility] Encounters Encounter Date Encounter Type Care Provider Facility Start: 01-14-2025 ambulatory Diego Lopez lity:[facility] Start: 10-15-2024 End: 10-15-2024 Patient encounter procedure Alonzo OLIVARES -[facility] Work Phone: Start: 10-15-2024 End: 10-15-[address] Jose Yuan MD Work Phone: -[facility] Start: 10-13-2024 Encounter for other preprocedural examination Patrick Bowles [facility] Start: 10-05-2024 End: 10-05-[address] Jose Yuan MD Work Phone: -Cat Scan [facility] Start: 10-05-2024 End: 10-05-[address] Patrick Bowles MD -Cat Scan [facility] Work Phone: Start: 10-05-2024 End: 10-05-2024 ambulatory Patrick Bowles Facility:[facility] Start: 10-02-2024 ambulatory Jose Rizvii ty:[facility] Start: 10-02-2024 Non-patient / Non-visit Dr. Nohemy Hair MD -[facility] Start: 10-01-2024 End: 10-01-[address] Jose Yuan MD Work Phone: -Cardiovascular Services Start: 10-01-2024 End: 10-01-[address] Jose Yuan MD -Cardiovascular Services Work Phone: Start: 10-01-2024 End: 10-01-2024 ambulatory Jose Yuan Facility:[facility] Start: 10-01-2024 Non-patient / Non-visit Dr. Nohemy Hair MD -[facility] Start: 09-08-2024 Non-patient / Non-visit Lizbet Baker MA -[facility] Work Phone: Start: 09-08-2024 ambulatory Lizbet Baker Facility:[facility] Start: 07-14-2024 End: 07-14-[address] Jose Yuan MD -[facility] Work Phone: Start: 07-14-2024 End: 07-14-[address] Jose Yuan MD [facility] Start: 07-14-2024 End: 07-14-[address] Jose Yuan MD Work Phone: [facility] Work Phone: Start: 07-14-2024 End: 07-14-2024 ambulatory [facility] Facility:[facility] Start: 07-08-2024 End: 07-08-2024 Non-patient / Non-visit Dr. Aaron Watt MD -[facility] Work Phone: Start: 07-08-2024 End: 07-08-[address] Jose Yuan MD Work Phone: [facility] Work Phone: Start: 07-08-2024 End: 07-08-[address] Patrick Bowles MD -Pulmonary Services/Neurology Work Phone: Start: 07-08-2024 End: 07-08-2024 ambulatory [facility] Facility:[facility] Start: 03-24-2024 End: 03-24-[address] Jose Yuan MD -[facility] Work Phone: Start: 03-24-2024 End: 03-24-20[facility] Start: 03-20-2024 End: 03-20-[address] Jose Yuan MD -Laboratory Work Phone: Start: 03-20-2024 End: 03-20-2024 ambulatory Jose Yuan Facility:[facility] Start: 01-06-2024 End: 01-06-2024 [facility] Facility:[facility] Start: 12-17-2023 End: 12-17-2023 ambulatory Sherroncarlos anajma Jimmybeccajose manuel Facility:[facility] Start: 06-04-2023 End: 06-04-[address] Jose Yuan Work Phone: [facility] Work Phone: Start: 06-04-2023 End: 06-04-[address] Jose Yuan Work Phone: [facility] Work Phone: Start: 03-01-2023 End: 03-01-[address] Jose Yuan Work Phone: [facility] Work Phone: Start: 03-01-2023 End: 03-01-[address] Jose Yuan Work Phone: [facility] Work Phone: Start: 02-27-2023 End: 02-27-[address] Jose Yuan Work Phone: [facility] Work Phone: Start: 11-06-[address] Jose Manuel Yuan Work Phone: [facility] Start: 11-06-2022 End: 11-06-2022 Encounter for general adult medical examination without abnormal findings Dr. Jose Yuan Work Phone: [facility] Start: 11-06-2022 End: 11-06-[address] Jose Yuan Work Phone: [facility] Work Phone: Start: 04-25-2022 End: 04-25-[address] Chris Bishop Work Phone: [facility] Work Phone: Start: 04-25-2022 End: 04-25-[address] Chris Bishop Work Phone: [facility] Start: 04-24-2022 End: 04-24-[address] Chris Bishop Work Phone: [facility] Internal Medicine Procedures Date Procedure Procedure Detail Performing Clinician Start: 10-05-2024 MRI of lower extremity Dr. Jose Yuan MD Work Phone: Start: 10-01-2024 Cardiovascular stres s test using pharmacologic stress agent Dr. Jose Yuan MD Work Phone: Start: 07-14-2024 Urnls dip stick/tabl et reagent [...] med using the TPSA assay method for the[employer] chemistry system. Values obtained with differentassay methods cannot be used interchangably.When changing PSA assays in the course of monitoring apatient, additional sequential testing should be carriedout to confirm baseline values. Start: 03-20-2024 Urine microalbumin/creatinine ratio measurement Dr. Jose Yuan MD Work Phone: Plan of Treatment Date Care Activity Detail Author Start: 07-14-2024 Urinalysis complete panel - Urine [facility] Bilirubin measurement, urine [facility] Colonoscopy [facility] Hemoglobin [Presence] in Urine [facility] Lipid 1996 panel - S clive or Plasma [facility] Measurement of keton es in urine using dipstick [facility] Microscopic urinalysis [facility] Organism count, micr oscopic method [facility] pH of Urine [facility] Specific gravity of Urine [facility] Urine dipstick for glucose [facility] Urine dipstick for l eukocyte esterase [facility] Urine dipstick for nitrite [facility] Urine dipstick for protein [facility] Urine examination [facility] Urine microscopy: ep ithelial cells [facility] Urine microscopy: red cells [facility] Urobilinogen [Presence] in Urine [facility] White blood cell count [facility] Immunizations Immunization Date Immunization Notes Care Provider [facility] 12-08-2023 Influenza High-Dose Quadrivalent Dr. Jose Yuan MD Work Phone: [facility] 11-12-2023 Pfizer Covid-19 (Comirnaty) Dr. Jose Yuan MD Work Phone: [facility] 11-19-2022 Pfizer Covid-19 (Comirnaty) Dr. Jose Yuan MD Work Phone: [facility] 11-30-2021 Covid Pfizer Bivalen t Booster Dr. Jose Yuan MD Work Phone: [facility] 05-25-2021 Covid (Moderna) Dr. Ernestina Yuan MD Work Phone: [facility] 12-04-2020 Covid (Pfizer) Dr. Jose Yuan MD Work Phone: [facility] 05-17-2020 Covid (Moderna) Dr. Ernestina Yuan MD Work Phone: [facility] 04-20-2020 Covid (Moderna) Dr. Ernestina Yuan MD Work Phone: [facility] 02-05-2013 hepatitis A vaccine, adult dosage Dr. Jose Yuan MD Work Phone: [facility] 07-14-2012 hepatitis A vaccine, adult dosage Dr. Jose Yuan MD Work Phone: [facility] Payers Date Payer Category Payer Self-pay [id number] 2023 Unknown [id number] [id number] Private Health Insurance [id number] Unknown [id number] 2.16.8 [id number] Unknown [id number] 2.16.8 [id number] Unknown [id number] 2.16.8 [id number] Unknown [id number] 2.16.8 [id number] Unknown [id number] 2.16.8 [id number] Unknown [id number] 2.16.8 [id number] Unknown [id number] 2.16.8 [id number] Unknown [id number] 2.16.8 [id number] Unknown [id number] 2.16.8 [id number] Unknown [id number] 2.16.8 [id number] Unknown [id number] 2.16.8 [id number] Unknown [id number] 2.16.8 [id number] Unknown [id number] 2.16.8 [id number] Unknown [id number] 2.16.8 [id number] Unknown [id number] 2.16.8 [id number] Unknown [id number] 2.16.8 [id number] Social History Date Type Detail [facility] Work Phone: Start: 1960 Sex Assigned At Male [facility] Start: 04-24-2022 End: 02-27-2023 Tobacco smoking status NHIS Unknown if ever smoked [facility] Start: 02-27-2023 Tobacco smoking stat us IAIS Never smoked tobacco (finding) [facility] Medical Equipment Procedure Code Equipment Code [...] Dev Lancets) kit Start: 10-09-2023 End: 10-09-2023 Clinical Notes 03-24-2024 to 10-05-2024 Note Date & Type Note Facility 10-05-2024 Radiology Diagnostic study note [facility] [address] [place] [address] Extremity Lower without Contra MR#: [id number] Acct: [id number] Name: JOY GENTILE Rep #: [id number] : 1960 M 64 From: Hermann Fox MD PCP: Dr. Jose Yuan MD Status: R EG CLI Study:Extremity Lower without Contra Date of Exam: 10/05/24 Exam# [id number] Ordering Dr: Oliver Bowles MD PROCEDURE: EXTREMITY LOWER WITHOUT CONTRA 10/05/2024 REASON FOR EXAM: Osteoarthritis LEFT KNEE, preoperative study. TECHNIQUE: JOYCE CT left knee. Coronal and Sagittal reconstruction series were provided. One or more dose reduction techniques were used (e.g., Automated exposure control, adjustment of the mA and/or kV according to patient size, use of iterative reconstruction technique). RADIATION DOSE SUMMARY: DLP: 1338.37 mGycm COMPARISON: None provided. FINDINGS: Left hip: Limited imaging of the left sacroiliac joint demonstrates mild degenerative changes. Partial calcification of the prostate gland is seen. The left hip itself demonstrates mild degenerative changes, including mild superior joint narrowing, along with lateral acetabular subchondral cyst formation. No evidence of femoral head osteonecrosis. Left knee: Moderate arterial calcification is noted. A small left knee joint effusion is seen. Tricompartmental left knee degenerative changes are seen, with severe medial joint narrowing and moderate patellofemoral joint narrowing. Mature nonunited ossicleat the anterolateral tibial plateau also noted. Left ankle: Large inferior and mild posterior calcaneal spurring is seen. Normal contour ofthe Achilles tendon is seen on sagittal imaging. Minimal degenerative changes are otherwise seen. No acute fracture or dislocation is evident. CT/Extremity Lower without Contra IMPRESSION: Degenerative changes, most prominent in the left knee, as described. Reading Location: [place] [address] CC: Dr. Jose Yuan MD; Dr. Patrick Bowles MD ~ [employer]: Signed [facility] 07-14-2024 Evaluation note Diagnosis Onset Date Resolution Preoperative evaluation to rule out surgical contraindication acute July 14, 2024 12:53pm Urine abnormality acute July 12:53pm Hypertension chronic July 14 12:53pm Hypothyroidism chronic July 14, 2024 12:53pm BABAR (obstructive sleep apnea) chronic July 14, 2024 12:53pm Type 2 diabetes mellitus chronic July 14, 2024 12:53pm [facility] Work Phone: 1(133) 444-135305-30-2025 Radiology Diagnostic study note [facility] Imaging Services [address] [place] [address] Extremity Lower without Contra MR#: [id number] Acct: [id number] Name: JOY GENTILE Rep #: [id number] : 1960 M 64 From: David Stafford MD PCP: Dr. Jose Yuan MD Status: R EG CLI Study:Extremity Lower without Contra Date of Exam: 07/08/24 Exam# [id number] Ordering Dr: Oliver Bowles MD PROCEDURE: EXTREMITY LOWER WITHOUT CONTRA 07/08/2024 REASON FOR EXAM: OSTEOARTHRITIS Joyce protocol for right knee replacement. TECHNIQUE: Axial [...] of the right knee joint was performed. Cujxdhsa-mz-lugipp degree of joint space narrowing and degenerative spur formation along the medial compartment of the knee joint. Mild degree of patellofemoral osteoarthritis. Imaging of the ankle joint was obtained. There is good alignment. Evidence of plantar calcaneal spur. Soft Tissues: Tiny knee joint effusion. CT/Extremity Lower without Contra IMPRESSION: Fsilcyfh-xj-mjdysp degree of joint space narrowing involving the medial compartment of the knee joint as described. Mild degree of patellofemoral joint space narrowing. Reading Location: [facility] CC: Dr. Jose Yuan MD; Dr. Patrick Bowles MD ~ [employer]: Signed [facility]02-12-2025 Evaluation note* Diagnosis Onset Date Resolution Status Admit Date Hypertension chronic March 4:11pm Hypothyroidism chronic March 132024 4:11pm Type 2 diabetes mellitus chronic March 24, 2024 4:11pm Venous insufficiency of both lower extremities chronic March 24, 2024 4:11pm Preoperative evaluation to r ule out surgical contraindication acute Ju 2024 12:53pm Urine abnormality acute July 12:53pm Hypertension chronic July 14 12:53pm Hypothyroidism chronic July 14, 2024 12:53pm BABAR (obstructive sleep apnea) chroni c July 14, 2024 12:53pm Type 2 diabetes mellitus chronic July 14, 2024 12:53pm [facility] Work Phone: 1(190) 229-421502-12-2025 Evaluation note* Diagnosis Onset Date Resolution Status Admit Date Hypertension chronic March 4:11pm Hypothyroidism chronic March 132024 4:11pm Type 2 diabetes mellitus chronic March 24, 2024 4:11pm Venous insufficiency of both lower extremities chronic March 24, 2024 4:11pm [facility] Work Phone: Evaluation noteNo assessment information available [facility] Work Phone: Evaluation note* Diagnosis Onset Date Resolution Status Venous insufficiency of both lower extremities acute Hypertension chronic Hypothyroidism chronic BABAR (obstructive sleep apnea) chronic Type 2 diabetes mellitus chr onic Ulcerative colitis chronic [facility] Work Phone: Evaluation note* Diagnosis Onset Date Resolution Status Health care maintenance acut e Hypertension chronic Hypothyroidism chronic Type 2 diabetes mellitus chr onic Hypertension chronic Hypothyroidism chronic Type 2 diabetes mellitus chr onic Venous insufficiency of both lower extremities chronic [facility] Work Phone: Evaluation note* Diagnosis Onset Date Resolution Status Hypertension chronic Hypothyroidism chronic Type 2 diabetes mellitus chr onic Venous insufficiency of both lower extremities chronic Leg cramps acute Hypertension chronic Hypothyroidism chronic Type 2 diabetes mellitus chr onic Venous insufficiency of both lower extremities chronic [facility] Work Phone: Hospital Discharge instructionsAmbulatory Orders* General Surgery Location: None Selected [facility] Work Phone: Reason for referral (narrative)No reason for referral [facility] Work [facility]: Chief Complaint and Reason for Visit Chief Complaint [employer] MAP, EST. CARE, PT NE EDS NPP Reason for Visit Venous insufficiency of both lower extremities Hypertension Hypothyroidism BABAR (obstructive sleep apnea) Type 2 diabetes mellitus Ulcerative colitis Chief Complaint 3 m fu 3 m fu Reason for Visit Health care usha nce Hypertension Hypothyroidism Type 2 diabetes mellitus [...] lower extre mities March 24, 2024 4:11pm Chief Complaint Admit Date PRE OP July 08, 2024 7:40a m PRE OP July 08, 2024 8:34a m SURG CLEARANCE/3 M FU July 14, 2024 12: 53pm Amb Documentation September 08, 2024 9:27 am abnormal EKG, family hx early CAD October 01, 2024 6:22am abnormal EKG, family hx early CAD October 02, 2024 4:00pm LEFT KNEE JOYCE PROTOCOL October 05 6:56am Reason for Visit Admit Date Preoperative evaluation to rule out surg ical contraindication July 14, 2024 12:53pm Urine abnormality July 14, 2024 12:53 pm Hypertension July 14, 2024 12:53 pm Hypothyroidism July 14, 2024 12:53 pm BABAR (obstructive sleep apnea) July 14, 2024 12:53pm Type 2 diabetes mellitus July 14, 2024 12:53pm Chief Complaint Admit Date PRE OP July 08, 2024 7:40a m PRE OP July 08, 2024 8:34a m SURG CLEARANCE/3 M FU July 14, 2024 12: 53pm Amb Documentation September 08, 2024 9:27 am abnormal EKG, family hx early CAD October 01, 2024 12:00am abnormal EKG, family hx early CAD October 01, 2024 6:22am abnormal EKG, family hx early CAD October 02, 2024 4:00pm LEFT KNEE JOYCE PROTOCOL October 05 6:56am 3 M FU October 15, 2024 8:39am Family History No Family History Records Found Relationship Condition Age at Onset Recorded Date/T irene mother Alcoholism Unknown Malignant neoplasm Unknown Kidney disorder Unknown father Malignant neoplasm Unknown Myocardial infarction Unknown Cardiac disease Unknown brother Myocardial infarction Unknown Advance Directives No Advanced Directives Records Found Advance Directive Response Recorded Date/ Time Living Will Yes May 30, 2016 3:44pm Power of Party Supply Specialist No May 30 3:44pm Advance Directive Response Recorded Date/ Time Living Will Yes May 30, 2016 2:44pm Power of Party Supply Specialist No May 30 2:44pm Summary Purpose Additional [...] Referring Provider Active Start: July 14, 2024 Team Status: Active Member Role/Relationship Status Dates Dr. Jose Yuan MD Primary Care Provider Active Team Status: Inactive Member Role/Relationship Status Dates Dr. Jose Yuan MD Primary Care Provider Active Start: July 08, 2024 End: July 08, 2024 Dr. Patrick Bowles MD Attending Provider Active Start: July 08, 2024 End: July 08, 2024 Dr. Patrick Bowles MD Referring Provider Active Start: July 08, 2024 End: July 08, 2024 Team Status: Active Member Role/Relationship Status Dates Dr. Jose Yuan MD Primary Care Provider Active Start: July 08, 2024 End: July 08, 2024 Dr. Aaron Watt MD Attending Provider Active Start: July 08, 2024 End: July 08, 2024 Dr. Patrick Bowles MD Referring Provider Active Start: July 08, 2024 End: July 08, 2024 Team Status: Inactive Member Role/Relationship Status Dates Dr. Jose Yuan MD Primary Care Provider Active Start: July 14, 2024 End: July 14, 2024 Dr. Jose Yuan MD Attending Provider Active Start: July 14, 2024 End: July 14, 2024 Dr. Jose Yuan MD Referring Provider Active Start: July 14, 2024 End: July 14, 2024 Team Status: Inactive Member Role/Relationship Status Dates Dr. Jose Yuan MD Primary Care Provider Active Start: July 14, 2024 End: July 14, 2024 Dr. Jose Yuan MD Attending Provider Active Start: July 14, 2024 End: July 14, 2024 Dr. Jose Yuan MD Referring Provider Active Start: July 14, 2024 End: July 14, 2024 Team Status: Active Member Role/Relationship Status Dates Dr. Jose Yuan MD Primary Care Provider Active Start: September 08, 2024 Lizbet Baker MA Attending Provider Acti ve Start: September 08, 2024 Team Status: Inactive Member Role/Relationship Status Dates Dr. Jose Yuan MD Primary Care Provider Active Start: October 01, 2024 End: October 01, 2024 Dr. Jose Yuan MD Attending Provider Active Start: October 01, 2024 End: October 01, 2024 Dr. Jose Yuan MD Referring Provider Active Start: October 01, 2024 End: October 01, 2024 Team Status: Active Member Role/Relationship Status Dates Dr. Jose Yuan MD Primary Care Provider Active Start: October 02, 2024 Dr. Jose Yuan MD Referring Provider Active Start: October 02, 2024 Dr. Jose Yuan MD Other Provider Active Start: October 02, 2024 Dr. Cesar Hair MD Attending Provider Activ e Start: October 02, 2024 Team Status: Active Member Role/Relationship Status Dates Dr. Jose Yuan MD Primary Care Provider Active Start: October 05, 2024 Dr. Patrick Bowles MD Attending Provider Active Start: October 05, 2024 Dr. Patrick Bowles MD Referring Provider Active Start: October 05, 2024 Team Status: Inactive Member Role/Relationship Status Dates Dr. Jose Yuan MD Primary Care Provider Active Start: October 05, 2024 End: October 05, 2024 Dr. Patrick Bowles MD Attending Provider Active Start: October 05, 2024 End: October 05, 2024 Dr. Patrick Bowles MD Referring Provider Active Start: October 05, 2024 End: October 05, 2024 Team Status: Active Member Role/Relationship Status Dates Dr. Jose Yuan MD Primary Care Provider Active Start: October 01, 2024 Dr. Jose Yuan MD Referring Provider Active Start: October 01, 2024 Dr. Cesar Hair MD Attending Provider Activ e Start: October 01, 2024 Team Status: Inactive Member Role/Relationship Status Dates Dr. Jose Yuan MD Primary Care Provider Active Start: October 01, 2024 End: October 01, 2024 Dr. Jose Yuan MD Attending Provider Active Start: October 01, 2024 End: October 01, 2024 Dr. Jose Yuan MD Referring Provider Active Start: October 01, 2024 End: October 01, 2024 Team Status: Active Member Role/Relationship Status Dates Dr. Jose Yuan MD Primary Care Provider Active Start: October 02, 2024 Dr. Jose Yuan MD Referring Provider Active Start: October 02, 2024 Dr. Jose Yuan MD Other Provider Active Start: October 02, 2024 Dr. Cesar Hair MD Attending Provider Activ e Start: October 02, 2024 Team Status: Inactive Member Role/Relationship Status Dates Dr. Jose Yuan MD Primary Care Provider Active Start: October 05, 2024 End: October 05, 2024 Dr. Patrick Bowles MD Attending Provider Active Start: October 05, 2024 End: October 05, 2024 Dr. Patrick Bowles MD Referring Provider Active Start: October 05, 2024 End: October 05, 2024 Team Status: Inactive Member Role/Relationship Status Dates ELISE Molina Attending Provider Active St art: October 15, 2024 End: October 15, 2024 Dr. Jose Yuan MD Primary Care Provider Active Start: October 15, 2024 End: October 15, 2024 Dr. Jose Yuan MD Referring Provider Active Start: October 15, 2024 End: October 15, 2024 (unrecognized sect ion and content) No Status Records Found INFORMATION SOURCE (unrecogn ized section and content) DATE CREATED AUTHOR 12/09/2024 [facility] FOR RECORDS PERTAINING TO PATIENTS WHO ARE [...] BE BASED ON THE PRIMARY CLINICAL RECORDS. [facility] provides no warranty or guarantee of the accuracy or completeness of information in this document.
--- NOTE | 2025-02-09 06:31 | PCM.HP.STD ---
[facility] - General General Date of Admission: 02/09/25 Date of Service: 02/09/25 HPI Narrative JOY GENTILE, is a 64 M who presents [for screening colonoscopy. He had a colonoscopy approximately 10 years ago and it was normal. He has a past medical history of mild hyperlipidemia, BABAR, hypothyroidism and diabetes mellitus which are controlled with medicine.] [facility] Medical History Wears glasses Fatty liver High cholesterol Non-smoker CPAP (continuous positive airway pressure) dependence Sleep apnea History of stress test Family history of early CAD Abnormal EKG Preoperative evaluation to rule out surgical contraindication Urine abnormality Screening for prostate cancer Leg cramps BPH (benign prostatic hyperplasia) Health care maintenance BABAR (obstructive sleep apnea) Venous insufficiency of both lower extremities Hypothyroidism Type 2 diabetes mellitus Ulcerative colitis Allergies Thyroid disease Asthma Knee pain Hay fever Diabetes Hypertension Home Medications ?Medication ?Instructions ?Recorded ?Last Taken ?Type loratadine 10 mg tablet (Claritin) 10 mg PO DAILY 04/08/19 02/08/25 History lancets 28 gauge (FreeStyle #200 ea 07/31/22 Unknown Rx Lancets) lancets (Accu-Chek Softclix #100 ea 10/09/23 Unknown Rx Lancets) lancing device with lancets kit #1 ea 10/09/23 Unknown Rx (Accu-Chek Softclix Lancing Device+Lancets kit) blood sugar diagnostic (Accu-Chek #100 ea 05/11/24 Unknown Rx Emily Plus test strips) glimepiride 2 mg tablet 2 mg PO QAM #90 tabs 10/19/24 02/08/25 Rx levothyroxine 150 mcg tablet 150 mcg PO DAILY #120 tabs 10/19/24 02/08/25 Rx montelukast 10 mg tablet 10 mg PO DAILY #90 tabs 10/19/24 02/08/25 Rx trazodone 100 mg tablet See Rx Instructions .Route 10/19/24 02/08/25 Rx .COMPLEX #180 tabs metformin 500 mg tablet 1,000 mg (2 x 500 mg) PO BID 3 11/15/24 02/08/25 Rx months #360 tabs blood sugar diagnostic (Accu-Chek #100 ea 12/02/24 Unknown Rx Guide test strips) lisinopril 5 mg tablet 5 mg PO DAILY #90 tabs 01/03/25 02/09/25 Rx simvastatin 10 mg tablet 10 mg PO DAILY #90 tabs 01/03/25 02/08/25 Rx Allergy/AdvReac Type Severity Reaction Status Date / Time grass pollen Allergy Mild UNKNOWN Verified 02/09/25 06:20 house dust mite Allergy Mild UNKNOWN Verified 02/09/25 06:20 tree and shrub pollen Allergy Mild UNKNOWN Verified 02/09/25 06:20 venom-honey bee Allergy Mild UNKNOWN Verified 02/09/25 06:20 Penicillins Allergy Rash Verified 02/09/25 06:20 Family History Mother Alcoholism Cancer Kidney disease Father Cancer Myocardial infarction Heart disease Brother Myocardial infarction Surgical History H/O hernia repair History of nasal surgery Social History Smoking Status: Never smoker alcohol intake: never substance use type: does not use what type of physical activity do you participate in: walking frequency: daily seatbelt use: always do you feel safe at home: Yes ROS Constitutional Constitutional: Denies fatigue, fever(s), poor appetite, weight gain or weight loss Gastrointestinal Gastrointestinal: Denies belching, bloating, change in bowel habits, change in stool character, chewing difficulty, coffee ground emesis, constipation, cramping, diarrhea, dyspepsia, dysphagia, early satiety, excessive flatus, fecal incontinence, heartburn, hematemesis, hematochezia, hemorrhoids, loose stools, melena, nausea, odynophagia, rectal bleeding, tenesmus, vomiting or weight changes Patient's Goals Of Care . What would you like to achieve or improve as a result of your hospital stay?: none Vital Signs Vital Signs Vital Signs: 02/09/25 06:25 02/09/25 06:25 02/09/25 06:25 Temperature 97.8 F Temperature Source Temporal Pulse Rate 72 Respiratory Rate 18 Respiratory Pattern Normal Blood Pressure 110/88 H Blood Pressure Mean 95 Blood Pressure Source Monitor Blood Pressure Position Semi-Fowlers Blood Pressure Location Right Forearm Baseline BP 110/80 Pulse Ox 98 Oxygen Delivery Method Room Air Weight Weight: 242 lb 8.136 oz Body Mass Index (BMI) 33.8 Physical Exam Const alert, oriented x3, no apparent distress and healthy appearing General Appearance: cooperative GI normal to inspection, nondistended, normoactive bowel sounds, soft to palpation, non-tender and non-distended Percussion: normal to percussion Rectal Exam: deferred Assessment & Plan Assessment/Plan (1) Screening for colon cancer: PLAN: He was explained alternatives, risk and benefits including withstanding bleeding, infection, sepsis, perforation, need for MedSurg and . He will have an ASA of 3.
--- NOTE | 2025-02-09 06:40 | EKG12_ITS ---
Test Reason : PREOP Blood Pressure : */* mmHG Vent. Rate : 70 BPM Atrial Rate : 70 BPM P-R Int : 182 ms QRS Dur : 104 ms QT Int : 416 ms P-R-T Axes : 32 -66 27 degrees QTcB Int : 449 ms Normal sinus rhythm Left axis deviation Abnormal ECG When compared with ECG of 08-Jul-2024 08:34, Previous ECG has undetermined rhythm, needs review Criteria for Septal infarct are no longer Present Confirmed by Aaron Watt ([id number]), sports editor TESSA PHOENIX ([id number]) on 02/14/2025 12:22:48 PM Referred By: Jose Yuan Confirmed By: Aaron Watt
[2025-02-09] MEDS: Lactated Ringers 1,000 ML 15 ML IV (06:44)
--- NOTE | 2025-02-09 06:53 | PCM.PRE.AN2 ---
ASA Classification* ASA Classification ASA Classification: 2 Assessment & Plan Anesthesia* Anesthesia Assessment Anesthesia Assessment: Discussed sedation and/or anesthesia options, risks, benefits, and alternatives with patient/parents/legal guardian/POA. Questions invited. The patient/parents/legal guardian/POA seems to understand and agrees to proceed with anesthesia plan. Reviewed the physical assessment, medical history, allergy history and patient home medications list prior to surgery/procedure/anesthetic and documented any changes. Performed airway and anesthesia risk assessments. Anesthesia Type Anesthesia Type: MAC Anesthesia Focused Assessment* Temperature: 97.8 F Pulse Rate: 72 Blood Pressure: 110/88 Respiratory Rate: 18 Pulse Ox: 98 Airway Assessment Mouth opens: >3 cm Mallampati Score: II Labs Anesthesia Preop lab: CBC WBC, (4.4-11.0) 6.0 K/mm3 10/05/24, 07:02 RBC, (4.6-6.2) 4.80 M/mm3 10/05/24, 07:02 Hgb, (13.0-16.5) 15.2 g/dL 10/05/24, 07:02 Hct, (40-54) 43.9 % 10/05/24, 07:02 Plt Count, (150-450) 190 K/mm3 10/05/24, 07:02 CHEMISTRY Potassium, (3.3-5.1) 4.3 mmol/L 10/05/24, 07:02 Sodium, (133-145) 140 mmol/L 10/05/24, 07:02 Magnesium, (1.6-2.6) 2.1 mg/dL 06/04/23, 16:21 BUN, (4-19) 18 mg/dL 10/05/24, 07:02 Creatinine, (0.70-1.20) 0.86 mg/dL 10/05/24, 07:02 Glucose, (70-99) 158 mg/dL H 10/05/24, 07:02 TSH, (0.300-4.200) 1.050 uIU/mL 07/08/24, 08:07 COAG Pre-Assessment Diagnosis/Proposed Procedure Planned Operative Procedure(s): COLONOSCOPY Anesthesia History 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 When Was Last Pacemaker Check QUESTION #4 FULL TEXT: You/Your Family Experience fever (hyperthermia) with Anesthesia Last Oral Intake Last Oral intake: Last Oral Intake NPO since 04:00 02/09/25 06:25 Meds taken in AM with sips of Yes 02/09/25 06:25 water? Meds patient instructed to lisinopril 02/09/25 06:25 take am of surgery PONV PONV - brass molder helper: PONV - brass molder helper Female No 02/07/25 10:12 HX of Motion Sickness No 02/07/25 10:12 HX of N/V After Surgery No 02/07/25 10:12 Non-Smoker Yes 02/07/25 10:12 Duration of Surgery greater No 02/07/25 10:12 than 60 minutes Number of Risk Factors 1 02/07/25 10:12 PONV Score Low Risk 02/07/25 10:12 Height & Weight Height & Weight: Anesthesia: Height & Weight Height 5 ft 11 in 02/09/25 06:25 Weight: 110 kg 02/09/25 06:25 Body Mass Index (BMI) 33.8 02/09/25 06:25 Respiratory Assessment Respiratory Assessment - brass molder helper: Respiratory Tract Infection Hx - brass molder helper Hx Respiratory Tract Infection No 02/07/25 10:12 STOP Sleep Apnea STOP Sleep Apnea - brass molder helper: STOP Sleep Apnea - brass molder helper Hx Hypertension Yes 02/07/25 10:12 Hx Sleep Apnea Yes 02/07/25 10:12 CPAP Yes 02/07/25 10:12 BIPAP No 02/07/25 10:12 Do you snore loudly (louder than talking or can be heard Do you often feel tired/ fatigued/ sleepy during daytime? Has anyone observed you stop breathing during sleep? STOP Results Positive 02/07/25 10:12 QUESTION #5 FULL TEXT : Do you snore loudly (louder than talking or can be heard through closed doors)? 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 Specify any problems Hx of Preganancy in last 3 N/A 02/07/25 10:12 Months Nurse Filling Out Transfusion [facility] 02/07/25 10:12 & Questions: Date: 02/07/25 02/07/25 10:12 Time: 10:18 02/07/25 10:12 Patient unable to answer at this time (ie. confused, unrespo /Reproduction History /Reproductive History - brass molder helper: /Reproductive Hx- brass molder helper Hx Now Gestational Age (in weeks): EDC: Hx Hx Para Hx Section SAB Does the father of the baby or his family experience fever w Father of the baby Malignant Hypertension history comment Active Medications Active Medications: Current Medications Generic Name Dose Route Start Last Admin Trade Name Freq PRN Reason Stop Dose Admin Lactated Ringer's 1,000 mls @ 15 mls/hr 02/09/25 06:00 02/09/25 06:44 IV 15 mls/hr .Q48H DUGLAS Administration PFSH Medical History Wears glasses Fatty liver High cholesterol Non-smoker CPAP (continuous positive airway pressure) dependence Sleep apnea History of stress test Family history of early CAD Abnormal EKG Preoperative evaluation to rule out surgical contraindication Urine abnormality Screening for prostate cancer Leg cramps BPH (benign prostatic hyperplasia) Health care maintenance BABAR (obstructive sleep apnea) Venous insufficiency of both lower extremities Hypothyroidism Type 2 diabetes mellitus Ulcerative colitis Allergies Thyroid disease Asthma Knee pain Hay fever Diabetes Hypertension Home Medications ?Medication ?Instructions ?Recorded ?Last Taken ?Type loratadine 10 mg tablet (Claritin) 10 mg PO DAILY 04/08/19 02/08/25 History lancets 28 gauge (FreeStyle #200 ea 07/31/22 Unknown Rx Lancets) lancets (Accu-Chek Softclix #100 ea 10/09/23 Unknown Rx Lancets) lancing device with lancets kit #1 ea 10/09/23 Unknown Rx (Accu-Chek Softclix Lancing Device+Lancets kit) blood sugar diagnostic (Accu-Chek #100 ea 05/11/24 Unknown Rx Emily Plus test strips) glimepiride 2 mg tablet 2 mg PO QAM #90 tabs 10/19/24 02/08/25 Rx levothyroxine 150 mcg tablet 150 mcg PO DAILY #120 tabs 10/19/24 02/08/25 Rx montelukast 10 mg tablet 10 mg PO DAILY #90 tabs 10/19/24 02/08/25 Rx trazodone 100 mg tablet See Rx Instructions .Route 10/19/24 02/08/25 Rx .COMPLEX #180 tabs metformin 500 mg tablet 1,000 mg (2 x 500 mg) PO BID 3 11/15/24 02/08/25 Rx months #360 tabs blood sugar diagnostic (Accu-Chek #100 ea 12/02/24 Unknown Rx Guide test strips) lisinopril 5 mg tablet 5 mg PO DAILY #90 tabs 01/03/25 02/09/25 Rx simvastatin 10 mg tablet 10 mg PO DAILY #90 tabs 01/03/25 02/08/25 Rx Allergy/AdvReac Type Severity Reaction Status Date / Time grass pollen Allergy Mild UNKNOWN Verified 02/09/25 06:20 house dust mite Allergy Mild UNKNOWN Verified 02/09/25 06:20 tree and shrub pollen Allergy Mild UNKNOWN Verified 02/09/25 06:20 venom-honey bee Allergy Mild UNKNOWN Verified 02/09/25 06:20 Penicillins Allergy Rash Verified 02/09/25 06:20 Family History Mother Alcoholism Cancer Kidney disease Father Cancer Myocardial infarction Heart disease Brother Myocardial infarction Surgical History H/O hernia repair History of nasal surgery Social History Smoking Status: Never smoker alcohol intake: never substance use type: does not use what type of physical activity do you participate in: walking frequency: daily seatbelt use: always do you feel safe at home: Yes Review of Systems (Anesthesia) ROS Narrative System reviewed and no additional complaints, except as documented.
--- NOTE | 2025-02-09 07:00 | COLBX_PTH ---
PATIENT: JOY GENTILE LOC: EN U#:[id number] AGE/SX: 64/M ROOM: RE02/09/[address]: Dr. Kishore Atkinson DO : 1960 BED: DIS: 02/09/2025 SPEC #: [id number] RECD: 02/09/25 09:49 STATUS: PAOLO PAUL #: [id number] SHIRLENE: 02/09/25 07:[address]: Kishore Atkinson DEPT: SURGICAL PATHOLOGY RECD BY: Nisha Woods ENTERED: 02/09/25 11:18 SP TYPE: COLON BX MOHINI DR: Dr. Jose Yuan MD Tissues: A - Cecum, NOS B - Sigmoid colon biopsy Procedures: Surgery Specimen Level IV HEADER OPERATION: Colonoscopy, open access with biopsy PRE-OP DIAGNOSIS: Screening for colon cancer TISSUE SUBMITTED: A. Cecal polyp, B. Sigmoid polyp MICROSCOPIC DIAGNOSIS A. Colom, cecum, polyp, biopsy: - Tubular adenoma. B. Colon, sigmoid, polyp, biopsy: - Benign superficial glandular epithelium - see note. Note: The assessment is limited by the scant amount of superficial tissue present. MICROSCOPIC DESCRIPTION Slides are reviewed. GROSS DESCRIPTION A. Received is one container labeled with the patient name and designated cecal polyp. The specimen consists of multiple irregular fragments of light vale soft tissue that in aggregate measure 1 x 0.4 x 0.2 cm. The specimen is totally submitted in one cassette. B. Received is one container labeled with the patient name and designated sigmoid polyp. The specimen consists of one irregular fragment of light vale soft tissue that measures 0.1 x 0.1 x 0.1 cm. The specimen is totally submitted in one cassette. 02/09/2025 CPT:03208k6
[2025-02-09] MEDS: Lactated Ringers 500 ML IV (07:27)
--- NOTE | 2025-02-09 07:55 | OP.COLON_ITS ---
Patient Name: Ibrahima Sams Procedure Date: 02/09/2025 7:24 AM Date of : 1960 Age: 64 Procedure: Colonoscopy Indications: Screening for colorectal malignant neoplasm Providers: Kishore Atkinson DO Referring MD: Jose Yuan MD Medicines: Monitored Anesthesia Care Patient Profile: This is a 64 year old male. Refer to note in patient chart for documentation of history and physical. Last Colonoscopy: more than 10 years ago. Complications: No immediate complications. Procedure: Pre-Anesthesia Assessment: - Prior to the procedure, a History and Physical was performed, and patient medications and allergies were reviewed. The patient is competent. The risks and benefits of the procedure and the sedation options and risks were discussed with the patient. All questions were answered and informed consent was obtained. Patient identification and proposed procedure were verified by the physician in the pre-procedure area. Mental Status Examination: alert and oriented. Airway Examination: normal oropharyngeal airway and neck mobility. Respiratory Examination: clear to auscultation. CV Examination: normal. Prophylactic Antibiotics: The patient does not require prophylactic antibiotics. Prior Anticoagulants: The patient has taken no anticoagulant or antiplatelet agents. ASA Grade Assessment: II - A patient with mild systemic disease. After reviewing the risks and benefits, the patient was deemed in satisfactory condition to undergo the procedure. The anesthesia plan was to use monitored anesthesia care (MAC). Immediately prior to administration of medications, the patient was re-assessed for adequacy to receive sedatives. The heart rate, respiratory rate, oxygen saturations, blood pressure, adequacy of pulmonary ventilation, and response to care were monitored throughout the procedure. The physical status of the patient was re-assessed after the procedure. After I obtained informed consent, the scope was passed under direct vision. Throughout the procedure, the patient's blood pressure, pulse, and oxygen saturations were monitored continuously. The Colonoscope was introduced through the anus and advanced to the cecum, identified by appendiceal orifice and ileocecal valve. The colonoscopy was performed without difficulty. The patient tolerated the procedure well. The quality of the bowel preparation was adequate. The ileocecal valve, appendiceal orifice, and rectum were photographed. Scope In: 7:32:34 AM Scope Withdrawal Time 0 hours 12 minutes 40 seconds Scope Out: 7:48:43 AM Total Procedure Duration Time 0 hours 16 minutes 9 seconds Findings: The perianal and digital rectal examinations were normal. Multiple small and large-mouthed diverticula were found in the recto-sigmoid colon, sigmoid colon, descending colon and ascending colon. Two sessile polyps were found in the sigmoid colon and cecum. The polyps were 8 mm in size. These polyps were removed with a jumbo cold forceps. Resection and retrieval were complete. Verification of patient identification for the specimen was done. Estimated blood loss was minimal. The exam was otherwise without abnormality on direct and retroflexion views. Impression: - Diverticulosis in the recto-sigmoid colon, in the sigmoid colon, in the descending colon and in the ascending colon. - Two 8 mm polyps in the sigmoid colon and in the cecum, removed with a jumbo cold forceps. Resected and retrieved. - The examination was otherwise normal on direct and retroflexion views. Recommendation: - Discharge patient to home. - Resume previous diet. - Continue present medications. - Await pathology results. - Repeat colonoscopy in 5 years for surveillance. Procedure Code(s): --- Professional --- 00384, Colonoscopy, flexible; with biopsy, single or multiple CPT copyright 2021 [employer]. All rights reserved. The codes documented in this report are preliminary and upon night shift manager review may be revised to meet current compliance requirements. Kishore Atkinson DO 02/09/2025 7:54:17 AM This report has been signed electronically. Number of Addenda: 0 Note Initiated On: 02/09/2025 7:24 AM
--- NOTE | 2025-02-09 07:55 | OP.PROVAT_ITS ---
02/09/2025 Jose Yuan MD [address] [place] [address] [place] [address] Re : Colonoscopy procedure for Ibrahima Sams Dear Dr. Yuan This procedure was performed on Sunday, February 09, 2025. My impressions and recommendations are as follows: Impressions : - Diverticulosis in the recto-sigmoid colon, in the sigmoid colon, in the descending colon and in the ascending colon. - Two 8 mm polyps in the sigmoid colon and in the cecum, removed with a jumbo cold forceps. Resected and retrieved. - The examination was otherwise normal on direct and retroflexion views. Recommendations : - Discharge patient to home. - Resume previous diet. - Continue present medications. - Await pathology results. - Repeat colonoscopy in 5 years for surveillance. My findings are described in the full procedure note, which is enclosed. If I can be of further assistance, please feel free to contact me at . Sincerely, Kishore Atkinson, 02/09/2025 7:54:17 AM This report has been signed electronically.
--- NOTE | 2025-02-09 07:57 | PCM.POST.ANE ---
Anesthesia: Postop Eval I Current Vital Signs Temperature: 98.5 F Pulse Rate: 82 Blood Pressure: 128/83 Respiratory Rate: 16 Pulse Ox: 96 Assessment Airway patent: Yes Spontaneous unlabored respirations: Yes nausea: No Vomiting: No Anesthesia Complication: No Fluid Hydration Crystalloid volume administer (ml): 500 Total IV fluid infused: 500 Progress Note Anesthesia document: Postop Eval 1 completed: Yes
--- NOTE | 2025-02-09 08:20 | POSTOPAN2_ITS ---
Anesthesia Postop Eval I Sum Postop Eval Completion status Anesthesia document: Postop Eval 1 completed: Yes Anesthesia Postop Eval I Summary Anesthesia Postop Eval I Summary: Anesthesia Postop Eval I: Assessment Summary Airway patent Yes 02/09/25 07:58 [email or web address] [email or web address] Spontaneous unlabored Yes 02/09/25 07:58 BENCH SHEAR [email or web address] respirations Mental status nausea No 02/09/25 07:58 BENCH SHEAR [email or web address] Vomiting No 02/09/25 07:58 BENCH SHEAR [email or web address] Anesthesia Postop Eval I: Fluid Summary Crystalloid volume administer 500 02/09/25 07:58 BENCH [email or web address] (ml) Colloids volume administered ( ml) Blood Product volume administered (ml) Total IV fluid infused 500 02/09/25 07:58 BENCH SHEAR [email or web address] Anesthesia Postop Eval I: Summary Notes Anesthesia Complication No 02/09/25 07:58 BENCH SHEAR [email or web address] Anesthesia Complication Comment: Post-operative progress note Anesthesia: Postop Eval II Evaluation Mental status: Awake Pain Level: 0 nausea: No Vomiting: No
--- NOTE | 2025-02-09 08:20 | PCM.POSTANE2 ---
Anesthesia Postop Eval I Sum Postop Eval Completion status Anesthesia document: Postop Eval 1 completed: Yes Anesthesia Postop Eval I Summary Anesthesia Postop Eval I Summary: Anesthesia Postop Eval I: Assessment Summary Airway patent Yes 02/09/25 07:58 [email or web address] Spontaneous unlabored Yes 02/09/25 07:58 [email or web address] [email or web address] respirations Mental status nausea No 02/09/25 07:58 [email or web address] Vomiting No 02/09/25 07:58 [email or web address] [email or web address] Anesthesia Postop Eval I: Fluid Summary Crystalloid volume administer 500 02/09/25 07:58 [email or web address] (ml) Colloids volume administered ( ml) Blood Product volume administered (ml) Total IV fluid infused 500 02/09/25 07:58 [email or web address] [email or web address] Anesthesia Postop Eval I: Summary Notes Anesthesia Complication No 02/09/25 07:58 HARNESS [email or web address] Anesthesia Complication Comment: Post-operative progress note Anesthesia: Postop Eval II Evaluation Mental status: Awake Pain Level: 0 nausea: No Vomiting: No
== END 2025-02-09 08:27 | disposition home or self-care (01) ==
LOC: EN 05:43 → AC 05:44
PROVIDERS: PCP Internal Medicine; Referring Provider Internal Medicine; Visit Provider Internal Medicine Gastroenterology
PROC: 0DJD8ZZ Inspection of Lower Intestinal Tract, Via Natural or Artificial Opening Endoscopic (ICD-10-PCS; CPT 45378; principal; 2025-02-09 06:55)
DX: Z12.11 Encounter for screening for malignant neoplasm of colon (principal); E11.9 Type 2 diabetes mellitus without complications; K57.30 Diverticulosis of large intestine without perforation or abscess without bleeding; E78.00 Pure hypercholesterolemia, unspecified; J45.909 Unspecified asthma, uncomplicated; I10 Essential (primary) hypertension; Z79.890 Hormone replacement therapy; Z79.84 Long term (current) use of oral hypoglycemic drugs; Z79.899 Other long term (current) drug therapy; D12.0 Benign neoplasm of cecum
CPT/HCPCS: 45380; 82962; 88305; 93005